=== PATIENT | female | born 1930 | race Caucasian/White ===

== ENCOUNTER 2016-05-31 12:32 | Inpatient (IN) | payer OTHER, BC ==
[~2016-05-31] VITALS: Ht 157.5 cm; Wt 55.0 kg
[~2016-05-31 12:32] MED LIST: ASPI81TA28 PO; CALC667C4 PO; GENT0.1C2 TOP; METO25TA3 PO; PRAV40TA2 PO
--- NOTE | 2016-05-31 13:12 | EMERGENCY ROOM VISIT NOTE ---
History Report prepared by [place]ley: Jayme Kirkpatrick Under the Supervision of: Dr. Rigoberto Mathews M.D. First contact with patient: 13:02 Chief Complaint: RESPIRATORY PROBLEMS Stated Complaint: DIFFICULTY BREATHING, WHEEZING Nursing Triage Summary: Triage NOte: pt reports shortness of breath x several days. pt reports moist cough "nothing will come up." pt reports she was seen at [facility] and started on amoxicillan. History of Present Illness The patient is a 86 year old female who presents to the Emergency Room with complaints of shortness of breath that began several days ago. The patient was prescribed Amoxicillin for her illness two days ago. She has taken 5 pills since then. She feels that she is not improving at all. The patient is experiencing a cough with no production. She also reports she had a mild fever this morning. She also states that the antibiotics have given her diarrhea. She denies any chills. 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 She also has a port for dialysis in her right lower abdomen. The patient has had pneumonia before. She reports that it was ten years ago. She is not on any blood thinners. Source of History: patient Onset: several days ago Position: other (lungs) Symptom Intensity: moderate Quality: other (shortness of breath) Timing: other (persistent) Associated Symptoms: + cough, + diarrhea, + fevers, No chills Review of Systems All systems have been listed, reviewed, and are negative other than those previously mentioned. Please see Additional Medical History Sheet. Past Medical & Surgical Medical Problems: (1) CKD (chronic kidney disease) stage 3, GFR 30-59 ml/min (2) ESRD (end stage renal disease) on dialysis (3) Gout (4) Hepatitis, chronic (5) Hypertension (6) Pancreatic lesion (7) Paroxysmal atrial fibrillation (8) Valvular heart disease Surgical Problems: (1) Status post cardiac pacemaker procedure (2) Status post cataract extraction (3) Status post cholecystectomy (4) Status post mitral valve repair (5) Status post tonsillectomy (6) Status post tricuspid valve repair Family History FH: heart disease Social History Smoking Status: Never Smoker Smokeless Tobacco Use: No Marital Status: single Housing Status: lives with family 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 Current/Historical Medications Scheduled Amoxicillin (Amoxil), 250 MG PO BID Calcitriol (Rocaltrol Cap), 0.25 MCG PO DAILY Cinacalcet (Sensipar), 30 MG PO DAILY Metoprolol Tartrate (Lopressor), 12.5 MG PO DAILY Pravastatin Sodium (Pravastatin Sodium), 40 MG PO HS Sevelamer Carbonate (Renvela), 2 TAB PO TIDM Allergies Coded Allergies: Sulfamethoxazole w/Trimethoprim (Verified Allergy, Severe, RASH, n/v, swelling of LE, 03/19/14) Physical Exam Vital Signs Date Time Temp Pulse Resp B/P Pulse Ox O2 Delivery O2 Flow Rate FiO2 05/31/16 19:31 100 28 96/40 94 05/31/16 17:32 105 05/31/16 17:08 93 36 94/37 98 Nebulizer 7.0 05/31/16 16:23 89 30 91/43 96 Nasal Cannula 2.0 05/31/16 14:36 83 32 93/38 94 Nasal Cannula 2.0 05/31/16 13:29 87 05/31/16 13:23 88 36 101/51 97 Nasal Cannula 2.0 05/31/16 13:17 97 Nasal Cannula 2.0 05/31/16 13:17 97 Nasal Cannula 2.0 05/31/16 12:35 36.5 93 20 98/52 91 Room Air Physical Exam GENERAL: Patient awake, alert, oriented x 3. Patient follows commands. Patient does not appear toxic. Patient is adequately hydrated and well- nourished. Mild to moderate distress. SKIN: No erythema, pallor, cyanosis or rash HEENT: Normal head, pupils equal, reactive to light and accommodation. Ptosis on her right eye. Healing incision on right cheek in front of right ear. Ears normal. Oral cavity and posterior pharynx appear normal. Neck: Without adenopathy. LUNGS: Wheezes and rhonchi in all laird. HEART: No gallops. 2/6 systolic murmur and a faint rub. ABDOMEN: No masses, no rebound, no hepatomegaly or splenomegaly. Peritoneal dialysis port located in right lower quadrant. EXTREMITIES: No signs of trauma. No pedal or pretibial edema. No calf or thigh tenderness. Stasis changes to both lower extremities. NEUROLOGIC: Cranial nerves II-XII within normal limits. No gross motor sensory function deficits. Medical Decision & Procedures ER Provider Diagnostic Interpretation: X ray results are stated below per my interpretation and the radiologist's interpretation. CHEST 2 VIEWS ROUTINE HISTORY: Cough. suspect pneumonia COMPARISON: Chest 03/14/2014. FINDINGS: The heart remains moderately enlarged. There are postoperative changes, left-sided pacemaker, and cardiac valve prostheses. No evidence for pulmonary edema. No pleural effusions. No pneumothorax. Linear density within the right medial lung base favor subsegmental atelectasis or scarring. Otherwise, no additional focal lung consolidations to suggest pneumonia. IMPRESSION: Stable cardiomegaly. Linear density within right medial lung base favors scarring or subsegmental atelectasis. Electronically signed by: Austin Garcia M.D. 05/31/2016 2:36 PM Dictated Date/Time: 05/31/2016 2:34 PM Laboratory Results 05/31/16 13:14 Red Blood Count 3.05, Mean Corpuscular Volume 98.4, Mean Corpuscular Hemoglobin 33.4, Mean Corpuscular Hemoglobin Concent 34.0, Mean Platelet Volume 8.9, Neutrophils (%) (Auto) 81.8, Lymphocytes (%) (Auto) 10.6, Monocytes (%) (Auto) 6.9, Eosinophils (%) (Auto) 0.2, Basophils (%) (Auto) 0.2, Neutrophils # (Auto) 5.00, Lymphocytes # (Auto) 0.65, Monocytes # (Auto) 0.42, Eosinophils # (Auto) 0.01, Basophils # (Auto) 0.01 05/31/16 13:14 Test 05/31/16 13:14 05/31/16 13:41 05/31/16 19:37 White Blood Count 6.11 K/uL (4.8-10.8) Red Blood Count 3.05 M/uL (4.2-5.4) Hemoglobin 10.2 g/dL (12.0-16.0) Hematocrit 30.0 % (37-47) Mean Corpuscular Volume 98.4 fL (80-100) Mean Corpuscular Hemoglobin 33.4 pg (25-34) Mean Corpuscular Hemoglobin Concent 34.0 g/dl (32-36) Platelet Count 164 K/uL (130-400) Mean Platelet Volume 8.9 fL (7.4-10.4) Neutrophils (%) (Auto) 81.8 % Lymphocytes (%) (Auto) 10.6 % Monocytes (%) (Auto) 6.9 % Eosinophils (%) (Auto) 0.2 % Basophils (%) (Auto) 0.2 % Neutrophils # (Auto) 5.00 K/uL (1.4-6.5) Lymphocytes # (Auto) 0.65 K/uL (1.2-3.4) Monocytes # (Auto) 0.42 K/uL (0.11-0.59) Eosinophils # (Auto) 0.01 K/uL (0-0.5) Basophils # (Auto) 0.01 K/uL (0-0.2) RDW Standard Deviation 50.8 fL (36.4-46.3) RDW Coefficient of Variation 14.2 % (11.5-14.5) Immature Granulocyte % (Auto) 0.3 % Immature Granulocyte # (Auto) 0.02 K/uL (0.00-0.02) Anion Gap 14.0 mmol/L (3-11) Est Creatinine Clear Calc Drug Dose 4.7 ml/min Estimated GFR () 5.8 Estimated GFR (Non- 5.0 BUN/Creatinine Ratio 5.1 (10-20) Calcium Level 9.3 mg/dl (8.5-10.1) Total Bilirubin 0.5 mg/dl (0.2-1) Aspartate Amino Transf (AST/SGOT) 23 U/L (15-37) Alanine Aminotransferase (ALT/SGPT) 20 U/L (12-78) Alkaline Phosphatase 92 U/L (45-117) Total Protein 8.1 gm/dl (6.4-8.2) Albumin 3.0 gm/dl (3.4-5.0) Globulin 5.1 gm/dl (2.5-4.0) Albumin/Globulin Ratio 0.6 (0.9-2) Lactic Acid Level 1.4 mmol/L (0.4-2.0) Laboratory results as stated above per my review. Medications Administered Medications (Trade) Dose Ordered Sig/Seth Route Start Time Stop Time Status Last Admin Dose Admin Sodium Chloride (Nss 250ml) 250 ml @ 999 mls/hr Q16M STAT IV 05/31/16 15:05 05/31/16 15:20 DC 05/31/16 15:10 999 MLS/HR Albuterol/ Ipratropium (Duoneb) 3 ml NOW STAT INH 05/31/16 16:27 05/31/16 16:28 DC 05/31/16 17:08 3 ML Methylprednisolone Sodium Succinate 80 mg 80 mg NOW STAT IV 05/31/16 17:15 05/31/16 17:16 DC 05/31/16 17:25 80 MG Ceftriaxone Sodium/Dextrose (Rocephin Inj/ Dextrose Add-[place] 50ML) 50 ml @ 100 mls/hr DAILY@1900 IV 05/31/16 19:00 06/07/16 18:59 05/31/16 19:00 100 MLS/HR ECG Indication: SOB/dyspnea Rate (beats per minute): 88 Rhythm: atrial fibrillation Findings: RBBB, ST depression (2, 3 aVF, V3-6), other (occasional pacer spikes , non-capture of pacemaker) Comparison ECG Date: 16 August 2015 Change: ST depressions are old, the rate has decreased. ED Course 1302: Past medical records reviewed. The patient was evaluated in room B6. A complete history and physical examination was performed. 1505: Sodium Chloride 1000 ml @ 1000 mls/hr IV 1615: I reassessed the patient at this time. She is still having respiratory distress. I will order a breathing treatment. 1627: Duoneb 3 ml INH 1715: Solu-Medrol IV 80 mg IV 1716: The patient is still having labored breathing. She is getting a breathing treatment now. I gave her steroids. I will be calling [facility] for further management. 1720: Upon reevaluation, the patient is resting. I discussed today's findings with her. She verbalized agreement of the treatment plan. I spoke with Dr. Longo of the [facility] Hospitalist Service to evaluate the patient for further management. Medical Decision Nurses notes reviewed. Medical history sheet reviewed. Differential diagnosis includes but is not limited to: Pneumonia, bronchitis, sepsis, metabolic disorder, and dehydration. The patient is here with labored breathing. She's been on an antibiotic without benefit. Examination reveals significant wheezes and some rhonchi. Chest x-ray does not reveal clear infiltrate. Patient was given a breathing treatment. I discussed care with the patient, family members and with the hospitalist. The patient will require further evaluation and treatment in the hospital. The patient has a coma over problems complicating her respiratory issue. The patient also has an unusual EKG with questionable pacemaker malfunction. The patient will require cardiology follow-up. Consults Time Called: 1715 Consulting Physician: Dr. Donta Espino Hospitalist Returned Call: 1720 She will be evaluating the patient for further management. Impression Primary Impression: Hypoxia Additional Impressions: Acute bronchitis Renal failure Hypotension Scribe Attestation The scribe's documentation has been prepared under my direction and personally reviewed by me in its entirety. I confirm that the note above accurately reflects all work, treatment, procedures, and medical decision making performed by me. Departure Information Dispostion Being Evaluated By Hospitalist Referrals OncHalle garcia DO (PCP) Patient Instructions My [facility] Problem Qualifiers
[2016-05-31 13:59] LABS: BASO % 0.2 %; BASO ABS # 0.01 K/uL (0-0.2); COMPLETE YES; EOS % 0.2 %; IG% 0.3 %; LYMPH % 10.6 %; LYMPH ABS # 0.65 K/uL (1.2-3.4); MEAN CELL VOLUME 98.4 fL (80-100); MEAN CORPUSCULAR HEMOGLOBIN 33.4 pg (25-34); MEAN PLATELET VOLUME 8.9 fL (7.4-10.4); MONO % 6.9 %; NEUT % 81.8 %; PLATELET COUNT 164 K/uL (130-400); RED BLOOD COUNT 3.05 M/uL (4.2-5.4); WHITE BLOOD COUNT 6.11 K/uL (4.8-10.8)
[2016-05-31] MEDS ORDERED: SEVE800T7 PO (14:07)
[2016-05-31] MEDS ORDERED: AMOX250C3 PO (14:07)
[2016-05-31] MEDS ORDERED: CALC0.2510 PO (14:07)
[2016-05-31] MEDS ORDERED: CINA0.42 PO (14:07)
[2016-05-31 14:34] LABS: ALB/GLOB RATIO 0.6 (0.9-2); BUN/CREATININE RATIO 5.1 (10-20); CALCIUM 9.3 mg/dl (8.5-10.1); CREATININE 6.9 mg/dl (0.60-1.20); POTASSIUM 4.3 mmol/L (3.5-5.1)
--- NOTE | 2016-05-31 14:38 | DIAGNOSTIC IMAGING REPORT ---
CHEST 2 VIEWS ROUTINE HISTORY: Cough. suspect pneumonia COMPARISON: Chest 03/14/2014. FINDINGS: The heart remains moderately enlarged. There are postoperative changes, left-sided pacemaker, and cardiac valve prostheses. No evidence for pulmonary edema. No pleural effusions. No pneumothorax. Linear density within the right medial lung base favor subsegmental atelectasis or scarring. Otherwise, no additional focal lung consolidations to suggest pneumonia. IMPRESSION: Stable cardiomegaly. Linear density within right medial lung base favors scarring or subsegmental atelectasis. Electronically signed by: Austin Garcia M.D. 05/31/2016 2:36 PM Dictated Date/Time: 05/31/2016 2:34 PM
[2016-05-31] MEDS ORDERED: SODIUM CHLORIDE 0.9% 250ML 250 ML IV STA ×2 (15:05→20:03)
[2016-05-31] MEDS ORDERED: ALBUT/IPRATROP 3MG/0.5MG NEB 3 ML VIAL INH STA (16:27)
[2016-05-31] MEDS ORDERED: METHYLPREDNISOLONE 125 MG VIAL IV STA (17:15)
[2016-05-31] MEDS ORDERED: ONDANSETRON INJ 2 MG/ML 2 ML VIAL IV PRN (18:15)
[2016-05-31] MEDS ORDERED: ACETAMINOPHEN 325 MG TAB PO PRN (18:15)
[2016-05-31] MEDS ORDERED: NITROGLYCERIN 0.4 MG SL PER TAB CHARGE SL PRN (18:15)
[2016-05-31] MEDS ORDERED: AZITHROMYCIN 250 MG TAB PO STA (18:17)
[2016-05-31] MEDS ORDERED: LEVALBUTEROL/IPRATROPIUM NEB INH PRN ×2 (18:30→18:45)
[2016-05-31] MEDS ORDERED: LPR25 PO (18:47)
[2016-05-31] MEDS: CEFTRIAXONE SOD INJ 1 GM in DEXTROSE 5% ADD-VANTAGE 50ML 50 ML IV SCH (19:00)
[2016-05-31] MEDS ORDERED: LEVALBUTEROL/IPRATROPIUM NEB INH SCH (19:00)
--- NOTE | 2016-05-31 19:07 | History and Physical ---
History & Physical Date & Time of Service: May 31, 2016 at 18:49 Chief Complaint: Difficulty Breathing, Wheezing Primary Care Physician: Arline Arroyo M.D. History of Present Illness Source: patient, family, clinic records, hospital records Patient seen and examined. 86 year old female with PMHx of ESRD on peritoneal dialysis, HLD, Afib, and h/o pacemaker presents to the ED complaining of SOB and wheezing x 1 day. Patient reports that she has had URI symptoms for about a week and was started on Amoxil by her PCP. In the last day or so the patient reports that she has been wheezing and somewhat SOB so she came to the ED today. She reports associated nasal congestion and cough. She states her cough is becoming more productive but she still hasn't coughed anything up. She denies fevers, chills, chest pain, palpitations, nausea, vomiting, calf pain and edema. She does not urinate. She states she has been having 3-4 episodes of diarrhea a day since starting the Amoxil. She reports family members have had URIs recently. She does not wear oxygen at home and denies history of COPD, Asthma or tobacco abuse. In the ED BP is soft, she is afebrile, she is 91% on RA. Oxygen was applied to patient and she is saturating well. CXR does not show any consolidation. EKG shows a paced rhythm but ED physician is concerned that it is not pacing ever beat. She received IV steroids, and nebs. She is feeling a little better. She will be admitted for further workup and treatment. 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." Status: Chronic (7) Paroxysmal atrial fibrillation Status: Chronic (8) Valvular heart disease Status: Chronic Surgical Problems: (1) Status post cardiac pacemaker procedure Status: Chronic (2) Status post cataract extraction Status: Chronic (3) Status post cholecystectomy Status: Chronic (4) Status post mitral valve repair Status: Chronic (5) Status post tonsillectomy Status: Chronic (6) Status post tricuspid valve repair Status: Chronic Family History FH: heart disease Stroke Social History Smoking Status: Never Smoker Smokeless Tobacco Use: No Alcohol Use: occasionally Marital Status: single Housing status: lives with family Occupational Status: retired Immunizations History of Influenza Vaccine: Unknown History of Tetanus Vaccine?: Unknown History of Pneumococcal: Unknown History of Hepatitis B Vaccine: Unknown Multi-Drug Resistant Organisms History of MDRO: No Allergies Coded Allergies: Sulfamethoxazole w/Trimethoprim (Verified Allergy, Severe, RASH, n/v, swelling of LE, 03/19/14) Home Medications Scheduled Amoxicillin (Amoxil), 250 MG PO BID Calcitriol (Rocaltrol Cap), 0.25 MCG PO DAILY Cinacalcet (Sensipar), 30 MG PO DAILY Metoprolol Tartrate (Lopressor), 12.5 MG PO DAILY Pravastatin Sodium (Pravastatin Sodium), 40 MG PO HS Sevelamer Carbonate (Renvela), 2 TAB PO TIDM Review of Systems Constitutional: No chills, No fever Eyes: No worsening of vision ENT: + nasal symptoms Respiratory: + cough, + shortness of breath, + sputum, + wheezing Cardiovascular: No chest pain, No edema, No palpitations Abdomen: + diarrhea, No constipation, No nausea, No pain, No vomiting Musculoskeletal: No calf pain, No swelling Genitourinary - Female: + problem reported (does not urinate ) Neurologic: No numbness/tingling, No vertigo Psychiatric: No anxiety Endocrine: No fatigue Hematologic / Lymphatic: No abnormal bleeding/bruising, No clotting problems Integumentary: No itch, No rash Allergic / Immunologic: No environmental allergies Physical Exam Vital Signs Date Time Temp Pulse Resp B/P Pulse Ox O2 Delivery O2 Flow Rate FiO2 05/31/16 17:32 105 05/31/16 17:08 93 36 94/37 98 Nebulizer 7.0 05/31/16 16:23 89 30 91/43 96 Nasal Cannula 2.0 05/31/16 14:36 83 32 93/38 94 Nasal Cannula 2.0 05/31/16 13:29 87 05/31/16 13:23 88 36 101/51 97 Nasal Cannula 2.0 05/31/16 13:17 97 Nasal Cannula 2.0 05/31/16 13:17 97 Nasal Cannula 2.0 05/31/16 12:35 36.5 93 20 98/52 91 Room Air General Appearance: + pertinent finding (Pleasant WD/WN 86 year old female lying in bed in NAD with family at bedside ) Head: normocephalic, atraumatic Eyes: PERRL, EOMI, sclerae normal ENT: hearing grossly normal, pharynx normal Neck: supple, no JVD, trachea midline Respiratory/Chest: chest non-tender, no respiratory distress, no accessory muscle use, + pertinent finding (poor air entry, diffuse wheezes noted throughout all lung laird, no crackles noted ) Cardiovascular: regular rate, rhythm, no gallop, no JVD, no murmur, normal peripheral pulses Abdomen/GI: normal bowel sounds, non tender, soft Back: normal inspection, no muscle spasm Extremities/Musculoskelatal: no calf tenderness, normal capillary refill, + pedal edema (trace) Neurologic/Psych: alert, oriented x 3, + pertinent finding (no motor or sensory deficits noted on gross exam ) Skin: normal color, warm/dry, no rash, + pertinent finding (right side of face s/p skin lesion removal ) Lymphatic: no adenopathy Diagnostics Laboratory Results Results Past 24 Hours Test 05/31/16 13:14 05/31/16 13:41 Range/Units White Blood Count 6.11 4.8-10.8 K/uL Red Blood Count 3.05 4.2-5.4 M/uL Hemoglobin 10.2 12.0-16.0 g/dL Hematocrit 30.0 37-47 % Mean Corpuscular Volume 98.4 80-100 fL Mean Corpuscular Hemoglobin 33.4 25-34 pg Mean Corpuscular Hemoglobin Concent 34.0 32-36 g/dl Platelet Count 164 130-400 K/uL Mean Platelet Volume 8.9 7.4-10.4 fL Neutrophils (%) (Auto) 81.8 % Lymphocytes (%) (Auto) 10.6 % Monocytes (%) (Auto) 6.9 % Eosinophils (%) (Auto) 0.2 % Basophils (%) (Auto) 0.2 % Neutrophils # (Auto) 5.00 1.4-6.5 K/uL Lymphocytes # (Auto) 0.65 1.2-3.4 K/uL Monocytes # (Auto) 0.42 0.11-0.59 K/uL Eosinophils # (Auto) 0.01 0-0.5 K/uL Basophils # (Auto) 0.01 0-0.2 K/uL RDW Standard Deviation 50.8 36.4-46.3 fL RDW Coefficient of Variation 14.2 11.5-14.5 % Immature Granulocyte % (Auto) 0.3 % Immature Granulocyte # (Auto) 0.02 0.00-0.02 K/uL Sodium Level 136 136-145 mmol/L Potassium Level 4.3 3.5-5.1 mmol/L Chloride Level 94 98-107 mmol/L Carbon Dioxide Level 28 21-32 mmol/L Anion Gap 14.0 3-11 mmol/L Blood Urea Nitrogen 36 7-18 mg/dl Creatinine 6.90 0.60-1.20 mg/dl Est Creatinine Clear Calc Drug Dose 4.7 ml/min Estimated GFR () 5.8 Estimated GFR (Non- 5.0 BUN/Creatinine Ratio 5.1 10-20 Random Glucose 105 70-99 mg/dl Calcium Level 9.3 8.5-10.1 mg/dl Total Bilirubin 0.5 0.2-1 mg/dl Aspartate Amino Transf (AST/SGOT) 23 15-37 U/L Alanine Aminotransferase (ALT/SGPT) 20 12-78 U/L Alkaline Phosphatase 92 45-117 U/L Total Protein 8.1 6.4-8.2 gm/dl Albumin 3.0 3.4-5.0 gm/dl Globulin 5.1 2.5-4.0 gm/dl Albumin/Globulin Ratio 0.6 0.9-2 Lactic Acid Level 1.4 0.4-2.0 mmol/L Microbiology Results 05/31/16 Blood Culture, Received Pending 05/31/16 Blood Culture, Received Pending Diagnostic Radiology CXR Per radiologist read: IMPRESSION: Stable cardiomegaly. Linear density within right medial lung base favors scarring or subsegmental atelectasis. EKG Afib with RBBB, 90 BPM, some pacemaker spikes, QTc 521 Impression Assessment and Plan 86 year old female presents to ED complaining of cough, SOB, wheezing. Likely acute bronchitis. Denies history of Asthma/COPD. She is a nonsmoker ACUTE BRONCHITIS -Admit to tele -CXR without consolidation, no leukocytosis, lactate <2, afebrile -Check for Flu - PCR flu pending -Empirically treat with Rocephin and Doxycycline -blood cultures, sputum cultures pending -Xopenex nebs scheduled and prn SOB/Wheeze -IV Solu-Medrol 60mg Q8h -Oxygen prn -CBC, PRP, Mg daily DIARRHEA -check c.diff ESRD -On Peritoneal dialysis -follows with [facility] -nephrology consult placed -lytes stable H/O PACEMAKER - per patient last pacemaker check several weeks ago and normal -only occasional pacemaker spikes on EKG -interrogate pacemaker -monitor in tele AFIB -continue BB with hold parameters - BP in the 90s-100s systolically currently -monitor in tele HLD -continue Statin DVT PROPHYLAXIS: Sq heparin CODE STATUS: FULL CODE per my discussion with the patient DISPO:In my clinical judgment this beneficiary meets acute admission criteria, established by [facility], that includes being hospitalized through two midnights. Discharge planning eval, PT/OT Patient seen in collaboration with Dr. Longo ATTENDING NOTE : pt seen and examined , in agreement with above H&P by Sandra Leger PA-C 86 yo F with multiple co morbbidities -including -ESRD on dialysis , Afib s/p MAZE procedure , Pacemaker placement has been having cough, yellow sputum , sinus pressure , post nasal drip for past 3-4 days no fever seen at PCP office on 05/29/15 -started on Amoxicillin -no improvement of symptom presents to ED with diffuse wheeze , hypoxia Cxray -no obvious infiltrate normal white count P/E: gen : chronically ill appearing female , in respiratory distress HEENT; sclera non icteric Lungs: diffuse wheeze on all lung laird , + rhonchi HT: regular , tachycardic , no JVD, no lower ext edema Abdomen: soft ,non tender -peritoneal dialysis access present Ext ; no rash or deformity A/P : SOB /HYPOXIA /ACUTE BRONCHITIS : possible secondary to viral bronchitis no infiltrate noted in Cxray repeat Xray ordered in AM empiric Abx with IV Rocephin /Doxycycline ( qtc prolonged > 500 ) . 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 Y/N: Yes Risk Level: Moderate Given or contraindicated: Unfractionated heparin SQ
[2016-05-31] MEDS ORDERED: LEValbuterol HFA 15GM INHALER INH PRN (19:30)
[2016-05-31] MEDS ORDERED: SODIUM CHLORIDE 0.9% 250ML 250 ML IV SCH (19:30)
[2016-05-31] MEDS ORDERED: SODIUM CHLORIDE 0.9% 1000ML 1,000 ML IV SCH (19:30)
[2016-05-31 20:07] VITALS: BP 109/25; PULSE 101; TEMP 37.3; O2SAT 94; Ht 157.5 cm; Wt 55.0 kg
[2016-05-31] MEDS: IPRATROPIUM BROMIDE NEB SOLN 0.02% 2.5 ML VIAL INH SCH (20:14)
[2016-05-31] MEDS: LEVALBUTEROL 1.25MG/0.5ML NEB INH SCH (20:14)
[2016-05-31 20:15] VITALS: PULSE 96; O2SAT 96
[2016-05-31] MEDS ORDERED: IPRATROPIUM BROMIDE NEB SOLN 0.02% 2.5 ML VIAL INH PRN (20:15)
[2016-05-31] MEDS ORDERED: LEVALBUTEROL 1.25MG/0.5ML NEB INH PRN (20:15)
[2016-05-31 20:50] VITALS: BP 101/41; PULSE 98; TEMP 36.8
[2016-05-31] MEDS ORDERED: PRAVASTATIN SOD 40 MG TAB PO SCH (21:00)
[2016-05-31] MEDS ORDERED: METOPROLOL TARTRATE 25 MG TAB PO SCH (21:00)
[2016-05-31] MEDS: DOXYCYCLINE HYCLATE 100 MG CAP PO SCH (21:21)
[2016-05-31 21:52] LABS: INR 1.2 (0.9-1.1); PROTHROMBIN TIME (PATIENT) 12.4 SECONDS (9.0-12.0)
[2016-05-31 22:10] VITALS: PULSE 96; TEMP 36.8
[2016-05-31 22:56] VITALS: BP 101/41; PULSE 98; TEMP 36.8
[2016-05-31 23:16] VITALS: BP 93/41; PULSE 77; TEMP 37.2; O2SAT 96
[2016-05-31 23:27] LABS: PERITONEAL FLUID RBC < 3000 /uL
[2016-05-31 23:48] LABS: INFLUENZA A PCR Neg for Influ A (NEG); INFLUENZA B PCR Neg for Influ B (NEG)
[2016-06-01] VITALS (10 sets, daily range): BP systolic 86–114; BP diastolic 34–65; PULSE 70–102; TEMP 36.6–37.1; O2SAT 92–97
[2016-06-01 01:28] LABS: PERIT FL WBC < 10 /uL (0-300)
[2016-06-01] MEDS: METHYLPREDNISOLONE IV 60 MG in SYRINGE 0 ML IV SCH ×3 (02:07→18:00)
[2016-06-01] MEDS: IPRATROPIUM BROMIDE NEB SOLN 0.02% 2.5 ML VIAL INH SCH ×3 (02:13→14:24)
[2016-06-01] MEDS: LEVALBUTEROL 1.25MG/0.5ML NEB INH SCH ×3 (02:14→14:24)
[2016-06-01] MEDS: HEPARIN SOD 5000 UNIT/0.5 ML CARP SQ SCH ×2 (05:51→14:44)
[2016-06-01 06:04] LABS: HEMATOCRIT 26.5 % (37-47); MEAN CELL VOLUME 100.4 fL (80-100); MEAN CORPUSCULAR HEMOGLOBIN 33.3 pg (25-34); MEAN CORPUSCULAR HGB CONC 33.2 g/dl (32-36); MEAN PLATELET VOLUME 9.3 fL (7.4-10.4); PLATELET COUNT 140 K/uL (130-400); RED BLOOD COUNT 2.64 M/uL (4.2-5.4); WHITE BLOOD COUNT 4.26 K/uL (4.8-10.8)
[2016-06-01 06:46] LABS: BUN/CREATININE RATIO 6.1 (10-20); CALCIUM 8.3 mg/dl (8.5-10.1); CREATININE 6.9 mg/dl (0.60-1.20); MAGNESIUM 1.7 mg/dl (1.8-2.4); POTASSIUM 4.1 mmol/L (3.5-5.1)
[2016-06-01] MEDS: DOXYCYCLINE HYCLATE 100 MG CAP PO SCH (07:59)
[2016-06-01] MEDS: SEVELAMER HYDROCH 800 MG TAB PO SCH ×3 (07:59→16:50)
[2016-06-01] MEDS: LACTOBACILLUS ACIDOPHILUS (FLORANEX) TAB PO SCH ×3 (08:01→16:50)
--- NOTE | 2016-06-01 08:09 | Nephrology Consultation ---
Nephrology Consultation Date of Consultation: Jun 01, 2016. Attending Physician: Dr Pimentel Requesting Physician: Dr Longo Reason for Consultation: ESRD on PD History of Present Illness 86 year old female w/ ESRD on PD admitted for mgt of acute bronchitis last evening. Other PMH includes A fib, HL, hepatitis, HTN, gout, s/p tricuspid and mitral valve repairs. Has been on PD for a few years under the care of Dr. Almazan at [facility]; one peritonitis episode abotu 6 mos back otherwise pd going well. She lives w/ her daughter and family and has + sick contacts. The pt developed respiratory sx last week (productive cough, rhinorrhea/ sinus pressure) and was started on amoxil on 05/29 by her PCP; within a day she developed diarrhea on this abtc. Over the 48 hrs prior to admission, her wheezing and dyspnea worsened; had also been eating/drinking poorly. Found to be hypoxic on presentation. CXR w/o evidence of PNA or volume overload. Denies issues w/ PD such as trouble doing exchanges or catheter or exit site concerns; no n/v/abd pain or prior to abtx diarrhea. She is anuric. Her prescription is 4 exchanges MN-8 am x 2200 mL then 2L LBF which she drains at noon; then at 2100 she puts in 1.5L. States she feels much improved this am, though still notes her breathing is short at times. I reviewed her care yesterday, ordered PD fluid studies (d/t gi sx solely) which are not concerning for peritonitis; then also ordered PD overnight w/ goal of minimal UF. Her sbp normally per pt is in 100s; she was running 80-90s on admission and after d/w Dr. Longo, a 250 ML NS bolus was ordered followed by 50 mL hourly NS. 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 Allergies Coded Allergies: Sulfamethoxazole w/Trimethoprim (Verified Allergy, Severe, RASH, n/v, swelling of LE, 03/19/14) Medications Current Inpatient Medications Medications (Trade) Dose Ordered Sig/Seth Route Start Time Stop Time Status Last Admin Dose Admin Heparin Sodium (Porcine) (Heparin Sq 5000 Unit/0.5ml) 5,000 unit Q8 SQ 06/01/16 06:00 07/01/16 05:59 06/01/16 05:51 5,000 UNIT Acetaminophen (Tylenol Tab) 650 mg Q4H PRN PO 05/31/16 18:15 06/30/16 18:14 Nitroglycerin (Nitrostat Tab) 0.4 mg UD PRN SL 05/31/16 18:15 06/30/16 18:14 Calcitriol (Rocaltrol Cap) 0.25 mcg DAILY PO 06/01/16 09:00 07/01/16 08:59 Pravastatin Sodium (Pravachol Tab) 40 mg HS PO 05/31/16 21:00 06/30/16 20:59 05/31/16 21:21 40 MG Cinacalcet (Sensipar) 30 mg DAILY PO 06/01/16 09:00 07/01/16 08:59 Sevelamer HCl 1600 mg 1,600 mg TIDM PO 06/01/16 07:30 07/01/16 07:59 Ceftriaxone Sodium/Dextrose (Rocephin Inj/ Dextrose Add-[place] 50ML) 50 ml @ 100 mls/hr DAILY@1900 IV 05/31/16 19:00 06/07/16 18:59 05/31/16 19:00 100 MLS/HR Doxycycline Hyclate 100 mg 100 mg BID PO 05/31/16 21:00 06/07/16 20:59 05/31/16 21:21 100 MG Methylprednisolone Sodium Succinate/ Syringe (Solu-Medrol IV/ Syringe) 0.96 ml @ 1.5 mls/min Q8@0200,1000,1800 IV 06/01/16 02:00 06/30/16 18:44 06/01/16 02:07 1.5 MLS/MIN Metoprolol Tartrate (Lopressor Tab) 12.5 mg HS PO 05/31/16 21:00 06/30/16 20:59 05/31/16 21:21 12.5 MG Levalbuterol 2 puffs 2 puffs QID PRN INH 05/31/16 19:30 06/30/16 19:29 Sodium Chloride (Nss 1000ml) 1,000 ml @ 50 mls/hr Q20H IV 05/31/16 19:30 06/30/16 19:29 05/31/16 21:20 50 MLS/HR Ipratropium [place] (Atrovent 0.02% 0.5MG/2.5ML Neb) 0.5 mg Q6R INH 05/31/16 21:00 06/30/16 20:59 06/01/16 07:09 0.5 MG Levalbuterol (Xopenex 1.25MG/ 0.5ML Neb) 1.25 mg Q6R INH 05/31/16 21:00 06/30/16 20:59 06/01/16 07:09 1.25 MG Ipratropium [place] (Atrovent 0.02% 0.5MG/2.5ML Neb) 0.5 mg Q2H PRN INH 05/31/16 20:15 06/30/16 20:14 Levalbuterol (Xopenex 1.25MG/ 0.5ML Neb) 1.25 mg Q2H PRN INH 05/31/16 20:15 06/30/16 20:14 Lactobacillus Acidophilus (Floranex Tab) 4 tab TIDM PO 06/01/16 07:30 07/01/16 07:29 Home Meds and Scripts Medications Dose Route/Sig Max Daily Dose Days Date Category Dose Instructions Lopressor (Metoprolol Tartrate) 25 Mg Tab 12.5 Mg PO DAILY 05/31/16 Reported Renvela (Sevelamer Carbonate) 800 Mg Tab 2 Tab PO TIDM 90 05/31/16 Reported Amoxil (Amoxicillin) 250 Mg Cap 250 Mg PO BID 05/31/16 Reported X10 DAYS..STARTED 05/29/16 Rocaltrol Cap (Calcitriol) 0.25 Mcg Cap 0.25 Mcg PO DAILY 05/31/16 Reported Sensipar (Cinacalcet) 30 Mg Tab 30 Mg PO DAILY 05/31/16 Reported Pravastatin Sodium 40 Mg Tab 40 Mg PO HS 11/17/13 Reported Review of Systems Constitutional: + fatigue, + weakness, No fever Eyes: No worsening of vision ENT: No hearing loss Respiratory: + cough, + dyspnea at rest, + see HPI, + shortness of breath ( breathing improved today and does not feel dyspneic), + wheezing Cardiac: No chest pain, No edema, No palpitations Abdomen: + diarrhea, No nausea, No pain, No vomiting Musculoskeletal: No joint pain, No muscle pain Female : + problem reported (anuric) Neuro: + weakness, No memory loss Psych: No anxiety, No depression symptoms Heme: No abnormal bleeding/bruising Endo: + fatigue Skin: No itch, No rash Physical Exam Date Time Temp Pulse Resp B/P Pulse Ox O2 Delivery O2 Flow Rate FiO2 06/01/16 04:15 Nasal Cannula 2.0 06/01/16 04:08 36.7 83 18 86/34 94 Nasal Cannula 2.0 06/01/16 02:14 92 20 96 Nasal Cannula 2.0 06/01/16 00:02 Nasal Cannula 2.0 05/31/16 23:16 37.2 77 19 93/41 96 Nasal Cannula 2.0 05/31/16 22:56 36.8 98 101/41 05/31/16 22:10 36.8 96 16 05/31/16 20:50 36.8 98 101/41 05/31/16 20:15 96 20 96 Nasal Cannula 2.0 05/31/16 20:07 37.3 101 20 109/25 94 Nasal Cannula 2.0 05/31/16 19:31 100 28 96/40 94 05/31/16 17:32 105 05/31/16 17:08 93 36 94/37 98 Nebulizer 7.0 05/31/16 16:23 89 30 91/43 96 Nasal Cannula 2.0 05/31/16 14:36 83 32 93/38 94 Nasal Cannula 2.0 05/31/16 13:29 87 05/31/16 13:23 88 36 101/51 97 Nasal Cannula 2.0 05/31/16 13:17 97 Nasal Cannula 2.0 05/31/16 13:17 97 Nasal Cannula 2.0 05/31/16 12:35 36.5 93 20 98/52 91 Room Air 24-Hour Column 06/01/16 08:00 Intake Total 1990 ml Output Total 1000 ml Balance 990 ml General Appearance: WD/WN, no apparent distress, + thin, + pertinent finding ( lying flat on 2LNC) Eyes: EOMI ENT: hearing grossly normal Neck: supple Respiratory/Chest: no respiratory distress, no accessory muscle use, + decreased breath sounds, + rhonchi, + wheezing, + pertinent finding (prolonged expiratory phase) Cardiovascular: no edema, + irregularly irregular Abdomen: normal bowel sounds, non tender, + pertinent finding (PD cath present ; fluid dwelling) Extremities: normal inspection, no pedal edema Neurologic/Psych: alert, normal mood/affect, oriented x 3 Skin: no jaundice, warm/dry, no rash Diagnostics Last 24 Hours Test 05/31/16 13:14 05/31/16 13:41 05/31/16 20:30 05/31/16 21:32 White Blood Count 6.11 K/uL Red Blood Count 3.05 M/uL Hemoglobin 10.2 g/dL Hematocrit 30.0 % Mean Corpuscular Volume 98.4 fL Mean Corpuscular Hemoglobin 33.4 pg Mean Corpuscular Hemoglobin Concent 34.0 g/dl Platelet Count 164 K/uL Mean Platelet Volume 8.9 fL Neutrophils (%) (Auto) 81.8 % Lymphocytes (%) (Auto) 10.6 % Monocytes (%) (Auto) 6.9 % Eosinophils (%) (Auto) 0.2 % Basophils (%) (Auto) 0.2 % Neutrophils # (Auto) 5.00 K/uL Lymphocytes # (Auto) 0.65 K/uL Monocytes # (Auto) 0.42 K/uL Eosinophils # (Auto) 0.01 K/uL Basophils # (Auto) 0.01 K/uL RDW Standard Deviation 50.8 fL RDW Coefficient of Variation 14.2 % Immature Granulocyte % (Auto) 0.3 % Immature Granulocyte # (Auto) 0.02 K/uL Sodium Level 136 mmol/L Potassium Level 4.3 mmol/L Chloride Level 94 mmol/L Carbon Dioxide Level 28 mmol/L Anion Gap 14.0 mmol/L Blood Urea Nitrogen 36 mg/dl Creatinine 6.90 mg/dl Est Creatinine Clear Calc Drug Dose 4.7 ml/min Estimated GFR () 5.8 Estimated GFR (Non- 5.0 BUN/Creatinine Ratio 5.1 Random Glucose 105 mg/dl Calcium Level 9.3 mg/dl Total Bilirubin 0.5 mg/dl Aspartate Amino Transf (AST/SGOT) 23 U/L Alanine Aminotransferase (ALT/SGPT) 20 U/L Alkaline Phosphatase 92 U/L Total Protein 8.1 gm/dl Albumin 3.0 gm/dl Globulin 5.1 gm/dl Albumin/Globulin Ratio 0.6 Lactic Acid Level 1.4 mmol/L Peritoneal Fluid Color COLORLESS Peritoneal Fluid Appearance HAZY Peritoneal Fluid WBC < 10 /uL Peritoneal Fluid RBC < 3000 /uL Peritoneal Fld Mononuclear WBCs (%) % Peritoneal Fld Polynuclear WBCs (%) % Prothrombin Time 12.4 SECONDS Prothromb Time International Ratio 1.2 Test 05/31/16 22:17 06/01/16 05:25 Influenza Type A (RT-PCR) Neg for Influ A Influenza Type B (RT-PCR) Neg for Influ B White Blood Count 4.26 K/uL Red Blood Count 2.64 M/uL Hemoglobin 8.8 g/dL Hematocrit 26.5 % Mean Corpuscular Volume 100.4 fL Mean Corpuscular Hemoglobin 33.3 pg Mean Corpuscular Hemoglobin Concent 33.2 g/dl RDW Standard Deviation 51.6 fL RDW Coefficient of Variation 14.3 % Platelet Count 140 K/uL Mean Platelet Volume 9.3 fL Sodium Level 135 mmol/L Potassium Level 4.1 mmol/L Chloride Level 96 mmol/L Carbon Dioxide Level 25 mmol/L Anion Gap 14.0 mmol/L Blood Urea Nitrogen 42 mg/dl Creatinine 6.90 mg/dl Est Creatinine Clear Calc Drug Dose 4.7 ml/min Estimated GFR () 5.8 Estimated GFR (Non- 5.0 BUN/Creatinine Ratio 6.1 Random Glucose 171 mg/dl Calcium Level 8.3 mg/dl Magnesium Level 1.7 mg/dl Diagnostic Radiology: cxr > no effusions, consolidation, or plm edema EKG: A fib, vent rate 90 PD fluid studies w/ many RBC; <10 WBC; clear fluid; GS negative PD fluid and blood cxs pending Assessment & Plan 86 y/o F a/w acute bronchitis after failing outpt therapy has ESRD on PD and needs continuation of her dialysis; also w/ relative hypotension and abtc associated diarrhea on presentation. ESRD on PD -no peritonitis -did PD overnight w/ gentle UF >> will see how she does through the day to decide if we need to change this or not HEBERT -continue sensipar, rocaltrol, renagel Hypotension w/ A fib w/ HR 90s - on low dose b lyn -cont low dose NS for now but look to stop as soon as clinically feasible in this anuric pt Bronchitis -on steroids, nebs, and abtx (ceftriaxone, doxy) Appreciate consult; will follow with you. Care coordinated last evening w/ Dr. Longo.
[2016-06-01] MEDS ORDERED: METOPROLOL TARTRATE 25 MG TAB PO SCH (09:00)
[2016-06-01] MEDS ORDERED: CALCITRIOL 0.25 MCG CAP PO SCH (09:00)
[2016-06-01] MEDS ORDERED: CINACALCET 30 MG TAB PO SCH (09:00)
--- NOTE | 2016-06-01 09:11 | DIAGNOSTIC IMAGING REPORT ---
CHEST 2 VIEWS ROUTINE CLINICAL HISTORY: f/u bronchitis dyspnea COMPARISON STUDY: 05/31/2016 FINDINGS: Moderate stable cardiomegaly. Mild prominence pulmonary vasculature. No focal infiltrate. IMPRESSION: Moderate stable cardiomegaly. atelectasis left base. Mild prominence pulmonary vasculature. Electronically signed by: Daniel Wang M.D. 06/01/2016 9:09 AM Dictated Date/Time: 06/01/2016 9:08 AM
[2016-06-01 09:42] LABS: HEPATITIS B AB NEG
--- NOTE | 2016-06-01 14:57 | Progress Note ---
Internal Med Progress Note Date of Service: Jun 01, 2016. Provider Documentation: SUBJECTIVE: says sob and cough getting better eating better afebrile no chest pain want to go home OBJECTIVE: Vital Signs-as noted below Exam: General-alert and oriented ENT-normal hearing Neck-no neck masses Lungs-cta b/l no wheezing or crackles Heart-s1 and s2 heard regular rate and rhythm no murmurs Abdomen-soft bowel sounds present non tender no distension Extremities-no erythema no edema Neuro-alert and awake moves extremities Lab data as noted below. ASSESSMENT & PLAN: 86 year old female presents to ED complaining of cough, SOB, wheezing. Likely acute bronchitis. Denies history of Asthma/COPD. She is a nonsmoker ACUTE BRONCHITIS negative for flu on Rocephin and doxycycline much improved and wants to go home pt/ot DIARRHEA check c.diff no complaints today ESRD On Peritoneal dialysis follows with Dr. 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 AFIB To continue BB with hold parameters - BP in the 90s-100s systolically currently Will monitor in tele HLD On Statin DVT PROPHYLAXIS: Sq heparin CODE STATUS: FULL CODE per h and p DISPOSITION possible d/c today or in am Vital Signs: Date Time Temp Pulse Resp B/P Pulse Ox O2 Delivery O2 Flow Rate FiO2 06/01/16 14:24 100 20 94 Room Air 06/01/16 12:00 92 Room Air 06/01/16 12:00 36.7 102 18 104/55 92 Nasal Cannula 06/01/16 08:45 36.6 102 18 95/59 06/01/16 08:00 96 Room Air 06/01/16 07:56 36.6 102 18 95/59 97 Nasal Cannula 06/01/16 07:09 70 20 97 Nasal Cannula 2.0 06/01/16 04:15 Nasal Cannula 2.0 06/01/16 04:08 36.7 83 18 86/34 94 Nasal Cannula 2.0 06/01/16 02:14 92 20 96 Nasal Cannula 2.0 06/01/16 00:02 Nasal Cannula 2.0 05/31/16 23:16 37.2 77 19 93/41 96 Nasal Cannula 2.0 05/31/16 22:56 36.8 98 101/41 05/31/16 22:10 36.8 96 16 05/31/16 20:50 36.8 98 101/41 05/31/16 20:15 96 20 96 Nasal Cannula 2.0 05/31/16 20:07 37.3 101 20 109/25 94 Nasal Cannula 2.0 05/31/16 19:31 100 28 96/40 94 05/31/16 17:32 105 05/31/16 17:08 93 36 94/37 98 Nebulizer 7.0 05/31/16 16:23 89 30 91/43 96 Nasal Cannula 2.0 Lab Results: Results Past 24 Hours Test 05/31/16 20:30 05/31/16 21:32 05/31/16 22:17 06/01/16 05:25 Range/Units Peritoneal Fluid Color COLORLESS Peritoneal Fluid Appearance HAZY Peritoneal Fluid WBC < 10 0-300 /uL Peritoneal Fluid RBC < 3000 /uL Peritoneal Fld Mononuclear WBCs (%) % Peritoneal Fld Polynuclear WBCs (%) % Prothrombin Time 12.4 9.0-12.0 SECONDS Prothromb Time International Ratio 1.2 0.9-1.1 Influenza Type A (RT-PCR) Neg for Influ A NEG Influenza Type B (RT-PCR) Neg for Influ B NEG White Blood Count 4.26 4.8-10.8 K/uL Red Blood Count 2.64 4.2-5.4 M/uL Hemoglobin 8.8 12.0-16.0 g/dL Hematocrit 26.5 37-47 % Mean Corpuscular Volume 100.4 80-100 fL Mean Corpuscular Hemoglobin 33.3 25-34 pg Mean Corpuscular Hemoglobin Concent 33.2 32-36 g/dl RDW Standard Deviation 51.6 36.4-46.3 fL RDW Coefficient of Variation 14.3 11.5-14.5 % Platelet Count 140 130-400 K/uL Mean Platelet Volume 9.3 7.4-10.4 fL Sodium Level 135 136-145 mmol/L Potassium Level 4.1 3.5-5.1 mmol/L Chloride Level 96 98-107 mmol/L Carbon Dioxide Level 25 21-32 mmol/L Anion Gap 14.0 3-11 mmol/L Blood Urea Nitrogen 42 7-18 mg/dl Creatinine 6.90 0.60-1.20 mg/dl Est Creatinine Clear Calc Drug Dose 4.7 ml/min Estimated GFR () 5.8 Estimated GFR (Non- 5.0 BUN/Creatinine Ratio 6.1 10-20 Random Glucose 171 70-99 mg/dl Calcium Level 8.3 8.5-10.1 mg/dl Magnesium Level 1.7 1.8-2.4 mg/dl Hepatitis B Surface Antigen NEG NEG Hepatitis B Surface Antibody NEG Microbiology Results 06/01/16 Gram Stain, Jay Jay Batch Pending 06/01/16 Sputum Culture, Jay Jay Batch Pending 05/31/16 Gram Stain - Final, Resulted 05/31/16 Bacterial Culture - Preliminary, Resulted NO GROWTH TO DATE.
[2016-06-01] MEDS ORDERED: NURSING VERBAL MED ORDER ONE (15:45)
[2016-06-01] MEDS: CEFTRIAXONE SOD INJ 1 GM in DEXTROSE 5% ADD-VANTAGE 50ML 50 ML IV SCH (18:11)
[2016-06-01] MEDS ORDERED: LCTX PO (18:26)
[2016-06-01] MEDS ORDERED: IPRA1AER2 INH (18:26)
[2016-06-01] MEDS ORDERED: PRED10TA PO (18:26)
[2016-06-01] MEDS ORDERED: DXY100 PO (18:26)
[2016-06-01] MEDS ORDERED: CEFU1TAB36 PO (18:26)
--- NOTE | 2016-06-01 18:29 | Discharge Instructions ---
Discharge Instructions Admission Reason for Admission: Acute Bronchitis,Hypoxia Discharge Discharge Diagnosis / Problem: ACUTE BRONCHITIS Discharge Goals Goal(s): Decrease discomfort, Improve function Activity Recommendations Activity Limitations: resume your previous activity . Instructions / Follow-Up Instructions / Follow-Up FOLLOWUP WITH FAMILY DOCTOR ON Jun AT 9:10AM. FOLLOWUP WITH CARDIOLOGY SOON POSSIBLE FOR PACE MAKER ISSUES. Current Hospital Diet Patient's current hospital diet: Renal Diet Discharge Diet Recommended Diet: AHA Diet (Heart Healthy), Renal Diet Pending Studies Studies pending at discharge: no Medical Emergencies . Who to Call and When: Medical Emergencies: If at any time you feel your situation is an emergency, please call 911 immediately. . Non-Emergent Contact Non-Emergency issues call your: Primary Care Provider . . "Provider Documentation" section prepared by Axel Pimentel. VTE Core Measure Inpt VTE Proph given/why not?: Unfractionated heparin SQ
--- NOTE | 2016-06-01 19:00 | Discharge Summary ---
Discharge Summary Admission Date: May 31, 2016 at 18:16 Discharge Date: Jun 01, 2016 Discharge Disposition: Home Principal Diagnosis: ACUTE BRONCHITIS PACE MAKER MALFUNCTION? 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 Linear density within right medial lung base favors scarring or subsegmental atelectasis. Medication Reconciliation New Medications: Cefuroxime Axetil (Cefuroxime Axetil) 500 Mg Tab 1 TAB PO DAILY for 7 Days, #7 TAB Ipratropium-Albuterol (Combivent Respimat) 1 Aer Aer 1 PUFFS INH QID PRN for SOB/Wheezing, #1 INH 2 Refills Prednisone (Prednisone) 10 Mg Tab 40 MG PO UD, #20 TAB PREDNISONE 40MG PO DAILY X 2 DAYS THEN PREDNISONE 30MG PO DAILY X 2 DAYS THEN PREDNISONE 20MG PO DAILY X 2 DAYS THEN PREDNISONE 10MG PO DAILY X 2 DAYS THEN STOP. Doxycycline Hyclate (Doxycycline Hyclate) 100 Mg Cap 100 MG PO BID for 7 Days, #14 CAP Lactobacillus Acidophilus (Floranex) 1 Tab Tab 2 TAB PO BID for 10 Days, #40 TAB Continued Medications: Calcitriol (Rocaltrol Cap) 0.25 Mcg Cap 0.25 MCG PO DAILY, CAP Cinacalcet (Sensipar) 30 Mg Tab 30 MG PO DAILY, TAB Metoprolol Tartrate (Lopressor) 25 Mg Tab 12.5 MG PO DAILY, TAB Pravastatin Sodium (Pravastatin Sodium) 40 Mg Tab 40 MG PO HS Sevelamer Carbonate (Renvela) 800 Mg Tab 2 TAB PO TIDM for 90 Days, TAB 3 Refills Discontinued Medications: Amoxicillin (Amoxil) 250 Mg Cap 250 MG PO BID, #30 CAP X10 DAYS..STARTED 05/29/16 Admission Information HPI (per Admitting provider): Patient seen and examined. 86 year old female with PMHx of ESRD on peritoneal dialysis, HLD, Afib, and h/o pacemaker presents to the ED complaining of SOB and wheezing x 1 day. Patient reports that she has had URI symptoms for about a week and was started on Amoxil by her PCP. In the last day or so the patient reports that she has been wheezing and somewhat SOB so she came to the ED today. She reports associated nasal congestion and cough. She states her cough is becoming more productive but she still hasn't coughed anything up. She denies fevers, chills, chest pain, palpitations, nausea, vomiting, calf pain and edema. She does not urinate. She states she has been having 3-4 episodes of diarrhea a day since starting the Amoxil. She reports family members have had URIs recently. She does not wear oxygen at home and denies history of COPD, Asthma or tobacco abuse. In the ED BP is soft, she is afebrile, she is 91% on RA. Oxygen was applied to patient and she is saturating well. CXR does not show any consolidation. EKG shows a paced rhythm but ED physician is concerned that it is not pacing ever beat. She received IV steroids, and nebs. She is feeling a little better. She will be admitted for further workup and treatment. Physical Exam (per Admitting): General Appearance: + pertinent finding (Pleasant WD/WN 86 year old female lying in bed in NAD with family at bedside ) Head: normocephalic, atraumatic Eyes: PERRL, EOMI, sclerae normal ENT: hearing grossly normal, pharynx normal Neck: supple, no JVD, trachea midline Respiratory/Chest: chest non-tender, no respiratory distress, no accessory muscle use, + pertinent finding (poor air entry, diffuse wheezes noted throughout all lung laird, no crackles noted ) Cardiovascular: regular rate, rhythm, no gallop, no JVD, no murmur, normal peripheral pulses Abdomen/GI: normal bowel sounds, non tender, soft Back: normal inspection, no muscle spasm Extremities/Musculoskelatal: no calf tenderness, normal capillary refill, + pedal edema (trace) Neurologic/Psych: alert, oriented x 3, + pertinent finding (no motor or sensory deficits noted on gross exam ) Skin: normal color, warm/dry, no rash, + pertinent finding (right side of face s/p skin lesion removal ) Lymphatic: no adenopathy Physical Exam (per Admitting): General Appearance: + pertinent finding (Pleasant WD/WN 86 year old female lying in bed in NAD with family at bedside ) Head: normocephalic, atraumatic Eyes: PERRL, EOMI, sclerae normal ENT: hearing grossly normal, pharynx normal Neck: supple, no JVD, trachea midline Respiratory/Chest: chest non-tender, no respiratory distress, no accessory muscle use, + pertinent finding (poor air entry, diffuse wheezes noted throughout all lung laird, no crackles noted ) Cardiovascular: regular rate, rhythm, no gallop, no JVD, no murmur, normal peripheral pulses Abdomen/GI: normal bowel sounds, non tender, soft Back: normal inspection, no muscle spasm Extremities/Musculoskelatal: no calf tenderness, normal capillary refill, + pedal edema (trace) Neurologic/Psych: alert, oriented x 3, + pertinent finding (no motor or sensory deficits noted on gross exam ) Skin: normal color, warm/dry, no rash, + pertinent finding (right side of face s/p skin lesion removal ) Lymphatic: no adenopathy Hospital Course 86 year old female presents to ED complaining of cough, SOB, wheezing. Likely acute bronchitis. Denies history of Asthma/COPD. She is a nonsmoker ACUTE BRONCHITIS negative for flu on Rocephin and doxycycline much improved and wants to go home pt/ot DIARRHEA check c.diff no complaints today ESRD On Peritoneal dialysis follows with Dr. 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 Discharge Instructions Please take this sheet to every appointment for the next month Discharge Instructions Admission Reason for Admission: Acute Bronchitis,Hypoxia Discharge Discharge Diagnosis / Problem: ACUTE BRONCHITIS Discharge Goals Goal(s): Decrease discomfort, Improve function Activity Recommendations Activity Limitations: resume your previous activity . Instructions / Follow-Up Instructions / Follow-Up FOLLOWUP WITH FAMILY DOCTOR ON Jun AT 9:10AM. FOLLOWUP WITH CARDIOLOGY SOON POSSIBLE FOR PACE MAKER ISSUES. Current Hospital Diet Patient's current hospital diet: Renal Diet Discharge Diet Recommended Diet: AHA Diet (Heart Healthy), Renal Diet Pending Studies Studies pending at discharge: no Medical Emergencies . Who to Call and When: Medical Emergencies: If at any time you feel your situation is an emergency, please call 911 immediately. . Non-Emergent Contact Non-Emergency issues call your: Primary Care Provider . . "Provider Documentation" section prepared by Axel Pimentel. VTE Core Measure Inpt VTE Proph given/why not?: Unfractionated heparin SQ
[2016-06-21] MEDS ORDERED: NYSS5 PO (14:10)
[2016-06-21] MEDS ORDERED: PRT40 PO (14:10)
[2016-06-21] MEDS ORDERED: LPR25 PO (14:10)
== END 2016-06-01 19:03 | disposition home or self-care (01) | DRG 202 ==
LOC: ENRESERVTM → ENRESERVDT → C.EDB 12:33 → C.2E 18:16
PROVIDERS: ADMIT Hospitalist; ATTEND Internal Medicine
DX: J20.9 Acute bronchitis, unspecified (principal); N18.6 End stage renal disease; T82.190A Other mechanical complication of cardiac electrode, initial encounter; I12.0 Hypertensive chronic kidney disease with stage 5 chronic kidney disease or end stage renal disease; R19.7 Diarrhea, unspecified; E86.0 Dehydration; I95.89 Other hypotension; I48.0 Paroxysmal atrial fibrillation; Z99.2 Dependence on renal dialysis; Z51.81 Encounter for therapeutic drug level monitoring; Z79.899 Other long term (current) drug therapy; Z95.0 Presence of cardiac pacemaker; Z82.49 Family history of ischemic heart disease and other diseases of the circulatory system; Z82.3 Family history of stroke; Y83.1 Surgical operation with implant of artificial internal device as the cause of abnormal reaction of the patient, or of later complication, without mention of misadventure at the time of the procedure

== ENCOUNTER 2016-06-06 15:09 | Inpatient (IN) | payer OTHER, BC ==
[~2016-06-06] VITALS: Ht 157.5 cm; Wt 57.0 kg
[~2016-06-06 15:09] MED LIST changes: -ASPI81TA28 PO; +CALC0.2510 PO; -CALC667C4 PO; +CEFU1TAB36 PO; +CINA0.42 PO; +DXY100 PO; -GENT0.1C2 TOP; +IPRA1AER2 INH; +LCTX PO; +LPR25 PO; -METO25TA3 PO; +PRED10TA PO; +SEVE800T7 PO
[2016-06-06] MEDS ORDERED: ALBUT/IPRATROP 3MG/0.5MG NEB 3 ML VIAL INH STA (15:29)
--- NOTE | 2016-06-06 15:39 | EMERGENCY ROOM VISIT NOTE ---
History Report prepared by Holley: Isak Wilburn Under the Supervision of: Dr. Vasile Flynn D.O. First contact with patient: 15:22 Chief Complaint: COUGH Stated Complaint: CAN'T STOP SNEEZING, COUGHING Nursing Triage Summary: patient states she was admitted last wednesday for bronchitis. has had continued cough since. feeling weak History of Present Illness The patient is an 86 year old female who presents to the Emergency Room with complaints of a persistent dry cough for the past six days. The patient also complains of nausea & vomiting since this morning. The patient's cough is dry and does not contain blood. She denies any fevers. The patient was in the ED this week for the cough, diagnosed with bronchitis. The patient was started on steroids at that time. She was unable to keep her medications down today secondary to vomiting. The patient has a history of atrial fibrillation. She has a pacemaker placed. The patient is not on any blood thinners. The patient receives dialysis every night. Her dialysis fluid has been clear. She denies any history of COPD, asthma, or blood clots. Source of History: patient Onset: six days Position: other (respiratory) Quality: other (dry cough) Timing: other (persistent) Associated Symptoms: + nausea, + vomiting, No fevers Review of Systems See HPI for pertinent positives & negatives. A total of 10 systems reviewed and were otherwise negative. Past Medical & Surgical Medical Problems: (1) CKD (chronic kidney disease) stage 3, GFR 30-59 ml/min (2) ESRD (end stage renal disease) on dialysis (3) Gout (4) Hepatitis, chronic (5) Hypertension (6) Pancreatic lesion (7) Paroxysmal atrial fibrillation (8) Valvular heart disease Surgical Problems: (1) Status post cardiac pacemaker procedure (2) Status post cataract extraction (3) Status post cholecystectomy (4) Status post mitral valve repair (5) Status post tonsillectomy (6) Status post tricuspid valve repair Family History FH: heart disease Stroke Social History Smoking Status: Never Smoker Alcohol Use: none Drug Use: none Marital Status: single Housing Status: lives with family 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, [employer]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 Current/Historical Medications Scheduled Calcitriol (Rocaltrol Cap), 0.25 MCG PO DAILY Cefuroxime Axetil (Cefuroxime Axetil), 1 TAB PO DAILY Cinacalcet (Sensipar), 30 MG PO DAILY Doxycycline Hyclate (Doxycycline Hyclate), 100 MG PO BID Lactobacillus Acidophilus (Floranex), 2 TAB PO BID Metoprolol Tartrate (Lopressor), 12.5 MG PO DAILY Pravastatin Sodium (Pravastatin Sodium), 40 MG PO HS Prednisone (Prednisone), 40 MG PO UD Sevelamer Carbonate (Renvela), 2 TAB PO TIDM Scheduled PRN Benzonatate (Tessalon Perles), 1 CAP PO TID PRN for Cough Ipratropium-Albuterol (Combivent Respimat), 1 PUFFS INH QID PRN for SOB/Wheezing Allergies Coded Allergies: Sulfamethoxazole w/Trimethoprim (Verified Allergy, Severe, RASH, n/v, swelling of LE, 06/06/16) Physical Exam Vital Signs Date Time Temp Pulse Resp B/P Pulse Ox O2 Delivery O2 Flow Rate FiO2 06/06/16 17:43 97 20 108/78 99 Nasal Cannula 2.0 06/06/16 16:28 128 20 104/61 100 Room Air 2.0 06/06/16 15:40 201 06/06/16 15:36 94 Nasal Cannula 2.0 06/06/16 15:14 36.9 120 26 103/51 89 Room Air Physical Exam GENERAL: Patient is awake, alert, mildly anxious appearing. EYES: The conjunctivae are clear. The pupils are round and reactive. EARS, NOSE, MOUTH AND THROAT: The nose is without any evidence of any deformity. Mucous membranes are moist tongue is midline NECK: The neck is nontender and supple. RESPIRATORY: Lung sounds are diminished throughout. Dyspnea and tachypnea noted. CARDIOVASCULAR: Heart sounds are irregular and tachycardic, no definite murmur appreciated. GASTROINTESTINAL: The abdomen is soft. Bowel sounds are present in all quadrants. Abdomen is nontender MUSCULOSKELETAL/EXTREMITIES: There is no evidence of gross deformity full range of motion is noted in the hips and shoulders. Diffuse muscle rigidity noted in both lower extremities. SKIN: There is no obvious evidence of any rash. There are no petechiae, pallor or cyanosis noted. Pedal edema noted bilaterally, chronic venous stasis changes noted diffusely. NEUROLOGIC: Patient is awake alert and oriented x3. Medical Decision & Procedures ER Provider Diagnostic Interpretation: X-ray results as stated below per interpretation by me and the radiologist. CHEST ONE VIEW PORTABLE CLINICAL HISTORY: Sepsis dyspnea COMPARISON STUDY: 06/01/2016 FINDINGS: Moderate stable cardiomegaly. Prior median sternotomy. Lungs are considered clear. Diaphragms smooth. Clavicle minimal infiltrate left base IMPRESSION: Moderate stable cardiomegaly. Possible minimal infiltrate left base Electronically signed by: Daniel Wang M.D. 06/06/2016 4:05 PM Dictated Date/Time: 06/06/2016 4:05 PM Laboratory Results 06/06/16 16:01 Red Blood Count 3.30, Mean Corpuscular Volume 98.5, Mean Corpuscular Hemoglobin 33.9, Mean Corpuscular Hemoglobin Concent 34.5, Mean Platelet Volume 9.1, Neutrophils (%) (Auto) 83.7, Lymphocytes (%) (Auto) 7.2, Monocytes (%) (Auto) 8.3, Eosinophils (%) (Auto) 0.1, Basophils (%) (Auto) 0.0, Neutrophils # (Auto) 5.96, Lymphocytes # (Auto) 0.51, Monocytes # (Auto) 0.59, Eosinophils # (Auto) 0.01, Basophils # (Auto) 0.00 06/06/16 16:01 Test 06/06/16 16:01 06/06/16 16:10 06/06/16 16:17 06/06/16 18:23 White Blood Count 7.12 K/uL (4.8-10.8) Red Blood Count 3.30 M/uL (4.2-5.4) Hemoglobin 11.2 g/dL (12.0-16.0) Hematocrit 32.5 % (37-47) Mean Corpuscular Volume 98.5 fL (80-100) Mean Corpuscular Hemoglobin 33.9 pg (25-34) Mean Corpuscular Hemoglobin Concent 34.5 g/dl (32-36) Platelet Count 205 K/uL (130-400) Mean Platelet Volume 9.1 fL (7.4-10.4) Neutrophils (%) (Auto) 83.7 % Lymphocytes (%) (Auto) 7.2 % Monocytes (%) (Auto) 8.3 % Eosinophils (%) (Auto) 0.1 % Basophils (%) (Auto) 0.0 % Neutrophils # (Auto) 5.96 K/uL (1.4-6.5) Lymphocytes # (Auto) 0.51 K/uL (1.2-3.4) Monocytes # (Auto) 0.59 K/uL (0.11-0.59) Eosinophils # (Auto) 0.01 K/uL (0-0.5) Basophils # (Auto) 0.00 K/uL (0-0.2) RDW Standard Deviation 51.9 fL (36.4-46.3) RDW Coefficient of Variation 14.8 % (11.5-14.5) Immature Granulocyte % (Auto) 0.7 % Immature Granulocyte # (Auto) 0.05 K/uL (0.00-0.02) Erythrocyte Sedimentation Rate 81 mm/hr (0-21) Prothrombin Time 12.1 SECONDS (9.0-12.0) Prothromb Time International Ratio 1.1 (0.9-1.1) Activated Partial Thromboplast Time 28.2 SECONDS (21.0-31.0) Partial Thromboplastin Ratio 1.1 Anion Gap 12.0 mmol/L (3-11) Est Creatinine Clear Calc Drug Dose 5.0 ml/min Estimated GFR () 6.2 Estimated GFR (Non- 5.3 BUN/Creatinine Ratio 10.4 (10-20) Calcium Level 8.8 mg/dl (8.5-10.1) Phosphorus Level 3.7 mg/dl (2.5-4.9) Magnesium Level 1.5 mg/dl (1.8-2.4) Total Bilirubin 0.6 mg/dl (0.2-1) Aspartate Amino Transf (AST/SGOT) 39 U/L (15-37) Alanine Aminotransferase (ALT/SGPT) 52 U/L (12-78) Alkaline Phosphatase 89 U/L (45-117) Total Creatine Kinase 45 U/L (26-192) Creatine Kinase MB 2.3 ng/ml (0.5-3.6) Creatine Kinase MB Ratio 5.1 (0-3.0) Troponin I 0.087 ng/ml (0-0.045) C-Reactive Protein 4.40 mg/dl (0-0.29) Pro-B-Type Natriuretic Peptide > 92861 pg/ml (0-1800) Total Protein 7.5 gm/dl (6.4-8.2) Albumin 2.7 gm/dl (3.4-5.0) Globulin 4.8 gm/dl (2.5-4.0) Albumin/Globulin Ratio 0.6 (0.9-2) Lipase 273 U/L (73-393) Venous Blood pH 7.43 (7.36-7.41) Venous Blood Partial Pressure CO2 47 mmHg (38.0-50.0) Venous Blood Partial Pressure O2 22 mmHg Venous Blood HCO3 30 meq/L Venous Blood Oxygen Saturation < 60.0 % Venous Blood Base Excess 5.0 mmol/L Bedside Lactic Acid Venous 1.78 mmol/L (0.90-1.70) Laboratory results per my review. Medications Administered Medications (Trade) Dose Ordered Sig/Seth Route Start Time Stop Time Status Last Admin Dose Admin Albuterol/ Ipratropium (Duoneb) 3 ml NOW STAT INH 06/06/16 15:29 06/06/16 15:30 DC 06/06/16 15:35 3 ML Metoprolol Tartrate (Lopressor Tab) 12.5 mg ONE STAT PO 06/06/16 16:02 06/06/16 16:03 DC 06/06/16 16:27 12.5 MG Magnesium Sulfate (Magnesium Sulfate) 1 gm NOW STAT IV 06/06/16 17:33 06/06/16 17:34 DC 06/06/16 17:42 1 GM Levofloxacin (Levaquin / D5W) 750 mg NOW STAT IV 06/06/16 17:33 06/06/16 17:34 DC 06/06/16 17:43 750 MG ECG Indication: SOB/dyspnea Rate (beats per minute): 114 Rhythm: atrial fibrillation Findings: RBBB, other (no PVC) Change: no significant change Change: No significant change compared to EKG dated 01 June 2016. ED Course 1524: The patient was evaluated in room A11a. A complete history and physical examination were performed. 1529: DuoNeb 3 ml INH. 1602: Lopressor 12.5 mg PO. 1733: Levofloxacin 750 mg IV, magnesium sulfate 1 gm IV. 1745: Spoke with Aurora Zhao PA-C, [facility] Hospitalist. The patient will be evaluated. Medical Decision Etiologies such as infections, reactive airway disease, pneumonia, pneumothorax , COPD, CHF, cardiac ischemia, pulmonary embolism, musculoskeletal, gastrointestinal, as well as others were entertained. Nursing notes reviewed. Additional history is obtained from the patient's family member. The patient is an 86-year-old female who is a history of end-stage kidney disease. She presented to the emergency department for an evaluation of shortness of breath and cough. The patient appears to have an exam as well as a workup which could be consistent with pulmonary edema as well as pneumonia. The patient was started on IV antibiotics in the department. She was also given a DuoNeb treatment placed on supplemental oxygen and her magnesium was replaced as well. On subsequent reevaluation she was feeling much better. I discussed the patient's laboratory and radiographic studies with her. I also [facility] They've agreed to evaluate the patient in the emergency department for further management and disposition. Consults Time Called: 1739 Consulting Physician: Aurora Zhao PA-C, [facility] Hospitalist Returned Call: [phone]: Spoke with Aurora Zhao PA-C, [facility] Hospitalist. The patient will be evaluated. Impression Primary Impression: PNA (pneumonia) Additional Impressions: Hypoxia Pulmonary edema Hypomagnesemia Scribe Attestation The scribe's documentation has been prepared under my direction and personally reviewed by me in its entirety. I confirm that the note above accurately reflects all work, treatment, procedures, and medical decision making performed by me. Departure Information Dispostion Being Evaluated By Hospitalist Referrals Arline Arroyo M.D. (PCP) Patient Instructions My [facility] Problem Qualifiers
[2016-06-06] MEDS ORDERED: BENZ100C84 PO (15:43)
[2016-06-06] MEDS ORDERED: METOPROLOL TARTRATE 25 MG TAB PO STA (16:02)
--- NOTE | 2016-06-06 16:07 | DIAGNOSTIC IMAGING REPORT ---
CHEST ONE VIEW PORTABLE CLINICAL HISTORY: Sepsis dyspnea COMPARISON STUDY: 06/01/2016 FINDINGS: Moderate stable cardiomegaly. Prior median sternotomy. Lungs are considered clear. Diaphragms smooth. Clavicle minimal infiltrate left base IMPRESSION: Moderate stable cardiomegaly. Possible minimal infiltrate left base Electronically signed by: Daniel Wang M.D. 06/06/2016 4:05 PM Dictated Date/Time: 06/06/2016 4:05 PM
[2016-06-06 16:32] LABS: VEN BLD GAS O2 SATURATION < 60.0 %; VENOUS BLOOD GAS PCO2 47 mmHg (38.0-50.0); VENOUS BLOOD GAS PO2 22 mmHg
[2016-06-06 16:46] LABS: COMPLETE YES; EOS % 0.1 %; HEMATOCRIT 32.5 % (37-47); IG% 0.7 %; LYMPH % 7.2 %; LYMPH ABS # 0.51 K/uL (1.2-3.4); MEAN CELL VOLUME 98.5 fL (80-100); MEAN CORPUSCULAR HEMOGLOBIN 33.9 pg (25-34); MEAN CORPUSCULAR HGB CONC 34.5 g/dl (32-36); MEAN PLATELET VOLUME 9.1 fL (7.4-10.4); MONO % 8.3 %; NEUT % 83.7 %; PLATELET COUNT 205 K/uL (130-400); WHITE BLOOD COUNT 7.12 K/uL (4.8-10.8)
[2016-06-06 16:47] LABS: INR 1.1 (0.9-1.1); PARTIAL THROMBOPLASTIN RATIO 1.1; PROTHROMBIN TIME (PATIENT) 12.1 SECONDS (9.0-12.0)
[2016-06-06 17:19] LABS: ALB/GLOB RATIO 0.6 (0.9-2); ALKALINE PHOSPHATASE 89 U/L (45-117); ALT/SGPT 52 U/L (12-78); AST/SGOT 39 U/L (15-37); BLOOD UREA NITROGEN 68 mg/dl (7-18); BUN/CREATININE RATIO 10.4 (10-20); CALCIUM 8.8 mg/dl (8.5-10.1); CARBON DIOXIDE 29 mmol/L (21-32); CHLORIDE 92 mmol/L (98-107); CKMB/CK RATIO 5.1 (0-3.0); GLUCOSE 97 mg/dl (70-99); MAGNESIUM 1.5 mg/dl (1.8-2.4); PHOSPHORUS 3.7 mg/dl (2.5-4.9); POTASSIUM 4.3 mmol/L (3.5-5.1); SODIUM 133 mmol/L (136-145)
[2016-06-06] MEDS ORDERED: MAGNESIUM SULFATE 1GM / D5W 1 GM BAG IV STA (17:33)
[2016-06-06] MEDS ORDERED: LEVAQUIN 750MG / 150ML D5W IV STA (17:33)
[2016-06-06] MEDS ORDERED: ACETAMINOPHEN 325 MG TAB PO PRN (18:30)
[2016-06-06] MEDS ORDERED: BENZONATATE 100MG CAP PO PRN (18:45)
--- NOTE | 2016-06-06 19:37 | History and Physical ---
History & Physical Date & Time of Service: Jun 06, 2016 at 18:43 Chief Complaint: Can't Stop Sneezing, Coughing Primary Care Physician: Arline Arroyo M.D. History of Present Illness Source: patient This is an 86 y/o female with PMHx of ESRD on peritoneal dialysis, PAF s/p MAZE procedure, h/o pacemaker and other problems as outlined below who presents to the ED c/o cough x 10 days. Pt was recently admitted to [facility] from 05/31-06/01 with bronchitis. She was discharged with ceftin, doxy, prednisone taper and Combivent inhaler. Pt reports that she was feeling well upon discharge however her sxs worsened again. She states she has a persistent dry cough that is worse with laying flat and exertion. Sxs are assoc with exertional SOB, mild wheezing , worsening LE edema and lightheadedness. She has been taking her medications as prescribed with no relief. This morning patient was unable to take her medications due to some nausea which has since resolved. Pt has had many sick family members with similar sxs over the past few weeks. Pt has a history of ESRD on peritoneal dialysis. She follows with Dr. Norah high. Pt denies fever/ chills, diaphoresis, chest pain, palpitations, abd pain, bowel or bladder issues , calf pain. In the ED, pt is tachy, hypotensive and hypoxic on room air. Pt is afebrile with no leukocytosis. Na+ 133. creat 6.5. lactic acid 1.78. mag 1.5. crp 4.4. BNP> 35k. CXR no consolidation. EKG Afib with RVR. Pt will be admitted for further evaluation and treatment. 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." Status: Chronic (7) Paroxysmal atrial fibrillation Status: Chronic (8) Valvular heart disease Status: Chronic Surgical Problems: (1) Status post cardiac pacemaker procedure Status: Chronic (2) Status post cataract extraction Status: Chronic (3) Status post cholecystectomy Status: Chronic (4) Status post mitral valve repair Status: Chronic (5) Status post tonsillectomy Status: Chronic (6) Status post tricuspid valve repair Status: Chronic Family History FH: heart disease Stroke Social History Smoking Status: Never Smoker Alcohol Use: none Drug Use: none Marital Status: single Housing status: lives with family Occupational Status: retired Immunizations History of Influenza Vaccine: Unknown History of Tetanus Vaccine?: Unknown History of Pneumococcal: Unknown History of Hepatitis B Vaccine: Unknown Multi-Drug Resistant Organisms History of MDRO: No Allergies Coded Allergies: Sulfamethoxazole w/Trimethoprim (Verified Allergy, Severe, RASH, n/v, swelling of LE, 06/06/16) Home Medications Scheduled Calcitriol (Rocaltrol Cap), 0.25 MCG PO DAILY Cefuroxime Axetil (Cefuroxime Axetil), 1 TAB PO DAILY Cinacalcet (Sensipar), 30 MG PO DAILY Doxycycline Hyclate (Doxycycline Hyclate), 100 MG PO BID Lactobacillus Acidophilus (Floranex), 2 TAB PO BID Metoprolol Tartrate (Lopressor), 12.5 MG PO DAILY Pravastatin Sodium (Pravastatin Sodium), 40 MG PO HS Prednisone (Prednisone), 40 MG PO UD Sevelamer Carbonate (Renvela), 2 TAB PO TIDM Scheduled PRN Benzonatate (Tessalon Perles), 1 CAP PO TID PRN for Cough Ipratropium-Albuterol (Combivent Respimat), 1 PUFFS INH QID PRN for SOB/Wheezing Review of Systems Constitutional: + fatigue, No chills, No fever, No sweats, No weakness Eyes: No worsening of vision ENT: No hearing loss Respiratory: + cough, + dyspnea on exertion, + wheezing, No shortness of breath , No sputum Cardiovascular: No chest pain, No claudication, No edema Abdomen: + nausea, + vomiting, No GI bleeding, No constipation, No diarrhea, No pain Musculoskeletal: No calf pain Genitourinary - Female: No dysuria Neurologic: No weakness Psychiatric: No depression symptoms Endocrine: + fatigue Hematologic / Lymphatic: No abnormal bleeding/bruising Integumentary: No new/changing skin lesions Physical Exam Vital Signs Date Time Temp Pulse Resp B/P Pulse Ox O2 Delivery O2 Flow Rate FiO2 06/06/16 17:43 97 20 108/78 99 Nasal Cannula 2.0 06/06/16 16:28 128 20 104/61 100 Room Air 2.0 06/06/16 15:40 201 06/06/16 15:36 94 Nasal Cannula 2.0 06/06/16 15:14 36.9 120 26 103/51 89 Room Air General Appearance: WD/WN, no apparent distress, + pertinent finding (Pt is laying in bed with son at bedside ) Head: normocephalic, atraumatic Eyes: normal inspection ENT: hearing grossly normal Neck: supple Respiratory/Chest: chest non-tender, no respiratory distress, no accessory muscle use, + rhonchi, + wheezing (mild end expiratory wheeze) Cardiovascular: + irregularly irregular Abdomen/GI: normal bowel sounds, non tender, soft Back: normal inspection Extremities/Musculoskelatal: normal inspection, no calf tenderness, + swelling (3+ pitting edema bilat R>L) Neurologic/Psych: alert, normal mood/affect, oriented x 3 Skin: normal color, warm/dry Diagnostics Laboratory Results Results Past 24 Hours Test 06/06/16 16:01 06/06/16 16:10 06/06/16 16:17 06/06/16 18:23 Range/Units White Blood Count 7.12 4.8-10.8 K/uL Red Blood Count 3.30 4.2-5.4 M/uL Hemoglobin 11.2 12.0-16.0 g/dL Hematocrit 32.5 37-47 % Mean Corpuscular Volume 98.5 80-100 fL Mean Corpuscular Hemoglobin 33.9 25-34 pg Mean Corpuscular Hemoglobin Concent 34.5 32-36 g/dl Platelet Count 205 130-400 K/uL Mean Platelet Volume 9.1 7.4-10.4 fL Neutrophils (%) (Auto) 83.7 % Lymphocytes (%) (Auto) 7.2 % Monocytes (%) (Auto) 8.3 % Eosinophils (%) (Auto) 0.1 % Basophils (%) (Auto) 0.0 % Neutrophils # (Auto) 5.96 1.4-6.5 K/uL Lymphocytes # (Auto) 0.51 1.2-3.4 K/uL Monocytes # (Auto) 0.59 0.11-0.59 K/uL Eosinophils # (Auto) 0.01 0-0.5 K/uL Basophils # (Auto) 0.00 0-0.2 K/uL RDW Standard Deviation 51.9 36.4-46.3 fL RDW Coefficient of Variation 14.8 11.5-14.5 % Immature Granulocyte % (Auto) 0.7 % Immature Granulocyte # (Auto) 0.05 0.00-0.02 K/uL Erythrocyte Sedimentation Rate 81 0-21 mm/hr Prothrombin Time 12.1 9.0-12.0 SECONDS Prothromb Time International Ratio 1.1 0.9-1.1 Activated Partial Thromboplast Time 28.2 21.0-31.0 SECONDS Partial Thromboplastin Ratio 1.1 Sodium Level 133 136-145 mmol/L Potassium Level 4.3 3.5-5.1 mmol/L Chloride Level 92 98-107 mmol/L Carbon Dioxide Level 29 21-32 mmol/L Anion Gap 12.0 3-11 mmol/L Blood Urea Nitrogen 68 7-18 mg/dl Creatinine 6.50 0.60-1.20 mg/dl Est Creatinine Clear Calc Drug Dose 5.0 ml/min Estimated GFR () 6.2 Estimated GFR (Non- 5.3 BUN/Creatinine Ratio 10.4 10-20 Random Glucose 97 70-99 mg/dl Calcium Level 8.8 8.5-10.1 mg/dl Phosphorus Level 3.7 2.5-4.9 mg/dl Magnesium Level 1.5 1.8-2.4 mg/dl Total Bilirubin 0.6 0.2-1 mg/dl Aspartate Amino Transf (AST/SGOT) 39 15-37 U/L Alanine Aminotransferase (ALT/SGPT) 52 12-78 U/L Alkaline Phosphatase 89 45-117 U/L Total Creatine Kinase 45 26-192 U/L Creatine Kinase MB 2.3 0.5-3.6 ng/ml Creatine Kinase MB Ratio 5.1 0-3.0 Troponin I 0.087 0-0.045 ng/ml C-Reactive Protein 4.40 0-0.29 mg/dl Pro-B-Type Natriuretic Peptide > 49466 0-1800 pg/ml Total Protein 7.5 6.4-8.2 gm/dl Albumin 2.7 3.4-5.0 gm/dl Globulin 4.8 2.5-4.0 gm/dl Albumin/Globulin Ratio 0.6 0.9-2 Lipase 273 73-393 U/L Venous Blood pH 7.43 7.36-7.41 Venous Blood Partial Pressure CO2 47 38.0-50.0 mmHg Venous Blood Partial Pressure O2 22 mmHg Venous Blood HCO3 30 meq/L Venous Blood Oxygen Saturation < 60.0 % Venous Blood Base Excess 5.0 mmol/L Bedside Lactic Acid Venous 1.78 0.90-1.70 mmol/L Microbiology Results 06/06/16 Blood Culture, Received Pending 06/06/16 Blood Culture, Received Pending Diagnostic Radiology CXR IMPRESSION: Moderate stable cardiomegaly. Possible minimal infiltrate left base EKG EKG: Afib with RVR at 114 bpm with RBBB; no change when compared to EKG from Impression Assessment and Plan COUGH/HYPOXIA; ACUTE BRONCHITIS pt presented with dry cough assoc with exertional SOB and mild wheezing; recent admission for same complaint d/c on Ceftin, doxy and prednisone taper -admit to med/surg -pt is afebrile with no leukocytosis; O2 89% on room air--> now saturating well on 2L O2 -CXR clear; no consolidation -start duonebs and complete course of PO abx (Ceftin and Doxy) -cont supplemental O2 -monitor AFIB WITH RVR: NOW RATE CONTROLLED -pt has h/o PAF on metoprolol. She missed metoprolol dose today -EKG: Afib with RVR on arrival -given metoprolol in ED; rate now in 80s -continue BB -pt is not on anticoagulation -follows with cardiology, Dr. Curry WORSENING LE SWELLING -BNP> 35k ; CXR no effusions -cannot access previous echo -fluid mgmt with dialysis ESRD ON PERITONEAL DIALYSIS -K+ WNL -continue to monitor and avoid nephrotoxic agents when able -consult nephro, Dr. Almazan for dialysis tonight H/O PACEMAKER -pacemaker interrogation last week revealed possible issue with atrial lead -cardio apt scheduled for 06/11 DYSLIPIDEMIA -cont statin DVT PROPHYLAXIS -subq heparin CODE STATUS -FULL CODE status per discussion with patient upon admission DISPO -Pt seen in collaboration with Dr. Young. Please see his addendum for further details. Thanks! Attending Addendum Pt was seen and examined. Agree with Aurora's PA exam, assessment and plan. Pt said that she was feeling well upon discharge, but she said that she has beed having a persistent dry cough that is worse with laying flat that causes her to have SOB. denies any chest pain, palpitation, dizziness and fever. General- adult Head- atraumatic Eyes- PERRL, EOMI ENT- oropharynx clear Neck- supple, no JVD Lungs- Coarse BS Heart- irregular rhythm Abdomen- normal bowel sounds, soft Extremities- no calf tenderness, +edema A/p Cough associated with SOB -Cough worst when laying down -CXR showed Possible minimal infiltrate left base - Pt is afebrile, no elevated WBC -complete course of PO abx (Ceftin and Doxy) - Respiratory treatment with duoneb -cont supplemental O2 AFIB with RVR: -EKG: Afib with RVR on arrival -received metoprolol in ED -continue BB -follows with cardiology, Dr. Curry ELEVATED TROPONIN Mostly related to ESRD Denies any chest pain EKG showed no significant changes when compare to previous one will repeat EKG in am will follow troponin Continue statin, metoprolol I reviewed EKG, lab and imaging Please refer to Aurora's PA documentation for other problems Alec Young MD VTE Prophylaxis VTE Risk Assessment Done? Y/N: Yes Risk Level: Moderate
[2016-06-06] MEDS ORDERED: ALBUT/IPRATROP 3MG/0.5MG NEB 3 ML VIAL INH SCH (20:00)
[2016-06-06] MEDS ORDERED: GUAIFENESIN 200 MG TAB PO PRN (20:45)
[2016-06-06 20:52] VITALS: PULSE 80; O2SAT 95
[2016-06-06] MEDS: PRAVASTATIN SOD 40 MG TAB PO SCH (21:04)
[2016-06-06] MEDS: LACTOBACILLUS ACIDOPHILUS (FLORANEX) TAB PO SCH (21:04)
[2016-06-06] MEDS: DOXYCYCLINE HYCLATE 100 MG CAP PO SCH (21:05)
[2016-06-06] MEDS: HEPARIN SOD 5000 UNIT/0.5 ML CARP SQ SCH (22:13)
[2016-06-06 22:52] VITALS: BP 92/56; PULSE 64; TEMP 36.8; O2SAT 97; Ht 157.5 cm; Wt 57.0 kg
[2016-06-06] MEDS ORDERED: LEVALBUTEROL 1.25MG/0.5ML NEB INH PRN (23:45)
[2016-06-06] MEDS ORDERED: IPRATROPIUM BROMIDE NEB SOLN 0.02% 2.5 ML VIAL INH PRN (23:45)
[2016-06-06] MEDS ORDERED: MAGNESIUM SULFATE 1GM / D5W 1 GM in PREMIXED IN D5W 100 ML IV ONE (23:45)
[2016-06-06] MEDS ORDERED: LEVALBUTEROL/IPRATROPIUM NEB INH PRN (23:45)
[2016-06-07] VITALS (10 sets, daily range): BP systolic 87–117; BP diastolic 46–62; PULSE 63–101; TEMP 36.4–36.8; O2SAT 92–99
[2016-06-07] MEDS: IPRATROPIUM BROMIDE NEB SOLN 0.02% 2.5 ML VIAL INH SCH ×4 (01:42→18:40)
[2016-06-07] MEDS: LEVALBUTEROL 1.25MG/0.5ML NEB INH SCH ×4 (01:42→18:40)
[2016-06-07] MEDS ORDERED: LEVALBUTEROL/IPRATROPIUM NEB INH SCH (03:00)
[2016-06-07 03:15] LABS: COMPLETE YES; HEMATOCRIT 28.1 % (37-47); IG% 0.9 %; LYMPH % 4.9 %; LYMPH ABS # 0.22 K/uL (1.2-3.4); MEAN CELL VOLUME 98.9 fL (80-100); MEAN CORPUSCULAR HEMOGLOBIN 33.5 pg (25-34); MEAN CORPUSCULAR HGB CONC 33.8 g/dl (32-36); MEAN PLATELET VOLUME 8.9 fL (7.4-10.4); MONO % 3.8 %; NEUT % 90.4 %; PLATELET COUNT 148 K/uL (130-400); RED BLOOD COUNT 2.84 M/uL (4.2-5.4); WHITE BLOOD COUNT 4.48 K/uL (4.8-10.8)
[2016-06-07 03:31] LABS: PARTIAL THROMBOPLASTIN RATIO 1.5
[2016-06-07 04:00] LABS: BUN/CREATININE RATIO 11.1 (10-20); CALCIUM 8.3 mg/dl (8.5-10.1); CREATININE 6.8 mg/dl (0.60-1.20); MAGNESIUM 2.5 mg/dl (1.8-2.4); POTASSIUM 4.6 mmol/L (3.5-5.1)
[2016-06-07] MEDS ORDERED: SODIUM CHLORIDE 0.9% 250ML 250 ML IV ONE ×2 (04:15)
[2016-06-07] MEDS: HEPARIN SOD 5000 UNIT/0.5 ML CARP SQ SCH ×3 (06:11→21:06)
[2016-06-07] MEDS ORDERED: CEFUROXIME AXETIL 500 MG TAB PO SCH (08:00)
[2016-06-07] MEDS: LACTOBACILLUS ACIDOPHILUS (FLORANEX) TAB PO SCH ×2 (09:18→21:01)
[2016-06-07] MEDS: CALCITRIOL 0.25 MCG CAP PO SCH (09:19)
[2016-06-07] MEDS: CINACALCET 30 MG TAB PO SCH (09:20)
[2016-06-07] MEDS: DOXYCYCLINE HYCLATE 100 MG CAP PO SCH ×2 (09:20→21:01)
[2016-06-07] MEDS: METOPROLOL TARTRATE 25 MG TAB PO SCH (09:40)
[2016-06-07] MEDS: SEVELAMER HYDROCH 800 MG TAB PO SCH ×3 (09:43→16:33)
[2016-06-07] MEDS ORDERED: EPOETIN ALFA 10,000 UNITS/ML VIAL SQ SCH (11:00)
--- NOTE | 2016-06-07 13:06 | NEPHROLOGY CONSULTATION ---
DATE OF CONSULTATION: 06/07/2016 ATTENDING OF RECORDS: Dr. Young. REASON FOR CONSULTATION: End-stage renal disease. HISTORY OF PRESENT ILLNESS: This is an 86-year-old female who does peritoneal dialysis at the [facility] and dialyzes every night with 4 exchanges at night with 1 manual exchange about 3 hours before being put on the machine and then has a last fill of 1500, which she leaves in for a couple hours in the morning. The patient is a fast transporter and retains fluid rather quickly during long dwells. The patient also has a history of paroxysmal aFib status post a maze procedure with a history of a pacemaker followed by Dr. Curry who has had a significant cough/bronchitis/upper respiratory tract infection since the previous , so for about a week and a half. The patient was admitted from May 31 to June 01 with underlying bronchitis and was discharged on antibiotics and steroids; however, continued to have worsening cough, decreased appetite, worsening shortness of breath and came back in. In the Emergency Room, the patient's heart rate was fast and blood pressure was low. The patient was requiring oxygen. EKG revealed aFib with RVR. Chest x-ray done showed moderate stable cardiomegaly with possible minimal infiltrate of the left base. The patient has been weak and tired, decreased appetite, productive cough. PAST MEDICAL HISTORY: End-stage renal disease on peritoneal dialysis, gout, hypertension, paroxysmal aFib followed by Dr. Curry, recent skin cancer with a procedure to remove a significant lesion from her face. PAST SURGICAL HISTORY: Pacemaker, cataract surgery, cholecystectomy, mitral valve repair and tonsillectomy. FAMILY HISTORY: Significant for heart disease. SOCIAL HISTORY: No smoking, no alcohol, no drugs. Lives with family. CURRENT MEDICATIONS: Calcitriol 0.25 mcg daily, Ceftin 500 mg p.o. daily, Lopressor 12.5 mg p.o. daily, Sensipar 30 mg daily, Renvela 1600 mg p.o. t.i.d. with meals, inhalers, heparin 5000 units subQ q. 8, Pravachol 40 mg at night, Floranex 2 tabs p.o. b.i.d., Tessalon Perles as needed. REVIEW OF SYSTEMS: Denies any fevers or chills. Positive productive cough. Positive shortness of breath. Positive fatigue. Positive decreased appetite. No chest pain, no nausea or vomiting, no diarrhea or constipation. No blurry vision. No rash or itching. No dysphagia. Positive headaches from sinus congestion. All other review of systems otherwise negative. PHYSICAL EXAMINATION: VITAL SIGNS: Temperature 36.4, pulse 96, respiratory rate is 20, blood pressure is 117/57, satting 93% on 2 liters; on admission, pulse was in the 120s and blood pressure was in the 90s. GENERAL: Awake, alert, oriented x3. EYES: No scleral icterus. ENT: Moist mucous membranes. NECK: Supple. PULMONARY: Basilar rales with end-expiratory wheeze. CARDIAC: Irregularly irregular. ABDOMEN: Bowel sounds positive, soft, nontender, positive PD catheter. EXTREMITIES: Mild edema. NEUROLOGICALLY: Nonfocal. DERM: No rash or ulcers noted. LABORATORIES: White count is 4, H\T\H 9.5 and 28.1, platelet count is 148. Sodium level is 131, potassium is 4.6, chloride is 93, bicarbonate is 26, BUN 75, creatinine 6.8, and glucose is 120. Calcium is 8.3, mag is 2.5. Troponin peaked at 0.125. VBG on admission showed a pH 7.43, pCO2 of 47, pO2 of 22 and a bicarbonate of 30. INR is 1.1. IMPRESSION: 1. End-stage renal disease. The patient on peritoneal dialysis secondary to the low blood pressures. We will just do all yellows tonight with a cycler. The BNP is elevated and there are some basilar rales; however, chest x-ray does not show findings of fluid and the patient has had a poor appetite with lower blood pressures. For now, would like to do yellows and as the patient starts to feel better will advance to half yellow, half green and then eventually all greens once she is feeling better. For now, we will be conservative with just doing all yellows. 2. Anemia of renal failure. The patient did have a recent skin cancer with removal of significant lesions. Will continue the Procrit to try to keep the hemoglobin levels up, aware of the recent skin cancer. 3. Renal osteodystrophy. The patient is on Sensipar and calcitriol, calcium levels are stable at 8.3, if the calcium levels continue to drop, may need to hold the Sensipar. For now, we will continue the Renvela and the Sensipar. Appreciate consultation. ALAINA
--- NOTE | 2016-06-07 15:03 | Progress Note ---
Medicine Progress Note Date & Time of Visit: Jun 07, 2016 at 14:42. Subjective Pt was seen and examined Sitting in chair with no acute distress Pt said that the cough improved a little bit Pt said that she is having a lot of post nasal drainage to her throat she denies any chest pain, palpitation, fever and dizziness Objective Last 8 Hrs Date Time Temp Pulse Resp B/P Pulse Ox O2 Delivery O2 Flow Rate FiO2 06/07/16 14:14 77 22 92 Nasal Cannula 2.0 06/07/16 09:52 93 Nasal Cannula 2.0 06/07/16 09:44 96 117/57 93 Nasal Cannula 2.0 06/07/16 07:15 36.4 94 20 99/62 92 Nasal Cannula 2.0 06/07/16 07:04 63 22 93 Nasal Cannula 2.0 Physical Exam: General- no acute distress Head- atraumatic Eyes- PERRL, EOMI ENT- oropharynx clear Neck- supple, no JVD Lungs- Coarse BS Heart- irregular rhythm Abdomen- normal bowel sounds, soft Extremities- +edema, no calf tenderness Neuro- alert, oriented x 3; PERRL, EOMI Skin- warm & dry Laboratory Results: Last 24 Hours Test 06/06/16 16:01 06/06/16 16:10 06/06/16 16:17 06/06/16 18:23 White Blood Count 7.12 K/uL Red Blood Count 3.30 M/uL Hemoglobin 11.2 g/dL Hematocrit 32.5 % Mean Corpuscular Volume 98.5 fL Mean Corpuscular Hemoglobin 33.9 pg Mean Corpuscular Hemoglobin Concent 34.5 g/dl Platelet Count 205 K/uL Mean Platelet Volume 9.1 fL Neutrophils (%) (Auto) 83.7 % Lymphocytes (%) (Auto) 7.2 % Monocytes (%) (Auto) 8.3 % Eosinophils (%) (Auto) 0.1 % Basophils (%) (Auto) 0.0 % Neutrophils # (Auto) 5.96 K/uL Lymphocytes # (Auto) 0.51 K/uL Monocytes # (Auto) 0.59 K/uL Eosinophils # (Auto) 0.01 K/uL Basophils # (Auto) 0.00 K/uL RDW Standard Deviation 51.9 fL RDW Coefficient of Variation 14.8 % Immature Granulocyte % (Auto) 0.7 % Immature Granulocyte # (Auto) 0.05 K/uL Erythrocyte Sedimentation Rate 81 mm/hr Prothrombin Time 12.1 SECONDS Prothromb Time International Ratio 1.1 Activated Partial Thromboplast Time 28.2 SECONDS Partial Thromboplastin Ratio 1.1 Sodium Level 133 mmol/L Potassium Level 4.3 mmol/L Chloride Level 92 mmol/L Carbon Dioxide Level 29 mmol/L Anion Gap 12.0 mmol/L Blood Urea Nitrogen 68 mg/dl Creatinine 6.50 mg/dl Est Creatinine Clear Calc Drug Dose 5.0 ml/min Estimated GFR () 6.2 Estimated GFR (Non- 5.3 BUN/Creatinine Ratio 10.4 Random Glucose 97 mg/dl Calcium Level 8.8 mg/dl Phosphorus Level 3.7 mg/dl Magnesium Level 1.5 mg/dl Total Bilirubin 0.6 mg/dl Aspartate Amino Transf (AST/SGOT) 39 U/L Alanine Aminotransferase (ALT/SGPT) 52 U/L Alkaline Phosphatase 89 U/L Total Creatine Kinase 45 U/L Creatine Kinase MB 2.3 ng/ml Creatine Kinase MB Ratio 5.1 Troponin I 0.087 ng/ml C-Reactive Protein 4.40 mg/dl Pro-B-Type Natriuretic Peptide > 67038 pg/ml Total Protein 7.5 gm/dl Albumin 2.7 gm/dl Globulin 4.8 gm/dl Albumin/Globulin Ratio 0.6 Lipase 273 U/L Venous Blood pH 7.43 Venous Blood Partial Pressure CO2 47 mmHg Venous Blood Partial Pressure O2 22 mmHg Venous Blood HCO3 30 meq/L Venous Blood Oxygen Saturation < 60.0 % Venous Blood Base Excess 5.0 mmol/L Bedside Lactic Acid Venous 1.78 mmol/L Lactic Acid Level 1.4 mmol/L Test 06/06/16 22:00 06/06/16 22:29 06/07/16 03:07 06/07/16 08:04 Creatine Kinase MB Ratio Creatine Kinase MB 2.6 ng/ml Troponin I 0.122 ng/ml 0.125 ng/ml 0.107 ng/ml White Blood Count 4.48 K/uL Red Blood Count 2.84 M/uL Hemoglobin 9.5 g/dL Hematocrit 28.1 % Mean Corpuscular Volume 98.9 fL Mean Corpuscular Hemoglobin 33.5 pg Mean Corpuscular Hemoglobin Concent 33.8 g/dl Platelet Count 148 K/uL Mean Platelet Volume 8.9 fL Neutrophils (%) (Auto) 90.4 % Lymphocytes (%) (Auto) 4.9 % Monocytes (%) (Auto) 3.8 % Eosinophils (%) (Auto) 0.0 % Basophils (%) (Auto) 0.0 % Neutrophils # (Auto) 4.05 K/uL Lymphocytes # (Auto) 0.22 K/uL Monocytes # (Auto) 0.17 K/uL Eosinophils # (Auto) 0.00 K/uL Basophils # (Auto) 0.00 K/uL RDW Standard Deviation 52.1 fL RDW Coefficient of Variation 14.6 % Immature Granulocyte % (Auto) 0.9 % Immature Granulocyte # (Auto) 0.04 K/uL Activated Partial Thromboplast Time 39.7 SECONDS Partial Thromboplastin Ratio 1.5 Sodium Level 131 mmol/L Potassium Level 4.6 mmol/L Chloride Level 93 mmol/L Carbon Dioxide Level 26 mmol/L Anion Gap 12.0 mmol/L Blood Urea Nitrogen 75 mg/dl Creatinine 6.80 mg/dl Est Creatinine Clear Calc Drug Dose 4.8 ml/min Estimated GFR () 5.9 Estimated GFR (Non- 5.1 BUN/Creatinine Ratio 11.1 Random Glucose 120 mg/dl Calcium Level 8.3 mg/dl Magnesium Level 2.5 mg/dl Date/Time Source Procedure Growth Status 06/06/16 16:10 Blood Blood Culture Pending Received 06/06/16 16:01 Blood Blood Culture Pending Received Assessment & Plan Cough associated with SOB -Cough worst when laying down -Possible related to post nasal drainage -CXR showed Possible minimal infiltrate left base - Pt is afebrile, no elevated WBC -will complete course of PO abx (Ceftin and Doxy) - Respiratory treatment with duoneb -cont supplemental O2 -Will try flonase AFIB with RVR: -EKG: Afib with RVR on arrival - Rate is controlled -continue BB -follows with cardiology, Dr. Curry -continue monitor ELEVATED TROPONIN Mostly related to ESRD Denies any chest pain EKG showed no significant changes when compare to previous one Continue statin, metoprolol Will get a resting echo WORSENING LE SWELLING -BNP> 35k ; CXR no effusions -fluid mgmt with dialysis -she will get PD tonight ESRD ON PERITONEAL DIALYSIS -K+ WNL -Nephrology on board Peritoneal dialysis tonight ANEMIA Mostly related to renal failure Hgb 9.5, continue monitor cbc continue Procrit H/O PACEMAKER -pacemaker interrogation last week revealed possible issue with atrial lead -cardio apt scheduled for 06/11 DYSLIPIDEMIA -cont statin DVT PROPHYLAXIS -subq heparin Consultants: Nephrology Current Inpatient Medications: Current Inpatient Medications Medications (Trade) Dose Ordered Sig/Seth Route Start Time Stop Time Status Last Admin Dose Admin Heparin Sodium (Porcine) (Heparin Sq 5000 Unit/0.5ml) 5,000 unit Q8 SQ 06/06/16 22:00 07/06/16 21:59 06/07/16 13:35 5,000 UNIT Acetaminophen (Tylenol Tab) 650 mg Q4H PRN PO 06/06/16 18:30 07/06/16 18:29 Ondansetron HCl (Zofran Inj) 4 mg Q6H PRN IV 06/06/16 18:30 07/06/16 18:29 Benzonatate (Tessalon Perles Cap) 100 mg TID PRN PO 06/06/16 18:45 07/06/16 18:44 Calcitriol (Rocaltrol Cap) 0.25 mcg DAILY PO 06/07/16 08:00 07/07/16 08:59 06/07/16 09:19 0.25 MCG Cefuroxime Axetil (Ceftin Tab) 500 mg DAILY PO 06/07/16 08:00 06/07/16 23:59 06/07/16 09:17 500 MG Doxycycline Hyclate (Vibramycin Cap) 100 mg BID PO 06/06/16 20:00 06/07/16 21:00 06/07/16 09:20 100 MG Lactobacillus Acidophilus (Floranex Tab) 2 tab BID PO 06/06/16 20:00 07/06/16 20:59 06/07/16 09:18 2 TAB Metoprolol Tartrate (Lopressor Tab) 12.5 mg DAILY PO 06/07/16 08:00 07/07/16 08:59 06/07/16 09:40 12.5 MG Pravastatin Sodium (Pravachol Tab) 40 mg HS PO 06/06/16 21:00 07/06/16 20:59 06/06/16 21:04 40 MG Cinacalcet (Sensipar) 30 mg DAILY PO 06/07/16 08:00 07/07/16 08:59 06/07/16 09:20 30 MG Sevelamer HCl (Renagel Tab) 1,600 mg TIDM PO 06/07/16 08:00 07/07/16 07:59 06/07/16 12:20 1,600 MG Guaifenesin (Organidin Nr Tab) 200 mg Q8 PRN PO 06/06/16 20:45 07/06/16 20:44 06/07/16 02:09 200 MG Ipratropium [place] (Atrovent 0.02% 0.5MG/2.5ML Neb) 0.5 mg Q6R INH 06/07/16 03:00 07/07/16 02:59 06/07/16 14:14 0.5 MG Levalbuterol (Xopenex 1.25MG/ 0.5ML Neb) 1.25 mg Q6R INH 06/07/16 03:00 07/07/16 02:59 06/07/16 14:14 1.25 MG Ipratropium [place] (Atrovent 0.02% 0.5MG/2.5ML Neb) 0.5 mg Q4H PRN INH 06/06/16 23:45 07/06/16 23:44 Levalbuterol (Xopenex 1.25MG/ 0.5ML Neb) 1.25 mg Q4H PRN INH 06/06/16 23:45 07/06/16 23:44
[2016-06-07] MEDS ORDERED: FLUTICASONE PROPIONATE NA SPR 16 GM BTL ONE (15:04)
[2016-06-07] MEDS: PRAVASTATIN SOD 40 MG TAB PO SCH (21:00)
[2016-06-08] VITALS (10 sets, daily range): BP systolic 93–104; BP diastolic 46–68; PULSE 79–95; TEMP 36.6–37; O2SAT 93–98
[2016-06-08] MEDS: LEVALBUTEROL 1.25MG/0.5ML NEB INH SCH ×4 (02:15→19:10)
[2016-06-08] MEDS: IPRATROPIUM BROMIDE NEB SOLN 0.02% 2.5 ML VIAL INH SCH ×4 (02:15→19:10)
[2016-06-08] MEDS: HEPARIN SOD 5000 UNIT/0.5 ML CARP SQ SCH ×3 (06:21→21:22)
--- NOTE | 2016-06-08 06:32 | Nephrology Progress Note ---
Nephrology Progress Note Date of Service: Jun 08, 2016. Subjective 86 yo female admitted for continued bronchitis with significant post nasal drip and nasal congestion with poor appetite. tolerated pd well last night. having difficulty sleeping since unable to lay flat-when she does she starts to cough. slept upright last night. Objective Date Time Temp Pulse Resp B/P Pulse Ox O2 Delivery O2 Flow Rate FiO2 06/08/16 02:15 80 22 93 Nasal Cannula 2.0 06/08/16 00:29 Nasal Cannula 2.0 06/08/16 00:00 36.9 82 20 95/57 95 Room Air 06/07/16 18:40 82 22 94 Nasal Cannula 2.0 06/07/16 17:00 36.4 94 99/62 06/07/16 16:21 36.7 78 24 96/58 99 Nasal Cannula 2.0 06/07/16 16:00 Nasal Cannula 2.0 06/07/16 14:14 77 22 92 Nasal Cannula 2.0 06/07/16 09:52 93 Nasal Cannula 2.0 06/07/16 09:44 96 117/57 93 Nasal Cannula 2.0 06/07/16 07:15 36.4 94 20 99/62 92 Nasal Cannula 2.0 06/07/16 07:04 63 22 93 Nasal Cannula 2.0 Physical Exam: General-aaox3 Eyes-no scleral icterus ENT-+resolving lesion with skin cancer removed from face Neck-supple Lungs-+wheeze Heart-irregularly irregular Abdomen-+pd catheter Extremities-+2 edema Neuro-nonfocal Current Inpatient Medications Medications (Trade) Dose Ordered Sig/Seth Route Start Time Stop Time Status Last Admin Dose Admin Heparin Sodium (Porcine) (Heparin Sq 5000 Unit/0.5ml) 5,000 unit Q8 SQ 06/06/16 22:00 07/06/16 21:59 06/08/16 06:21 5,000 UNIT Acetaminophen (Tylenol Tab) 650 mg Q4H PRN PO 06/06/16 18:30 07/06/16 18:29 Ondansetron HCl (Zofran Inj) 4 mg Q6H PRN IV 06/06/16 18:30 07/06/16 18:29 Benzonatate (Tessalon Perles Cap) 100 mg TID PRN PO 06/06/16 18:45 07/06/16 18:44 06/07/16 21:06 100 MG Calcitriol (Rocaltrol Cap) 0.25 mcg DAILY PO 06/07/16 08:00 07/07/16 08:59 06/07/16 09:19 0.25 MCG Lactobacillus Acidophilus (Floranex Tab) 2 tab BID PO 06/06/16 20:00 07/06/16 20:59 06/07/16 21:01 2 TAB Metoprolol Tartrate (Lopressor Tab) 12.5 mg DAILY PO 06/07/16 08:00 07/07/16 08:59 06/07/16 09:40 12.5 MG Pravastatin Sodium (Pravachol Tab) 40 mg HS PO 06/06/16 21:00 07/06/16 20:59 06/07/16 21:00 40 MG Cinacalcet (Sensipar) 30 mg DAILY PO 06/07/16 08:00 07/07/16 08:59 06/07/16 09:20 30 MG Sevelamer HCl (Renagel Tab) 1,600 mg TIDM PO 06/07/16 08:00 07/07/16 07:59 06/07/16 16:33 1,600 MG Guaifenesin (Organidin Nr Tab) 200 mg Q8 PRN PO 06/06/16 20:45 07/06/16 20:44 06/07/16 02:09 200 MG Ipratropium [place] (Atrovent 0.02% 0.5MG/2.5ML Neb) 0.5 mg Q6R INH 06/07/16 03:00 07/07/16 02:59 06/08/16 02:15 0.5 MG Levalbuterol (Xopenex 1.25MG/ 0.5ML Neb) 1.25 mg Q6R INH 06/07/16 03:00 07/07/16 02:59 06/08/16 02:15 1.25 MG Ipratropium [place] (Atrovent 0.02% 0.5MG/2.5ML Neb) 0.5 mg Q4H PRN INH 06/06/16 23:45 07/06/16 23:44 Levalbuterol (Xopenex 1.25MG/ 0.5ML Neb) 1.25 mg Q4H PRN INH 06/06/16 23:45 07/06/16 23:44 Fluticasone Propionate (Flonase Nasal [place]) 2 sprays DAILY NA 06/08/16 08:00 07/08/16 07:59 Last 24 Hours Test 06/07/16 08:04 06/08/16 04:44 Troponin I 0.107 ng/ml Assessment & Plan ESRD-on pd-did all yellows last night since pt with poor appetite but appears edema is worsening in her legs despite decreased appetite. will switch her to all greens tonight to try to remove more fluid to help with swelling in legs and wheezing in lungs. however bp is still low but not lightheaded. Anemia of renal failure-gave her a dose of sq procrit yesterday despite recent skin cancer of her face. trying to keep hg between 10 and 11.
[2016-06-08 07:16] LABS: HEMATOCRIT 29.3 % (37-47); MEAN CORPUSCULAR HEMOGLOBIN 32.8 pg (25-34); MEAN CORPUSCULAR HGB CONC 33.8 g/dl (32-36); MEAN PLATELET VOLUME 8.9 fL (7.4-10.4); PLATELET COUNT 153 K/uL (130-400); RED BLOOD COUNT 3.02 M/uL (4.2-5.4); WHITE BLOOD COUNT 4.85 K/uL (4.8-10.8)
[2016-06-08 08:15] LABS: BUN/CREATININE RATIO 11.4 (10-20); CALCIUM 7.8 mg/dl (8.5-10.1); CREATININE 6.9 mg/dl (0.60-1.20); PHOSPHORUS 5.5 mg/dl (2.5-4.9); POTASSIUM 4.5 mmol/L (3.5-5.1)
--- NOTE | 2016-06-08 08:29 | Clinical Documentation Query ---
CLINICAL DOCUMENTATION QUERY Dr. CRUZ, In your clinical opinion is this patient being managed for: ( ) Acute Bronchitis ( ) Other explanation of clinical findings (Please Explain) ( ) Unable to determine (Please Define) ( ) Need to Discuss ( ) Not Agree The medical record reflects the following clinical findings, treatment, and risk factors. Clinical Indicators: 86 yo female presenting with a dry persistent cough. H/P indicates pt with cough/hypoxia: acute bronchitis however subsequent progress notes no longer include the diagnosis of acute bronchitis. Treatment: O2 support, po ceftin and doxycycline, atrovent and xopenex nebs, guaifenesin, tessalon perles Risk Factors: ESRD, recent hospitalization for treatment of bronchitis Please clarify and document your clinical opinion in the progress notes and discharge summary. Terms such as "probable", "suspected", "likely", "questionable", "possible", or "still to be ruled out" are acceptable. IF IN AGREEMENT, YOU MUST DOCUMENT ABOVE DIAGNOSTIC STATEMENT IN DAILY PROGRESS NOTES AND DISCHARGE SUMMARY. This document is not part of the patient's record. Thank You, Maddison Garcia RN [phone]
[2016-06-08] MEDS: LACTOBACILLUS ACIDOPHILUS (FLORANEX) TAB PO SCH ×2 (08:31→21:21)
[2016-06-08] MEDS: FLUTICASONE PROPIONATE NA SPR 16 GM BTL SCH (08:31)
[2016-06-08] MEDS: CINACALCET 30 MG TAB PO SCH (08:32)
[2016-06-08] MEDS: METOPROLOL TARTRATE 25 MG TAB PO SCH (08:32)
[2016-06-08] MEDS: CALCITRIOL 0.25 MCG CAP PO SCH (08:32)
[2016-06-08] MEDS: SEVELAMER HYDROCH 800 MG TAB PO SCH ×4 (08:34→17:46)
--- NOTE | 2016-06-08 11:05 | ECHOCARDIOGRAM REPORT ---
*NOTICE TO RECEIVING [employer]PUBL[employer]Y This information is strictly Confidential and protected under [place] law. [place] law prohibits you from making any further disclosure of this information unless further disclosure is expressly permitted by the written consent of the person to whom it pertains or is authorized by law. A general authorization for the release of medical or other information is not sufficient for this purpose. Hospital accepts no responsibility if the information is made available to any other person, INCLUDING THE PATIENT. Interpretation Summary * Name: MARIMAR OMALLEY Study Date: 06/07/2016 10:12 AM BP: 99/62 mmHg * Patient Location: [id number] HR: 103 * : 1930 (M/d/yyyy) Gender: Female Height: 62 in * Age: 86 yrs Ethnicity: [place] Weight: 125 lb * Ordering Physician: Alec Young * Referring Physician: Self, Referred * Performed By: Patti Thompson RCS * * Reason For Study: ELEVATED TROPONIN * BSA: 1.6 m2 * Normal left ventricular systolic function and wall motion. * Moderate -severe right ventricular dilatation and systolic dysfunction. * Moderate biatrial dilatation. * Moderate - severe calcific aortic stenosis. * Trace pulmonic reguirgitation. * Moderate tricuspid regurgitation. * Severe pulmonary hypertension. * Elevated central venous pressure. * Right ventricular pressure/volume overload. Procedure Details * A complete two-dimensional transthoracic echocardiogram was performed (2D, M-mode, Doppler and color flow Doppler). Left Ventricle * The left ventricle is normal in size. * There is moderate concentric left ventricular hypertrophy. * Left ventricular systolic function is normal. * Ejection Fraction = 60-65%. * Flattened septum is consistent with RV pressure/volume overload. * No regional wall motion abnormalities noted. Right Ventricle * The right ventricle is moderate to severely dilated. * There is a pacemaker lead in the right ventricle. * The right ventricular systolic function is moderate to severely reduced. Atria * The left atrium is moderately dilated. * The right atrium is moderately dilated. Mitral Valve * There is no mitral regurgitation noted. * An annuloplasty ring is noted in the mitral position. Tricuspid Valve * Right ventricular systolic pressure is elevated at >60mmHg. * There is moderate tricuspid regurgitation. * An annuloplasty ring is noted in the tricuspid position. Aortic Valve * The aortic valve is trileaflet. * Moderate to severe valvular aortic stenosis. * Aortic valve area was calculated at 0.91 cm\S\2 using the continuity equation. * No aortic regurgitation is present. Pulmonic Valve * The pulmonic valve is not well visualized. * Trace pulmonic valvular regurgitation. Great Vessels * The aortic root is normal size. Pericardium/Pleural * Small pericardial effusion. * There are no echocardiographic indications of cardiac tamponade. Great Vessels * The inferior vena cava is mildly dilated. MMode 2D Measurements and Calculations IVSd 1.7 cm IVSs 2.0 cm LVIDd 4.1 cm LVIDs 2.7 cm LVPWd 1.5 cm LVPWs 1.7 cm IVS/LVPW 1.1 FS 33.5 % EDV(Teich) 75.3 ml ESV(Teich) 28.1 ml EF(Teich) 62.7 % EDV(cubed) 70.1 ml ESV(cubed) 20.6 ml EF(cubed) 70.6 % % IVS thick 18.3 % % LVPW thick 14.8 % LV mass(C)d 256.6 grams LV mass(C)dI 163.9 grams/m\S\2 LV mass(C)s 198.0 grams LV mass(C)sI 126.5 grams/m\S\2 SV(Teich) 47.2 ml SI(Teich) 30.1 ml/m\S\2 SV(cubed) 49.5 ml SI(cubed) 31.6 ml/m\S\2 Ao root diam 3.2 cm Ao root area 8.3 cm\S\2 ACS 1.1 cm LA dimension 4.5 cm LA/Ao 1.4 LVOT diam 1.9 cm LVOT area 2.8 cm\S\2 Doppler Measurements and Calculations MV E max jarocho 184.6 cm/sec MV P1/2t max jarocho 199.2 cm/sec MV P1/2t 74.9 msec MVA(P1/2t) 2.9 cm\S\2 MV dec slope 779.0 cm/sec\S\2 MV dec time 0.22 sec Ao V2 max 275.6 cm/sec Ao max PG 30.4 mmHg Ao max PG (full) 27.2 mmHg Ao V2 mean 202.7 cm/sec Ao mean PG 17.8 mmHg Ao mean PG (full) 16.2 mmHg Ao V2 VTI 57.2 cm HARSHA(I,A) 0.91 cm\S\2 HARSHA(I,D) 0.91 cm\S\2 HARSHA(V,A) 0.91 cm\S\2 HARSHA(V,D) 0.91 cm\S\2 LV V1 max PG 3.2 mmHg LV V1 mean PG 1.7 mmHg LV V1 max 89.0 cm/sec LV V1 mean 61.0 cm/sec LV V1 VTI 18.4 cm SV(Ao) 472.9 ml SI(Ao) 302.1 ml/m\S\2 SV(LVOT) 51.9 ml SI(LVOT) 33.2 ml/m\S\2 PA V2 max 86.9 cm/sec PA max PG 3.0 mmHg PI max jarocho 134.8 cm/sec PI max PG 7.3 mmHg PI dec slope 214.1 cm/sec\S\2 PI P1/2t 184.5 msec TR max jarocho 396.3 cm/sec
[2016-06-08] MEDS: ONDANSETRON INJ 2 MG/ML 2 ML VIAL IV PRN (19:47)
[2016-06-08] MEDS: PRAVASTATIN SOD 40 MG TAB PO SCH (21:21)
--- NOTE | 2016-06-08 21:25 | Progress Note ---
Medicine Progress Note Date & Time of Visit: Jun 08, 2016 at 21:14. Subjective Pt was seen and examined Sitting in chair comfortable with no distress Pt said that her breathing feels much better She denies any chest pain, palpitation, dizziness and sob Objective Last 8 Hrs Date Time Temp Pulse Resp B/P Pulse Ox O2 Delivery O2 Flow Rate FiO2 06/08/16 20:00 Nasal Cannula 2.0 06/08/16 19:10 79 18 98 Nasal Cannula 2.0 06/08/16 15:28 36.8 95 20 104/68 96 Nasal Cannula 2.0 06/08/16 15:15 Room Air 06/08/16 14:05 80 20 98 Nasal Cannula 2.0 Physical Exam: General- no acute distress, very pleasant Head- atraumatic Eyes- PERRL, EOMI ENT- oropharynx clear Neck- supple, no JVD Lungs- Coarse BS Heart- irregular rhythm Abdomen- normal bowel sounds, soft Extremities- +edema, no calf tenderness Neuro- alert, oriented x 3; PERRL, EOMI Skin- warm & dry Laboratory Results: Last 24 Hours Test 06/08/16 06:54 White Blood Count 4.85 K/uL Red Blood Count 3.02 M/uL Hemoglobin 9.9 g/dL Hematocrit 29.3 % Mean Corpuscular Volume 97.0 fL Mean Corpuscular Hemoglobin 32.8 pg Mean Corpuscular Hemoglobin Concent 33.8 g/dl RDW Standard Deviation 50.8 fL RDW Coefficient of Variation 14.5 % Platelet Count 153 K/uL Mean Platelet Volume 8.9 fL Sodium Level 131 mmol/L Potassium Level 4.5 mmol/L Chloride Level 92 mmol/L Carbon Dioxide Level 24 mmol/L Anion Gap 15.0 mmol/L Blood Urea Nitrogen 79 mg/dl Creatinine 6.90 mg/dl Est Creatinine Clear Calc Drug Dose 4.7 ml/min Estimated GFR () 5.8 Estimated GFR (Non- 5.0 BUN/Creatinine Ratio 11.4 Random Glucose 93 mg/dl Calcium Level 7.8 mg/dl Phosphorus Level 5.5 mg/dl Assessment & Plan Cough associated with SOB -Cough worst when laying down -Possible related to post nasal drainage -CXR showed Possible minimal infiltrate left base - Pt is afebrile, no elevated WBC -will complete course of PO abx (Ceftin and Doxy) - Respiratory treatment with duoneb -cont supplemental O2 -Continue flonase - Improved AFIB with RVR: -EKG: Afib with RVR on arrival - Rate is controlled -continue BB -follows with cardiology, Dr. Curry -continue monitor ELEVATED TROPONIN Mostly related to ESRD Denies any chest pain EKG showed no significant changes when compare to previous one Continue statin, metoprolol Echo done show no wall abnormality Echo summary * Normal left ventricular systolic function and wall motion. * Moderate -severe right ventricular dilatation and systolic dysfunction. * Moderate biatrial dilatation. * Moderate - severe calcific aortic stenosis. * Trace pulmonic reguirgitation. * Moderate tricuspid regurgitation. * Severe pulmonary hypertension. * Elevated central venous pressure. * Right ventricular pressure/volume overload. WORSENING LE SWELLING -BNP> 35k ; CXR no effusions -fluid mgmt with dialysis -Nephro plan to remove more fluid tonight during peritoneal dialysis ESRD ON PERITONEAL DIALYSIS -K+ WNL -Nephrology on board Peritoneal dialysis tonight ANEMIA Mostly related to renal failure Hgb 9.9, continue monitor cbc continue Procrit H/O PACEMAKER -pacemaker interrogation last week revealed possible issue with atrial lead -cardio apt scheduled for 06/11 DYSLIPIDEMIA -cont statin DVT PROPHYLAXIS -subq heparin Disposition Possible discharge tomorrow if medically stable Consultants: Nephrology Current Inpatient Medications: Current Inpatient Medications Medications (Trade) Dose Ordered Sig/Seth Route Start Time Stop Time Status Last Admin Dose Admin Heparin Sodium (Porcine) (Heparin Sq 5000 Unit/0.5ml) 5,000 unit Q8 SQ 06/06/16 22:00 07/06/16 21:59 06/08/16 14:17 5,000 UNIT Acetaminophen (Tylenol Tab) 650 mg Q4H PRN PO 06/06/16 18:30 07/06/16 18:29 Ondansetron HCl (Zofran Inj) 4 mg Q6H PRN IV 06/06/16 18:30 07/06/16 18:29 06/08/16 19:47 4 MG Benzonatate (Tessalon Perles Cap) 100 mg TID PRN PO 06/06/16 18:45 07/06/16 18:44 06/07/16 21:06 100 MG Calcitriol (Rocaltrol Cap) 0.25 mcg DAILY PO 06/07/16 08:00 07/07/16 08:59 06/08/16 08:32 0.25 MCG Lactobacillus Acidophilus (Floranex Tab) 2 tab BID PO 06/06/16 20:00 07/06/16 20:59 06/08/16 08:31 2 TAB Metoprolol Tartrate (Lopressor Tab) 12.5 mg DAILY PO 06/07/16 08:00 07/07/16 08:59 06/07/16 09:40 12.5 MG Pravastatin Sodium (Pravachol Tab) 40 mg HS PO 06/06/16 21:00 07/06/16 20:59 06/07/16 21:00 40 MG Cinacalcet (Sensipar) 30 mg DAILY PO 06/07/16 08:00 07/07/16 08:59 06/08/16 08:32 30 MG Sevelamer HCl (Renagel Tab) 1,600 mg TIDM PO 06/07/16 08:00 07/07/16 07:59 06/08/16 12:24 1,600 MG Guaifenesin (Organidin Nr Tab) 200 mg Q8 PRN PO 06/06/16 20:45 07/06/16 20:44 06/07/16 02:09 200 MG Ipratropium [place] (Atrovent 0.02% 0.5MG/2.5ML Neb) 0.5 mg Q6R INH 06/07/16 03:00 07/07/16 02:59 06/08/16 19:10 0.5 MG Levalbuterol (Xopenex 1.25MG/ 0.5ML Neb) 1.25 mg Q6R INH 06/07/16 03:00 07/07/16 02:59 06/08/16 19:10 1.25 MG Ipratropium [place] (Atrovent 0.02% 0.5MG/2.5ML Neb) 0.5 mg Q4H PRN INH 06/06/16 23:45 07/06/16 23:44 Levalbuterol (Xopenex 1.25MG/ 0.5ML Neb) 1.25 mg Q4H PRN INH 06/06/16 23:45 07/06/16 23:44 Fluticasone Propionate (Flonase Nasal [place]) 2 sprays DAILY NA 06/08/16 08:00 07/08/16 07:59 06/08/16 08:31 2 SPRAYS
[2016-06-09] MEDS: IPRATROPIUM BROMIDE NEB SOLN 0.02% 2.5 ML VIAL INH SCH ×3 (02:54→14:20)
[2016-06-09] MEDS: LEVALBUTEROL 1.25MG/0.5ML NEB INH SCH ×3 (02:54→14:20)
[2016-06-09] MEDS: HEPARIN SOD 5000 UNIT/0.5 ML CARP SQ SCH (06:00)
[2016-06-09] MEDS: ONDANSETRON INJ 2 MG/ML 2 ML VIAL IV PRN (07:20)
[2016-06-09 07:23] LABS: MEAN CELL VOLUME 98.3 fL (80-100); MEAN CORPUSCULAR HEMOGLOBIN 33.6 pg (25-34); MEAN CORPUSCULAR HGB CONC 34.1 g/dl (32-36); MEAN PLATELET VOLUME 9.7 fL (7.4-10.4); PLATELET COUNT 147 K/uL (130-400); RED BLOOD COUNT 2.95 M/uL (4.2-5.4)
[2016-06-09 07:24] VITALS: BP 95/61; PULSE 100; TEMP 36.5; O2SAT 88
--- NOTE | 2016-06-09 07:48 | Clinical Documentation Query ---
CLINICAL DOCUMENTATION QUERY Dr. LINDSEY, In your clinical opinion is this patient being managed for: ( + ) Acute Bronchitis ( ) Other explanation of clinical findings (Please Explain) ( ) Unable to determine (Please Define) ( ) Need to Discuss ( ) Not Agree The medical record reflects the following clinical findings, treatment, and risk factors. Clinical Indicators: 86 yo female presenting with a dry persistent cough. H/P indicates pt with cough/hypoxia: acute bronchitis however subsequent progress notes no longer include the diagnosis of acute bronchitis. Treatment: O2 support, po ceftin and doxycycline, atrovent and xopenex nebs, guaifenesin, tessalon perles Risk Factors: ESRD, recent hospitalization for treatment of bronchitis Please clarify and document your clinical opinion in the progress notes and discharge summary. Terms such as "probable", "suspected", "likely", "questionable", "possible", or "still to be ruled out" are acceptable. IF IN AGREEMENT, YOU MUST DOCUMENT ABOVE DIAGNOSTIC STATEMENT IN DAILY PROGRESS NOTES AND DISCHARGE SUMMARY. This document is not part of the patient's record. 2/ Pt transferred to new provider, query discussed with new provider Thank You, Maddison Garcia, RN [phone]
[2016-06-09 07:51] VITALS: PULSE 82; O2SAT 94
[2016-06-09] MEDS: SEVELAMER HYDROCH 800 MG TAB PO SCH ×2 (08:00→12:30)
[2016-06-09] MEDS: METOPROLOL TARTRATE 25 MG TAB PO SCH (08:00)
[2016-06-09 08:02] LABS: BUN/CREATININE RATIO 10.5 (10-20); CALCIUM 7.9 mg/dl (8.5-10.1); CREATININE 7.3 mg/dl (0.60-1.20); POTASSIUM 4.4 mmol/L (3.5-5.1)
[2016-06-09] MEDS: FLUTICASONE PROPIONATE NA SPR 16 GM BTL SCH (08:16)
[2016-06-09] MEDS: LACTOBACILLUS ACIDOPHILUS (FLORANEX) TAB PO SCH (08:16)
[2016-06-09] MEDS: CALCITRIOL 0.25 MCG CAP PO SCH (08:17)
[2016-06-09] MEDS: CINACALCET 30 MG TAB PO SCH (08:17)
[2016-06-09 12:37] VITALS: BP 95/61; PULSE 100; TEMP 36.5
--- NOTE | 2016-06-09 12:59 | Nephrology Progress Note ---
Nephrology Progress Note Date of Service: Jun 09, 2016. Subjective 86 yo female admitted for continued bronchitis with significant post nasal drip and nasal congestion with poor appetite. pt still with poor appetite. had all greens last night and edema is improving. pt would like to continue all greens. pt inquiring about going home today. starting to feel better but still with decreased appetite. Objective Date Time Temp Pulse Resp B/P Pulse Ox O2 Delivery O2 Flow Rate FiO2 06/09/16 12:37 36.5 100 18 95/61 06/09/16 09:53 Nasal Cannula 2.0 06/09/16 08:00 Nasal Cannula 2.0 06/09/16 07:51 82 18 94 Nasal Cannula 2.0 06/09/16 07:24 36.5 100 18 95/61 88 Nasal Cannula 2.0 06/09/16 00:00 Nasal Cannula 2.0 06/08/16 23:35 36.6 82 18 96/57 94 2.0 06/08/16 20:00 Nasal Cannula 2.0 06/08/16 19:10 79 18 98 Nasal Cannula 2.0 06/08/16 18:30 36.8 95 104/68 06/08/16 15:28 36.8 95 20 104/68 96 Nasal Cannula 2.0 06/08/16 15:15 Room Air 06/08/16 14:05 80 20 98 Nasal Cannula 2.0 Physical Exam: General-aaox3 Eyes-no scleral icterus ENT-+resolving lesion with skin cancer removed from face Neck-supple Lungs-+rales Heart-irregularly irregular Abdomen-+pd catheter Extremities-+1 to 2 edema Neuro-nonfocal Current Inpatient Medications Medications (Trade) Dose Ordered Sig/Seth Route Start Time Stop Time Status Last Admin Dose Admin Heparin Sodium (Porcine) (Heparin Sq 5000 Unit/0.5ml) 5,000 unit Q8 SQ 06/06/16 22:00 07/06/16 21:59 06/08/16 21:22 5,000 UNIT Acetaminophen (Tylenol Tab) 650 mg Q4H PRN PO 06/06/16 18:30 07/06/16 18:29 Ondansetron HCl (Zofran Inj) 4 mg Q6H PRN IV 06/06/16 18:30 07/06/16 18:29 06/09/16 07:20 4 MG Benzonatate (Tessalon Perles Cap) 100 mg TID PRN PO 06/06/16 18:45 07/06/16 18:44 06/07/16 21:06 100 MG Calcitriol (Rocaltrol Cap) 0.25 mcg DAILY PO 06/07/16 08:00 07/07/16 08:59 06/09/16 08:17 0.25 MCG Lactobacillus Acidophilus (Floranex Tab) 2 tab BID PO 06/06/16 20:00 07/06/16 20:59 06/09/16 08:16 2 TAB Metoprolol Tartrate (Lopressor Tab) 12.5 mg DAILY PO 06/07/16 08:00 07/07/16 08:59 06/07/16 09:40 12.5 MG Pravastatin Sodium (Pravachol Tab) 40 mg HS PO 06/06/16 21:00 07/06/16 20:59 06/08/16 21:21 40 MG Cinacalcet (Sensipar) 30 mg DAILY PO 06/07/16 08:00 07/07/16 08:59 06/09/16 08:17 30 MG Sevelamer HCl (Renagel Tab) 1,600 mg TIDM PO 06/07/16 08:00 07/07/16 07:59 06/09/16 12:30 1,600 MG Guaifenesin (Organidin Nr Tab) 200 mg Q8 PRN PO 06/06/16 20:45 07/06/16 20:44 06/07/16 02:09 200 MG Ipratropium [place] (Atrovent 0.02% 0.5MG/2.5ML Neb) 0.5 mg Q6R INH 06/07/16 03:00 07/07/16 02:59 06/09/16 07:33 0.5 MG Levalbuterol (Xopenex 1.25MG/ 0.5ML Neb) 1.25 mg Q6R INH 06/07/16 03:00 07/07/16 02:59 06/09/16 07:33 1.25 MG Ipratropium [place] (Atrovent 0.02% 0.5MG/2.5ML Neb) 0.5 mg Q4H PRN INH 06/06/16 23:45 07/06/16 23:44 Levalbuterol (Xopenex 1.25MG/ 0.5ML Neb) 1.25 mg Q4H PRN INH 06/06/16 23:45 07/06/16 23:44 Fluticasone Propionate (Flonase Nasal [place]) 2 sprays DAILY NA 06/08/16 08:00 07/08/16 07:59 06/09/16 08:16 2 SPRAYS Last 24 Hours Test 06/09/16 06:24 06/09/16 06:25 White Blood Count 3.70 K/uL Red Blood Count 2.95 M/uL Hemoglobin 9.9 g/dL Hematocrit 29.0 % Mean Corpuscular Volume 98.3 fL Mean Corpuscular Hemoglobin 33.6 pg Mean Corpuscular Hemoglobin Concent 34.1 g/dl RDW Standard Deviation 52.4 fL RDW Coefficient of Variation 14.7 % Platelet Count 147 K/uL Mean Platelet Volume 9.7 fL Sodium Level 132 mmol/L Potassium Level 4.4 mmol/L Chloride Level 94 mmol/L Carbon Dioxide Level 25 mmol/L Anion Gap 13.0 mmol/L Blood Urea Nitrogen 78 mg/dl Creatinine 7.30 mg/dl Est Creatinine Clear Calc Drug Dose 4.5 ml/min Estimated GFR () 5.4 Estimated GFR (Non- 4.6 BUN/Creatinine Ratio 10.5 Random Glucose 104 mg/dl Calcium Level 7.9 mg/dl Assessment & Plan ESRD-on pd-will continue all greens while she is here in the hospital to help remove fluid from legs and help with her breathing. Anemia of renal failure-gave her a dose of sq procrit over the weekend. will follow hg levels. had surgery to remove skin cancer which was quite large and extensive. HEBERT: on calcitriol, sensipar and renvela and will continue current medications. phos was elevated at 5.5.
[2016-06-09 14:20] VITALS: PULSE 94; O2SAT 90
--- NOTE | 2016-06-09 15:23 | Progress Note ---
Internal Med Progress Note Date of Service: Jun 09, 2016. Provider Documentation: SUBJECTIVE: Patient is feeling much better and eager to be discharged. Patient does have cough but significant improvement No Chest pain, SOB, fever, chills. Off oxygen OBJECTIVE: Vital Signs-as noted below Exam: General- no acute distress, very pleasant Neck- supple, no JVD Lungs- Coarse BS; no rhonchi Heart- irregular rhythm Extremities- +edema, no calf tenderness Neuro- alert, oriented x 3 Lab data as noted below. ASSESSMENT & PLAN: BRONCHITIS, ACUTE: Was discharged on 06/06/16 on Ceftin/Doxycycline/prednisone taper, came back with worsening symptoms -Off oxygen -CXR showed Possible minimal infiltrate left base -Afebrile, WBC normal -Duonebs -Continue flonase AFIB with RVR : -EKG: A fib with RVR on arrival; rate controlled -Continue BB -Follows with cardiology, Dr. Curry -Monitor ELEVATED TROPONIN Mostly related to ESRD Denies any chest pain EKG showed no significant changes when compare to previous one Continue statin, metoprolol Echo done show no wall abnormality Echo summary * Normal left ventricular systolic function and wall motion. * Moderate -severe right ventricular dilatation and systolic dysfunction. * Moderate biatrial dilatation. * Moderate - severe calcific aortic stenosis. * Trace pulmonic reguirgitation. * Moderate tricuspid regurgitation. * Severe pulmonary hypertension. * Elevated central venous pressure. * Right ventricular pressure/volume overload. WORSENING LE SWELLING -BNP> 35k ; CXR no effusions -fluid mgmt with dialysis ESRD ON PERITONEAL DIALYSIS -K+ WNL -Nephrology on board -Peritoneal dialysis tonight at home post discharge ANEMIA -Mostly related to renal failure -Hgb 9.9 -continue Procrit H/O PACEMAKER -pacemaker interrogation last week revealed possible issue with atrial lead -cardio apt scheduled for 06/11 DYSLIPIDEMIA -cont statin DVT PROPHYLAXIS -subq heparin Disposition Eager to be discharged Okay to discharge home today Vital Signs: Date Time Temp Pulse Resp B/P Pulse Ox O2 Delivery O2 Flow Rate FiO2 06/09/16 14:20 94 18 90 Room Air 06/09/16 12:37 36.5 100 18 95/61 06/09/16 09:53 Nasal Cannula 2.0 06/09/16 08:00 Nasal Cannula 2.0 06/09/16 07:51 82 18 94 Nasal Cannula 2.0 06/09/16 07:24 36.5 100 18 95/61 88 Nasal Cannula 2.0 06/09/16 00:00 Nasal Cannula 2.0 06/08/16 23:35 36.6 82 18 96/57 94 2.0 06/08/16 20:00 Nasal Cannula 2.0 06/08/16 19:10 79 18 98 Nasal Cannula 2.0 06/08/16 18:30 36.8 95 104/68 06/08/16 15:28 36.8 95 20 104/68 96 Nasal Cannula 2.0 Lab Results: Results Past 24 Hours Test 06/09/16 06:24 06/09/16 06:25 Range/Units White Blood Count 3.70 4.8-10.8 K/uL Red Blood Count 2.95 4.2-5.4 M/uL Hemoglobin 9.9 12.0-16.0 g/dL Hematocrit 29.0 37-47 % Mean Corpuscular Volume 98.3 80-100 fL Mean Corpuscular Hemoglobin 33.6 25-34 pg Mean Corpuscular Hemoglobin Concent 34.1 32-36 g/dl RDW Standard Deviation 52.4 36.4-46.3 fL RDW Coefficient of Variation 14.7 11.5-14.5 % Platelet Count 147 130-400 K/uL Mean Platelet Volume 9.7 7.4-10.4 fL Sodium Level 132 136-145 mmol/L Potassium Level 4.4 3.5-5.1 mmol/L Chloride Level 94 98-107 mmol/L Carbon Dioxide Level 25 21-32 mmol/L Anion Gap 13.0 3-11 mmol/L Blood Urea Nitrogen 78 7-18 mg/dl Creatinine 7.30 0.60-1.20 mg/dl Est Creatinine Clear Calc Drug Dose 4.5 ml/min Estimated GFR () 5.4 Estimated GFR (Non- 4.6 BUN/Creatinine Ratio 10.5 10-20 Random Glucose 104 70-99 mg/dl Calcium Level 7.9 8.5-10.1 mg/dl
--- NOTE | 2016-06-09 15:28 | Discharge Instructions ---
Discharge Instructions Admission Reason for Admission: Atrial Fibrillation W/ Rvr, Bronchitis Discharge Discharge Diagnosis / Problem: 1. Acute bronchitis Discharge Goals Goal(s): Diagnostic testing, Therapeutic intervention Activity Recommendations Activity Limitations: resume your previous activity . Instructions / Follow-Up Instructions / Follow-Up NEW MEDICATIONS; None FOLLOW UP: Dr Childs 06/12/16 at 9:10 AM Current Hospital Diet Patient's current hospital diet: Regular Diet Discharge Diet Recommended Diet: AHA Diet (Heart Healthy), Low Sodium Diet (2gm Na) Pending Studies Studies pending at discharge: no Medical Emergencies . Who to Call and When: Medical Emergencies: If at any time you feel your situation is an emergency, please call 911 immediately. . Non-Emergent Contact Non-Emergency issues call your: Primary Care Provider . . "Provider Documentation" section prepared by Jennifer Mack. VTE Core Measure Inpt VTE Proph given/why not?: Unfractionated heparin SQ
[2016-06-09 15:31] VITALS: BP 93/55; PULSE 95; TEMP 36.5; O2SAT 92
--- NOTE | 2016-06-09 15:32 | Discharge Summary ---
Discharge Summary Admission Date: Jun 06, 2016 at 18:33 Discharge Date: Jun 09, 2016 Discharge Disposition: Home Principal Diagnosis: 1. Acute bronchitis 2. Atrial fibrillation with RVR Secondary Diagnoses/Problems: 1. ESRD on Peritoneal dialysis 2. Anemia due to ESRD 3. Dyslipidemia 4. Pacemaker in situ Procedures: -Antibiotics -Duonebs -CXR -Oxygen Consultations: Nephrology Pending Studies/Follow-Up: Instructions / Follow-Up NEW MEDICATIONS; No changes in medications FOLLOW UP: Dr Childs 06/12/16 at 9:10 AM Medication Reconciliation Continued Medications: Benzonatate (Tessalon Perles) 100 Mg Cap 1 CAP PO TID PRN for Cough for 10 Days, #30 CAP Calcitriol (Rocaltrol Cap) 0.25 Mcg Cap 0.25 MCG PO DAILY, CAP Cinacalcet (Sensipar) 30 Mg Tab 30 MG PO DAILY, TAB Ipratropium-Albuterol (Combivent Respimat) 1 Aer Aer 1 PUFFS INH QID PRN for SOB/Wheezing, #1 INH 2 Refills Lactobacillus Acidophilus (Floranex) 1 Tab Tab 2 TAB PO BID for 10 Days, #40 TAB Metoprolol Tartrate (Lopressor) 25 Mg Tab 12.5 MG PO DAILY, TAB Pravastatin Sodium (Pravastatin Sodium) 40 Mg Tab 40 MG PO HS Sevelamer Carbonate (Renvela) 800 Mg Tab 2 TAB PO TIDM for 90 Days, TAB 3 Refills Discontinued Medications: Doxycycline Hyclate (Doxycycline Hyclate) 100 Mg Cap 100 MG PO BID for 7 Days, #14 CAP Prednisone (Prednisone) 10 Mg Tab 40 MG PO UD, #20 TAB PREDNISONE 40MG PO DAILY X 2 DAYS THEN PREDNISONE 30MG PO DAILY X 2 DAYS THEN PREDNISONE 20MG PO DAILY X 2 DAYS THEN PREDNISONE 10MG PO DAILY X 2 DAYS THEN STOP. Admission Information HPI (per Admitting provider): This is an 86 y/o female with PMHx of ESRD on peritoneal dialysis, PAF s/p MAZE procedure, h/o pacemaker and other problems as outlined below who presents to the ED c/o cough x 10 days. Pt was recently admitted to [facility] from 05/31-06/01 with bronchitis. She was discharged with ceftin, doxy, prednisone taper and Combivent inhaler. Pt reports that she was feeling well upon discharge however her sxs worsened again. She states she has a persistent dry cough that is worse with laying flat and exertion. Sxs are assoc with exertional SOB, mild wheezing , worsening LE edema and lightheadedness. She has been taking her medications as prescribed with no relief. This morning patient was unable to take her medications due to some nausea which has since resolved. Pt has had many sick family members with similar sxs over the past few weeks. Pt has a history of ESRD on peritoneal dialysis. She follows with nephro, Dr. Almazan. Pt denies fever/ chills, diaphoresis, chest pain, palpitations, abd pain, bowel or bladder issues , calf pain. In the ED, pt is tachy, hypotensive and hypoxic on room air. Pt is afebrile with no leukocytosis. Na+ 133. creat 6.5. lactic acid 1.78. mag 1.5. crp 4.4. BNP> 35k. CXR no consolidation. EKG Afib with RVR. Pt will be admitted for further evaluation and treatment. Physical Exam (per Admitting): General Appearance: WD/WN, no apparent distress, + pertinent finding (Pt is laying in bed with son at bedside ) Head: normocephalic, atraumatic Eyes: normal inspection ENT: hearing grossly normal Neck: supple Respiratory/Chest: chest non-tender, no respiratory distress, no accessory muscle use, + rhonchi, + wheezing (mild end expiratory wheeze) Cardiovascular: + irregularly irregular Abdomen/GI: normal bowel sounds, non tender, soft Back: normal inspection Extremities/Musculoskelatal: normal inspection, no calf tenderness, + swelling (3+ pitting edema bilat R>L) Neurologic/Psych: alert, normal mood/affect, oriented x 3 Skin: normal color, warm/dry Hospital Course BRONCHITIS, ACUTE: Was discharged on 06/06/16 on Ceftin/Doxycycline/prednisone taper, came back with worsening symptoms -Off oxygen -CXR showed Possible minimal infiltrate left base but afebrile, no leucocytosis -Duonebs; Completed course of Ceftin/Doxycycline. -Continue flonase AFIB with RVR : -EKG: A fib with RVR on arrival; rate controlled -Continue BB -Follows with cardiology, Dr. Curry ELEVATED TROPONIN Mostly related to ESRD Denies any chest pain EKG showed no significant changes when compare to previous one Continue statin, metoprolol Echo done show no wall abnormality Echo summary * Normal left ventricular systolic function and wall motion. * Moderate -severe right ventricular dilatation and systolic dysfunction. * Moderate biatrial dilatation. * Moderate - severe calcific aortic stenosis. * Trace pulmonic reguirgitation. * Moderate tricuspid regurgitation. * Severe pulmonary hypertension. * Elevated central venous pressure. * Right ventricular pressure/volume overload. WORSENING LE SWELLING -BNP> 35k ; CXR no effusions -fluid mgmt with dialysis ESRD ON PERITONEAL DIALYSIS -K+ WNL -Nephrology on board -Peritoneal dialysis tonight at home post discharge ANEMIA -Mostly related to renal failure -Hgb 9.9 -continue Procrit H/O PACEMAKER -pacemaker interrogation last week revealed possible issue with atrial lead -cardio apt scheduled for 06/11 DYSLIPIDEMIA -cont statin DVT PROPHYLAXIS -subq heparin Disposition Eager to be discharged Okay to discharge home today Total time spent on discharge = 32 minutes This includes examination of the patient, discharge planning, medication reconciliation, and communication with other providers. Discharge Instructions Activity Recommendations Activity Limitations: resume your previous activity . Instructions / Follow-Up Instructions / Follow-Up NEW MEDICATIONS; None FOLLOW UP: Dr Childs 06/12/16 at 9:10 AM Current Hospital Diet Patient's current hospital diet: Regular Diet Discharge Diet Recommended Diet: AHA Diet (Heart Healthy), Low Sodium Diet (2gm Na) Pending Studies Studies pending at discharge: no Medical Emergencies . Who to Call and When: Medical Emergencies: If at any time you feel your situation is an emergency, please call 911 immediately. . Non-Emergent Contact Non-Emergency issues call your: Primary Care Provider . . "Provider Documentation" section prepared by Jennifer Mack. VTE Core Measure Inpt VTE Proph given/why not?: Unfractionated heparin SQ
[2016-06-09 15:40] VITALS: BP 93/55; PULSE 95; TEMP 36.5; O2SAT 92
== END 2016-06-09 16:00 | disposition home or self-care (01) | DRG 202 ==
LOC: ENRESERVTM → ENRESERVDT → C.EDB 15:11 → C.MS4W 18:33
PROVIDERS: ADMIT Internal Medicine; ATTEND Internal Medicine
PROC: 3E1M39Z Irrigation of Peritoneal Cavity using Dialysate, Percutaneous Approach (ICD-10-PCS; principal; 2016-06-07)
DX: J20.9 Acute bronchitis, unspecified (principal); N18.6 End stage renal disease; I12.0 Hypertensive chronic kidney disease with stage 5 chronic kidney disease or end stage renal disease; R09.02 Hypoxemia; E83.42 Hypomagnesemia; R79.89 Other specified abnormal findings of blood chemistry; R60.0 Localized edema; I48.0 Paroxysmal atrial fibrillation; N25.0 Renal osteodystrophy; D63.1 Anemia in chronic kidney disease; E78.5 Hyperlipidemia, unspecified; Z95.0 Presence of cardiac pacemaker; Z99.2 Dependence on renal dialysis; Z79.52 Long term (current) use of systemic steroids; Z79.899 Other long term (current) drug therapy

== ENCOUNTER 2016-06-17 13:51 | Inpatient (IN) | payer OTHER, BC ==
[~2016-06-17] VITALS: Ht 157.5 cm; Wt 53.9 kg
[~2016-06-17 13:51] MED LIST changes: +BENZ100C84 PO; -CEFU1TAB36 PO; -DXY100 PO; -PRED10TA PO
[2016-06-17] MEDS ORDERED: SODIUM CHLORIDE 0.9% 250ML 250 ML IV SCH ×2 (14:30→21:30)
--- NOTE | 2016-06-17 14:47 | EMERGENCY ROOM VISIT NOTE ---
History First contact with patient: 14:38 Chief Complaint: NECK PAIN Stated Complaint: UNABLE TO EAT, SEVERE NECK PAIN History of Present Illness The patient is a 86 year old female ESRD on peritoneal dialysis, Paroxysmal atrial fibrillation s/p MAZE procedure, history of pacemaker (with recent interrogation due to potential atrial lead disruption) who presents with a 3 weeks history of being unable to eat. She reports she cannot swallow solid food , and was previously able to tolerate liquids but is currently unable to. She reports she feels incredibly weak due to this and that is making her feel unwell , which is why she came in today. She has a history of a mass on the right muslim which was recently removed. She also recently had bronchitis and was admitted to the hospital and discharged on 06/09/16. Her daughter reports that with her recent bronchitis she had been coughing so much there was concern she would have moved a lead on her atria and its not working anymore. The pt has an appt with her Restaurant Kitchen Manager Dr Bahena but it is next week. Review of Systems See HPI for pertinent positives & negatives. A total of 10 systems reviewed and were otherwise negative. Past Medical/Surgical History Medical Problems: (1) Aortic stenosis (2) Atrial fibrillation with RVR (3) Bronchitis (4) Dysphagia (5) ESRD (end stage renal disease) on dialysis (6) Gout (7) Hepatitis, chronic (8) Hypertension (9) Hypotension (10) Pancreatic lesion (11) Paroxysmal atrial fibrillation (12) Pulmonary hypertension (13) Right ventricular systolic dysfunction (14) Valvular heart disease Surgical Problems: (1) Status post cardiac pacemaker procedure (2) Status post cataract extraction (3) Status post cholecystectomy (4) Status post mitral valve repair (5) Status post tonsillectomy (6) Status post tricuspid valve repair Family History FH: heart disease Stroke Social History Smoking Status: Never Smoker Alcohol Use: none Drug Use: none Marital Status: single Housing Status: lives with family 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 Current/Historical Medications Scheduled Calcitriol (Rocaltrol Cap), 0.25 MCG PO DAILY Cinacalcet (Sensipar), 30 MG PO DAILY Metoprolol Tartrate (Lopressor), 12.5 MG PO HS Pravastatin Sodium (Pravastatin Sodium), 40 MG PO HS Sevelamer Carbonate (Renvela), 2 TAB PO TIDM Scheduled PRN Ipratropium-Albuterol (Combivent Respimat), 1 PUFFS INH QID PRN for SOB/Wheezing Allergies Coded Allergies: Sulfamethoxazole w/Trimethoprim (Verified Allergy, Severe, RASH, n/v, swelling of LE, 06/17/16) Physical Exam Vital Signs Date Time Temp Pulse Resp B/P Pulse Ox O2 Delivery O2 Flow Rate FiO2 06/17/16 18:01 87 22 103/50 06/17/16 16:33 86/52 06/17/16 16:31 90 20 06/17/16 16:26 85 34 06/17/16 16:21 85 33 06/17/16 16:16 86 13 06/17/16 16:11 90 27 06/17/16 16:06 91 32 06/17/16 16:01 85 23 06/17/16 15:56 90 31 06/17/16 15:51 92 25 06/17/16 15:46 85 27 06/17/16 15:41 93 22 06/17/16 15:36 84 26 06/17/16 15:31 90 21 06/17/16 15:26 93 16 06/17/16 15:21 93 17 06/17/16 15:16 83 24 06/17/16 15:11 87 26 06/17/16 15:06 90 30 06/17/16 15:01 77 31 06/17/16 14:56 79 20 06/17/16 14:51 90 26 06/17/16 14:46 80 28 06/17/16 14:41 82 29 06/17/16 14:36 92 21 06/17/16 14:31 87 25 06/17/16 14:26 87 50 06/17/16 14:21 87 25 06/17/16 14:20 92 92/67 06/17/16 14:18 92/67 06/17/16 14:16 88 26 06/17/16 14:11 79 29 06/17/16 14:08 85 06/17/16 14:07 91/52 06/17/16 13:54 36.5 95 18 79/47 92 Room Air Physical Exam GENERAL: Awake, alert, well-appearing, in no acute distress. Cachetic. HENT: Normocephalic, atraumatic. Oropharynx unremarkable. Healing surgical scar on Right muslim and neck. Mucous membranes dry. EYES: Normal conjunctiva. Sclera non-icteric. NECK: Supple. No nuchal rigidity. FROM. No JVD. RESPIRATORY: Hoarse inspiratory sounds. CARDIAC: Regular rate, normal rhythm. Extremities warm and well perfused. Pulses equal. ABDOMEN: Soft, non-distended. No tenderness to palpation. No rebound or guarding. No masses. RECTAL: Deferred. MUSCULOSKELETAL: Chest examination reveals no tenderness. The back is symmetrical on inspection without obvious abnormality. There is no CVA tenderness to palpation. No joint edema. LOWER EXTREMITIES: Calves are equal size bilaterally and non-tender. No edema. No discoloration. NEURO: Normal sensorium. No sensory or motor deficits noted. SKIN: Diffuse ecchymosis to arms. Medical Decision & Procedures ER Provider Diagnostic Interpretation: CHEST ONE VIEW PORTABLE CLINICAL HISTORY: Rhonchi. COMPARISON STUDY: Chest radiograph June 06, 2016. FINDINGS: Cardiomegaly, left sided pacemaker and prosthetic cardiac valves are noted. There is no evidence of pulmonary edema. No consolidation is present. The appearance of the chest is unchanged. IMPRESSION: No acute findings. Stable cardiomegaly. HEAD CT NONCONTRAST CT DOSE: 537.48 mGy.cm HISTORY: Pain r/o intracranial abnormality TECHNIQUE: Multiaxial CT images of the head were performed without the use of intravenous contrast. Comparison: None. Findings: Moderate mucosal thickening left maxillary sinus. Age-related atrophy and chronic small vessel change. No acute intracranial hemorrhage. No midline shift. Impression: Age-related change. No acute intracranial abnormality.] Thickening right maxillary sinus. Laboratory Results Test 06/17/16 14:10 Immature Granulocyte % (Auto) 0.3 % White Blood Count 6.84 K/uL (4.8-10.8) Red Blood Count 3.58 M/uL (4.2-5.4) Hemoglobin 12.0 g/dL (12.0-16.0) Hematocrit 35.7 % (37-47) Mean Corpuscular Volume 99.7 fL (80-100) Mean Corpuscular Hemoglobin 33.5 pg (25-34) Mean Corpuscular Hemoglobin Concent 33.6 g/dl (32-36) Platelet Count 206 K/uL (130-400) Mean Platelet Volume 10.1 fL (7.4-10.4) Neutrophils (%) (Auto) 73.4 % Lymphocytes (%) (Auto) 15.4 % Monocytes (%) (Auto) 9.1 % Eosinophils (%) (Auto) 1.5 % Basophils (%) (Auto) 0.3 % Neutrophils # (Auto) 5.03 K/uL (1.4-6.5) Lymphocytes # (Auto) 1.05 K/uL (1.2-3.4) Monocytes # (Auto) 0.62 K/uL (0.11-0.59) Eosinophils # (Auto) 0.10 K/uL (0-0.5) Basophils # (Auto) 0.02 K/uL (0-0.2) Immature Granulocyte # (Auto) 0.02 K/uL (0.00-0.02) Total Bilirubin 0.5 mg/dl (0.2-1) Aspartate Amino Transf (AST/SGOT) 25 U/L (15-37) Alanine Aminotransferase (ALT/SGPT) 35 U/L (12-78) Alkaline Phosphatase 103 U/L (45-117) Total Protein 7.7 gm/dl (6.4-8.2) Albumin 2.8 gm/dl (3.4-5.0) Globulin 4.9 gm/dl (2.5-4.0) Albumin/Globulin Ratio 0.6 (0.9-2) Hepatitis C Antibody Screen NEG (NEG) Medications Administered Medications (Trade) Dose Ordered Sig/Seth Route Start Time Stop Time Status Last Admin Dose Admin Sodium Chloride (Nss 250ml) 250 ml @ 0 mls/hr Q0M IV 06/17/16 14:30 06/18/16 01:39 DC 06/17/16 17:34 999 MLS/HR ECG Indication: SOB/dyspnea Rhythm: atrial fibrillation Findings: T-wave inversion (Lateral) ED Course 2:30: I evaluated the patient in room C2A. 2:40: I discussed the case with Dr. Alberts. We ordered a CBC, CMP, POC Troponin, CXR and 250mL NSS fluid bolus. I obtained a CT scan of the head. 4:00: I evaluated the patient again. She was given a further fluid bolus of 250mL IV. 5:21: I discussed the case with the [facility] Hospitalist - they will admit the patient. Medical Decision 86 yo F with dysphagia over last few weeks. Differential includes esophageal malignancy, stricture, Schatzki's ring, reflux, or bowel obstruction. She also has chronic kidney disease on peritoneal dialysis, which fits with her creatinine of 6. With her overall decline over the last few weeks, she does not seem safe to be sent home. She likely needs an EGD to evaluate causes. She also recently had a fib with RVR and is still in atrial fibrillation. She follows with Dr Almazan and Dr Childs as outpatients. During her time in the ED, she was hypotensive and was given 2x 250mL fluid bolus of normal saline. She was admitted for evaluation by the [facility] and accepted by Candace Winn. Impression Primary Impression: Dysphagia Departure Information Referrals No Doctor, Assigned (PCP) Patient Instructions My [facility] Resident Tracking Resident Involvement: Resident Care Provided Care Provided: Adult ED
--- NOTE | 2016-06-17 14:56 | DIAGNOSTIC IMAGING REPORT ---
CHEST ONE VIEW PORTABLE CLINICAL HISTORY: Rhonchi. COMPARISON STUDY: Chest radiograph June 06, 2016. FINDINGS: Cardiomegaly, left sided pacemaker and prosthetic cardiac valves are noted. There is no evidence of pulmonary edema. No consolidation is present. The appearance of the chest is unchanged. IMPRESSION: No acute findings. Stable cardiomegaly. Electronically signed by: Arnel Ponce M.D. 06/17/2016 2:54 PM Dictated Date/Time: 06/17/2016 2:54 PM
[2016-06-17 15:20] LABS: BASO % 0.3 %; BASO ABS # 0.02 K/uL (0-0.2); COMPLETE YES; EOS % 1.5 %; HEMATOCRIT 35.7 % (37-47); IG% 0.3 %; LYMPH % 15.4 %; LYMPH ABS # 1.05 K/uL (1.2-3.4); MEAN CELL VOLUME 99.7 fL (80-100); MEAN CORPUSCULAR HEMOGLOBIN 33.5 pg (25-34); MEAN CORPUSCULAR HGB CONC 33.6 g/dl (32-36); MEAN PLATELET VOLUME 10.1 fL (7.4-10.4); MONO % 9.1 %; NEUT % 73.4 %; PLATELET COUNT 206 K/uL (130-400); RED BLOOD COUNT 3.58 M/uL (4.2-5.4); WHITE BLOOD COUNT 6.84 K/uL (4.8-10.8)
[2016-06-17 15:47] LABS: ALB/GLOB RATIO 0.6 (0.9-2); ALKALINE PHOSPHATASE 103 U/L (45-117); ALT/SGPT 35 U/L (12-78); AST/SGOT 25 U/L (15-37); BLOOD UREA NITROGEN 38 mg/dl (7-18); BUN/CREATININE RATIO 6.2 (10-20); CALCIUM 8.5 mg/dl (8.5-10.1); CARBON DIOXIDE 29 mmol/L (21-32); CHLORIDE 93 mmol/L (98-107); GLUCOSE 88 mg/dl (70-99); POTASSIUM 5.1 mmol/L (3.5-5.1); SODIUM 134 mmol/L (136-145)
[2016-06-17] MEDS ORDERED: ACETAMINOPHEN 325 MG TAB PO PRN (18:15)
[2016-06-17] MEDS ORDERED: ONDANSETRON INJ 2 MG/ML 2 ML VIAL IV PRN (18:15)
[2016-06-17] MEDS ORDERED: IPRA1AER2 INH (18:54)
[2016-06-17] MEDS ORDERED: IPRATROPIUM BROMIDE/ALBUTEROL respimat INH INH PRN (19:00)
--- NOTE | 2016-06-17 19:14 | History and Physical ---
History & Physical Date & Time of Service: Jun 17, 2016 at 18:24 Chief Complaint: Dysphagia Primary Care Physician: No Doctor, Assigned History of Present Illness Source: patient, clinic records, hospital records This is an 86 year old female with PMH of ESRD on peritoneal dialysis, paroxysmal AF, s/p pacemaker, and other problems listed below who presents to the ED with dysphagia. Patient was recently hospitalized from 05/31-06/01 for acute bronchitis and possible pacemaker dysfunction and 06/06-06/09 for acute bronchitis and AF with RVR. She has not followed up with Dr. Curry yet due to her recurrent hospitalization but has appointment next Wednesday.She states she was not eating during last hospitalization which she attributed to her bronchitis. She still has mild cough which has improved. Then over past 2 weeks she has progressive dysphagia to solid foods. She states solids get "blocked" while going down. She is able to swallow liquids and medications. She reports nausea after eating, generalized weakness, fatigue, and weight loss of 5 lb in 2 weeks. She notes having a mass removed from her right baptism 3 weeks ago and states she has right sided facial weakness/ numbness and speech abnormality since that time. Patient states BP has been running low. It appears to have run in 90s systolic on recent hospitalization. She last took Lopressor 12.5 mg yesterday evening. No new meds have been added since last hospitalization. She is anuric. LE edema during prior admission is resolved. She denies dizziness, fever, chills, URI symptoms, chest pain, SOB, odynophagia, reflux, abdominal pain, vomiting, diarrhea, hematochezia, melena, numbness or weakness of the extremities. She reports history of bleeding ulcer 3 years ago at [facility]. Her last endoscopy was at that time. Patient is on nightly PD with last tx yesterday evening. She f/w Dr. Almazan for nephrology. 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." Status: Chronic (7) Paroxysmal atrial fibrillation Status: Chronic (8) Pulmonary hypertension Status: Chronic (9) Right ventricular systolic dysfunction Status: Chronic (10) Valvular heart disease Status: Chronic Surgical Problems: (1) Status post cardiac pacemaker procedure Status: Chronic (2) Status post cataract extraction Status: Chronic (3) Status post cholecystectomy Status: Chronic (4) Status post mitral valve repair Status: Chronic (5) Status post tonsillectomy Status: Chronic (6) Status post tricuspid valve repair Status: Chronic Family History FH: heart disease Stroke Social History Smoking Status: Never Smoker Alcohol Use: occasionally Drug Use: none Marital Status: single Housing status: lives with family (with daughter and son-in-law) Occupational Status: retired Immunizations History of Influenza Vaccine: Unknown History of Tetanus Vaccine?: Unknown History of Pneumococcal: Unknown History of Hepatitis B Vaccine: Unknown Multi-Drug Resistant Organisms History of MDRO: No Allergies Coded Allergies: Sulfamethoxazole w/Trimethoprim (Verified Allergy, Severe, RASH, n/v, swelling of LE, 06/17/16) Home Medications Scheduled Calcitriol (Rocaltrol Cap), 0.25 MCG PO DAILY Cinacalcet (Sensipar), 30 MG PO DAILY Metoprolol Tartrate (Lopressor), 12.5 MG PO HS Pravastatin Sodium (Pravastatin Sodium), 40 MG PO HS Sevelamer Carbonate (Renvela), 2 TAB PO TIDM Scheduled PRN Ipratropium-Albuterol (Combivent Respimat), 1 PUFFS INH QID PRN for SOB/Wheezing Review of Systems Constitutional: + fatigue, + weakness (genearlized), + weight loss, No chills, No fever Eyes: + problem reported (occasional flashing light. no diplopia or blurred vision. ) ENT: + trouble swallowing, No nasal symptoms, No problem reported (no odynophagia), No sore throat Respiratory: + cough, No shortness of breath, No wheezing Cardiovascular: No chest pain, No edema (r) Abdomen: + nausea, No GI bleeding, No diarrhea, No pain, No vomiting Genitourinary - Female: + problem reported (anuric at baseline) Neurologic: + numbness/tingling (right facial), + weakness (right facial) Hematologic / Lymphatic: + abnormal bleeding/bruising (bruises easily) Integumentary: + problem reported (wound right baptism- no drainage) Physical Exam Vital Signs Date Time Temp Pulse Resp B/P Pulse Ox O2 Delivery O2 Flow Rate FiO2 06/17/16 18:01 87 22 103/50 06/17/16 16:33 86/52 06/17/16 16:31 90 20 06/17/16 16:26 85 34 06/17/16 16:21 85 33 06/17/16 16:16 86 13 06/17/16 16:11 90 27 06/17/16 16:06 91 32 06/17/16 16:01 85 23 06/17/16 15:56 90 31 06/17/16 15:51 92 25 06/17/16 15:46 85 27 06/17/16 15:41 93 22 06/17/16 15:36 84 26 06/17/16 15:31 90 21 06/17/16 15:26 93 16 06/17/16 15:21 93 17 06/17/16 15:16 83 24 06/17/16 15:11 87 26 06/17/16 15:06 90 30 06/17/16 15:01 77 31 06/17/16 14:56 79 20 06/17/16 14:51 90 26 06/17/16 14:46 80 28 06/17/16 14:41 82 29 06/17/16 14:36 92 21 06/17/16 14:31 87 25 06/17/16 14:26 87 50 06/17/16 14:21 87 25 06/17/16 14:20 92 92/67 06/17/16 14:18 92/67 06/17/16 14:16 88 26 06/17/16 14:11 79 29 06/17/16 14:08 85 06/17/16 14:07 91/52 06/17/16 13:54 36.5 95 18 79/47 92 Room Air General Appearance: no apparent distress, + thin, + pertinent finding ( pleasant alert elderly female) Head: normocephalic, atraumatic Eyes: normal inspection, PERRL, EOMI, sclerae normal ENT: hearing grossly normal, pharynx normal Neck: supple, trachea midline Respiratory/Chest: no respiratory distress, no accessory muscle use, + pertinent finding (coarse breath sounds, coughs during exam) Cardiovascular: no murmur, + irregularly irregular Abdomen/GI: normal bowel sounds, non tender, soft, + pertinent finding (PD catheter present) Extremities/Musculoskelatal: no calf tenderness, no pedal edema Neurologic/Psych: alert, normal mood/affect, oriented x 3, + pertinent finding (cranial nerves 2-12 normal except + right forehead weakness, +mild R eyelid droop, + numbness right lower face. ) Skin: normal color, warm/dry, + pertinent finding (wound on right baptism with eschar. no significant erythema. no drainage. scattered ecchymosis on extremities. ) Diagnostics Laboratory Results Results Past 24 Hours Test 06/17/16 14:10 Range/Units White Blood Count 6.84 4.8-10.8 K/uL Red Blood Count 3.58 4.2-5.4 M/uL Hemoglobin 12.0 12.0-16.0 g/dL Hematocrit 35.7 37-47 % Mean Corpuscular Volume 99.7 80-100 fL Mean Corpuscular Hemoglobin 33.5 25-34 pg Mean Corpuscular Hemoglobin Concent 33.6 32-36 g/dl Platelet Count 206 130-400 K/uL Mean Platelet Volume 10.1 7.4-10.4 fL Neutrophils (%) (Auto) 73.4 % Lymphocytes (%) (Auto) 15.4 % Monocytes (%) (Auto) 9.1 % Eosinophils (%) (Auto) 1.5 % Basophils (%) (Auto) 0.3 % Neutrophils # (Auto) 5.03 1.4-6.5 K/uL Lymphocytes # (Auto) 1.05 1.2-3.4 K/uL Monocytes # (Auto) 0.62 0.11-0.59 K/uL Eosinophils # (Auto) 0.10 0-0.5 K/uL Basophils # (Auto) 0.02 0-0.2 K/uL RDW Standard Deviation 51.9 36.4-46.3 fL RDW Coefficient of Variation 14.2 11.5-14.5 % Immature Granulocyte % (Auto) 0.3 % Immature Granulocyte # (Auto) 0.02 0.00-0.02 K/uL Sodium Level 134 136-145 mmol/L Potassium Level 5.1 3.5-5.1 mmol/L Chloride Level 93 98-107 mmol/L Carbon Dioxide Level 29 21-32 mmol/L Anion Gap 12.0 3-11 mmol/L Blood Urea Nitrogen 38 7-18 mg/dl Creatinine 6.10 0.60-1.20 mg/dl Estimated GFR () 6.7 Estimated GFR (Non- 5.8 BUN/Creatinine Ratio 6.2 10-20 Random Glucose 88 70-99 mg/dl Calcium Level 8.5 8.5-10.1 mg/dl Total Bilirubin 0.5 0.2-1 mg/dl Aspartate Amino Transf (AST/SGOT) 25 15-37 U/L Alanine Aminotransferase (ALT/SGPT) 35 12-78 U/L Alkaline Phosphatase 103 45-117 U/L Total Protein 7.7 6.4-8.2 gm/dl Albumin 2.8 3.4-5.0 gm/dl Globulin 4.9 2.5-4.0 gm/dl Albumin/Globulin Ratio 0.6 0.9-2 Diagnostic Radiology CHEST ONE VIEW PORTABLE CLINICAL HISTORY: Rhonchi. COMPARISON STUDY: Chest radiograph June 06, 2016. FINDINGS: Cardiomegaly, left sided pacemaker and prosthetic cardiac valves are noted. There is no evidence of pulmonary edema. No consolidation is present. The appearance of the chest is unchanged. IMPRESSION: No acute findings. Stable cardiomegaly. EKG atrial fibrillation, RBBB, marked T wave abnormality, consider inferolateral ischemia, no significant change from prior EKG Impression Assessment and Plan PROGRESSIVE DYSPHAGIA History of bleeding ulcer in 2013 at [facility] as per patient; last endoscopy was at that time Check CT head Consult GI and speech therapy Full liquid diet for now HYPOTENSION- resolved Was hypotensive to 79/47 on arrival; received total of 500 mL IVF's in ER with improvement to 103/50 BP has run in 90s systolic on prior admission No evidence for infection No med changes since last hospitalization May have been hypovolemic from decreased PO intake Continue Lopressor with parameters Monitor in telemetry HISTORY OF PACEMAKER Possible issue with atrial lead when interrogated during May 2016 admission Interrogate pacemaker Follows with Dr. Curry as outpatient Consult cardiology- [facility] as case was d/w Dr. Muñoz on May admission RV SYSTOLIC DYSFUNCTION/ PULMONARY HYPERTENSION Currently euvolemic Recent echo 06/08/16 Normal left ventricular systolic function and wall motion. Moderate -severe right ventricular dilatation and systolic dysfunction. Moderate biatrial dilatation. Moderate - severe calcific aortic stenosis. Trace pulmonic regurgitation. Moderate tricuspid regurgitation. Severe pulmonary hypertension. Elevated central venous pressure. Right ventricular pressure/volume overload. AORTIC STENOSIS Moderate to severe per echo 06/08/16 ATRIAL FIBRILLATION Rate is controlled Continue Lopressor with parameters ESRD ON PERITONEAL DIALYSIS Potassium is WNL; appears euvolemic Consult nephrology for dialysis management- Dr. Jose Angel Jefferson aware DYSLIPIDEMIA Continue statin S/P REMOVAL OF RIGHT FACIAL MASS Done approx [address] Maharaj; has R facial weakness/ numbness from that time Wound does not appear infected DVT PROPHYLAXIS Heparin SQ CODE STATUS Full code per preference on recent admission DISPOSITION Admit to telemetry Lives at home with daughter Follows with Dr. Arroyo for primary care, Dr. Almazan for nephrology, and Dr. Curry for cardiology. Patient seen in collaboration with Dr. Pimentel. Please see his addendum. Agree with above H and P.86F who was admitted twice in recent past with bronchitis comes back with dysphagia to solids and poor oral intake.Still has cough but is better. It was also noted that her atrial lead was not sensing during previous admission and pace maker settings were adjusted by prosthetics lab technician and was supposed to follow with her cardiology and missed the appointment secondary to re admission and next appointment is next week. Requesting to be evaluated by cardiology in the hospital. denies chest pain. Afebrile. p/e Ge not in distress Cvs s1 and s2 heard no murmurs Rs cta b/l no wheezing Abd soft bs present non tender n o distension Chalk Machine Operator non focal Ext no erythema Dysphagia to solids able to take liquids will consult GI and Speech Hypotension resolved with fluid bolus mostly from poor oral intake will monitor ESRD on dialysis nephrology consult Pacemaker dysfunction atrial lead was not sensing and settings were adjusted in May admission. will re interrogate pace maker missed out patient cardiology appointment cardiology consult as per patient/family request VTE Prophylaxis VTE Risk Assessment Done? Y/N: Yes Risk Level: Moderate
--- NOTE | 2016-06-17 19:42 | EMERGENCY ROOM VISIT NOTE ---
History Report prepared by Holley: Sotero Sarmiento Under the Supervision of: Dr. Feliciano Alberts M.D. First contact with patient: 14:27 Chief Complaint: NECK PAIN Stated Complaint: UNABLE TO EAT, SEVERE NECK PAIN History of Present Illness The patient is a 86 year old female who presents to the Emergency Room with complaints of persistent difficulty swallowing that started three weeks ago. The patient states that when she tries to eat something solid, or swallow liquids, her throat "rejects it." She adds that it feels as though the food and drink get stuck and must slowly "work its way down." She came in today because this has been ongoing and she is now experiencing weakness as a result of decreased nutrition. The patient denies difficulty breathing, chest pain, fevers , abdominal pain, or any additional associated symptoms. The patient has not yet had a scope performed. She adds that she experiences chronic neck pain secondary to arthritis. The patient was recently diagnosed with bronchitis. Source of History: patient, friend Onset: 3 weeks ago Position: throat Timing: other (persistent ) Modifying Factors (Relieving): other (None) Associated Symptoms: + weakness, No abdominal pain, No chest pain, No fevers Review of Systems See HPI for pertinent positives & negatives. A total of 10 systems reviewed and were otherwise negative. Past Medical & Surgical Medical Problems: (1) Aortic stenosis (2) Atrial fibrillation with RVR (3) Bronchitis (4) Dysphagia (5) ESRD (end stage renal disease) on dialysis (6) Gout (7) Hepatitis, chronic (8) Hypertension (9) Hypotension (10) Pancreatic lesion (11) Paroxysmal atrial fibrillation (12) Pulmonary hypertension (13) Right ventricular systolic dysfunction (14) Valvular heart disease Surgical Problems: (1) Status post cardiac pacemaker procedure (2) Status post cataract extraction (3) Status post cholecystectomy (4) Status post mitral valve repair (5) Status post tonsillectomy (6) Status post tricuspid valve repair Family History FH: heart disease Stroke Social History Smoking Status: Never Smoker Alcohol Use: none Drug Use: none Marital Status: single Housing Status: lives with family 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 Current/Historical Medications Scheduled Calcitriol (Rocaltrol Cap), 0.25 MCG PO DAILY Cinacalcet (Sensipar), 30 MG PO DAILY Metoprolol Tartrate (Lopressor), 12.5 MG PO HS Pravastatin Sodium (Pravastatin Sodium), 40 MG PO HS Sevelamer Carbonate (Renvela), 2 TAB PO TIDM Scheduled PRN Ipratropium-Albuterol (Combivent Respimat), 1 PUFFS INH QID PRN for SOB/Wheezing Allergies Coded Allergies: Sulfamethoxazole w/Trimethoprim (Verified Allergy, Severe, RASH, n/v, swelling of LE, 06/17/16) Physical Exam Vital Signs Date Time Temp Pulse Resp B/P Pulse Ox O2 Delivery O2 Flow Rate FiO2 06/17/16 18:01 87 22 103/50 06/17/16 16:33 86/52 06/17/16 16:31 90 20 06/17/16 16:26 85 34 06/17/16 16:21 85 33 06/17/16 16:16 86 13 06/17/16 16:11 90 27 06/17/16 16:06 91 32 06/17/16 16:01 85 23 06/17/16 15:56 90 31 06/17/16 15:51 92 25 06/17/16 15:46 85 27 06/17/16 15:41 93 22 06/17/16 15:36 84 26 06/17/16 15:31 90 21 06/17/16 15:26 93 16 06/17/16 15:21 93 17 06/17/16 15:16 83 24 06/17/16 15:11 87 26 06/17/16 15:06 90 30 06/17/16 15:01 77 31 06/17/16 14:56 79 20 06/17/16 14:51 90 26 06/17/16 14:46 80 28 06/17/16 14:41 82 29 06/17/16 14:36 92 21 06/17/16 14:31 87 25 06/17/16 14:26 87 50 06/17/16 14:21 87 25 06/17/16 14:20 92 92/67 06/17/16 14:18 92/67 06/17/16 14:16 88 26 06/17/16 14:11 79 29 06/17/16 14:08 85 06/17/16 14:07 91/52 06/17/16 13:54 36.5 95 18 79/47 92 Room Air Physical Exam Constitutional: Vital signs reviewed. Eyes: Pupils are equal round reactive to light. Conjunctiva are noninjected. ENT: Pharynx is clear without erythema or exudate. Mucous membranes are dry. Neck supple without meningeal signs. Respiratory: Clear to auscultation bilaterally. Breath sounds are equal bilaterally. Cardiovascular: Regular rate and rhythm. No rubs or gallops. GI: Soft, nondistended and nontender. Bowel sounds are present. Musculoskeletal: No peripheral edema. No lower extremity tenderness. No CVA tenderness. Integumentary: Healing surgical scar to right face. No drainage, minimal erythema. No cyanosis. Neurological: The patient is awake and alert. No focal deficits. Psychiatric: Normal affect. Medical Decision & Procedures ER Provider Diagnostic Interpretation: X-ray results as stated below per interpretation by me and the radiologist: CHEST ONE VIEW PORTABLE CLINICAL HISTORY: Rhonchi. COMPARISON STUDY: Chest radiograph June 06, 2016. FINDINGS: Cardiomegaly, left sided pacemaker and prosthetic cardiac valves are noted. There is no evidence of pulmonary edema. No consolidation is present. The appearance of the chest is unchanged. IMPRESSION: No acute findings. Stable cardiomegaly. Electronically signed by: Arnel Ponce M.D. 06/17/2016 2:54 PM Dictated Date/Time: 06/17/2016 2:54 Laboratory Results 06/17/16 14:10 Red Blood Count 3.58, Mean Corpuscular Volume 99.7, Mean Corpuscular Hemoglobin 33.5, Mean Corpuscular Hemoglobin Concent 33.6, Mean Platelet Volume 10.1, Neutrophils (%) (Auto) 73.4, Lymphocytes (%) (Auto) 15.4, Monocytes (%) (Auto) 9.1, Eosinophils (%) (Auto) 1.5, Basophils (%) (Auto) 0.3, Neutrophils # (Auto) 5.03, Lymphocytes # (Auto) 1.05, Monocytes # (Auto) 0.62, Eosinophils # (Auto) 0.10, Basophils # (Auto) 0.02 06/17/16 14:10 Test 06/17/16 14:10 White Blood Count 6.84 K/uL (4.8-10.8) Red Blood Count 3.58 M/uL (4.2-5.4) Hemoglobin 12.0 g/dL (12.0-16.0) Hematocrit 35.7 % (37-47) Mean Corpuscular Volume 99.7 fL (80-100) Mean Corpuscular Hemoglobin 33.5 pg (25-34) Mean Corpuscular Hemoglobin Concent 33.6 g/dl (32-36) Platelet Count 206 K/uL (130-400) Mean Platelet Volume 10.1 fL (7.4-10.4) Neutrophils (%) (Auto) 73.4 % Lymphocytes (%) (Auto) 15.4 % Monocytes (%) (Auto) 9.1 % Eosinophils (%) (Auto) 1.5 % Basophils (%) (Auto) 0.3 % Neutrophils # (Auto) 5.03 K/uL (1.4-6.5) Lymphocytes # (Auto) 1.05 K/uL (1.2-3.4) Monocytes # (Auto) 0.62 K/uL (0.11-0.59) Eosinophils # (Auto) 0.10 K/uL (0-0.5) Basophils # (Auto) 0.02 K/uL (0-0.2) RDW Standard Deviation 51.9 fL (36.4-46.3) RDW Coefficient of Variation 14.2 % (11.5-14.5) Immature Granulocyte % (Auto) 0.3 % Immature Granulocyte # (Auto) 0.02 K/uL (0.00-0.02) Anion Gap 12.0 mmol/L (3-11) Estimated GFR () 6.7 Estimated GFR (Non- 5.8 BUN/Creatinine Ratio 6.2 (10-20) Calcium Level 8.5 mg/dl (8.5-10.1) Total Bilirubin 0.5 mg/dl (0.2-1) Aspartate Amino Transf (AST/SGOT) 25 U/L (15-37) Alanine Aminotransferase (ALT/SGPT) 35 U/L (12-78) Alkaline Phosphatase 103 U/L (45-117) Total Protein 7.7 gm/dl (6.4-8.2) Albumin 2.8 gm/dl (3.4-5.0) Globulin 4.9 gm/dl (2.5-4.0) Albumin/Globulin Ratio 0.6 (0.9-2) Laboratory results as reviewed by me. Medications Administered Medications (Trade) Dose Ordered Sig/Seth Route Start Time Stop Time Status Last Admin Dose Admin Sodium Chloride (Nss 250ml) 250 ml @ 0 mls/hr Q0M IV 06/17/16 14:30 07/17/16 14:29 06/17/16 17:34 999 MLS/HR ECG Rate (beats per minute): 81 Rhythm: atrial fibrillation Findings: RBBB, T-wave inversion (Diffusely) Comparison ECG Date: June 07, 2016 Change: no significant change ED Course 1436: The patient was evaluated in room C2. A complete history and physical exam was performed. 1721: Dr. Domínguez (Resident) discussed the patient's case with Aurora Weaver ([facility]), who will evaluate the patient for further management and care. Medical Decision This is an 86-year-old female who presents with difficulty swallowing and hypotension. Differential diagnosis includes esophageal stricture, mass, Schatzki's ring, dehydration, metabolic derangement. I did perform a limited focused review of portions of the patient's old chart on the electronic medical record. The patient was diagnosed with acute bronchitis and a-fib with RVR on June 06. History of anemia and end stage renal disease. I did evaluate the patient as noted above. The patient has had difficulty swallowing for the past 2-3 weeks. She has not been evaluated by GI. IV access was established. The patient was placed on a continuous cardiac rehabilitation program director. She is hypotensive likely from dehydration. She was given normal saline IV. I did order and personally review the patient's 12-lead EKG and chest x-ray as described above. I did order and review the patient's blood work as noted in the electronic medical record. Her creatinine is elevated. The case was discussed with the hospitalist for IV fluids, further evaluation in the hospital and likely EGD. Resident Physician Supervision Note: I did evaluate and examine this patient myself. I did guide management for the patient. I agree with the resident's ( ) assessment as discussed. Please see the resident's dictation for further details. Impression Primary Impression: Hypotension Additional Impressions: Dysphagia ESRD (end stage renal disease) on dialysis Scribe Attestation The scribe's documentation has been prepared under my direct and personally reviewed by me in its entirety. I confirm that the note above accurately reflects all work, treatment, procedures, and medical decision making performed by me. Departure Information Dispostion Being Evaluated By Hospitalist Referrals No Doctor, Assigned (PCP) Patient Instructions My [facility] Problem Qualifiers
--- NOTE | 2016-06-17 21:05 | DIAGNOSTIC IMAGING REPORT ---
HEAD CT NONCONTRAST CT DOSE: 537.48 mGy.cm HISTORY: Pain r/o intracranial abnormality TECHNIQUE: Multiaxial CT images of the head were performed without the use of intravenous contrast. Comparison: None. Findings: Moderate mucosal thickening left maxillary sinus. Age-related atrophy and chronic small vessel change. No acute intracranial hemorrhage. No midline shift. Impression: Age-related change. No acute intracranial abnormality.] Thickening right maxillary sinus. Electronically signed by: Daniel Wang M.D. 06/17/2016 9:04 PM Dictated Date/Time: 06/17/2016 9:03 PM
[2016-06-17 21:21] VITALS: BP 95/54; PULSE 99; TEMP 36.4; Ht 157.5 cm; Wt 53.9 kg
[2016-06-17] MEDS: PRAVASTATIN SOD 40 MG TAB PO SCH (23:47)
[2016-06-17] MEDS: METOPROLOL TARTRATE 25 MG TAB PO SCH (23:47)
[2016-06-17] MEDS: SEVELAMER HYDROCH 800 MG TAB PO SCH (23:48)
[2016-06-17] MEDS: HEPARIN SOD 5000 UNIT/0.5 ML CARP SQ SCH (23:49)
[2016-06-18] VITALS (9 sets, daily range): BP systolic 72–95; BP diastolic 38–61; PULSE 70–103; TEMP 36.3–36.8; O2SAT 90–95
--- NOTE | 2016-06-18 06:21 | Clinical Documentation Query ---
CLINICAL DOCUMENTATION QUERY 86 year old female presents with a 3 weeks history of being unable to eat. She is described as thin and cachetic. In your clinical opinion is this patient being managed for: ( ) Mild malnutrition ( ) Other explanation of clinical findings (Please Explain) ( ) Unable to determine (Please Define) ( ) Need to Discuss ( ) Not Agree The medical record reflects the following clinical findings, treatment, and risk factors. Clinical Indicators: As above. On 05/31/16 patient weight was 55 kg. On this admission 53.5. Labs demonstrate mild hypoalbuminemia 2.8. Treatment: Speech therapy consult, full liquid diet Risk Factors: Age, ESRD, cancer, Please clarify and document your clinical opinion in the progress notes and discharge summary. Terms such as "probable", "suspected", "likely", "questionable", "possible", or "still to be ruled out" are acceptable. IF IN AGREEMENT, YOU MUST DOCUMENT ABOVE DIAGNOSTIC STATEMENT IN DAILY PROGRESS NOTES AND DISCHARGE SUMMARY. This document is not part of the patient's record. Thank You, Simon Berrios, RN [phone]
[2016-06-18] MEDS: HEPARIN SOD 5000 UNIT/0.5 ML CARP SQ SCH ×3 (06:33→21:04)
[2016-06-18 06:51] LABS: HEMATOCRIT 31.5 % (37-47); MEAN CELL VOLUME 97.5 fL (80-100); MEAN CORPUSCULAR HEMOGLOBIN 32.8 pg (25-34); MEAN CORPUSCULAR HGB CONC 33.7 g/dl (32-36); MEAN PLATELET VOLUME 9.6 fL (7.4-10.4); PLATELET COUNT 167 K/uL (130-400); RED BLOOD COUNT 3.23 M/uL (4.2-5.4); WHITE BLOOD COUNT 4.82 K/uL (4.8-10.8)
[2016-06-18 07:23] LABS: BUN/CREATININE RATIO 6.6 (10-20); CALCIUM 8.1 mg/dl (8.5-10.1); CREATININE 7.2 mg/dl (0.60-1.20); MAGNESIUM 1.8 mg/dl (1.8-2.4); POTASSIUM 5.7 mmol/L (3.5-5.1)
[2016-06-18] MEDS: CINACALCET 30 MG TAB PO SCH (07:41)
[2016-06-18] MEDS: CALCITRIOL 0.25 MCG CAP PO SCH (07:41)
[2016-06-18] MEDS: SEVELAMER HYDROCH 800 MG TAB PO SCH ×3 (07:42→17:38)
--- NOTE | 2016-06-18 07:48 | NEPHROLOGY CONSULTATION ---
DATE OF CONSULTATION: 06/18/2016 ATTENDING OF RECORD: Dr. Young. HISTORY OF PRESENT ILLNESS: This is an 86-year-old female who dialyzes at the [facility] on peritoneal dialysis. The patient normally does one manual exchange between 9 and 11 at night and then does a cycler overnight and does a last fill for about 2-3 hours. 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 The patient has had a tumultuous hospital course over the past month. The patient was recently hospitalized from May 31 to June 01 for acute bronchitis and then presented again on June 06 to June 09 with continued acute bronchitis with AFib with RVR. The patient upon discharge was fluid overloaded and patient was using all greens, took about 3 days to get back down to her normal dry weight; however, patient's bronchitis is better; however, has had difficulty swallowing solids, feeling sensation of food getting stuck there, liquids appears to be fine, has been losing weight and tired and nauseous. 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 The patient has been using 1 green and 1 yellow. She did have endoscopy several years ago for bleeding ulcer but none recently and no history of previous sensation of food getting stuck in her throat. REVIEW OF SYSTEMS: CONSTITUTIONAL: No fevers or chills. Positive 5-pound weight loss. Positive fatigue. HEAD: No headaches. EYES: No scleral icterus. ENT: Positive dysphagia to solids. PULMONARY: Still has a mild cough, but overall breathing much better. CARDIAC: No chest pain. GASTROINTESTINAL: Positive for nausea and vomiting if patient forces food down. No diarrhea or constipation. SKIN: No rash or itching. All other review of systems otherwise negative. PAST MEDICAL HISTORY: End-stage renal disease on peritoneal dialysis, gout, hypertension, paroxysmal AFib followed by Dr. Curry, significant skin cancer removal from right voodoo. PAST SURGICAL HISTORY: Pacemaker, cataract surgery, cholecystectomy, PD catheter placement, mitral valve repair, tonsillectomy. FAMILY HISTORY: Significant for heart disease. SOCIAL HISTORY: No alcohol. No drugs. No smoking. Lives with family. CURRENT MEDICATIONS: Calcitriol 0.25 mcg daily, Sensipar 30 mg daily, heparin 5000 units subQ q. 8. The patient did receive a 500 mL fluid bolus, Lopressor 12.5 mg p.o. at night, Pravachol 40 mg at night, Renvela 1600 mg p.o. t.i.d. with meals. PHYSICAL EXAMINATION: VITAL SIGNS: Temperature 36.3, pulse 70, respiratory rate 18, blood pressure is 84/45. Satting 90% on room air. GENERAL: Awake, alert, oriented x3. EYES: No scleral icterus. ENT: Positive scar on the right voodoo from a recent skin cancer removal. NECK: Supple. PULMONARY: Slight end expiratory wheeze. CARDIAC: Regular rate and rhythm. ABDOMEN: Bowel sounds positive. Positive PD catheter, soft, nontender. EXTREMITIES: No significant clubbing, cyanosis or edema. NEUROLOGIC: Nonfocal. DERMATOLOGIC: Does have a resolving scar on the right voodoo. No rash noted. LABORATORY DATA: Pending for this morning, white count 6, H\T\H 12 and 35, platelet count is 206. Sodium was 134, potassium 5.1, chloride is 93, bicarbonate is 29, BUN is 38, creatinine 6.1, glucose 88, calcium is 8.5. T-bili 0.5, albumin is 2.8, hep C negative. IMAGING DATA: Head CT shows no acute intracranial abnormality, thickening maxillary sinus. Chest x-ray shows no acute findings. Stable cardiomegaly. IMPRESSION AND PLAN: 1. End-stage renal disease: The patient is on peritoneal dialysis. Blood pressures are low. We will restart peritoneal dialysis tonight. Peritoneal dialysis was held last night secondary to low blood pressures. 2. 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 3. Renal osteodystrophy. We will continue patient's Sensipar, Renvela and calcitriol and follow calcium and phosphorus levels intermittently. I appreciate consultation. ALAINA
[2016-06-18] MEDS ORDERED: PNEUMOCOCCAL POLYSACCHARIDES 25 MCG/0.5 ML VIAL/SYR IM. ONE (09:00)
[2016-06-18] MEDS ORDERED: PNEUMOCOCCAL ADMINISTRATION CHARGE ONE (09:00)
--- NOTE | 2016-06-18 09:04 | Gastrointestinal Consultation ---
Gastrointestinal Consultation Date of Consultation: Jun 18, 2016 History of Present Illness Patient is a 86 year old female with past medical history significant for ESRD on daily peritoneal dialysis, aortic stenosis, right ventricular systolic dysfunction, atrial fibrillation s/p MAZE procedure and pacemaker dysfunction who is being evaluated today for dysphagia. This dysphagia is new. She reports that about three weeks ago she was hospitalized for an acute bronchitis and was eating and drinking well. She was discharged and had a procedure to remove a cancerous skin lesion on the right advent. She reports up until this procedure was done, her swallowing was completely normal. Post procedure, she reports facial weakness, right eye-lid drooping and liquids dripping out of the right side of her mouth. She has not followed up with anyone for this. She is tolerating liquids and secretions well. She reports that she has difficulty completely swallowing solid foods - particularly meats. She gets a sensation of sticking just above the manubrium. There will eventually drop down after many attempts of swallowing - may last for a few minutes. She reports about a 5 lb unintentional weight loss, appetite unchanged. She is fearful that she is becoming weak because of her inability to consume solid foods. She was able to drink an ensure shake, coffee, orange juice and broth last night and this morning. She did not eat her oatmeal because she did not like the way it tasted - she was advised to request a different meal if she was hungry and tolerating it PO. She reports no lower GI symptoms - no nausea, vomiting, change in stools, black/ bloody stools CT head 06/17/16: Moderate mucosal thickening left maxillary sinus. Age-related atrophy and chronic small vessel change. No acute intracranial hemorrhage. No midline shift. EGD 2013: at outside location, reports no mention of any esophageal dysfunction , healing gastric ulcers Past Medical/Surgical History Medical Problems: (1) Acute bronchitis Status: Acute (2) ESRD (end stage renal disease) on dialysis Status: Chronic (3) Hypomagnesemia Status: Acute (4) Hypotension Status: Acute (5) Hypoxia Status: Acute (6) Hypoxia Status: Acute (7) Renal failure Status: Acute Family History FH: heart disease Stroke Social History Smoking Status: Never Smoker Alcohol Use: none Drug Use: none Marital Status: single Housing Status: lives with family 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 Allergies Coded Allergies: Sulfamethoxazole w/Trimethoprim (Verified Allergy, Severe, RASH, n/v, swelling of LE, 06/17/16) Current Medications Home Meds and Scripts Medications Dose Route/Sig Max Daily Dose Days Date Category Combivent Respimat (Ipratropium-Albuterol) 1 Aer Aer 1 Puffs INH QID PRN 06/17/16 Reported Lopressor (Metoprolol Tartrate) 25 Mg Tab 12.5 Mg PO HS 05/31/16 Reported Renvela (Sevelamer Carbonate) 800 Mg Tab 2 Tab PO TIDM 90 05/31/16 Reported Rocaltrol Cap (Calcitriol) 0.25 Mcg Cap 0.25 Mcg PO DAILY 05/31/16 Reported Sensipar (Cinacalcet) 30 Mg Tab 30 Mg PO DAILY 05/31/16 Reported Pravastatin Sodium 40 Mg Tab 40 Mg PO HS 11/17/13 Reported Review of Systems Constitutional: No chills, No fever Eyes: + problem reported (drooping right eye-lid) ENT: + problem reported (incomplete seal of lips during swallowing of liquids on right side), + trouble swallowing Respiratory: + cough, No shortness of breath Cardiac: No chest pain, No edema Abdomen: + dysphagia, No GI bleeding, No constipation, No diarrhea, No nausea, No pain, No vomiting Neuro: + numbness/tingling (right side face), + weakness (sensation of inability to close mouth well) Physical Exam Date Time Temp Pulse Resp B/P Pulse Ox O2 Delivery O2 Flow Rate FiO2 06/18/16 07:41 36.6 70 16 80/47 93 Room Air 06/18/16 04:37 36.3 70 18 84/45 90 Room Air 06/18/16 04:00 Room Air 06/18/16 00:16 36.5 103 20 91/53 94 Room Air 06/18/16 00:00 Room Air 06/17/16 21:21 36.4 99 22 95/54 Room Air 06/17/16 20:15 98 20 82/56 97 06/17/16 18:01 87 22 103/50 06/17/16 16:33 86/52 06/17/16 16:31 90 20 06/17/16 16:26 85 34 06/17/16 16:21 85 33 06/17/16 16:16 86 13 06/17/16 16:11 90 27 06/17/16 16:06 91 32 06/17/16 16:01 85 23 06/17/16 15:56 90 31 06/17/16 15:51 92 25 06/17/16 15:46 85 27 06/17/16 15:41 93 22 06/17/16 15:36 84 26 06/17/16 15:31 90 21 06/17/16 15:26 93 16 06/17/16 15:21 93 17 06/17/16 15:16 83 24 06/17/16 15:11 87 26 06/17/16 15:06 90 30 06/17/16 15:01 77 31 06/17/16 14:56 79 20 06/17/16 14:51 90 26 06/17/16 14:46 80 28 06/17/16 14:41 82 29 06/17/16 14:36 92 21 06/17/16 14:31 87 25 06/17/16 14:26 87 50 06/17/16 14:21 87 25 06/17/16 14:20 92 92/67 06/17/16 14:18 92/67 06/17/16 14:16 88 26 06/17/16 14:11 79 29 06/17/16 14:08 85 06/17/16 14:07 91/52 06/17/16 13:54 36.5 95 18 79/47 92 Room Air General Appearance: no apparent distress (she was resting comfortable in her chair) Eyes: PERRL, EOMI ENT: normal ENT inspection, hearing grossly normal, pharynx normal Neck: supple, no adenopathy, no JVD Respiratory/Chest: chest non-tender, no respiratory distress, no accessory muscle use, + decreased breath sounds, + wheezing (expiratory wheezes, R>L) Cardiovascular: regular rate, rhythm, no edema, no gallop, no JVD, no murmur Abdomen: normal bowel sounds, non tender, soft, no organomegaly, + pertinent finding 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, alert, normal mood/affect, oriented x 3, + pertinent finding (visualized drooping of right eye lid) Skin: normal color, no jaundice, warm/dry Laboratory Results Last 24 Hours Test 06/17/16 14:10 06/18/16 06:29 White Blood Count 6.84 K/uL 4.82 K/uL Red Blood Count 3.58 M/uL 3.23 M/uL Hemoglobin 12.0 g/dL 10.6 g/dL Hematocrit 35.7 % 31.5 % Mean Corpuscular Volume 99.7 fL 97.5 fL Mean Corpuscular Hemoglobin 33.5 pg 32.8 pg Mean Corpuscular Hemoglobin Concent 33.6 g/dl 33.7 g/dl Platelet Count 206 K/uL 167 K/uL Mean Platelet Volume 10.1 fL 9.6 fL Neutrophils (%) (Auto) 73.4 % Lymphocytes (%) (Auto) 15.4 % Monocytes (%) (Auto) 9.1 % Eosinophils (%) (Auto) 1.5 % Basophils (%) (Auto) 0.3 % Neutrophils # (Auto) 5.03 K/uL Lymphocytes # (Auto) 1.05 K/uL Monocytes # (Auto) 0.62 K/uL Eosinophils # (Auto) 0.10 K/uL Basophils # (Auto) 0.02 K/uL RDW Standard Deviation 51.9 fL 51.3 fL RDW Coefficient of Variation 14.2 % 14.3 % Immature Granulocyte % (Auto) 0.3 % Immature Granulocyte # (Auto) 0.02 K/uL Sodium Level 134 mmol/L 133 mmol/L Potassium Level 5.1 mmol/L 5.7 mmol/L Chloride Level 93 mmol/L 96 mmol/L Carbon Dioxide Level 29 mmol/L 25 mmol/L Anion Gap 12.0 mmol/L 12.0 mmol/L Blood Urea Nitrogen 38 mg/dl 47 mg/dl Creatinine 6.10 mg/dl 7.20 mg/dl Estimated GFR () 6.7 5.5 Estimated GFR (Non- 5.8 4.7 BUN/Creatinine Ratio 6.2 6.6 Random Glucose 88 mg/dl 90 mg/dl Calcium Level 8.5 mg/dl 8.1 mg/dl Total Bilirubin 0.5 mg/dl Aspartate Amino Transf (AST/SGOT) 25 U/L Alanine Aminotransferase (ALT/SGPT) 35 U/L Alkaline Phosphatase 103 U/L Total Protein 7.7 gm/dl Albumin 2.8 gm/dl Globulin 4.9 gm/dl Albumin/Globulin Ratio 0.6 Hepatitis C Antibody Screen NEG Est Creatinine Clear Calc Drug Dose 4.5 ml/min Magnesium Level 1.8 mg/dl Impression Patient is a 86 year old female who is being evaluated for new solids dysphagia. Differentials include esophagitis, space occupying lesion, dysmotility, esophageal ring, hiatal hernia, esophageal stricture, neuromuscular abnormality. I would like to consult neurology given persisting issues with facial eyelid droop, sensation of incomplete closure of mouth with escaping liquids and new onset dysphagia following recent facial lesion excision. Plan NPO after midnight EGD tomorrow if all clear - history of steroid use with recent hospitalization ? yeast Liquids/full liquids as tolerated w/ aspiration precautions Boost/ensure shakes to increase caloric intake Speech study evaluation Neurology evaluation - facial numbness, eye droop since surgery ATTESTATION: I have performed a history and physical examination of this patient and reviewed the electronic record. Specifically, on physical examination . I have discussed the case with JESSEE Aburto. The above note reflects my findings, conclusions, and recommendations. Vasile Cotton MD
--- NOTE | 2016-06-18 14:24 | Progress Note ---
Medicine Progress Note Date & Time of Visit: Jun 18, 2016 at 14:00. Subjective Pt was seen and examined Sitting in chair with no distress Pt said that she cannot swallow any solid food she also said that she does have any appetite she denies any chest pain, palpitation, dizziness Objective Last 8 Hrs Date Time Temp Pulse Resp B/P Pulse Ox O2 Delivery O2 Flow Rate FiO2 06/18/16 12:20 36.8 70 16 88/54 95 Room Air 06/18/16 12:00 Room Air 06/18/16 08:00 Room Air 06/18/16 07:41 36.6 70 16 80/47 93 Room Air Physical Exam: General- No distress Head- atraumatic Eyes- PERRL, EOMI ENT- oropharynx clear Neck- supple, no JVD Lungs- clear to auscultation and percussion Heart- no murmur Abdomen- normal bowel sounds, soft Extremities- no calf tenderness Neuro- alert, oriented, PERRL, +numbness in Right facial area, unable to puff the cheek, no motor deficit Skin- warm & dry Laboratory Results: Last 24 Hours Test 06/17/16 14:10 06/18/16 06:29 White Blood Count 6.84 K/uL 4.82 K/uL Red Blood Count 3.58 M/uL 3.23 M/uL Hemoglobin 12.0 g/dL 10.6 g/dL Hematocrit 35.7 % 31.5 % Mean Corpuscular Volume 99.7 fL 97.5 fL Mean Corpuscular Hemoglobin 33.5 pg 32.8 pg Mean Corpuscular Hemoglobin Concent 33.6 g/dl 33.7 g/dl Platelet Count 206 K/uL 167 K/uL Mean Platelet Volume 10.1 fL 9.6 fL Neutrophils (%) (Auto) 73.4 % Lymphocytes (%) (Auto) 15.4 % Monocytes (%) (Auto) 9.1 % Eosinophils (%) (Auto) 1.5 % Basophils (%) (Auto) 0.3 % Neutrophils # (Auto) 5.03 K/uL Lymphocytes # (Auto) 1.05 K/uL Monocytes # (Auto) 0.62 K/uL Eosinophils # (Auto) 0.10 K/uL Basophils # (Auto) 0.02 K/uL RDW Standard Deviation 51.9 fL 51.3 fL RDW Coefficient of Variation 14.2 % 14.3 % Immature Granulocyte % (Auto) 0.3 % Immature Granulocyte # (Auto) 0.02 K/uL Sodium Level 134 mmol/L 133 mmol/L Potassium Level 5.1 mmol/L 5.7 mmol/L Chloride Level 93 mmol/L 96 mmol/L Carbon Dioxide Level 29 mmol/L 25 mmol/L Anion Gap 12.0 mmol/L 12.0 mmol/L Blood Urea Nitrogen 38 mg/dl 47 mg/dl Creatinine 6.10 mg/dl 7.20 mg/dl Estimated GFR () 6.7 5.5 Estimated GFR (Non- 5.8 4.7 BUN/Creatinine Ratio 6.2 6.6 Random Glucose 88 mg/dl 90 mg/dl Calcium Level 8.5 mg/dl 8.1 mg/dl Total Bilirubin 0.5 mg/dl Aspartate Amino Transf (AST/SGOT) 25 U/L Alanine Aminotransferase (ALT/SGPT) 35 U/L Alkaline Phosphatase 103 U/L Total Protein 7.7 gm/dl Albumin 2.8 gm/dl Globulin 4.9 gm/dl Albumin/Globulin Ratio 0.6 Hepatitis C Antibody Screen NEG Est Creatinine Clear Calc Drug Dose 4.5 ml/min Magnesium Level 1.8 mg/dl Assessment & Plan PROGRESSIVE DYSPHAGIA schedule for EGD in am with GI Video Swallow tomorrow GI and speech therapy and speech onboard Neuro was consulted to r/o any neurology etiology Continue full liquid diet HYPOTENSION- on arrival BP was 79/47, received total of 500 mL IVF's in ER with improvement to 103/50 Possible related to poor oral intake Continue monitor in telemetry HISTORY OF PACEMAKER Possible issue with atrial lead when interrogated during May 2016 admission Interrogate pacemaker Follows with Dr. Curry as outpatient cardiology consulted, waiting for input RV SYSTOLIC DYSFUNCTION/ PULMONARY HYPERTENSION Stable AORTIC STENOSIS Moderate to severe per echo 06/08/16 ATRIAL FIBRILLATION Rate is controlled Continue Lopressor with parameters ESRD ON PERITONEAL DIALYSIS K elevated Will get PD tonight DYSLIPIDEMIA Continue statin RIGHT FACIAL NUMBNESS s/p removal of right facial mass by Dr. Maharaj 3 weeks ago Might be due to nerve damage CT head shown no intracranial abnormality Neurology consult DVT PROPHYLAXIS Heparin SQ CODE STATUS FULL CODE Current Inpatient Medications: Current Inpatient Medications Medications (Trade) Dose Ordered Sig/Seth Route Start Time Stop Time Status Last Admin Dose Admin Heparin Sodium (Porcine) (Heparin Sq 5000 Unit/0.5ml) 5,000 unit Q8 SQ 06/17/16 22:00 07/17/16 21:59 06/18/16 06:33 5,000 UNIT Acetaminophen (Tylenol Tab) 650 mg Q4H PRN PO 06/17/16 18:15 07/17/16 18:14 Ondansetron HCl (Zofran Inj) 4 mg Q6H PRN IV 06/17/16 18:15 07/17/16 18:14 Calcitriol (Rocaltrol Cap) 0.25 mcg DAILY PO 06/18/16 09:00 07/18/16 08:59 06/18/16 07:41 0.25 MCG Albuterol/ Ipratropium (Combivent Respimat Inh) 1 puffs QID PRN INH 06/17/16 19:00 07/17/16 18:59 Metoprolol Tartrate (Lopressor Tab) 12.5 mg HS PO 06/17/16 21:00 07/17/16 20:59 06/17/16 23:47 12.5 MG Pravastatin Sodium (Pravachol Tab) 40 mg HS PO 06/17/16 21:00 07/17/16 20:59 06/17/16 23:47 40 MG Cinacalcet (Sensipar) 30 mg DAILY PO 06/18/16 09:00 07/18/16 08:59 06/18/16 07:41 30 MG Sevelamer HCl (Renagel Tab) 1,600 mg TIDM PO 06/17/16 19:00 07/17/16 18:59 06/17/16 23:48 1,600 MG
--- NOTE | 2016-06-18 14:42 | Neurology Consultation ---
Neurology Consultation Date of Consultation: Jun 18, 2016. Attending Physician: Alec Young M.D. Primary Care Physician: No Doctor, Assigned Reason for Consultation: right sided facial weakness eye lid droop dysphasia History of Present Illness Source: patient, family Ariela is a 86 year old female with PMH of ESRD on peritoneal dialysis, paroxysmal AF, s/p pacemaker presents with dysphagia. She had a recent hospitalized from 05/31-06/01 for acute bronchitis and possible pacemaker dysfunction and 06/06-06/09 for acute bronchitis and AF with RVR. Then over past 2 weeks she has progressive dysphagia to solid foods. She states solids get "blocked" while going down. She is able to swallow liquids and medications. She reports nausea after eating, generalized weakness, fatigue, and weight loss of 5 lb in 2 weeks. She notes having a mass removed from her right jain 3 weeks ago and states she has right sided facial weakness/ numbness and speech abnormality since that time. . No new meds have been added since last hospitalization. Her daughter is in the room and states she has been having right eye droop, facial asymmetry, and some dysphagia since the surgery. They took a large tumor off her face and pulled a flap of her skin up to cover the area where it was removed. denies CP, SOB, abdominal pain, one sided weakness, numbness tingling. she is on PD so she is anuria. denies falls Past Medical/Surgical History Medical Problems: (1) Acute bronchitis Status: Acute (2) ESRD (end stage renal disease) on dialysis Status: Chronic (3) Hypomagnesemia Status: Acute (4) Hypotension Status: Acute (5) Hypoxia Status: Acute (6) Hypoxia Status: Acute (7) Renal failure Status: Acute Social History Alcohol Use: occasionally Drug Use: none Marital Status: single Housing Status: lives with family 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 Allergies Coded Allergies: Sulfamethoxazole w/Trimethoprim (Verified Allergy, Severe, RASH, n/v, swelling of LE, 06/17/16) Current Inpatient Medications Current Inpatient Medications Medications (Trade) Dose Ordered Sig/Seth Route Start Time Stop Time Status Last Admin Dose Admin Heparin Sodium (Porcine) (Heparin Sq 5000 Unit/0.5ml) 5,000 unit Q8 SQ 06/17/16 22:00 07/17/16 21:59 06/18/16 06:33 5,000 UNIT Acetaminophen (Tylenol Tab) 650 mg Q4H PRN PO 06/17/16 18:15 07/17/16 18:14 Ondansetron HCl (Zofran Inj) 4 mg Q6H PRN IV 06/17/16 18:15 07/17/16 18:14 Calcitriol (Rocaltrol Cap) 0.25 mcg DAILY PO 06/18/16 09:00 07/18/16 08:59 06/18/16 07:41 0.25 MCG Albuterol/ Ipratropium (Combivent Respimat Inh) 1 puffs QID PRN INH 06/17/16 19:00 07/17/16 18:59 Metoprolol Tartrate (Lopressor Tab) 12.5 mg HS PO 06/17/16 21:00 07/17/16 20:59 06/17/16 23:47 12.5 MG Pravastatin Sodium (Pravachol Tab) 40 mg HS PO 06/17/16 21:00 07/17/16 20:59 06/17/16 23:47 40 MG Cinacalcet (Sensipar) 30 mg DAILY PO 06/18/16 09:00 07/18/16 08:59 06/18/16 07:41 30 MG Sevelamer HCl (Renagel Tab) 1,600 mg TIDM PO 06/17/16 19:00 07/17/16 18:59 06/17/16 23:48 1,600 MG Physical Exam Vital Signs (Past 24 Hrs): Date Time Temp Pulse Resp B/P Pulse Ox O2 Delivery O2 Flow Rate FiO2 06/18/16 12:20 36.8 70 16 88/54 95 Room Air 06/18/16 12:00 Room Air 06/18/16 08:00 Room Air 06/18/16 07:41 36.6 70 16 80/47 93 Room Air 06/18/16 04:37 36.3 70 18 84/45 90 Room Air 06/18/16 04:00 Room Air 06/18/16 00:16 36.5 103 20 91/53 94 Room Air 06/18/16 00:00 Room Air 06/17/16 21:21 36.4 99 22 95/54 Room Air 06/17/16 20:15 98 20 82/56 97 06/17/16 18:01 87 22 103/50 06/17/16 16:33 86/52 06/17/16 16:31 90 20 06/17/16 16:26 85 34 06/17/16 16:21 85 33 06/17/16 16:16 86 13 06/17/16 16:11 90 27 06/17/16 16:06 91 32 06/17/16 16:01 85 23 06/17/16 15:56 90 31 06/17/16 15:51 92 25 06/17/16 15:46 85 27 06/17/16 15:41 93 22 06/17/16 15:36 84 26 06/17/16 15:31 90 21 06/17/16 15:26 93 16 06/17/16 15:21 93 17 06/17/16 15:16 83 24 06/17/16 15:11 87 26 06/17/16 15:06 90 30 06/17/16 15:01 77 31 06/17/16 14:56 79 20 06/17/16 14:51 90 26 06/17/16 14:46 80 28 06/17/16 14:41 82 29 Physical Exam: Constitutional: appearance nourished, ill appearing Ears, Nose, Mouth and Throat: mucous membranes moist, no injection and skin normal, eyes normal Cardiovascular: normal S-1 and S-2 and regular rate and rhythm Respiratory: course breath sounds Musculoskeletal: distant pulses Skin: venous stasis LE from knees down Eyes: extraocular muscles intact (EOMI) and pupils equal, round and reactive to light (PERRL) NEUROLOGIC EXAMINATION: Mental status: Alert and interactive Oriented to full date and location Oriented to person Speech slight slurring of word due to lack of movement of right face Cranial Nerves no eye brow raise on right, a symmetric smile and at rest eye brow droop and check bone Reflexes: decrease reflexes bilaterally UE LE Sensory: decrease sensation to cool touch to knees, GT proprioception bilaterally intact Coordination: finger to nose without bi pass Gait/Stance: sitting in bed side chair Strength: generalized weakness biceps triceps hand social group worker intrinsics 4+/5, hip flex plantar flex ext 4+/5 bilaterally Laboratory Results Past 24 Hours: 06/18/16 06:29 06/18/16 06:29 Test 06/18/16 06:29 Red Blood Count 3.23 M/uL (4.2-5.4) Mean Corpuscular Volume 97.5 fL (80-100) Mean Corpuscular Hemoglobin 32.8 pg (25-34) Mean Corpuscular Hemoglobin Concent 33.7 g/dl (32-36) RDW Standard Deviation 51.3 fL (36.4-46.3) RDW Coefficient of Variation 14.3 % (11.5-14.5) Mean Platelet Volume 9.6 fL (7.4-10.4) Anion Gap 12.0 mmol/L (3-11) Est Creatinine Clear Calc Drug Dose 4.5 ml/min Estimated GFR () 5.5 Estimated GFR (Non- 4.7 BUN/Creatinine Ratio 6.6 (10-20) Calcium Level 8.1 mg/dl (8.5-10.1) Magnesium Level 1.8 mg/dl (1.8-2.4) Imaging CT head- Findings: Moderate mucosal thickening left maxillary sinus. Age- related atrophy and chronic small vessel change. No acute intracranial hemorrhage. No midline shift. Impression 86 year old female s/p tumor resection on right face Plan 1. Dr Maharaj to assess surgery site tomorrow 2. in light of the surgery there does not appear any other findings that would question if this is anything in addition to surgery 3. it can take months to years to have nerve damage resolve 4. no acute findings on CT head- pace maker 5. further recommendations to follow 6. medical management per primary team and nephrology I have seen and discussed above patient with Dr Meg Barnhart, neurology. Pt seen and examined. Pt admitted for dysphagia primarily for solids with the feeling of food getting stuck. The pt has R peripheral 7th nerve weakness, primarily affecting brow elevation and eye closure. Eye closure is certainly functional enought to not require tears, etc. There is decreased Lt in R V2,3. Tongue midline, uvula elevates symm and gag intact bl. Symmetric strength no dystaxia. Pt dysphagia worse for solids is likely non-neurologic. Agree with GI hall consider videoswallow with speech. Please recontact us if the aforementioned does not reveal an etiology for pt complaints. DEMETRIUS Barnhart MD
--- NOTE | 2016-06-18 15:41 | Cardiology Consultation ---
Cardiology Consultation Date of Consultation: Jun 18, 2016. Requesting Physician: Dr. 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 She had been on digoxin and sotalol for her paroxysmal atrial fibrillation but that was discontinued I believe around 2013 here, at that time she was not in atrial fibrillation. Atrial fibrillation was subsequently identified on her May admission, she may have had prior atrial fibrillation and she was relatively unaware of it. Due to anomalies with her atrial lead the device cannot sense atrial activity and therefore will not monitor for the presence of atrial fibrillation and we cannot determine the frequency or duration of her arrhythmia. This admission was prompted by difficulty eating and neck pain. An EGD is planned for tomorrow. She is not having any cardiovascular complaints, is not having chest discomfort, shortness of breath or difficulty with exertion. She has no sensation of her cardiac rhythm. Past Medical/Surgical History Medical Problems: (1) Acute bronchitis Status: Acute (2) ESRD (end stage renal disease) on dialysis Status: Chronic (3) Hypomagnesemia Status: Acute (4) Hypotension Status: Acute (5) Hypoxia Status: Acute (6) Hypoxia Status: Acute (7) Renal failure Status: Acute Family History FH: heart disease Stroke Social History Smoking Status: Never Smoker History of Alcohol Use: No Review of Systems Constitutional: No fever, No weakness, No weight loss Respiratory: + cough, No shortness of breath Cardiac: No chest pain, No edema, No palpitations Abdomen: + problem reported (difficulty swallowing), + see HPI, No GI bleeding , No diarrhea, No nausea, No pain, No vomiting Female : No problem reported Neurologic: No balance problems, No numbness/tingling, No paralysis, No weakness Heme: No abnormal bleeding/bruising, No clotting problems Endo: No fatigue Skin: No problem reported All Other Systems: Reviewed and Negative Allergies Coded Allergies: Sulfamethoxazole w/Trimethoprim (Verified Allergy, Severe, RASH, n/v, swelling of LE, 06/17/16) Medications Current Inpatient Medications Medications (Trade) Dose Ordered Sig/Seth Route Start Time Stop Time Status Last Admin Dose Admin Heparin Sodium (Porcine) (Heparin Sq 5000 Unit/0.5ml) 5,000 unit Q8 SQ 06/17/16 22:00 07/17/16 21:59 06/18/16 14:41 5,000 UNIT Acetaminophen (Tylenol Tab) 650 mg Q4H PRN PO 06/17/16 18:15 07/17/16 18:14 Ondansetron HCl (Zofran Inj) 4 mg Q6H PRN IV 06/17/16 18:15 07/17/16 18:14 06/18/16 14:45 4 MG Calcitriol (Rocaltrol Cap) 0.25 mcg DAILY PO 06/18/16 09:00 07/18/16 08:59 06/18/16 07:41 0.25 MCG Albuterol/ Ipratropium (Combivent Respimat Inh) 1 puffs QID PRN INH 06/17/16 19:00 07/17/16 18:59 Metoprolol Tartrate (Lopressor Tab) 12.5 mg HS PO 06/17/16 21:00 07/17/16 20:59 06/17/16 23:47 12.5 MG Pravastatin Sodium (Pravachol Tab) 40 mg HS PO 06/17/16 21:00 07/17/16 20:59 06/17/16 23:47 40 MG Cinacalcet (Sensipar) 30 mg DAILY PO 06/18/16 09:00 07/18/16 08:59 06/18/16 07:41 30 MG Sevelamer HCl (Renagel Tab) 1,600 mg TIDM PO 06/17/16 19:00 07/17/16 18:59 06/17/16 23:48 1,600 MG Physical Exam Vital Signs Past 12 Hours Date Time Temp Pulse Resp B/P Pulse Ox O2 Delivery O2 Flow Rate FiO2 06/18/16 12:20 36.8 70 16 88/54 95 Room Air 06/18/16 12:00 Room Air 06/18/16 08:00 Room Air 06/18/16 07:41 36.6 70 16 80/47 93 Room Air 06/18/16 04:37 36.3 70 18 84/45 90 Room Air 06/18/16 04:00 Room Air Constitutional: Level of Distress: NAD Psychiatric: Mental Status: active & alert Eyes: EOM: EOMI ENMT: normal ENT inspection, hearing grossly normal Neck: supple, no masses Lungs: Respiratory effort: no dyspnea, good air movement Auscultation: breath sounds normal, no wheezing Cardiovascular: Heart Auscultation: RRR, no rubs, no gallops, III/ TEODORO Peripheral Pulses: Bruits: none appreciated Abdomen: Bowel Sounds: normal Inspection & Palpation: soft, no tenderness, guarding & rebound, no masses Extremities: no edema Neurologic: Cranial Nerves: grossly intact Sensation: grossly intact Data Laboratory Results: Last 24 Hours Test 06/18/16 06:29 White Blood Count 4.82 K/uL Red Blood Count 3.23 M/uL Hemoglobin 10.6 g/dL Hematocrit 31.5 % Mean Corpuscular Volume 97.5 fL Mean Corpuscular Hemoglobin 32.8 pg Mean Corpuscular Hemoglobin Concent 33.7 g/dl RDW Standard Deviation 51.3 fL RDW Coefficient of Variation 14.3 % Platelet Count 167 K/uL Mean Platelet Volume 9.6 fL Sodium Level 133 mmol/L Potassium Level 5.7 mmol/L Chloride Level 96 mmol/L Carbon Dioxide Level 25 mmol/L Anion Gap 12.0 mmol/L Blood Urea Nitrogen 47 mg/dl Creatinine 7.20 mg/dl Est Creatinine Clear Calc Drug Dose 4.5 ml/min Estimated GFR () 5.5 Estimated GFR (Non- 4.7 BUN/Creatinine Ratio 6.6 Random Glucose 90 mg/dl Calcium Level 8.1 mg/dl Magnesium Level 1.8 mg/dl Imaging: Echocardiography shows severe aortic stenosis with the aortic valve area of 0.91 cm, normal LV systolic function. EKG: Yesterday atrial fibrillation with frequent AV conduction. Telemetry reviewed: Atrial fibrillation until this morning and then termination , it is difficult to tell exactly when due to the presence of ventricular pacing throughout. Pacemaker interrogation: Her atrial lead is not functioning for sensing, the reason for this is not clear. Now that she is out of atrial fibrillation atrial pacing can be assessed and she does have atrial capture, although interestingly P waves cannot be seen but she does have intact (although poor) A-V conduction confirming atrial capture. The device was reprogrammed to allow AV sequential pacing, without sensing it will not inhibit the presence of atrial fibrillation however this is probably preferable to have a ventricular based pacing only. Assessment & Plan #1. Atrial lead malfunction: Her atrial lead is able to pace the atrium (when she is not in atrial fibrillation which evidently is paroxysmal) however no sensing is evident on the atrial lead, either during atrial fibrillation or not. Review of prior electrocardiograms show a similar pacemaker problem with atrial lead that we are seeing today, in 2013 she is atrially pacing with no evidence of atrial activity but probably there is atrial capture but we can't see it. This is not a clinical problem as a ventricular lead is working well and the only problem with this is that she will atrially pace even if she does not need to, but that is unlikely to cause a problem although I'm not sure how useful it is in her case since we don't know the frequency of her atrial fibrillation. In any case have left her pacemaker dual-chamber, which will cause atrial spikes which may appear not to capture and will appear during atrial fibrillation as well if she has recurrence of that but this is not a problem. It should not interfere with her surgery. #2. Atrial fibrillation: She has a long history of paroxysmal atrial fibrillation I believe is not anticoagulated. Our electrocardiograms from 2016 through this admission although show atrial fibrillation, based on telemetry monitoring it appears that she converted out of atrial fibrillation sometime this morning. The pacemaker cannot detect her atrial electrogram therefore cannot be used to determine her arrhythmia. Her electrocardiogram on 08/16/2015 shows the first identification of atrial fibrillation here but there are no electrocardiograms between that and 03/14/2014. From the standpoint of her atrial fibrillation she should be anticoagulated, I will leave that up to primary service. #3. Valvular heart disease: On echocardiography 06/08/2016 she had moderate to severe valvular aortic stenosis with a valve area 0.91 cm, there is only moderate tricuspid regurgitation and no mitral regurgitation. Although her aortic stenosis is severe it should not interfere with her surgery however should be kept in mind. Thank you for allowing me to participate in her care.
[2016-06-18] MEDS ORDERED: TRAMADOL HCL 50 MG TAB PO PRN ×2 (20:45→21:00)
[2016-06-18] MEDS ORDERED: TRAMADOL HCL 50 MG TAB ONE (20:56)
[2016-06-18] MEDS: METOPROLOL TARTRATE 25 MG TAB PO SCH (21:00)
[2016-06-18] MEDS: PRAVASTATIN SOD 40 MG TAB PO SCH (21:01)
[2016-06-19] VITALS (8 sets, daily range): BP systolic 85–92; BP diastolic 39–51; PULSE 71–84; TEMP 35.8–36.6; O2SAT 91–94
[2016-06-19] MEDS: HEPARIN SOD 5000 UNIT/0.5 ML CARP SQ SCH ×3 (05:52→21:57)
[2016-06-19 07:10] LABS: HEMATOCRIT 29.7 % (37-47); MEAN CELL VOLUME 99.7 fL (80-100); MEAN CORPUSCULAR HEMOGLOBIN 32.9 pg (25-34); MEAN PLATELET VOLUME 9.6 fL (7.4-10.4); PLATELET COUNT 136 K/uL (130-400); RED BLOOD COUNT 2.98 M/uL (4.2-5.4); WHITE BLOOD COUNT 3.59 K/uL (4.8-10.8)
--- NOTE | 2016-06-19 07:30 | Nephrology Progress Note ---
Nephrology Progress Note Date of Service: Jun 19, 2016. Subjective 86 yo female on peritoneal dialysis and slept very well last night. energy levels are much improved. still with difficulty swallowing solids and currently npo for EGD. was evaluated by neurology for the numbness/facial droop since surgery to remove large skin cancer. pt did have diarrhea yesterday and moved bowels four times. Objective Date Time Temp Pulse Resp B/P Pulse Ox O2 Delivery O2 Flow Rate FiO2 06/19/16 04:55 36.6 78 18 86/39 91 Room Air 06/19/16 04:00 Room Air 06/19/16 00:00 Room Air 06/18/16 23:55 36.3 73 20 91/52 94 Room Air 06/18/16 22:06 36.5 70 72/38 06/18/16 21:15 70 72/39 06/18/16 20:00 Room Air 06/18/16 19:44 06/18/16 19:41 36.5 72 16 95/61 92 Room Air 06/18/16 16:00 Room Air 06/18/16 15:56 36.4 76 18 93/56 93 Room Air 06/18/16 12:20 36.8 70 16 88/54 95 Room Air 06/18/16 12:00 Room Air 06/18/16 08:00 Room Air 06/18/16 07:41 36.6 70 16 80/47 93 Room Air Physical Exam: General-[id number] Eyes-no scleral icterus ENT-+resolving scar on face from recent surgery Neck-supple Lungs-rhonchi at bases Heart-rrr Abdomen-bs+/+pd catheter Extremities-no c/c/e Neuro-skin changes around surgical site with some numbness on face Current Inpatient Medications Medications (Trade) Dose Ordered Sig/Seth Route Start Time Stop Time Status Last Admin Dose Admin Heparin Sodium (Porcine) (Heparin Sq 5000 Unit/0.5ml) 5,000 unit Q8 SQ 06/17/16 22:00 07/17/16 21:59 06/19/16 05:52 5,000 UNIT Acetaminophen (Tylenol Tab) 650 mg Q4H PRN PO 06/17/16 18:15 07/17/16 18:14 Ondansetron HCl (Zofran Inj) 4 mg Q6H PRN IV 06/17/16 18:15 07/17/16 18:14 06/18/16 14:45 4 MG Calcitriol (Rocaltrol Cap) 0.25 mcg DAILY PO 06/18/16 09:00 07/18/16 08:59 06/18/16 07:41 0.25 MCG Albuterol/ Ipratropium (Combivent Respimat Inh) 1 puffs QID PRN INH 06/17/16 19:00 07/17/16 18:59 Metoprolol Tartrate (Lopressor Tab) 12.5 mg HS PO 06/17/16 21:00 07/17/16 20:59 06/17/16 23:47 12.5 MG Pravastatin Sodium (Pravachol Tab) 40 mg HS PO 06/17/16 21:00 07/17/16 20:59 06/18/16 21:01 40 MG Cinacalcet (Sensipar) 30 mg DAILY PO 06/18/16 09:00 07/18/16 08:59 06/18/16 07:41 30 MG Sevelamer HCl (Renagel Tab) 1,600 mg TIDM PO 06/17/16 19:00 07/17/16 18:59 06/18/16 17:38 800 MG Tramadol HCl (Ultram Tab) 50 mg Q8 PRN PO 06/18/16 21:00 07/18/16 20:59 Last 24 Hours Test 06/19/16 06:54 White Blood Count 3.59 K/uL Red Blood Count 2.98 M/uL Hemoglobin 9.8 g/dL Hematocrit 29.7 % Mean Corpuscular Volume 99.7 fL Mean Corpuscular Hemoglobin 32.9 pg Mean Corpuscular Hemoglobin Concent 33.0 g/dl RDW Standard Deviation 50.5 fL RDW Coefficient of Variation 14.1 % Platelet Count 136 K/uL Mean Platelet Volume 9.6 fL Assessment & Plan ESRD-in my opinion, although drinking plenty of fluids. difficulty swallowing solids and losing weight. no edema in legs. bp remains low. will continue all yellows for now. 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 GI-difficulty swallowing solids, for EGD today.
[2016-06-19] MEDS: SEVELAMER HYDROCH 800 MG TAB PO SCH ×3 (07:32→16:45)
[2016-06-19] MEDS: CALCITRIOL 0.25 MCG CAP PO SCH (07:33)
[2016-06-19] MEDS: CINACALCET 30 MG TAB PO SCH (07:33)
[2016-06-19 07:59] LABS: BUN/CREATININE RATIO 6.2 (10-20); CREATININE 7.1 mg/dl (0.60-1.20); MAGNESIUM 1.7 mg/dl (1.8-2.4); PHOSPHORUS 4.6 mg/dl (2.5-4.9); POTASSIUM 4.9 mmol/L (3.5-5.1)
[2016-06-19] MEDS ORDERED: LIDOCAINE HCL 2% 2 ML VIAL (20MG/ML) ONE (09:19)
[2016-06-19] MEDS ORDERED: PROPOFOL IV EMULSION 10 MG/ML 20 ML VIAL IV ONE (09:19)
--- NOTE | 2016-06-19 10:06 | GI REPORT ---
Procedure Date: 06/19/2016 9:43 AM Procedure: Upper GI endoscopy Indications: Dysphagia Medicines: Monitored Anesthesia Care Complications: No immediate complications. Estimated blood loss: None. Estimated Blood Loss: Estimated blood loss: none. Procedure: Pre-Anesthesia Assessment: - Prior to the procedure, a History and Physical was performed, and patient medications, allergies and sensitivities were reviewed. The patient's tolerance of previous anesthesia was reviewed. - ASA Grade Assessment: IV - A patient with severe systemic disease that is a constant threat to life. After obtaining informed consent, the endoscope was passed under direct vision. Throughout the procedure, the patient's blood pressure, pulse, and oxygen saturations were monitored continuously. The scope was introduced through the mouth, and advanced to the third part of duodenum. The upper GI endoscopy was accomplished with ease. The patient tolerated the procedure well. Findings: No endoscopic abnormality was evident in the esophagus to explain the patient's complaint of dysphagia. It was decided, however, to proceed with dilation of the entire esophagus. A guidewire was placed and the scope was withdrawn. Dilation was performed with an [place] dilator with no resistance at 48 Fr, 51 Fr and 54 Fr. White punctate exudate was noted in the middle third of the esophagus and in the lower third of the esophagus. Biopsies were taken with a cold forceps for histology. The Z-line was regular and was found 38 cm from the incisors. Patchy mildly erythematous mucosa without bleeding was found in the gastric antrum. The examined duodenum was normal. Verification of patient identification for the specimen was done by the physician and nurse using the patient's name, date and medical record number. Impression: - No endoscopic esophageal abnormality to explain patient's dysphagia. Esophagus dilated. Dilated. - White exudate in esophageal mucosa. Biopsied. - Z-line regular, 38 cm from the incisors. - Erythematous mucosa in the antrum. - Normal examined duodenum. Recommendation: - Await pathology results. - Return patient to hospital [facility] for ongoing care. Vasile Cotton M.D. Vasile Cotton MD 06/19/2016 10:05:52 AM This report has been signed electronically. Note Initiated On: 06/19/2016 9:43 AM I attest to the content of the Intraoperative Record and orders documented therein, exceptions below
[2016-06-19] MEDS ORDERED: PHENYLEPHRINE HCL INJ 10 MG/ML VIAL ONE (10:12)
[2016-06-19] MEDS ORDERED: EpHEDrine SULFATE INJ 50 MG/ML AMP ONE (10:12)
--- NOTE | 2016-06-19 10:26 | Anesthesiology Progress Note ---
Anesthesia Post Op Note Date & Time Jun 19, 2016 at 10:27 Vital Signs Pain Intensity: 0.0 Vital Signs Past 12 Hours Date Time Temp Pulse Resp B/P Pulse Ox O2 Delivery O2 Flow Rate FiO2 06/19/16 10:20 74 20 107/50 98 Mask 5 06/19/16 10:05 36.4 64 20 91/42 99 Nasal Cannula 10 06/19/16 09:14 36.4 74 22 93/48 97 Room Air 06/19/16 08:00 Room Air 06/19/16 04:55 36.6 78 18 86/39 91 Room Air 06/19/16 04:00 Room Air 06/19/16 00:00 Room Air 06/18/16 23:55 36.3 73 20 91/52 94 Room Air Notes Mental Status: alert / awake / arousable, participated in evaluation Pt Amnestic to Procedure: Yes Nausea / Vomiting: adequately controlled Pain: adequately controlled Airway Patency, RR, SpO2: stable & adequate BP & HR: stable & adequate Hydration State: stable & adequate Anesthetic Complications: no major complications apparent
[2016-06-19] MEDS: NYSTATIN SUSP 500,000 U/5 ML UDC PO SCH ×3 (12:13→20:25)
--- NOTE | 2016-06-19 13:09 | DIAGNOSTIC IMAGING REPORT ---
VIDEO SWALLOW HISTORY: Dysphagia. assess for aspiration, please schedule at 1140 TECHNIQUE: Video fluoroscopic evaluation of swallowing was performed in the AP and lateral projections by the speech pathology staff. The patient is fed nectar-thick and thin liquid barium, a barium coated wafer, and barium pudding. FLUOROSCOPY TIME: 2.3 minutes. A cine loop submitted. COMPARISON STUDY: None. FINDINGS: There is normal hyoid excursion and epiglottic deflection. Multiple episodes of penetration without aspiration. Moderate esophageal dysmotility. There is smooth tapering/narrowing of the distal esophagus. IMPRESSION: 1. No aspiration identified. Moderate esophageal dysmotility with smooth tapering/narrowing of the distal esophagus. Recommend follow-up upper GI series or endoscopy for further evaluation. 2. Please see the speech pathologist report for detailed findings and recommendations. Electronically signed by: Austin Garcia M.D. 06/19/2016 1:07 PM Dictated Date/Time: 06/19/2016 12:53 PM
--- NOTE | 2016-06-19 17:26 | Progress Note ---
Medicine Progress Note Date & Time of Visit: Jun 19, 2016 at 17:06. Subjective Pt was seen and examined Sitting in chair comfortable with family member at beside Pt said that she slept very well last night denies any chest pain, palpitation, dizziness Objective Last 8 Hrs Date Time Temp Pulse Resp B/P Pulse Ox O2 Delivery O2 Flow Rate FiO2 06/19/16 16:13 36.3 84 22 91/45 93 Room Air 06/19/16 16:00 Room Air 06/19/16 12:00 Room Air 06/19/16 11:59 35.8 75 16 85/51 94 Room Air 06/19/16 10:35 85 20 101/50 96 Room Air 06/19/16 10:20 74 20 107/50 98 Mask 5 06/19/16 10:05 36.4 64 20 91/42 99 Nasal Cannula 10 06/19/16 09:14 36.4 74 22 93/48 97 Room Air Physical Exam: General- No distress Head- atraumatic Eyes- PERRL, EOMI ENT- oropharynx clear Neck- supple, no JVD Lungs- clear to auscultation and percussion Heart- irregular rhythm and rate Abdomen- normal bowel sounds, soft Extremities- no calf tenderness Neuro- alert, oriented, PERRL, +numbness in Right facial area, unable to puff the cheek, no motor deficit Skin- warm & dry Laboratory Results: Last 24 Hours Test 06/19/16 06:54 White Blood Count 3.59 K/uL Red Blood Count 2.98 M/uL Hemoglobin 9.8 g/dL Hematocrit 29.7 % Mean Corpuscular Volume 99.7 fL Mean Corpuscular Hemoglobin 32.9 pg Mean Corpuscular Hemoglobin Concent 33.0 g/dl RDW Standard Deviation 50.5 fL RDW Coefficient of Variation 14.1 % Platelet Count 136 K/uL Mean Platelet Volume 9.6 fL Sodium Level 135 mmol/L Potassium Level 4.9 mmol/L Chloride Level 96 mmol/L Carbon Dioxide Level 26 mmol/L Anion Gap 13.0 mmol/L Blood Urea Nitrogen 44 mg/dl Creatinine 7.10 mg/dl Est Creatinine Clear Calc Drug Dose 5.3 ml/min Estimated GFR () 5.6 Estimated GFR (Non- 4.8 BUN/Creatinine Ratio 6.2 Random Glucose 99 mg/dl Calcium Level 8.0 mg/dl Phosphorus Level 4.6 mg/dl Magnesium Level 1.7 mg/dl Assessment & Plan PROGRESSIVE DYSPHAGIA EGD showed no esophageal abnormality. white exudate in esophageal mucosa. the esophagus was dilated. Video Swallow showed showed Moderate esophageal dysmotility with smooth tapering/narrowing of the distal esophagus. Follow up diet recommendation by speech neuro on board and does not think the dysphagia is related to neurology etiology Monitor for aspiration precaution HYPOTENSION- on arrival BP was 79/47, received total of 500 mL IVF's in ER with improvement to 103/50 Possible related to poor oral intake BP in the low side Continue monitor in telemetry HISTORY OF PACEMAKER Possible issue with atrial lead when interrogated during May 2016 admission Pacemaker interrogation: Her atrial lead is not functioning for sensing, unknown reason. Follows with Dr. Curry as outpatient RV SYSTOLIC DYSFUNCTION/ PULMONARY HYPERTENSION Stable AORTIC STENOSIS Moderate to severe per echo 06/08/16 P. ATRIAL FIBRILLATION Rate is controlled family said that she was on anticoagulant in the past 7 yrs ago, that was discontinued unknown reason why the anticoagulant was d/julia. Discussed with family about anticoagulant, at this time son does not want her to start on anticoagulant advised patient and family to discuss anticoagulant with their PCP and cardiology Will defer that to her cardiology and PCP Continue Lopressor with parameters ESRD ON PERITONEAL DIALYSIS Continue PD nephrology on board DYSLIPIDEMIA Continue statin RIGHT FACIAL NUMBNESS s/p removal of right facial mass by Dr. Maharaj 3 weeks ago Might be due to nerve damage CT head shown no intracranial abnormality Stable Neuro on board DVT PROPHYLAXIS Heparin SQ CODE STATUS FULL CODE Current Inpatient Medications: Current Inpatient Medications Medications (Trade) Dose Ordered Sig/Seth Route Start Time Stop Time Status Last Admin Dose Admin Heparin Sodium (Porcine) (Heparin Sq 5000 Unit/0.5ml) 5,000 unit Q8 SQ 06/17/16 22:00 07/17/16 21:59 06/19/16 13:47 5,000 UNIT Acetaminophen (Tylenol Tab) 650 mg Q4H PRN PO 06/17/16 18:15 07/17/16 18:14 Ondansetron HCl (Zofran Inj) 4 mg Q6H PRN IV 06/17/16 18:15 07/17/16 18:14 06/18/16 14:45 4 MG Calcitriol (Rocaltrol Cap) 0.25 mcg DAILY PO 06/18/16 09:00 07/18/16 08:59 06/18/16 07:41 0.25 MCG Albuterol/ Ipratropium (Combivent Respimat Inh) 1 puffs QID PRN INH 06/17/16 19:00 07/17/16 18:59 Metoprolol Tartrate (Lopressor Tab) 12.5 mg HS PO 06/17/16 21:00 07/17/16 20:59 06/17/16 23:47 12.5 MG Pravastatin Sodium (Pravachol Tab) 40 mg HS PO 06/17/16 21:00 07/17/16 20:59 06/18/16 21:01 40 MG Cinacalcet (Sensipar) 30 mg DAILY PO 06/18/16 09:00 07/18/16 08:59 06/18/16 07:41 30 MG Sevelamer HCl (Renagel Tab) 1,600 mg TIDM PO 06/17/16 19:00 07/17/16 18:59 06/19/16 16:45 1,600 MG Tramadol HCl (Ultram Tab) 50 mg Q8 PRN PO 06/18/16 21:00 07/18/16 20:59 Nystatin (Mycostatin Susp) 5 ml QID PO 06/19/16 13:00 06/29/16 12:59 06/19/16 16:44 5 ML
[2016-06-19] MEDS: METOPROLOL TARTRATE 25 MG TAB PO SCH (20:24)
[2016-06-19] MEDS: PRAVASTATIN SOD 40 MG TAB PO SCH (20:25)
[2016-06-20] VITALS (11 sets, daily range): BP systolic 76–97; BP diastolic 33–59; PULSE 48–84; TEMP 36.3–36.6; O2SAT 91–96
[2016-06-20] MEDS: HEPARIN SOD 5000 UNIT/0.5 ML CARP SQ SCH ×3 (06:00→22:16)
[2016-06-20 06:41] LABS: HEMATOCRIT 26.2 % (37-47); MEAN CELL VOLUME 98.1 fL (80-100); MEAN CORPUSCULAR HGB CONC 33.6 g/dl (32-36); MEAN PLATELET VOLUME 9.7 fL (7.4-10.4); PLATELET COUNT 140 K/uL (130-400); RED BLOOD COUNT 2.67 M/uL (4.2-5.4); WHITE BLOOD COUNT 4.06 K/uL (4.8-10.8)
[2016-06-20 07:28] LABS: BUN/CREATININE RATIO 5.7 (10-20); CALCIUM 7.8 mg/dl (8.5-10.1); CREATININE 7.1 mg/dl (0.60-1.20); POTASSIUM 4.7 mmol/L (3.5-5.1)
[2016-06-20] MEDS: CALCITRIOL 0.25 MCG CAP PO SCH (07:39)
[2016-06-20] MEDS: SEVELAMER HYDROCH 800 MG TAB PO SCH ×3 (07:39→16:47)
[2016-06-20] MEDS: PANTOprazole SOD 40 MG TAB PO SCH (07:39)
[2016-06-20] MEDS: CINACALCET 30 MG TAB PO SCH (07:39)
[2016-06-20] MEDS: NYSTATIN SUSP 500,000 U/5 ML UDC PO SCH ×4 (07:40→20:43)
--- NOTE | 2016-06-20 12:38 | Nephrology Progress Note ---
Nephrology Progress Note Date of Service: Jun 20, 2016. Subjective no complaints. states she ambulates in room w/o difficulty; denies dyspnea; ongoing dysphagia > EGD/ swallow study recommends slippery foods; does have candidiasis; no abd pain or issues w/ pd; eager for d/c; not bothered by edema Objective Date Time Temp Pulse Resp B/P Pulse Ox O2 Delivery O2 Flow Rate FiO2 06/20/16 10:30 36.3 70 18 81/46 06/20/16 09:40 81/42 06/20/16 08:30 Room Air 06/20/16 07:16 36.3 71 18 76/33 95 Room Air 06/20/16 04:50 36.4 84 16 88/48 91 Room Air 06/20/16 04:00 Room Air 06/20/16 00:05 Room Air 06/19/16 23:37 36.3 74 20 90/51 92 Room Air 06/19/16 22:25 36.5 71 92/49 06/19/16 20:00 93 Room Air 06/19/16 19:53 36.6 71 16 92/49 93 Room Air 06/19/16 16:13 36.3 84 22 91/45 93 Room Air 06/19/16 16:00 Room Air Physical Exam: General-aaox3, sitting up in chair on RA Eyes-no scleral icterus ENT-+resolving scar on face from recent surgery Neck-supple Lungs-inspiratory crackles/ rhonchi/ popping Heart-rrr, SM Abdomen-bs+/+pd catheter; soft, NT Extremities-no c/c; 1+ BL ankle edema Neuro-leon, fluent speech, good insight Current Inpatient Medications Medications (Trade) Dose Ordered Sig/Seth Route Start Time Stop Time Status Last Admin Dose Admin Heparin Sodium (Porcine) (Heparin Sq 5000 Unit/0.5ml) 5,000 unit Q8 SQ 06/17/16 22:00 07/17/16 21:59 06/19/16 21:57 5,000 UNIT Acetaminophen (Tylenol Tab) 650 mg Q4H PRN PO 06/17/16 18:15 07/17/16 18:14 Ondansetron HCl (Zofran Inj) 4 mg Q6H PRN IV 06/17/16 18:15 07/17/16 18:14 06/18/16 14:45 4 MG Calcitriol (Rocaltrol Cap) 0.25 mcg DAILY PO 06/18/16 09:00 07/18/16 08:59 06/20/16 07:39 0.25 MCG Albuterol/ Ipratropium (Combivent Respimat Inh) 1 puffs QID PRN INH 06/17/16 19:00 07/17/16 18:59 Metoprolol Tartrate (Lopressor Tab) 12.5 mg HS PO 06/17/16 21:00 07/17/16 20:59 06/19/16 20:24 12.5 MG Pravastatin Sodium (Pravachol Tab) 40 mg HS PO 06/17/16 21:00 07/17/16 20:59 06/19/16 20:25 40 MG Cinacalcet (Sensipar) 30 mg DAILY PO 06/18/16 09:00 07/18/16 08:59 06/20/16 07:39 30 MG Sevelamer HCl (Renagel Tab) 1,600 mg TIDM PO 06/17/16 19:00 07/17/16 18:59 06/20/16 11:47 1,600 MG Tramadol HCl (Ultram Tab) 50 mg Q8 PRN PO 06/18/16 21:00 07/18/16 20:59 Nystatin (Mycostatin Susp) 5 ml QID PO 06/19/16 13:00 06/29/16 12:59 06/20/16 11:47 5 ML Pantoprazole Sodium (Protonix Tab) 40 mg QAM PO 06/20/16 09:00 07/20/16 08:59 06/20/16 07:39 40 MG Last 24 Hours Test 06/20/16 05:35 White Blood Count 4.06 K/uL Red Blood Count 2.67 M/uL Hemoglobin 8.8 g/dL Hematocrit 26.2 % Mean Corpuscular Volume 98.1 fL Mean Corpuscular Hemoglobin 33.0 pg Mean Corpuscular Hemoglobin Concent 33.6 g/dl RDW Standard Deviation 50.1 fL RDW Coefficient of Variation 14.0 % Platelet Count 140 K/uL Mean Platelet Volume 9.7 fL Sodium Level 135 mmol/L Potassium Level 4.7 mmol/L Chloride Level 97 mmol/L Carbon Dioxide Level 25 mmol/L Anion Gap 13.0 mmol/L Blood Urea Nitrogen 41 mg/dl Creatinine 7.10 mg/dl Est Creatinine Clear Calc Drug Dose 4.6 ml/min Estimated GFR () 5.6 Estimated GFR (Non- 4.8 BUN/Creatinine Ratio 5.7 Random Glucose 100 mg/dl Calcium Level 7.8 mg/dl Other Studies: TTE 06/08/16 moderate RV failure, severe aortic stenosis Assessment & Plan 86 yo female on peritoneal dialysis admitted with difficulty swallowing s/p work up; also w/ recent admission here for AF w/ RVR and bronchitis. energy levels are much improved. still with difficulty swallowing solids but has parameters for this. was evaluated by neurology for the numbness/facial droop since surgery to remove large skin cancer. ESRD-in my opinion, although drinking plenty of fluids. difficulty swallowing solids and losing weight. mild dependent edema. bp remains very low though from what I can tell asymptomatic. will continue all yellows for now with minimal UF -ensure no fluid limit on diet Profound hypotension note that at admission earlier this month her sbp were 110s on presentation and trended down to 90s by d/c; currently in 80s systolic w/o many sx -would not lower bb dose given recent AF w/ RVR admission > ? if low dose coreg might be better >ordered orthostatics and 2 view CXR to evaluate for ? new LV HF (though this seems unlikely) >consider discussing w/ cardiology > any chance her systolic function has worsened in past 10 days? no troponins or BNP this admission (not sure they're indicated) Anemia of renal failure-no procrit given recent significant skin cancer- transfusion dependent at this time. GI-difficulty swallowing solids> recommendations as above
--- NOTE | 2016-06-20 14:57 | DIAGNOSTIC IMAGING REPORT ---
CHEST 2 VIEWS ROUTINE CLINICAL HISTORY: Volume status. COMPARISON STUDY: Chest radiograph June 17, 2016. FINDINGS: A left sided pacer and median sternotomy wires are noted as well as prosthetic cardiac valves. Cardiomegaly is unchanged. There is no pneumothorax or pleural effusion. There is no consolidation to suggest pneumonia. There is no evidence of pulmonary edema. There is contrast within portions of the colon from modified barium swallow. Colonic diverticulosis is noted. There are cholecystectomy clips. IMPRESSION: No acute findings. No evidence of pulmonary edema. Electronically signed by: Arnel Ponce M.D. 06/20/2016 2:56 PM Dictated Date/Time: 06/20/2016 2:54 PM
[2016-06-20] MEDS: PRAVASTATIN SOD 40 MG TAB PO SCH (20:43)
[2016-06-20] MEDS: METOPROLOL TARTRATE 25 MG TAB PO SCH (20:43)
--- NOTE | 2016-06-20 21:12 | Progress Note ---
Medicine Progress Note Date & Time of Visit: Jun 20, 2016 at 21:07. Subjective Pt was seen and examined sitting comfortable with no distress She said that she feels good and she wants to go home denies any chest pain, palpitation, dizziness She said that he breathing is good Objective Last 8 Hrs Date Time Temp Pulse Resp B/P Pulse Ox O2 Delivery O2 Flow Rate FiO2 06/20/16 20:44 74 93/50 06/20/16 20:00 Room Air 06/20/16 19:45 36.3 80 20 97/59 96 Room Air 06/20/16 16:15 Room Air 06/20/16 15:32 36.6 48 18 79/39 95 Room Air 06/20/16 14:05 64 97/55 06/20/16 14:04 74 89/54 06/20/16 14:04 79 91/53 Physical Exam: General- No distress Head- atraumatic Eyes- PERRL, EOMI ENT- oropharynx clear Neck- supple, no JVD Lungs- coarse bs Heart- regular rhythm and rate Abdomen- normal bowel sounds, soft Extremities- no calf tenderness Neuro- alert, oriented, PERRL, +numbness in Right facial area, unable to puff the cheek, no motor deficit Skin- warm & dry Laboratory Results: Last 24 Hours Test 06/20/16 05:35 White Blood Count 4.06 K/uL Red Blood Count 2.67 M/uL Hemoglobin 8.8 g/dL Hematocrit 26.2 % Mean Corpuscular Volume 98.1 fL Mean Corpuscular Hemoglobin 33.0 pg Mean Corpuscular Hemoglobin Concent 33.6 g/dl RDW Standard Deviation 50.1 fL RDW Coefficient of Variation 14.0 % Platelet Count 140 K/uL Mean Platelet Volume 9.7 fL Sodium Level 135 mmol/L Potassium Level 4.7 mmol/L Chloride Level 97 mmol/L Carbon Dioxide Level 25 mmol/L Anion Gap 13.0 mmol/L Blood Urea Nitrogen 41 mg/dl Creatinine 7.10 mg/dl Est Creatinine Clear Calc Drug Dose 4.6 ml/min Estimated GFR () 5.6 Estimated GFR (Non- 4.8 BUN/Creatinine Ratio 5.7 Random Glucose 100 mg/dl Calcium Level 7.8 mg/dl Assessment & Plan PROGRESSIVE DYSPHAGIA EGD showed no esophageal abnormality. white exudate in esophageal mucosa. the esophagus was dilated. Video Swallow showed showed Moderate esophageal dysmotility with smooth tapering/narrowing of the distal esophagus. Follow up diet recommendation by speech neuro on board and does not think the dysphagia is related to neurology etiology Monitor for aspiration precaution Stable HYPOTENSION- on arrival BP was 79/47, received total of 500 mL IVF's in ER with improvement to 103/50 Possible related to poor oral intake BP in the low side Continue monitor in telemetry Asymptomatic might consider to decrease the lopressor will discussed with cardio HISTORY OF PACEMAKER Possible issue with atrial lead when interrogated during May 2016 admission Pacemaker interrogation: Her atrial lead is not functioning for sensing, unknown reason. Follows with Dr. Curry as outpatient RV SYSTOLIC DYSFUNCTION/ PULMONARY HYPERTENSION Stable AORTIC STENOSIS Moderate to severe per echo 06/08/16 P. ATRIAL FIBRILLATION Rate is controlled family said that she was on anticoagulant in the past 7 yrs ago, that was discontinued unknown reason why the anticoagulant was d/julia. Discussed with family about anticoagulant, at this time son does not want her to start on anticoagulant advised patient and family to discuss anticoagulant with their PCP and cardiology Will defer that to her cardiology and PCP will consider to decrease Lopressor ESRD ON PERITONEAL DIALYSIS Continue PD nephrology on board DYSLIPIDEMIA Continue statin RIGHT FACIAL NUMBNESS s/p removal of right facial mass by Dr. Maharaj 3 weeks ago Might be due to nerve damage CT head shown no intracranial abnormality Stable Neuro on board DVT PROPHYLAXIS Heparin SQ CODE STATUS FULL CODE DISPOSITION Follow up with your PCP Dr. Childs on Jun 29 at 9:10 am Current Inpatient Medications: Current Inpatient Medications Medications (Trade) Dose Ordered Sig/Seth Route Start Time Stop Time Status Last Admin Dose Admin Heparin Sodium (Porcine) (Heparin Sq 5000 Unit/0.5ml) 5,000 unit Q8 SQ 06/17/16 22:00 07/17/16 21:59 06/19/16 21:57 5,000 UNIT Acetaminophen (Tylenol Tab) 650 mg Q4H PRN PO 06/17/16 18:15 07/17/16 18:14 Ondansetron HCl (Zofran Inj) 4 mg Q6H PRN IV 06/17/16 18:15 07/17/16 18:14 06/18/16 14:45 4 MG Calcitriol (Rocaltrol Cap) 0.25 mcg DAILY PO 06/18/16 09:00 07/18/16 08:59 06/20/16 07:39 0.25 MCG Albuterol/ Ipratropium (Combivent Respimat Inh) 1 puffs QID PRN INH 06/17/16 19:00 07/17/16 18:59 Metoprolol Tartrate (Lopressor Tab) 12.5 mg HS PO 06/17/16 21:00 07/17/16 20:59 06/19/16 20:24 12.5 MG Pravastatin Sodium (Pravachol Tab) 40 mg HS PO 06/17/16 21:00 07/17/16 20:59 06/20/16 20:43 40 MG Cinacalcet (Sensipar) 30 mg DAILY PO 06/18/16 09:00 07/18/16 08:59 06/20/16 07:39 30 MG Sevelamer HCl (Renagel Tab) 1,600 mg TIDM PO 06/17/16 19:00 07/17/16 18:59 06/20/16 16:47 1,600 MG Tramadol HCl (Ultram Tab) 50 mg Q8 PRN PO 06/18/16 21:00 07/18/16 20:59 Nystatin (Mycostatin Susp) 5 ml QID PO 06/19/16 13:00 06/29/16 12:59 06/20/16 20:43 5 ML Pantoprazole Sodium (Protonix Tab) 40 mg QAM PO 06/20/16 09:00 07/20/16 08:59 06/20/16 07:39 40 MG
[2016-06-21 00:19] VITALS: BP 101/59; PULSE 81; TEMP 36.4; O2SAT 96
[2016-06-21 05:00] VITALS: BP 96/60; PULSE 87; TEMP 36.4; O2SAT 99
[2016-06-21 05:59] LABS: HEMATOCRIT 28.6 % (37-47); MEAN CORPUSCULAR HEMOGLOBIN 32.9 pg (25-34); MEAN CORPUSCULAR HGB CONC 32.9 g/dl (32-36); MEAN PLATELET VOLUME 9.6 fL (7.4-10.4); PLATELET COUNT 127 K/uL (130-400); RED BLOOD COUNT 2.86 M/uL (4.2-5.4); WHITE BLOOD COUNT 3.05 K/uL (4.8-10.8)
[2016-06-21] MEDS: HEPARIN SOD 5000 UNIT/0.5 ML CARP SQ SCH ×2 (06:00→14:00)
[2016-06-21 06:37] LABS: BUN/CREATININE RATIO 5.3 (10-20); CALCIUM 7.7 mg/dl (8.5-10.1); CREATININE 7.3 mg/dl (0.60-1.20); POTASSIUM 4.9 mmol/L (3.5-5.1)
[2016-06-21 07:52] VITALS: BP 87/38; PULSE 82; TEMP 36.3; O2SAT 92
[2016-06-21] MEDS: SEVELAMER HYDROCH 800 MG TAB PO SCH ×2 (08:00→11:43)
[2016-06-21] MEDS: PANTOprazole SOD 40 MG TAB PO SCH (08:26)
[2016-06-21] MEDS: CALCITRIOL 0.25 MCG CAP PO SCH (08:26)
[2016-06-21] MEDS: NYSTATIN SUSP 500,000 U/5 ML UDC PO SCH ×2 (08:26→11:43)
[2016-06-21] MEDS: CINACALCET 30 MG TAB PO SCH (08:26)
[2016-06-21 11:30] VITALS: BP 87/38; PULSE 82; TEMP 36.3
[2016-06-21 12:12] VITALS: BP 84/53; PULSE 78; TEMP 36.5; O2SAT 97
--- NOTE | 2016-06-21 14:03 | Progress Note ---
Medicine Progress Note Date & Time of Visit: Jun 21, 2016 at 13:42. Subjective Pt was seen and examined Sitting in bed comfortable with no distress Pt said that she thought that she was going to be discharged yesterday she said that she has been feeling good She said that she walked well with PT today and to the bathroom with no discomfort she said that her breathing is good she denies any chest pain, palpitation, dizziness She said that she wants to go home that she can cook her own meals Objective Last 8 Hrs Date Time Temp Pulse Resp B/P Pulse Ox O2 Delivery O2 Flow Rate FiO2 06/21/16 12:12 36.5 78 18 84/53 97 Room Air 06/21/16 12:10 Room Air 06/21/16 11:30 36.3 82 18 87/38 06/21/16 08:30 Room Air 06/21/16 07:52 36.3 82 18 87/38 92 Room Air Physical Exam: General- No distress Head- atraumatic Eyes- PERRL, EOMI ENT- oropharynx clear Neck- supple, no JVD Lungs- Poor air entry Heart- regular rhythm and rate Abdomen- normal bowel sounds, soft Extremities- no calf tenderness Neuro- alert, oriented, PERRL, +numbness in Right facial area, unable to puff the cheek, no motor deficit Skin- warm & dry Laboratory Results: Last 24 Hours Test 06/21/16 05:42 White Blood Count 3.05 K/uL Red Blood Count 2.86 M/uL Hemoglobin 9.4 g/dL Hematocrit 28.6 % Mean Corpuscular Volume 100.0 fL Mean Corpuscular Hemoglobin 32.9 pg Mean Corpuscular Hemoglobin Concent 32.9 g/dl RDW Standard Deviation 50.2 fL RDW Coefficient of Variation 13.9 % Platelet Count 127 K/uL Mean Platelet Volume 9.6 fL Sodium Level 137 mmol/L Potassium Level 4.9 mmol/L Chloride Level 99 mmol/L Carbon Dioxide Level 27 mmol/L Anion Gap 11.0 mmol/L Blood Urea Nitrogen 39 mg/dl Creatinine 7.30 mg/dl Est Creatinine Clear Calc Drug Dose 4.5 ml/min Estimated GFR () 5.4 Estimated GFR (Non- 4.6 BUN/Creatinine Ratio 5.3 Random Glucose 83 mg/dl Calcium Level 7.7 mg/dl Diagnostic Imaging: HEAD CT NONCONTRAST CT DOSE: 537.48 mGy.cm HISTORY: Pain r/o intracranial abnormality TECHNIQUE: Multiaxial CT images of the head were performed without the use of intravenous contrast. Comparison: None. Findings: Moderate mucosal thickening left maxillary sinus. Age-related atrophy and chronic small vessel change. No acute intracranial hemorrhage. No midline shift. Impression: Age-related change. No acute intracranial abnormality.] Thickening right maxillary sinus. CHEST 2 VIEWS ROUTINE CLINICAL HISTORY: Volume status. COMPARISON STUDY: Chest radiograph June 17, 2016. FINDINGS: A left sided pacer and median sternotomy wires are noted as well as prosthetic cardiac valves. Cardiomegaly is unchanged. There is no pneumothorax or pleural effusion. There is no consolidation to suggest pneumonia. There is no evidence of pulmonary edema. There is contrast within portions of the colon from modified barium swallow. Colonic diverticulosis is noted. There are cholecystectomy clips. IMPRESSION: No acute findings. No evidence of pulmonary edema. Electronically signed by: Arnel Ponce M.D. 06/20/2016 2:56 PM Dictated Date/Time: 06/20/2016 2:54 PM Assessment & Plan PROGRESSIVE DYSPHAGIA EGD showed no esophageal abnormality. white exudate in esophageal mucosa. the esophagus was dilated. Video Swallow showed showed Moderate esophageal dysmotility with smooth tapering/narrowing of the distal esophagus. Follow up diet recommendation by speech Continue dental soft and slippery diet neuro on board and does not think the dysphagia is related to neurology etiology Monitor for aspiration precaution Continue pantoprazole daily Continue Nystatin susp Stable HYPOTENSION on arrival BP was 79/47, received total of 500 mL IVF's in ER with improvement to 103/50 Possible related to poor oral intake BP has been running in the low side Pt is asymptomatic Maybe that is her new BP baseline will decrease the lopressor to 6.25 ( Pt said that she has being doing that because her cardiology instructed her to do so) Pt has a BP cuff and she said that she checks her BP daily Follow up with your PCP and Cardiology She has an appointment with Dr. Almazan nephrology this Wednesday HISTORY OF PACEMAKER Possible issue with atrial lead when interrogated during May 2016 admission Pacemaker interrogation: Her atrial lead is not functioning for sensing, unknown reason. Follows with Dr. Curry as outpatient RV SYSTOLIC DYSFUNCTION/ PULMONARY HYPERTENSION Stable AORTIC STENOSIS Moderate to severe per echo 06/08/16 Follow up with Cardiology P. ATRIAL FIBRILLATION Rate is controlled family said that she was on anticoagulant in the past 7 yrs ago, that was discontinued unknown reason why the anticoagulant was d/julia. Discussed with family about anticoagulant, at this time son does not want her to start on anticoagulant advised patient and family to discuss anticoagulant with their PCP and cardiology Will defer that to her cardiology and PCP Monitor HR since Lopressor will be decreased to 6.25mg (Her Cardiology already instructed her to do it) ESRD ON PERITONEAL DIALYSIS Continue PD nephrology on board She has an appointment with Dr. Almazan this Wednesday DYSLIPIDEMIA Continue statin RIGHT FACIAL NUMBNESS s/p removal of right facial mass by Dr. Maharaj 3 weeks ago Might be due to nerve damage CT head shown no intracranial abnormality Neuro on board stable DVT PROPHYLAXIS Heparin SQ CODE STATUS FULL CODE DISPOSITION Follow up appointment with your primary care provider Dr. Childs on Jun 29 at 9: 10 am Follow with Nephrology Dr. Almazan on WednesdayJun 23 (previously schedule as per patient) Call to make a follow up appointment with your cardiology Dr. Curry Continue your Peritoneal dialysis Continue monitor your blood pressure Follow up with the skin doctor for your right side facial wound Consultants: Cardiology Nephrology PT/OT Current Inpatient Medications: Current Inpatient Medications Medications (Trade) Dose Ordered Sig/Seth Route Start Time Stop Time Status Last Admin Dose Admin Heparin Sodium (Porcine) (Heparin Sq 5000 Unit/0.5ml) 5,000 unit Q8 SQ 06/17/16 22:00 07/17/16 21:59 06/20/16 22:16 5,000 UNIT Acetaminophen (Tylenol Tab) 650 mg Q4H PRN PO 06/17/16 18:15 07/17/16 18:14 Ondansetron HCl (Zofran Inj) 4 mg Q6H PRN IV 06/17/16 18:15 07/17/16 18:14 06/18/16 14:45 4 MG Calcitriol (Rocaltrol Cap) 0.25 mcg DAILY PO 06/18/16 09:00 07/18/16 08:59 06/21/16 08:26 0.25 MCG Albuterol/ Ipratropium (Combivent Respimat Inh) 1 puffs QID PRN INH 06/17/16 19:00 07/17/16 18:59 Metoprolol Tartrate (Lopressor Tab) 12.5 mg HS PO 06/17/16 21:00 07/17/16 20:59 06/19/16 20:24 12.5 MG Pravastatin Sodium (Pravachol Tab) 40 mg HS PO 06/17/16 21:00 07/17/16 20:59 06/20/16 20:43 40 MG Cinacalcet (Sensipar) 30 mg DAILY PO 06/18/16 09:00 07/18/16 08:59 06/21/16 08:26 30 MG Sevelamer HCl (Renagel Tab) 1,600 mg TIDM PO 06/17/16 19:00 07/17/16 18:59 06/21/16 11:43 1,600 MG Tramadol HCl (Ultram Tab) 50 mg Q8 PRN PO 06/18/16 21:00 07/18/16 20:59 Nystatin (Mycostatin Susp) 5 ml QID PO 06/19/16 13:00 06/29/16 12:59 06/21/16 11:43 5 ML Pantoprazole Sodium (Protonix Tab) 40 mg QAM PO 06/20/16 09:00 07/20/16 08:59 06/21/16 08:26 40 MG
[2016-06-21] MEDS ORDERED: NYSS5 PO (14:10)
[2016-06-21] MEDS ORDERED: LPR25 PO (14:10)
[2016-06-21] MEDS ORDERED: PRT40 PO (14:10)
--- NOTE | 2016-06-21 14:19 | Discharge Instructions ---
Discharge Instructions Admission Reason for Admission: Dysphagia, Hypotension Discharge Discharge Diagnosis / Problem: Hypotension, P. Afib, ESRD on PD, Right facial numbness, hx Pacemaker Discharge Goals Goal(s): Decrease discomfort, Improve function, Improve disease control Activity Recommendations Activity Limitations: resume your previous activity (as tolerated) . Instructions / Follow-Up Instructions / Follow-Up Follow up appointment with your primary care provider Dr. Childs on Jun 29 at 9: 10 am Follow with Nephrology Dr. Almazan on WednesdayJun 23 (previously schedule as per patient) Call to make a follow up appointment with your cardiology Dr. Curry Follow up with the skin doctor for your right side facial wound Follow up in 6 to 8 weeks with Gastro if dysphagia does not resolve or persists Continue your Peritoneal dialysis Continue monitor your blood pressure Current Hospital Diet Patient's current hospital diet: Renal Diet Discharge Diet Recommended Diet: Renal Diet Procedures Procedures Performed: EGD with dilatation and biopsy Pending Studies Studies pending at discharge: no Medical Emergencies . Who to Call and When: Medical Emergencies: If at any time you feel your situation is an emergency, please call 911 immediately. . Non-Emergent Contact Non-Emergency issues call your: Primary Care Provider Call Non-Emergent contact if: you have any medication questions . . "Provider Documentation" section prepared by Alec Young. VTE Core Measure Inpt VTE Proph given/why not?: Unfractionated heparin SQ
[2016-06-21 14:28] VITALS: BP 84/53; PULSE 78; TEMP 36.5; O2SAT 97
--- NOTE | 2016-06-22 00:56 | Discharge Summary ---
Discharge Summary Admission Date: Jun 17, 2016 at 18:09 Discharge Date: Jun 21, 2016 Discharge Disposition: Home Principal Diagnosis: Dysphagia/Right facial numbness Secondary Diagnoses/Problems: Hypotension P. Afib ESRD on PD Right facial numbness hx Pacemaker RV SYSTOLIC DYSFUNCTION/ PULMONARY HYPERTENSION AORTIC STENOSIS Procedures: Pacemaker Interrogate EGD Consultations: Cardiology Nephrology PT/OT Medication Reconciliation New Medications: Nystatin (Nystatin) 5 Ml Susp 5 ML PO QID for 7 Days Pantoprazole (Pantoprazole Sodium) 40 Mg Tab 40 MG PO QAM for 30 Days, #30 TAB Changed Medications: Metoprolol Tartrate (Lopressor) 25 Mg Tab 6.25 MG PO HS for 30 Days, TAB (Changed from: 12.5 MG) Continued Medications: Calcitriol (Rocaltrol Cap) 0.25 Mcg Cap 0.25 MCG PO DAILY, CAP Cinacalcet (Sensipar) 30 Mg Tab 30 MG PO DAILY, TAB Ipratropium-Albuterol (Combivent Respimat) 1 Aer Aer 1 PUFFS INH QID PRN for SOB/Wheezing, INH Pravastatin Sodium (Pravastatin Sodium) 40 Mg Tab 40 MG PO HS Sevelamer Carbonate (Renvela) 800 Mg Tab 2 TAB PO TIDM for 90 Days, TAB 3 Refills Admission Information HPI (per Admitting provider): This is an 86 year old female with PMH of ESRD on peritoneal dialysis, paroxysmal AF, s/p pacemaker, and other problems listed below who presents to the ED with dysphagia. Patient was recently hospitalized from 05/31-06/01 for acute bronchitis and possible pacemaker dysfunction and 06/06-06/09 for acute bronchitis and AF with RVR. She has not followed up with Dr. Curry yet due to her recurrent hospitalization but has appointment next Wednesday.She states she was not eating during last hospitalization which she attributed to her bronchitis. She still has mild cough which has improved. Then over past 2 weeks she has progressive dysphagia to solid foods. She states solids get "blocked" while going down. She is able to swallow liquids and medications. She reports nausea after eating, generalized weakness, fatigue, and weight loss of 5 lb in 2 weeks. She notes having a mass removed from her right worship 3 weeks ago and states she has right sided facial weakness/ numbness and speech abnormality since that time. Patient states BP has been running low. It appears to have run in 90s systolic on recent hospitalization. She last took Lopressor 12.5 mg yesterday evening. No new meds have been added since last hospitalization. She is anuric. LE edema during prior admission is resolved. She denies dizziness, fever, chills, URI symptoms, chest pain, SOB, odynophagia, reflux, abdominal pain, vomiting, diarrhea, hematochezia, melena, numbness or weakness of the extremities. She reports history of bleeding ulcer 3 years ago at [facility]. Her last endoscopy was at that time. Patient is on nightly PD with last tx yesterday evening. She f/w Dr. Almazan for nephrology. Physical Exam (per Admitting): General Appearance: no apparent distress, + thin, + pertinent finding ( pleasant alert elderly female) Head: normocephalic, atraumatic Eyes: normal inspection, PERRL, EOMI, sclerae normal ENT: hearing grossly normal, pharynx normal Neck: supple, trachea midline Respiratory/Chest: no respiratory distress, no accessory muscle use, + pertinent finding (coarse breath sounds, coughs during exam) Cardiovascular: no murmur, + irregularly irregular Abdomen/GI: normal bowel sounds, non tender, soft, + pertinent finding (PD catheter present) Extremities/Musculoskelatal: no calf tenderness, no pedal edema Neurologic/Psych: alert, normal mood/affect, oriented x 3, + pertinent finding (cranial nerves 2-12 normal except + right forehead weakness, +mild R eyelid droop, + numbness right lower face. ) Skin: normal color, warm/dry, + pertinent finding (wound on right worship with eschar. no significant erythema. no drainage. scattered ecchymosis on extremities. ) Hospital Course PROGRESSIVE DYSPHAGIA EGD showed no esophageal abnormality. white exudate in esophageal mucosa. the esophagus was dilated. Video Swallow showed showed Moderate esophageal dysmotility with smooth tapering/narrowing of the distal esophagus. Follow up diet recommendation by speech Continue dental soft and slippery diet neuro on board and does not think the dysphagia is related to neurology etiology Monitor for aspiration precaution Continue pantoprazole daily Continue Nystatin susp Stable HYPOTENSION on arrival BP was 79/47, received total of 500 mL IVF's in ER with improvement to 103/50 Possible related to poor oral intake BP has been running in the low side Pt is asymptomatic Maybe that is her new BP baseline will decrease the lopressor to 6.25 ( Pt said that she has being doing that because her cardiology instructed her to do so) Pt has a BP cuff and she said that she checks her BP daily Follow up with your PCP and Cardiology She has an appointment with Dr. Almazan nephrology this Wednesday HISTORY OF PACEMAKER Possible issue with atrial lead when interrogated during May 2016 admission Pacemaker interrogation: Her atrial lead is not functioning for sensing, unknown reason. Follows with Dr. Curry as outpatient RV SYSTOLIC DYSFUNCTION/ PULMONARY HYPERTENSION Stable AORTIC STENOSIS Moderate to severe per echo 06/08/16 Follow up with Cardiology P. ATRIAL FIBRILLATION Rate is controlled family said that she was on anticoagulant in the past 7 yrs ago, that was discontinued unknown reason why the anticoagulant was d/julia. Discussed with family about anticoagulant, at this time son does not want her to start on anticoagulant advised patient and family to discuss anticoagulant with their PCP and cardiology Will defer that to her cardiology and PCP Monitor HR since Lopressor will be decreased to 6.25mg (Her Cardiology already instructed her to do it) ESRD ON PERITONEAL DIALYSIS Continue PD nephrology on board She has an appointment with Dr. Almazan this Wednesday DYSLIPIDEMIA Continue statin RIGHT FACIAL NUMBNESS s/p removal of right facial mass by Dr. Maharaj 3 weeks ago Might be due to nerve damage CT head shown no intracranial abnormality Neuro on board stable DVT PROPHYLAXIS Heparin SQ CODE STATUS FULL CODE DISPOSITION Follow up appointment with your primary care provider Dr. Childs on Jun 29 at 9: 10 am Follow with Nephrology Dr. Almazan on WednesdayJun 23 (previously schedule as per patient) Call to make a follow up appointment with your cardiology Dr. Curry Continue your Peritoneal dialysis Continue monitor your blood pressure Follow up with the skin doctor for your right side facial wound Total time spent on discharge = 35 minutes This includes examination of the patient, discharge planning, medication reconciliation, and communication with other providers. Discharge Instructions Reason for Admission: Dysphagia, Hypotension Discharge Discharge Diagnosis / Problem: Hypotension, P. Afib, ESRD on PD, Right facial numbness, hx Pacemaker Discharge Goals Goal(s): Decrease discomfort, Improve function, Improve disease control Activity Recommendations Activity Limitations: resume your previous activity (as tolerated) . Instructions / Follow-Up Instructions / Follow-Up Follow up appointment with your primary care provider Dr. Childs on Jun 29 at 9: 10 am Follow with Nephrology Dr. Almazan on WednesdayJun 23 (previously schedule as per patient) Call to make a follow up appointment with your cardiology Dr. Crury Follow up with the skin doctor for your right side facial wound Follow up in 6 to 8 weeks with Gastro if dysphagia does not resolve or persists Continue your Peritoneal dialysis Continue monitor your blood pressure Current Hospital Diet Patient's current hospital diet: Renal Diet Discharge Diet Recommended Diet: Renal Diet Procedures Procedures Performed: EGD with dilatation and biopsy Pending Studies Studies pending at discharge: no Medical Emergencies . Who to Call and When: Medical Emergencies: If at any time you feel your situation is an emergency, please call 911 immediately. . Non-Emergent Contact Non-Emergency issues call your: Primary Care Provider Call Non-Emergent contact if: you have any medication questions . . "Provider Documentation" section prepared by Alec Young. VTE Core Measure Inpt VTE Proph given/why not?: Unfractionated heparin SQ Additional Copies To Elda Childs M.D. Cardamone, Ralph M.D.
== END 2016-06-21 15:10 | disposition home or self-care (01) | DRG 391 ==
LOC: ENRESERVDT → ENRESERVTM → C.EDB 13:53 → C.MED 18:09 → EDBEDREQ 18:30
PROVIDERS: ADMIT Internal Medicine; ATTEND Internal Medicine
PROC: 0DB28ZX Excision of Middle Esophagus, Via Natural or Artificial Opening Endoscopic, Diagnostic (ICD-10-PCS; 2016-06-19)
PROC: 0DB38ZX Excision of Lower Esophagus, Via Natural or Artificial Opening Endoscopic, Diagnostic (ICD-10-PCS; 2016-06-19)
PROC: 0DJ08ZZ Inspection of Upper Intestinal Tract, Via Natural or Artificial Opening Endoscopic (ICD-10-PCS; 2016-06-19)
PROC: 0D758DZ Dilation of Esophagus with Intraluminal Device, Via Natural or Artificial Opening Endoscopic (ICD-10-PCS; principal; 2016-06-19 09:10)
DX: R13.10 Dysphagia, unspecified (principal); N18.6 End stage renal disease; T82.110A Breakdown (mechanical) of cardiac electrode, initial encounter; I12.0 Hypertensive chronic kidney disease with stage 5 chronic kidney disease or end stage renal disease; R64 Cachexia; Y83.1 Surgical operation with implant of artificial internal device as the cause of abnormal reaction of the patient, or of later complication, without mention of misadventure at the time of the procedure; I95.89 Other hypotension; I48.0 Paroxysmal atrial fibrillation; I35.0 Nonrheumatic aortic (valve) stenosis; M10.9 Gout, unspecified; I27.2 Other secondary pulmonary hypertension; E78.5 Hyperlipidemia, unspecified; D63.1 Anemia in chronic kidney disease; C44.40 Unspecified malignant neoplasm of skin of scalp and neck; N25.0 Renal osteodystrophy; K22.2 Esophageal obstruction; R20.0 Anesthesia of skin; Z99.2 Dependence on renal dialysis; Z95.2 Presence of prosthetic heart valve; Z79.899 Other long term (current) drug therapy; Z95.0 Presence of cardiac pacemaker

== ENCOUNTER 2016-12-25 01:50 | Inpatient (IN) | payer OTHER, BC ==
[2016-12-25] VITALS (32 sets, daily range): BP systolic 67–124; BP diastolic 23–73; PULSE 71–121; TEMP 36.5–36.8; O2SAT 81–98; Ht 157.5 cm; Wt 63.0 kg
[~2016-12-25] VITALS: Ht 157.5 cm; Wt 63.0 kg
[~2016-12-25 01:50] MED LIST changes: -BENZ100C84 PO; -LCTX PO; +NYSS5 PO; +PRT40 PO
[2016-12-25] MEDS ORDERED: SODIUM CHLORIDE 0.9% 500ML 500 ML IV STA (02:15)
[2016-12-25] MEDS ORDERED: FENTANYL CITRATE INJ 50 MCG/1 ML 2 ML VIAL IV STA ×2 (02:15→04:10)
[2016-12-25 02:22] LABS: BASO % 0.1 %; BASO ABS # 0.01 K/uL (0-0.2); COMPLETE YES; EOS % 2.3 %; HEMATOCRIT 32.5 % (37-47); IG% 2.1 %; LYMPH % 17.4 %; LYMPH ABS # 1.27 K/uL (1.2-3.4); MEAN CORPUSCULAR HEMOGLOBIN 32.7 pg (25-34); MEAN CORPUSCULAR HGB CONC 34.5 g/dl (32-36); MONO % 8.2 %; NEUT % 69.9 %; PLATELET COUNT 246 K/uL (130-400); RED BLOOD COUNT 3.42 M/uL (4.2-5.4)
[2016-12-25 02:33] LABS: INR 1.5 (0.9-1.1); PARTIAL THROMBOPLASTIN RATIO 1.2
[2016-12-25] MEDS ORDERED: DEXTROSE 5% IV STA (02:57)
[2016-12-25] MEDS ORDERED: CEFOTAXIME SOD IV STA (02:57)
[2016-12-25 03:00] LABS: ALB/GLOB RATIO 0.5 (0.9-2); CALCIUM 8.5 mg/dl (8.5-10.1); MAGNESIUM 1.4 mg/dl (1.8-2.4)
[2016-12-25] MEDS ORDERED: PANT40TA PO (03:25)
[2016-12-25] MEDS ORDERED: WARF4TAB43 PO ×2 (03:27→03:29)
[2016-12-25] MEDS ORDERED: PRORENAL PO (03:31)
[2016-12-25] MEDS ORDERED: [UNRECOGNIZED DRUG - OTHER] PO (03:31)
[2016-12-25] MEDS ORDERED: TYLOTC500 PO (03:32)
[2016-12-25] MEDS ORDERED: CEFT1INJ INSTIL (03:35)
--- NOTE | 2016-12-25 03:46 | EMERGENCY ROOM VISIT NOTE ---
ED Visit Note First contact with patient: 02:02 I saw this patient in conjunction with Yamilet Adler PA-C. I agree with her decision making and treatment plan.
--- NOTE | 2016-12-25 04:37 | EMERGENCY ROOM VISIT NOTE ---
History First contact with patient: 02:02 Chief Complaint: FALL Stated Complaint: hip pain History of Present Illness The patient is a 86 year old female who presents to the Emergency Room with complaints of fall and right hip pain tonight. Patient states for the past week she's been sick with SBP and is currently on antibiotics by her die holder, Dr. Hooper. She takes this daily. Patient states last week she had fevers and severe abdominal pain and this is improving. She states that for the past few days she's been having increasing weakness and feeling very fatigued. Patient states this is why she she fell tonight. Patient does home dialysis. She does this daily. The patient denies chest pain, dyspnea, cough, congestion, headache injury, headache, neck pain, back pain. She describes pain as aching, ranging in severity 8 out of 10 worse with movement and better with rest. No prior fracture to this hip. Review of Systems See HPI for pertinent positives & negatives. A total of 10 systems reviewed and were otherwise negative. Past Medical/Surgical History Medical Problems: (1) Aortic stenosis (2) Atrial fibrillation with RVR (3) Bronchitis (4) Dysphagia (5) ESRD (end stage renal disease) on dialysis (6) Gout (7) Hepatitis, chronic (8) Hypertension (9) Hypotension (10) Pancreatic lesion (11) Paroxysmal atrial fibrillation (12) Pulmonary hypertension (13) Right ventricular systolic dysfunction (14) Valvular heart disease Surgical Problems: (1) Status post cardiac pacemaker procedure (2) Status post cataract extraction (3) Status post cholecystectomy (4) Status post mitral valve repair (5) Status post tonsillectomy (6) Status post tricuspid valve repair Family History FH: heart disease Stroke Social History Smoking Status: Never Smoker Alcohol Use: none Drug Use: none Marital Status: single Housing Status: lives with family 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 Current/Historical Medications Scheduled Ceftazidime (Ceftazidime), 1 DOSE INSTIL DAILY@1600 Cinacalcet (Sensipar), 30 MG PO DAILY Pantoprazole (Protonix), 40 MG PO DAILY Pravastatin Sodium (Pravastatin Sodium), 40 MG PO HS Warfarin Sodium (Warfarin Sodium), 4 MG PO 2XWK Warfarin Sodium (Warfarin Sodium), 2 MG PO 5XWK [Prorenal + D], 1 TAB PO DAILY Scheduled PRN Acetaminophen (Tylenol), 500 MG PO Q6H PRN for Pain Physical Exam Vital Signs Date Time Temp Pulse Resp B/P (MAP) Pulse Ox O2 Delivery O2 Flow Rate FiO2 12/25/16 02:20 119 12/25/16 02:16 91 Room Air 12/25/16 02:09 36.8 110 14 93/62 91 Room Air Physical Exam VITALS: Vitals are noted on the nurse's note and reviewed by myself. Vital signs mildly tachycardic GENERAL: Pleasant female, in no acute distress, nondiaphoretic, well-developed well-nourished. SKIN: The skin was without rashes, erythema, edema, or bruising. There is no tenting of the skin. Capillary reflex less than 2 seconds. HEAD: Normocephalic atraumatic. EARS: External auditory canals clear, tympanic membranes pearly reyes without erythema or effusion bilaterally. EYES: Pupils equal round and reactive to light and accommodation. Conjunctivae without injection, sclerae without icterus. Extraocular movements intact. NOSE: Patent, turbinates without inflammation or discharge. MOUTH: Mucous membranes dry. Pharynx without erythema or exudate. Uvula midline. Airway patent. Tongue does not deviate. NECK: Supple without nuchal rigidity. No lymphadenopathy. No thyromegaly. Cervical spine is nontender. No JVD. HEART: Irregularly irregular and tachycardic. LUNGS: Clear to auscultation bilaterally without wheezes, rales or rhonchi. No dullness to percussion. No retractions or accessory muscle use. ABDOMEN: Positive bowel sounds x 4. Normal tympanic percussion. Soft, nontender, without masses or organomegaly. Burgess sign negative. No guarding or rebound tenderness. MUSCULOSKELETAL: No muscle atrophy, erythema, or edema noted. Right hip shortened and externally rotated and tender to palpation concerning for fracture with proximal femur tender to palpation with no contusion or deformity noted. Right knee leal and foot nontender to palpation. Pedal pulses +2 equal present bilaterally. NEURO: Patient was alert and oriented to person place and time. Normal sensation to light and sharp touch. No focal neurological deficits. Medical Decision & Procedures Laboratory Results 12/25/16 01:22 Red Blood Count 3.42, Mean Corpuscular Volume 95.0, Mean Corpuscular Hemoglobin 32.7, Mean Corpuscular Hemoglobin Concent 34.5, Mean Platelet Volume 9.0, Neutrophils (%) (Auto) 69.9, Lymphocytes (%) (Auto) 17.4, Monocytes (%) (Auto) 8.2, Eosinophils (%) (Auto) 2.3, Basophils (%) (Auto) 0.1, Neutrophils # (Auto) 5.10, Lymphocytes # (Auto) 1.27, Monocytes # (Auto) 0.60, Eosinophils # (Auto) 0.17, Basophils # (Auto) 0.01 12/25/16 01:22 Test 12/25/16 01:22 12/25/16 02:39 White Blood Count 7.30 K/uL (4.8-10.8) Red Blood Count 3.42 M/uL (4.2-5.4) Hemoglobin 11.2 g/dL (12.0-16.0) Hematocrit 32.5 % (37-47) Mean Corpuscular Volume 95.0 fL (80-100) Mean Corpuscular Hemoglobin 32.7 pg (25-34) Mean Corpuscular Hemoglobin Concent 34.5 g/dl (32-36) Platelet Count 246 K/uL (130-400) Mean Platelet Volume 9.0 fL (7.4-10.4) Neutrophils (%) (Auto) 69.9 % Lymphocytes (%) (Auto) 17.4 % Monocytes (%) (Auto) 8.2 % Eosinophils (%) (Auto) 2.3 % Basophils (%) (Auto) 0.1 % Neutrophils # (Auto) 5.10 K/uL (1.4-6.5) Lymphocytes # (Auto) 1.27 K/uL (1.2-3.4) Monocytes # (Auto) 0.60 K/uL (0.11-0.59) Eosinophils # (Auto) 0.17 K/uL (0-0.5) Basophils # (Auto) 0.01 K/uL (0-0.2) RDW Standard Deviation 48.3 fL (36.4-46.3) RDW Coefficient of Variation 13.9 % (11.5-14.5) Immature Granulocyte % (Auto) 2.1 % Immature Granulocyte # (Auto) 0.15 K/uL (0.00-0.02) Prothrombin Time 16.0 SECONDS (9.0-12.0) Prothromb Time International Ratio 1.5 (0.9-1.1) Activated Partial Thromboplast Time 31.4 SECONDS (21.0-31.0) Partial Thromboplastin Ratio 1.2 Anion Gap 13.0 mmol/L (3-11) Est Creatinine Clear Calc Drug Dose 6.0 ml/min Estimated GFR () 6.8 Estimated GFR (Non- 5.9 BUN/Creatinine Ratio 7.0 (10-20) Calcium Level 8.5 mg/dl (8.5-10.1) Magnesium Level 1.4 mg/dl (1.8-2.4) Total Bilirubin 0.5 mg/dl (0.2-1) Aspartate Amino Transf (AST/SGOT) 28 U/L (15-37) Alanine Aminotransferase (ALT/SGPT) 26 U/L (12-78) Alkaline Phosphatase 139 U/L (45-117) Troponin I 0.067 ng/ml (0-0.045) Total Protein 7.5 gm/dl (6.4-8.2) Albumin 2.6 gm/dl (3.4-5.0) Globulin 4.9 gm/dl (2.5-4.0) Albumin/Globulin Ratio 0.5 (0.9-2) Bedside Lactic Acid Venous 3.80 mmol/L (0.90-1.70) Medications Administered Medications (Trade) Dose Ordered Sig/Seth Route Start Time Stop Time Status Last Admin Dose Admin Fentanyl Citrate (Fentanyl Inj) 50 mcg NOW STAT IV 12/25/16 02:15 12/25/16 02:16 DC 12/25/16 02:23 50 MCG Sodium Chloride 500 ml @ 999 mls/hr Q31M STAT IV 12/25/16 02:15 12/25/16 02:45 DC 12/25/16 02:15 999 MLS/HR Cefotaxime Sodium 2000 mg/Dextrose 60 ml @ 120 mls/hr NOW STAT IV 12/25/16 02:57 12/25/16 03:26 DC 12/25/16 03:40 120 MLS/HR Fentanyl Citrate (Fentanyl Inj) 50 mcg NOW STAT IV 12/25/16 04:10 12/25/16 04:11 DC 12/25/16 04:22 50 MCG ED Course Prior records/ancillary studies reviewed and summarized above. Nursing notes reviewed. Additional history obtained from family The patient's history was concerning for fall who has been feeling very weak currently on antibiotics for SBP Differential diagnosis: Etiologies such as fracture, metabolic, infection, hypo/hyperglycemia, electrolyte abnormalities, cardiac sources, intracerebral event, toxicologic, neurologic, as well as others were entertained. Physical examination: As above. ER treatment provided: IV Lock IV fluids, fentanyl, cefotaxime On reassessment the patient felt better. Diagnostics interpretation by me: ECG: Irregular irregular with no acute ST-T wave changes, rate of 122. Impression A. fib with RVR interpreted by myself The labs revealed improving anemia. Elevated troponin. Creatinine of 6 stable per chart review Imaging studies: Chest active no acute consolidation, pneumothorax or free air per my interpretation. Femur and hip and pelvis x-ray concerning for right intrahepatic hip fracture and possible pubic rami fracture per my interpretation Consultation: A consultation was placed with the hospitalist, Dr Longo. The case was discussed and diagnostics were reviewed. The patient was evaluated in the ER for further treatment. Exam and history seem consistent with current treatment for SBP he was very weak and fell due to this resulting in a right hip fracture. Patient was started on antibiotics and IV fluids. Her pain was managed. She will be evaluated by medicine. She had an elevated lactic acid. Her troponin was trending down. No acute findings on EKG. By the evaluation outlined above emergent etiologies such as electrolyte abnormalities, cardiac sources, intracerebral event, toxologic, neurologic, abnormalities blood glucose, metabolic, as well as others were deemed relatively unlikely. The pt informed about the findings as listed above. All questions were answered and pleased with the treatment. case reviewed with my Attending Medical Decision As above Medication Reconcilliation Current Medication List: was personally reviewed by me Blood Pressure Screening Patient's blood pressure: Low blood pressure Impression Primary Impression: Closed right hip fracture Additional Impressions: Spontaneous bacterial peritonitis Elevated troponin Departure Information Dispostion Being Evaluated By Hospitalist Condition FAIR Referrals No Doctor, Assigned (PCP) Patient Instructions My [facility] Problem Qualifiers
--- NOTE | 2016-12-25 05:35 | History and Physical ---
History & Physical Date & Time of Service: Dec 25, 2016 at 05:35 Chief Complaint: hip pain Primary Care Physician: No Doctor, Assigned History of Present Illness Source: patient This is a 86 yo F with complex past medical hx of ESRD on Peritoneal dialysis , valvular heart disease ( s/p Mitral and tricuspid valve repair , moderate to severe aortic stenosis ) , hx of paroxysmal Afib s/p pacemaker placement , presented to ED after sustaining a fall earlier today . 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 pt recently diagnosed with Peritonitis -peritoneal fluid culture on 12/07/16 as out patient was Klebsiella oxytoca has been getting Ceftazidime 750mg daily instillation with PD ( last date of treatment 01/07/17) pt mentions of feeling dizzy and lightheaded , lost her balance fell on her back , had severe pain on her right hip area did not hit her head or lost balance pt denies of chest heaviness , palpitation , SOB prior to fall has not been feeling well for past few days , had weakness and fatigue and intermittent dizzy spell , lightheaded , specially when standing up Xray of pelvis showed displaced fracture of rt femur during my interview , pt was awake and alert , denies of any other discomfort other than constant pain on rt hip and leg fractured area Past Medical/Surgical History Medical Problems: (1) Aortic stenosis Permanent Comment: moderate to severe per echo May 2016 Status: Chronic (2) ESRD (end stage renal disease) on dialysis Status: Chronic (3) Gout Status: Chronic (4) Hepatitis, chronic Permanent Comment: liver Bx 2009 --> mild chronic hepatitis without cirrhosis Status: Chronic (5) Hypertension Status: Chronic (6) Pancreatic lesion Permanent Comment: CT 11/17/13 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." Status: Chronic (7) Paroxysmal atrial fibrillation Status: Chronic (8) Pulmonary hypertension Status: Chronic (9) Right ventricular systolic dysfunction Status: Chronic (10) Valvular heart disease Status: Chronic Surgical Problems: (1) Status post cardiac pacemaker procedure Status: Chronic (2) Status post cataract extraction Status: Chronic (3) Status post cholecystectomy Status: Chronic (4) Status post mitral valve repair Status: Chronic (5) Status post tonsillectomy Status: Chronic (6) Status post tricuspid valve repair Status: Chronic Family History FH: heart disease Stroke Social History Smoking Status: Never Smoker Drug Use: none Marital Status: single Housing status: lives with family Occupational Status: retired Immunizations History of Influenza Vaccine: Unknown History of Tetanus Vaccine?: Unknown History of Pneumococcal: Unknown History of Hepatitis B Vaccine: Unknown Multi-Drug Resistant Organisms History of MDRO: No Allergies Coded Allergies: Sulfamethoxazole w/Trimethoprim (Verified Allergy, Severe, RASH, n/v, swelling of LE, 06/19/16) Home Medications Scheduled Ceftazidime (Ceftazidime), 1 DOSE INSTIL DAILY@1600 Cinacalcet (Sensipar), 30 MG PO DAILY Pantoprazole (Protonix), 40 MG PO DAILY Pravastatin Sodium (Pravastatin Sodium), 40 MG PO HS Warfarin Sodium (Warfarin Sodium), 4 MG PO 2XWK Warfarin Sodium (Warfarin Sodium), 2 MG PO 5XWK [Prorenal + D], 1 TAB PO DAILY Scheduled PRN Acetaminophen (Tylenol), 500 MG PO Q6H PRN for Pain Review of Systems Constitutional: + chills, + weakness, + fatigue Cardiovascular: + palpitations, + problem reported (DIZZY SPELL ) Musculoskeletal: + problem reported (right hip pain after fall ) Neurologic: + weakness, + numbness/tingling, + vertigo, + balance problems Psychiatric: + anxiety Physical Exam Vital Signs Date Time Temp Pulse Resp B/P (MAP) Pulse Ox O2 Delivery O2 Flow Rate FiO2 12/25/16 04:10 98 16 101/49 98 Nasal Cannula 2.0 12/25/16 02:20 119 12/25/16 02:16 91 Room Air 12/25/16 02:09 36.8 110 14 93/62 91 Room Air General Appearance: + moderate distress (due to rt hip pain ), + pertinent finding (chronically ill appearing ) Eyes: sclerae normal Neck: no JVD Respiratory/Chest: lungs clear, normal breath sounds, no respiratory distress Abdomen/GI: non tender, soft, + pertinent finding (peritoneal dialysis catheter present ) Extremities/Musculoskelatal: normal capillary refill, no pedal edema, + pertinent finding (pain and tenderness on rt hip , right leg abdaucted and externally rotated ) Neurologic/Psych: no motor/sensory deficits, alert, oriented x 3 Skin: + pertinent finding (multiple bruise noted , skin tear on rt knee due to fall , bandage present ) Diagnostics Laboratory Results Results Past 24 Hours Test 12/25/16 01:22 12/25/16 02:39 Range/Units White Blood Count 7.30 4.8-10.8 K/uL Red Blood Count 3.42 4.2-5.4 M/uL Hemoglobin 11.2 12.0-16.0 g/dL Hematocrit 32.5 37-47 % Mean Corpuscular Volume 95.0 80-100 fL Mean Corpuscular Hemoglobin 32.7 25-34 pg Mean Corpuscular Hemoglobin Concent 34.5 32-36 g/dl Platelet Count 246 130-400 K/uL Mean Platelet Volume 9.0 7.4-10.4 fL Neutrophils (%) (Auto) 69.9 % Lymphocytes (%) (Auto) 17.4 % Monocytes (%) (Auto) 8.2 % Eosinophils (%) (Auto) 2.3 % Basophils (%) (Auto) 0.1 % Neutrophils # (Auto) 5.10 1.4-6.5 K/uL Lymphocytes # (Auto) 1.27 1.2-3.4 K/uL Monocytes # (Auto) 0.60 0.11-0.59 K/uL Eosinophils # (Auto) 0.17 0-0.5 K/uL Basophils # (Auto) 0.01 0-0.2 K/uL RDW Standard Deviation 48.3 36.4-46.3 fL RDW Coefficient of Variation 13.9 11.5-14.5 % Immature Granulocyte % (Auto) 2.1 % Immature Granulocyte # (Auto) 0.15 0.00-0.02 K/uL Prothrombin Time 16.0 9.0-12.0 SECONDS Prothromb Time International Ratio 1.5 0.9-1.1 Activated Partial Thromboplast Time 31.4 21.0-31.0 SECONDS Partial Thromboplastin Ratio 1.2 Sodium Level 132 136-145 mmol/L Potassium Level 3.0 3.5-5.1 mmol/L Chloride Level 93 98-107 mmol/L Carbon Dioxide Level 26 21-32 mmol/L Anion Gap 13.0 3-11 mmol/L Blood Urea Nitrogen 42 7-18 mg/dl Creatinine 6.00 0.60-1.20 mg/dl Est Creatinine Clear Calc Drug Dose 6.0 ml/min Estimated GFR () 6.8 Estimated GFR (Non- 5.9 BUN/Creatinine Ratio 7.0 10-20 Random Glucose 115 70-99 mg/dl Calcium Level 8.5 8.5-10.1 mg/dl Magnesium Level 1.4 1.8-2.4 mg/dl Total Bilirubin 0.5 0.2-1 mg/dl Aspartate Amino Transf (AST/SGOT) 28 15-37 U/L Alanine Aminotransferase (ALT/SGPT) 26 12-78 U/L Alkaline Phosphatase 139 45-117 U/L Troponin I 0.067 0-0.045 ng/ml Total Protein 7.5 6.4-8.2 gm/dl Albumin 2.6 3.4-5.0 gm/dl Globulin 4.9 2.5-4.0 gm/dl Albumin/Globulin Ratio 0.5 0.9-2 Bedside Lactic Acid Venous 3.80 0.90-1.70 mmol/L Microbiology Results 12/25/16 Blood Culture, Received Pending 12/25/16 Blood Culture, Received Pending Diagnostic Radiology XRAY OF PELVIS IMPRESSION: 1. Acute moderately displaced intertrochanteric fracture of the right femur. 2. Acute right ischiopubic ring fractures. Suprapubic ramus fracture may extend into the acetabulum. CHEST XRAY : IMPRESSION: No acute cardiopulmonary findings. Marked cardiomegaly without evidence of pulmonary. EKG Atrial fibrillation with rapid ventricular response Right bundle branch block T wave abnormality, consider inferolateral ischemia Abnormal ECG When compared with ECG of 17-JUN-2016 17:23, T wave inversion less evident in Inferior leads T wave inversion less evident in Lateral leads Impression Assessment and Plan RIGHT HIP FRACTURE : s/p fall -leading to acute moderately displaced intertrochanteric fracture of the right femur/acute right ischiopubic ring fractures. mentions of feeling dizzy and lightheaded lead to lost balance and fall pain control immobilize rt lower ext Orthopedics consulted , will need ORIF pt is moderate to high risk for the procedure -given complex cardiac hx /mixed valvular disease /Afib RVR /ESRD on dialysis with ongoing tx for peritonitis pt will be admitted to tele Cardiology eval requested for pre op cardiac risk eval will hold Coumadin Lopressor ordered for rate control mild elevation of troponin -possible due ESRD /also had recent fall -trauma / hip Fx no complain fo chest pain /SOB /angina ECHO ordered to assess wall motion abnormality ESRD ON PERITONEAL DIALYSIS/RECENT HX OF PERITONITIS : nephrology consulted for ongoing PD pt does not appear to be vol overload ( missed PD yesterday due to fall //ER admission ) cont Ceftazidime with PD blood cultures ordered HX OF VALVULAR HEART DISEASE S/P Mitral and tricuspid valve repair follows with Cardiology Dr Song in [place] recent ECHO moderate to severe need caution for vol resuscitation /IVF post op to prevent flash pulmonary edema Cardiology consulted -pt was evaluated by [facility] Cardiology in last admission AFIB RVR : possible rapid afib lead to lightheadedness /fall ? added Beta lyn ordered for pace maker interrogation Coumadin on hold for Orthopedic procedure pt remains high risk for stroke /DVT post hip surgery pharmacological anticoagulation should be resumed as soon safe from bleeding risk -post op DYSPHAGIA : Last VFF on 06/19 showed moderate to sever esophageal dysmotility with tapering /narrowing of lower GE junction underwent EGD and dilatation Speech was consulted -Diet recommendation -dental soft /slippery diet with aspiration precaution Diet resumed as above speech eval requested FULL CODE -D/w pt DVT PROPHYLAXIS : hold Coumadin ordered for Sib q heparin high risk for DVT full anticoagulation with Coumadin should be resume when acceptable bleeding risk post ORIF DISPOSITION : will need rehab post hip surgery PT/OT eval will be ordered when medically appropriate Social service consulted for discharge planning Level of Care Telemetry Resuscitation Status FULL RESUSCITATION VTE Prophylaxis VTE Risk Assessment Done? Y/N: Yes Risk Level: High Given or contraindicated: Unfractionated heparin SQ Additional Copies To Deepthi Childs D.O. Oncu, Kerim I., DO
[2016-12-25] MEDS ORDERED: POTASSIUM CHLORIDE 10 MEQ TABCR PO STA (05:42)
[2016-12-25] MEDS ORDERED: ACETAMINOPHEN 325 MG TAB PO PRN ×2 (05:45→17:45)
[2016-12-25] MEDS ORDERED: ONDANSETRON INJ 2 MG/ML 2 ML VIAL IV PRN ×2 (05:45→15:30)
[2016-12-25] MEDS ORDERED: CEFTRIAXONE SOD INJ 1 GM in DEXTROSE 5% ADD-VANTAGE 50ML 50 ML IV SCH (05:45)
[2016-12-25] MEDS ORDERED: POLYETHYLENE (MIRALAX) 17 GM PACK PO PRN (05:45)
[2016-12-25] MEDS ORDERED: MoRPHine SULFATE 2 MG/ML CARP IV PRN (05:45)
[2016-12-25] MEDS ORDERED: METOPROLOL TARTRATE 1 MG/ML VIAL IV PRN (06:00)
--- NOTE | 2016-12-25 07:09 | DIAGNOSTIC IMAGING REPORT ---
RIGHT FEMUR 2 VIEWS ROUTINE CLINICAL HISTORY: Fall. Deformity. COMPARISON: CT of the abdomen and pelvis November 17, 2013. FINDINGS: Note is made of an acute moderately displaced intertrochanteric fracture of the right femur. Lesser trochanter is significantly displaced. There is associated angulation at the level of the fracture. No additional fractures of the right femur identified. There is extensive vascular calcification. There are suspected acute right ischiopubic ring fractures. Superior pubic ramus fracture may extend into the acetabulum. IMPRESSION: 1. Acute mildly displaced intertrochanteric fracture of the right femur. 2. Acute right ischiopubic ring fractures. Superior pubic ramus fracture may extend to the acetabulum. Electronically signed by: Arnel Ponce M.D. 12/25/2016 7:08 AM Dictated Date/Time: 12/25/2016 7:05 AM
--- NOTE | 2016-12-25 07:12 | DIAGNOSTIC IMAGING REPORT ---
PELVIS 1 OR 2 VIEW ROUTINE CLINICAL HISTORY: Right hip pain following fall. COMPARISON STUDY: CT of the abdomen and pelvis November 17, 2013. FINDINGS: There are acute right ischiopubic ring fractures. Superior pubic ramus fracture may extend into the acetabulum. Fracture may also extend to the medial right pubic bone. There is an acute moderately displaced intertrochanteric fracture of the right femur. IMPRESSION: 1. Acute moderately displaced intertrochanteric fracture of the right femur. 2. Acute right ischiopubic ring fractures. Suprapubic ramus fracture may extend into the acetabulum. Electronically signed by: Arnel Ponce M.D. 12/25/2016 7:11 AM Dictated Date/Time: 12/25/2016 7:09 AM
--- NOTE | 2016-12-25 07:13 | DIAGNOSTIC IMAGING REPORT ---
CHEST ONE VIEW PORTABLE CLINICAL HISTORY: Fall. Weakness. COMPARISON STUDY: Chest radiograph June 20, 2016. FINDINGS: A left-sided pacemaker, median sternotomy wires and prosthetic cardiac valves are noted. Marked cardiomegaly is unchanged. There is no radiographic evidence of pulmonary edema. No pneumothorax or pleural effusion is present. There is no consolidation. IMPRESSION: No acute cardiopulmonary findings. Marked cardiomegaly without evidence of pulmonary. Electronically signed by: Arnel Ponce M.D. 12/25/2016 7:12 AM Dictated Date/Time: 12/25/2016 7:11 AM
[2016-12-25] MEDS ORDERED: HEPARIN SOD 5000 UNIT/0.5 ML CARP SQ SCH (07:30)
[2016-12-25] MEDS: SENSIPAR~ORDER AWAITING ACTION SCH ×3 (08:00→23:07)
[2016-12-25] MEDS: NEPHROCAPS PO SCH (08:06)
[2016-12-25] MEDS: PANTOprazole SOD 40 MG TAB PO SCH (08:07)
[2016-12-25] MEDS: BOOST VANILLA PO SCH ×6 (08:16→17:07)
[2016-12-25] MEDS: MoRPHine SULFATE 2 MG/ML CARP IV PRN (08:16)
[2016-12-25] MEDS ORDERED: METOPROLOL TARTRATE 25 MG TAB PO SCH (09:00)
--- NOTE | 2016-12-25 09:50 | Cardiology Consultation ---
Cardiology Consultation Date of Consultation: Dec 25, 2016. Reason for Consultation: The reason for consultation is due to Elevated troponin and pre-operative clearance. Pt evaluation today including: conversation w/ patient, physical exam, chart review, lab review, review of studies, review of inpatient medication list History of Present Illness This note is by PGY1 Logistics Management Specialist. For official recommendations please see Dr. Schmidt's note Ms. Gastelum is a pleasant 86 year old female admitted for falling while at home after feeling lightheaded. Reason for consultation is due to elevated troponin and for pre operative clearance for her consequent hip fracture. Pt states that she fell because she felt dizzy while walking back to her bedroom from the kitchen around midnight. As she went to turn off the light, she felt dizzy all of a sudden, fell to the side and tried to catch herself on the door frame and was unable to do so and landed on the floor. Pt denies loss of consciousness. Pt's family is currently out of town and she is alone in the home, so she says she called her son on her cellphone immediately who then helped bring the ambulance inside. She states that she has been feeling lightheaded for 3 days now, and could not identify any triggers. She states she is able to do moderate activity in her house like cooking and preparing food, and watering her plants. She says she is too weak in her legs to climb stairs. She says the dizzy spells would come on without warning, and denies any accompanying shortness of breath or chest pain. Pt denies any palpitations, tingling, orthopnea nor claudication. She also complains of numbness in her feet for 1 month, for which she has been seen by a fresh food manager who is unsure of what is causing it. She is seen by a nurse in the home periodically who helps with her home peritoneal dialysis and checks her blood pressures, which lately have been running 108-115/58-62, per patient. Past Medical/Surgical History (1) Status post mitral valve repair (2) Status post tricuspid valve repair (3) Status post cardiac pacemaker procedure (4) Spontaneous bacterial peritonitis (5) Elevated troponin (6) Closed right hip fracture (7) Hepatitis, chronic (8) Valvular heart disease (9) Paroxysmal atrial fibrillation (10) Hypertension (11) ESRD (end stage renal disease) on dialysis (12) Aortic stenosis (13) Right ventricular systolic dysfunction (14) Pulmonary hypertension (15) Atrial fibrillation with RVR Family History FH: heart disease Stroke Social History Smoking Status: Never Smoker History of Alcohol Use: Yes (1 or 2 glasses of wine per day) Review of Systems Constitutional: + see HPI Respiratory: + cough (chronic dry cough) Cardiac: No chest pain, No orthopnea Abdomen: No pain, No nausea Neurologic: + weakness (pt states her legs are too weak to climb stairs), + numbness/tingling (pt c/o numbness in her feet for 1 month), + vertigo Allergies Coded Allergies: Sulfamethoxazole w/Trimethoprim (Verified Allergy, Severe, RASH, n/v, swelling of LE, 06/19/16) Medications Current Inpatient Medications Medications (Trade) Dose Ordered Sig/Seth Route Start Time Stop Time Status Last Admin Dose Admin Heparin Sodium (Porcine) (Heparin Sq 5000 Unit/0.5ml) 5,000 unit Q8 SQ 12/25/16 07:30 01/24/17 07:29 12/25/16 08:14 5,000 UNIT Acetaminophen (Tylenol Tab) 650 mg Q4H PRN PO 12/25/16 05:45 01/24/17 05:44 Ondansetron HCl (Zofran Inj) 4 mg Q6H PRN IV 12/25/16 05:45 01/24/17 05:44 12/25/16 08:18 4 MG Polyethylene (Miralax Powder Packet) 17 gm DAILY PRN PO 12/25/16 05:45 01/24/17 05:44 Morphine Sulfate (MoRPHine SULFATE INJ) 1 mg Q4 PRN IV 12/25/16 05:45 01/08/17 05:44 12/25/16 08:16 1 MG Morphine Sulfate (MoRPHine SULFATE INJ) 2 mg Q4 PRN IV 12/25/16 05:45 01/08/17 05:44 Pantoprazole Sodium (Protonix Tab) 40 mg DAILY PO 12/25/16 09:00 01/24/17 08:59 12/25/16 08:07 40 MG Pravastatin Sodium (Pravachol Tab) 40 mg HS PO 12/25/16 21:00 01/24/17 20:59 Non-Formulary Medication (Ceftazidime ) 1 dose DAILY@1600 INSTIL 12/25/16 16:00 01/24/17 15:59 UNV Miscellaneous Information (Order Awaiting Action) 1 ea QS N/A 12/25/16 08:00 01/24/17 07:59 Vitamin B Complex/ Vit C/Folic Acid (Nephrocaps) 1 cap DAILY PO 12/25/16 09:00 01/24/17 08:59 12/25/16 08:06 1 CAP Metoprolol Tartrate (Lopressor Tab) 12.5 mg BID PO 12/25/16 09:00 01/24/17 08:59 12/25/16 08:06 12.5 MG Metoprolol Tartrate (Lopressor Iv) 5 mg Q6 PRN IV 12/25/16 06:00 01/24/17 05:59 Enteral Nutritional Formula (Boost) 1 can 3XDQ4 PO 12/25/16 08:00 01/24/17 07:59 12/25/16 08:16 1 CAN Physical Exam Vital Signs Past 12 Hours Date Time Temp Pulse Resp B/P (MAP) Pulse Ox O2 Delivery O2 Flow Rate FiO2 12/25/16 08:00 96 Nasal Cannula 12/25/16 07:52 36.6 106 20 101/67 (78) 96 Nasal Cannula 3.0 12/25/16 06:50 36.5 121 22 114/71 95 Nasal Cannula 3.0 12/25/16 05:35 110 16 116/64 97 Nasal Cannula 2.0 12/25/16 04:10 98 16 101/49 98 Nasal Cannula 2.0 12/25/16 02:20 119 12/25/16 02:16 91 Room Air 12/25/16 02:09 36.8 110 14 93/62 91 Room Air Lungs: Respiratory effort: no dyspnea, good air movement Auscultation: breath sounds normal, pertinent finding (limited exam due to pt unable to sit up) Cardiovascular: Heart Auscultation: no rubs, no gallops, murmur (holosystolic murmur heard prominently over pulmonic and tricuspid area), irregular rate rhythm Peripheral Pulses: Bruits: none appreciated Carotid Pulse: normal on the left, normal on the right, pertinent finding ( prolonged carotid upstroke b/l) Radial Pulse: normal on the left, normal on the right Dorsalis Pedis Pulse: normal on the right, decreased on the left Abdomen: Bowel Sounds: normal Inspection & Palpation: soft, non-distended, no tenderness, guarding & rebound Extremities: no edema, varicosities Data Laboratory Results: Last 24 Hours Test 12/25/16 01:22 12/25/16 02:39 White Blood Count 7.30 K/uL Red Blood Count 3.42 M/uL Hemoglobin 11.2 g/dL Hematocrit 32.5 % Mean Corpuscular Volume 95.0 fL Mean Corpuscular Hemoglobin 32.7 pg Mean Corpuscular Hemoglobin Concent 34.5 g/dl Platelet Count 246 K/uL Mean Platelet Volume 9.0 fL Neutrophils (%) (Auto) 69.9 % Lymphocytes (%) (Auto) 17.4 % Monocytes (%) (Auto) 8.2 % Eosinophils (%) (Auto) 2.3 % Basophils (%) (Auto) 0.1 % Neutrophils # (Auto) 5.10 K/uL Lymphocytes # (Auto) 1.27 K/uL Monocytes # (Auto) 0.60 K/uL Eosinophils # (Auto) 0.17 K/uL Basophils # (Auto) 0.01 K/uL RDW Standard Deviation 48.3 fL RDW Coefficient of Variation 13.9 % Immature Granulocyte % (Auto) 2.1 % Immature Granulocyte # (Auto) 0.15 K/uL Prothrombin Time 16.0 SECONDS Prothromb Time International Ratio 1.5 Activated Partial Thromboplast Time 31.4 SECONDS Partial Thromboplastin Ratio 1.2 Sodium Level 132 mmol/L Potassium Level 3.0 mmol/L Chloride Level 93 mmol/L Carbon Dioxide Level 26 mmol/L Anion Gap 13.0 mmol/L Blood Urea Nitrogen 42 mg/dl Creatinine 6.00 mg/dl Est Creatinine Clear Calc Drug Dose 6.0 ml/min Estimated GFR () 6.8 Estimated GFR (Non- 5.9 BUN/Creatinine Ratio 7.0 Random Glucose 115 mg/dl Calcium Level 8.5 mg/dl Magnesium Level 1.4 mg/dl Total Bilirubin 0.5 mg/dl Aspartate Amino Transf (AST/SGOT) 28 U/L Alanine Aminotransferase (ALT/SGPT) 26 U/L Alkaline Phosphatase 139 U/L Troponin I 0.067 ng/ml Total Protein 7.5 gm/dl Albumin 2.6 gm/dl Globulin 4.9 gm/dl Albumin/Globulin Ratio 0.5 Bedside Lactic Acid Venous 3.80 mmol/L Imaging: EKG: Telemetry reviewed: Assessment & Plan This note is by PGY1 Logistics Management Specialist. For official recommendations please see Dr. Schmidt's note Ms. Gastelum is a pleasant 86 year old female admitted for falling while at home after feeling lightheaded. Reason for consultation is due to elevated troponin and for pre operative clearance for her consequent hip fracture. Pt states that she fell because she felt dizzy while walking back to her bedroom from the kitchen around midnight. Pt denies loss of consciousness. She states that she has been feeling lightheaded for 3 days now, and could not identify any triggers. She states she is able to do moderate activity in her house like cooking and preparing food, and watering her plants. She says she is too weak in her legs to climb stairs. She says the dizzy spells would come on without warning, and denies any accompanying shortness of breath or chest pain. Pt denies any palpitations, tingling, orthopnea nor claudication. Chest XR: reveals no acute cardiopulmonary findings. EKG: reveals T wave inversions in leads V1-V6, wide QRS in V4. Echo: 1. Elevated troponin - appear to be chronically elevated, pt's baseline per records is normally higher than now. 2. Cor Pulmonale - RT heart systolic disfunction due to longstanding pulmonary hypertension. 2. AFIB with RVR - appears to be improving, continue Metoprolol PRN 3. Clearance for orthopedic operation of RT hip fracture - pt is medically stable for surgery from cardiovascular standpoint. Resident Tracking Resident Involvement: Resident Care Provided Care Provided: Adult Hospital Medicine
[2016-12-25 12:32] LABS: BUN/CREATININE RATIO 7.2 (10-20); CALCIUM 7.8 mg/dl (8.5-10.1); CREATININE 6.5 mg/dl (0.60-1.20)
[2016-12-25] MEDS ORDERED: CEFAZOLIN SOD 1000MG/55 ML D5W IV ONE (13:52)
[2016-12-25] MEDS ORDERED: CEFAZOLIN SOD 1000MG/55 ML D5W IV SCH (14:00)
[2016-12-25] MEDS ORDERED: MIDAZOLAM HCL 1 MG/ML 2ML VIAL ONE (14:23)
[2016-12-25] MEDS ORDERED: FENTANYL CITRATE INJ 50 MCG/1 ML 2 ML VIAL ONE (14:23)
--- NOTE | 2016-12-25 14:29 | CARDIOLOGY CONSULTATION ---
DATE OF CONSULTATION: 12/25/2016 DATE OF CONSULTATION: 12/25/2016 PERTINENT HISTORY: Mrs. Baker is an 86-year-old white female admitted earlier today after a fall which resulted in an intertrochanteric fracture of the right femur and right pubic ring. This consultation was ordered to assist in her cardiac management, evaluate her elevated troponin, and assess her preoperative risk. The patient was in her usual state of health until last evening. She was walking from the bathroom to her bed to start her peritoneal dialysis. The patient claims that she was "dizzy" and fell to the floor. There was no loss of consciousness. The patient had no concurrent chest discomfort. She had immediate pain in her right leg and hip. She was brought to the Emergency Room by ambulance and found to have fractures as described above. The patient follows with Dr. Curry in the [place] area. She underwent a mitral and tricuspid valve repair using annuloplasty rings back in 2008. She also carries a history of cor pulmonale with severe pulmonary hypertension. She was diagnosed with paroxysmal atrial fibrillation back in 2006. She eventually had placement of a DDD pacemaker in 2008, which was revised in October 2012. She was seen in consultation by Dr. Muñoz back in June and found to have an atrial lead malfunction in that it could not sense during sinus rhythm. The patient also carries a history of moderate to severe aortic stenosis by an echocardiogram performed back in June of this year. The patient has a chronically elevated troponin I level, likely secondary to her renal failure and diastolic dysfunction. The patient has not experienced any exertional angina pectoris or limiting dyspnea. She further denies syncope, presyncope, PND, orthopnea, palpitations, lower extremity edema, and claudication. Prior to her fall, the patient has been ambulatory around her home and garden. She is able to climb 1 flight of stairs and is limited by leg fatigue. Currently, the patient is resting comfortably and without complaints. PAST MEDICAL HISTORY: 1. Mitral valve repair/annuloplasty ring -- 2008. 2. Tricuspid valve repair/annuloplasty ring -- 2008. 3. Moderate to severe aortic stenosis -- June 2016. 4. Paroxysmal atrial fibrillation. 5. DDD pacemaker. 6. Atrial lead malfunction -- June 2016. 7. Severe pulmonary hypertension. 8. Cor pulmonale. 9. History of diastolic congestive heart failure. 10. Hypertension. 11. Moderate left ventricular hypertrophy. 12. Diastolic dysfunction. 13. Hypercholesterolemia. 14. Chronic elevated troponin I level. 15. Renal artery stenosis -- status post stenting. 16. Chronic renal failure -- peritoneal dialysis. 17. Cirrhosis. 18. Cholecystectomy. 19. Gout. 20. Cataract extraction surgery. MEDICATIONS: 1. Metoprolol tartrate 12.5 mg b.i.d. 2. Pravachol 40 mg at bedtime. 3. Heparin 5000 units subQ q. 8 hours. 4. Pravachol 40 mg at bedtime. 5. Ceftazidime 1 dose daily. 6. Nephrocaps 1 tablet daily. ALLERGIES: TRIMETHOPRIM SULFAMETHOXAZOLE. SOCIAL HISTORY: The patient is a and lives alone. Does not use tobacco. Has 1 alcoholic drink per day. FAMILY HISTORY: Noncontributory realizing her advanced age. REVIEW OF SYSTEMS: A 10-point review of systems was negative except for that described above. PHYSICAL EXAMINATION: GENERAL: This is a well-developed, well-nourished elderly white female lying supine in bed without complaints. VITAL SIGNS: Blood pressure is 100/60 with a irregular pulse of 80. Respiratory rate is 18. The patient is afebrile at 36.8 degrees Celsius. Saturation is 97% on 2.5 liters nasal cannula. HEAD, EYES, EARS, NOSE, AND THROAT: Negative. NECK: Supple with delayed and prolonged carotid upstrokes. No obvious bruits or transmitted murmur. CARDIOVASCULAR EXAMINATION: Reveals a regular rhythm with distant heart sounds. A 2/6 crescendo-decrescendo systolic murmur is heard loudest at the base. S2 is not audible at the apex. No diastolic murmur. LUNGS: Clear without rales, rhonchi, or wheezes. ABDOMEN: Soft and nontender without bruits. EXTREMITIES: Reveal intact radial artery pulses bilaterally. There is trace pretibial edema. Right lower extremity is externally rotated. LABORATORY DATA: CBC notes hemoglobin 11.2, hematocrit 32.5, white count 7.3, platelet count 246,000. Electrolytes note a sodium of 133, potassium 4.0, chloride 96, bicarb 25, BUN 47, creatinine 6.5, glucose 135. Initial troponin was 0.067 with a follow-up value of 1.22. CK is 152. MB fraction is 7.6. EKG notes atrial fibrillation with a rapid ventricular response. There is right bundle branch block with repolarization abnormalities. 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 IMPRESSION: Mrs. Gastelum was admitted after a fall which resulted in a fracture of her right femur and pelvis. She is scheduled to undergo an ORIF later today. She is felt to be a acceptable cardiac risk for this urgent surgery. She demonstrated excellent functional status prior to her fracture and did not experience limiting cardiopulmonary symptoms. Her functional status was good. On review of her medical record, every troponin I level drawn in the last year has been elevated in the range identified today. No need for concern. PLAN: 1. Agree with use of low dose beta blockade for atrial fibrillation. 2. Continue all other medications as you are. 3. Acceptable cardiac risk for urgent surgery. 4. Further recommendations depending on her clinical course.
[2016-12-25] MEDS ORDERED: BUPIVACAINE/EPINEPHRINE 0.5% MPF 1:200,000 10 ML VIAL ONE (14:39)
--- NOTE | 2016-12-25 14:43 | Orthopedic Consultation ---
Orthopedic Consultation Date of Consultation: Dec 25, 2016. Attending Physician: Gunner Pritchett MD Reason for Consultation: Right hip pain History of Present Illness Patient became dizzy and fell onto right hip. She was unable to get back up. Complaining of right hip pain, no numbness or tingling Past Medical/Surgical History Medical Problems: (1) Acute bronchitis Status: Acute (2) Closed right hip fracture Status: Acute (3) Elevated troponin Status: Chronic (4) Hypomagnesemia Status: Acute (5) Hypotension Status: Acute (6) Hypoxia Status: Acute (7) Hypoxia Status: Acute (8) Renal failure Status: Acute (9) Spontaneous bacterial peritonitis Status: Acute Family History FH: heart disease Stroke Social History Smoking Status: Never Smoker Drug Use: none Marital Status: single Housing Status: lives with family 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 Allergies Coded Allergies: Sulfamethoxazole w/Trimethoprim (Verified Allergy, Severe, RASH, n/v, swelling of LE, 06/19/16) Home Medications Scheduled Ceftazidime (Ceftazidime), 1 DOSE INSTIL DAILY@1600 Cinacalcet (Sensipar), 30 MG PO DAILY Pantoprazole (Protonix), 40 MG PO DAILY Pravastatin Sodium (Pravastatin Sodium), 40 MG PO HS Warfarin Sodium (Warfarin Sodium), 4 MG PO 2XWK Warfarin Sodium (Warfarin Sodium), 2 MG PO 5XWK [Prorenal + D], 1 TAB PO DAILY Scheduled PRN Acetaminophen (Tylenol), 500 MG PO Q6H PRN for Pain Current Inpatient Medications Current Inpatient Medications Medications (Trade) Dose Ordered Sig/Seth Route Start Time Stop Time Status Last Admin Dose Admin Heparin Sodium (Porcine) (Heparin Sq 5000 Unit/0.5ml) 5,000 unit Q8 SQ 12/25/16 07:30 01/24/17 07:29 12/25/16 08:14 5,000 UNIT Acetaminophen (Tylenol Tab) 650 mg Q4H PRN PO 12/25/16 05:45 01/24/17 05:44 Ondansetron HCl (Zofran Inj) 4 mg Q6H PRN IV 12/25/16 05:45 01/24/17 05:44 12/25/16 08:18 4 MG Polyethylene (Miralax Powder Packet) 17 gm DAILY PRN PO 12/25/16 05:45 01/24/17 05:44 Morphine Sulfate (MoRPHine SULFATE INJ) 1 mg Q4 PRN IV 12/25/16 05:45 01/08/17 05:44 12/25/16 08:16 1 MG Morphine Sulfate (MoRPHine SULFATE INJ) 2 mg Q4 PRN IV 12/25/16 05:45 01/08/17 05:44 12/25/16 11:45 2 MG Pantoprazole Sodium (Protonix Tab) 40 mg DAILY PO 12/25/16 09:00 01/24/17 08:59 12/25/16 08:07 40 MG Pravastatin Sodium (Pravachol Tab) 40 mg HS PO 12/25/16 21:00 01/24/17 20:59 Non-Formulary Medication (Ceftazidime ) 1 dose DAILY@1600 INSTIL 12/25/16 16:00 01/24/17 15:59 UNV Miscellaneous Information (Order Awaiting Action) 1 ea QS N/A 12/25/16 08:00 01/24/17 07:59 Vitamin B Complex/ Vit C/Folic Acid (Nephrocaps) 1 cap DAILY PO 12/25/16 09:00 01/24/17 08:59 12/25/16 08:06 1 CAP Metoprolol Tartrate (Lopressor Tab) 12.5 mg BID PO 12/25/16 09:00 01/24/17 08:59 12/25/16 08:06 12.5 MG Metoprolol Tartrate (Lopressor Iv) 5 mg Q6 PRN IV 12/25/16 06:00 01/24/17 05:59 Enteral Nutritional Formula (Boost) 1 can 3XDQ4 PO 12/25/16 08:00 01/24/17 07:59 12/25/16 08:16 1 CAN Cefazolin Sodium (Ancef 1000mg/55 ml D5W) 1,000 mg PREOP@1400 IV 12/25/16 14:00 12/25/16 18:00 Physical Exam Date Time Temp Pulse Resp B/P (MAP) Pulse Ox O2 Delivery O2 Flow Rate FiO2 12/25/16 14:15 85 18 85/55 (65) 98 Room Air 3 12/25/16 12:00 96 Nasal Cannula 12/25/16 11:49 36.8 84 17 91/60 (70) 97 Nasal Cannula 2.5 12/25/16 08:00 96 Nasal Cannula 12/25/16 07:52 36.6 106 20 101/67 (78) 96 Nasal Cannula 3.0 12/25/16 06:50 36.5 121 22 114/71 95 Nasal Cannula 3.0 12/25/16 05:35 110 16 116/64 97 Nasal Cannula 2.0 12/25/16 04:10 98 16 101/49 98 Nasal Cannula 2.0 12/25/16 02:20 119 12/25/16 02:16 91 Room Air 12/25/16 02:09 36.8 110 14 93/62 91 Room Air General Appearance: no apparent distress Head: normocephalic Eyes: normal inspection Neck: supple Respiratory/Chest: lungs clear Abdomen/GI: soft Extremities/Musculoskelatal: + pertinent finding (right leg is shortened and internally rotated, pain with motion, abrasion over patella, no tenderness over bone of patella) Laboratory Results Last 24 Hours Test 12/25/16 01:22 12/25/16 02:39 12/25/16 11:53 White Blood Count 7.30 K/uL Red Blood Count 3.42 M/uL Hemoglobin 11.2 g/dL Hematocrit 32.5 % Mean Corpuscular Volume 95.0 fL Mean Corpuscular Hemoglobin 32.7 pg Mean Corpuscular Hemoglobin Concent 34.5 g/dl Platelet Count 246 K/uL Mean Platelet Volume 9.0 fL Neutrophils (%) (Auto) 69.9 % Lymphocytes (%) (Auto) 17.4 % Monocytes (%) (Auto) 8.2 % Eosinophils (%) (Auto) 2.3 % Basophils (%) (Auto) 0.1 % Neutrophils # (Auto) 5.10 K/uL Lymphocytes # (Auto) 1.27 K/uL Monocytes # (Auto) 0.60 K/uL Eosinophils # (Auto) 0.17 K/uL Basophils # (Auto) 0.01 K/uL RDW Standard Deviation 48.3 fL RDW Coefficient of Variation 13.9 % Immature Granulocyte % (Auto) 2.1 % Immature Granulocyte # (Auto) 0.15 K/uL Prothrombin Time 16.0 SECONDS Prothromb Time International Ratio 1.5 Activated Partial Thromboplast Time 31.4 SECONDS Partial Thromboplastin Ratio 1.2 Sodium Level 132 mmol/L 133 mmol/L Potassium Level 3.0 mmol/L 4.0 mmol/L Chloride Level 93 mmol/L 96 mmol/L Carbon Dioxide Level 26 mmol/L 25 mmol/L Anion Gap 13.0 mmol/L 12.0 mmol/L Blood Urea Nitrogen 42 mg/dl 47 mg/dl Creatinine 6.00 mg/dl 6.50 mg/dl Est Creatinine Clear Calc Drug Dose 6.0 ml/min 5.0 ml/min Estimated GFR () 6.8 6.2 Estimated GFR (Non- 5.9 5.3 BUN/Creatinine Ratio 7.0 7.2 Random Glucose 115 mg/dl 134 mg/dl Calcium Level 8.5 mg/dl 7.8 mg/dl Magnesium Level 1.4 mg/dl Total Bilirubin 0.5 mg/dl Aspartate Amino Transf (AST/SGOT) 28 U/L Alanine Aminotransferase (ALT/SGPT) 26 U/L Alkaline Phosphatase 139 U/L Troponin I 0.067 ng/ml 1.220 ng/ml Total Protein 7.5 gm/dl Albumin 2.6 gm/dl Globulin 4.9 gm/dl Albumin/Globulin Ratio 0.5 Bedside Lactic Acid Venous 3.80 mmol/L Lactic Acid Level 2.9 mmol/L Total Creatine Kinase 152 U/L Creatine Kinase MB 7.6 ng/ml Creatine Kinase MB Ratio 5.0 Assessment & Plan Right intertroch fx She has been cleared by cardio INR is elevated but acceptable Will plan ORIF R intertroch with troch nail. R/B/A discussed and patient wishes to proceed.
[2016-12-25] MEDS ORDERED: ATROPINE SULFATE 0.1 MG/ML 5ML SYR IV PRN (15:30)
[2016-12-25] MEDS ORDERED: ACETAMINOPHEN 1000 MG/100 ML IV IV ONE (15:30)
[2016-12-25] MEDS ORDERED: FENTANYL CITRATE INJ 50 MCG/1 ML 2 ML VIAL IV PRN (15:30)
[2016-12-25] MEDS ORDERED: EpHEDrine SULFATE INJ 50 MG/ML AMP IV PRN (15:30)
[2016-12-25] MEDS ORDERED: CEFTAZIDIME INSTIL SCH (16:00)
--- NOTE | 2016-12-25 16:05 | ECHOCARDIOGRAM REPORT ---
*NOTICE TO RECEIVING DEMOCRAT AGENCY This information is strictly Confidential and protected under [place] law. [place] law prohibits you from making any further disclosure of this information unless further disclosure is expressly permitted by the written consent of the person to whom it pertains or is authorized by law. A general authorization for the release of medical or other information is not sufficient for this purpose. Hospital accepts no responsibility if the information is made available to any other person, INCLUDING THE PATIENT. Interpretation Summary * Conclusions -- * Left ventricular systolic function is normal. * No regional wall motion abnormalities noted. * Ejection Fraction = 65-70%. * There is mild concentric left ventricular hypertrophy. * Dilated right ventricle with reduced systolic function. * Pressure and volume overload of the right ventricle. * Severe valvular aortic stenosis. * There is moderate tricuspid regurgitation. Procedure Details * A complete two-dimensional transthoracic echocardiogram was performed (2D, M-mode, Doppler and color flow Doppler). Left Ventricle * The left ventricle is normal in size. * There is mild concentric left ventricular hypertrophy. * Ejection Fraction = 65-70%. * Left ventricular systolic function is normal. * No regional wall motion abnormalities noted. Right Ventricle * The right ventricle is severely dilated. * The right ventricular systolic function is reduced as assessed by tricuspid annular plane systolic excursion (TAPSE) (TAPSE <1.6 cm). Atria * The left atrium is mildly dilated. * The right atrium is moderately dilated. * There is no evidence of atrial septal defect, but resolution does not allow assessment for a patent foramen ovale. Mitral Valve * The mitral valve is not well visualized. * An annuloplasty ring is noted in the mitral position. Tricuspid Valve * The tricuspid valve is not well visualized. * There is moderate tricuspid regurgitation. * An annuloplasty ring is noted in the tricuspid position. Aortic Valve * Severe valvular aortic stenosis. * There is no significant aortic regurgitation. Pulmonic Valve * The pulmonary valve is not well seen, but the Doppler examination is normal without significant regurgitation or stenosis. Great Vessels * The aortic root is normal size. * The pulmonary is not well visualized. Pericardium/Pleural * There is no pericardial effusion. Great Vessels * The IVC is not well-visualized. MMode 2D Measurements and Calculations IVSd 0.98 cm LVIDd 3.0 cm LVIDs 1.9 cm LVPWd 1.0 cm IVS/LVPW 0.95 FS 36.0 % EDV(Teich) 35.7 ml ESV(Teich) 11.7 ml EF(Teich) 67.2 % EDV(cubed) 27.7 ml ESV(cubed) 7.2 ml EF(cubed) 73.8 % LV mass(C)d 84.1 grams LV mass(C)dI 51.1 grams/m\S\2 SV(Teich) 24.0 ml SI(Teich) 14.6 ml/m\S\2 SV(cubed) 20.4 ml SI(cubed) 12.4 ml/m\S\2 Ao root diam 2.7 cm Ao root area 5.7 cm\S\2 ACS 0.70 cm LA dimension 3.1 cm asc Aorta Diam 2.9 cm LA/Ao 1.2 LVAd ap4 6.8 cm\S\2 LVLd ap4 4.1 cm EDV(MOD-sp4) 9.5 ml EDV(sp4-el) 9.5 ml LVAs ap4 3.6 cm\S\2 LVLs ap4 3.2 cm ESV(MOD-sp4) 3.4 ml ESV(sp4-el) 3.5 ml EF(MOD-sp4) 64.1 % EF(sp4-el) 63.7 % LVAd ap2 10.2 cm\S\2 LVLd ap2 4.9 cm EDV(MOD-sp2) 17.6 ml EDV(sp2-el) 18.0 ml LVAs ap2 5.2 cm\S\2 LVLs ap2 3.8 cm ESV(MOD-sp2) 6.0 ml ESV(sp2-el) 6.0 ml EF(MOD-sp2) 65.7 % EF(sp2-el) 66.6 % LVLd %diff 16.6 % EDV(MOD-bp) 14.1 ml LVLs %diff 15.7 % ESV(MOD-bp) 4.9 ml EF(MOD-bp) 65.1 % SV(MOD-sp4) 6.1 ml SI(MOD-sp4) 3.7 ml/m\S\2 SV(MOD-sp2) 11.6 ml SI(MOD-sp2) 7.0 ml/m\S\2 SV(MOD-bp) 9.2 ml SI(MOD-bp) 5.6 ml/m\S\2 SV(sp4-el) 6.1 ml SI(sp4-el) 3.7 ml/m\S\2 SV(sp2-el) 12.0 ml SI(sp2-el) 7.3 ml/m\S\2 Doppler Measurements and Calculations MV E max jarocho 121.2 cm/sec MV dec time 0.19 sec Ao V2 max 222.3 cm/sec Ao max PG 19.8 mmHg Ao max PG (full) 18.3 mmHg Ao V2 mean 169.7 cm/sec Ao mean PG 12.8 mmHg Ao V2 VTI 40.8 cm LV V1 max PG 1.5 mmHg LV V1 max 60.4 cm/sec SV(Ao) 232.9 ml SI(Ao) 141.3 ml/m\S\2 PA V2 max 67.1 cm/sec PA max PG 1.8 mmHg PA acc slope 515.8 cm/sec\S\2 PA acc time 0.10 sec TR max jarocho 308.5 cm/sec PA pr(Accel) 35.3 mmHg
[2016-12-25] MEDS ORDERED: LIDOCAINE HCL 2% 2 ML VIAL (20MG/ML) ONE (16:41)
[2016-12-25] MEDS ORDERED: PROPOFOL IV EMULSION 10 MG/ML 20 ML VIAL IV ONE (16:41)
[2016-12-25] MEDS ORDERED: NEOSTIGMINE METHYLSULFATE 5 MG/5 ML SYR ONE (16:41)
[2016-12-25] MEDS ORDERED: DEXAMETHASONE SOD INJ 4 MG/ML VIAL ONE (16:41)
[2016-12-25] MEDS ORDERED: ETOMIDATE 2 MG/ML 20 ML VIAL IV ONE (16:41)
[2016-12-25] MEDS ORDERED: ONDANSETRON INJ 2 MG/ML 2 ML VIAL ONE (16:41)
[2016-12-25] MEDS ORDERED: PHENYLEPHRINE HCL INJ 10 MG/ML VIAL ONE (16:41)
[2016-12-25] MEDS ORDERED: VASOPRESSIN 20 UNIT/ML VIAL ONE (16:41)
--- NOTE | 2016-12-25 17:11 | Nephrology Consultation ---
Nephrology Consultation Date of Consultation: Dec 25, 2016. Attending Physician: Dr Pritchett Requesting Physician: Dr Longo Reason for Consultation: ESRD on PD History of Present Illness 86 year old female w/ ESRD on PD admitted this am w/ R femoral and ischiopubic ring fractures. Other PMH includes a fib, aortic stenosis, hx of repair of both mitral and tricuspid valves. She is also currently getting therapy since for PD peritonitis with daily instillation of ceftazidime 750 mg through 01/07 planned. At f/u outpatient PD nurse evaluation on 12/24, she looked well and impression clinically was that she was responding to therapy. Unfortunately she fell last evening at home. She has hx of HTN but is not currently on bp meds, including no rate control meds. Her PD rx as outpatient is 5 x 2L exchanges with LBF 1.5L, drained usually midday then MDE w/ 8hr dwell w/ abtc above. She did have a significant skin cancer earlier this year; after initial eval, erythropoeitin stim agents were resumed/continued. Cardiology has evaluated the pt and she is for surgical repair of fracture later today. States her pain is controlled; denies sob, n/v. Past Medical/Surgical History Medical Problems: (1) Acute bronchitis Status: Acute (2) Closed right hip fracture Status: Acute (3) Elevated troponin Status: Acute (4) Hypomagnesemia Status: Acute (5) Hypotension Status: Acute (6) Hypoxia Status: Acute (7) Hypoxia Status: Acute (8) Renal failure Status: Acute (9) Spontaneous bacterial peritonitis Status: Acute -ESRD on PD; follows w/ Dr. 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 -chronic hepatitis s/p 2009 liver bx -s/p mitral valve repair, s/p tricuspid repair -s/p cholecystectomy, tonsillectomy, PD catheter placement Family History FH: heart disease Stroke Social History Smoking Status: Never Smoker Alcohol Use: none Drug Use: none Marital Status: single Housing Status: lives with family 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 Allergies Coded Allergies: Sulfamethoxazole w/Trimethoprim (Verified Allergy, Severe, RASH, n/v, swelling of LE, 06/19/16) Medications Current Inpatient Medications Medications (Trade) Dose Ordered Sig/Seth Route Start Time Stop Time Status Last Admin Dose Admin Heparin Sodium (Porcine) (Heparin Sq 5000 Unit/0.5ml) 5,000 unit Q8 SQ 12/25/16 07:30 01/24/17 07:29 12/25/16 08:14 5,000 UNIT Acetaminophen (Tylenol Tab) 650 mg Q4H PRN PO 12/25/16 05:45 01/24/17 05:44 Ondansetron HCl (Zofran Inj) 4 mg Q6H PRN IV 12/25/16 05:45 01/24/17 05:44 12/25/16 08:18 4 MG Polyethylene (Miralax Powder Packet) 17 gm DAILY PRN PO 12/25/16 05:45 01/24/17 05:44 Morphine Sulfate (MoRPHine SULFATE INJ) 1 mg Q4 PRN IV 12/25/16 05:45 01/08/17 05:44 12/25/16 08:16 1 MG Morphine Sulfate (MoRPHine SULFATE INJ) 2 mg Q4 PRN IV 12/25/16 05:45 01/08/17 05:44 Pantoprazole Sodium (Protonix Tab) 40 mg DAILY PO 12/25/16 09:00 01/24/17 08:59 12/25/16 08:07 40 MG Pravastatin Sodium (Pravachol Tab) 40 mg HS PO 12/25/16 21:00 01/24/17 20:59 Non-Formulary Medication (Ceftazidime ) 1 dose DAILY@1600 INSTIL 12/25/16 16:00 01/24/17 15:59 UNV Miscellaneous Information (Order Awaiting Action) 1 ea QS N/A 12/25/16 08:00 01/24/17 07:59 Vitamin B Complex/ Vit C/Folic Acid (Nephrocaps) 1 cap DAILY PO 12/25/16 09:00 01/24/17 08:59 12/25/16 08:06 1 CAP Metoprolol Tartrate (Lopressor Tab) 12.5 mg BID PO 12/25/16 09:00 01/24/17 08:59 12/25/16 08:06 12.5 MG Metoprolol Tartrate (Lopressor Iv) 5 mg Q6 PRN IV 12/25/16 06:00 01/24/17 05:59 Enteral Nutritional Formula (Boost) 1 can 3XDQ4 PO 12/25/16 08:00 01/24/17 07:59 12/25/16 08:16 1 CAN Home Meds and Scripts Medications Dose Route/Sig Max Daily Dose Days Date Category Dose Instructions Ceftazidime 1 Gm Inj 1 Dose INSTIL DAILY@1600 12/25/16 Reported MIX CEFTAZIDIME POWDER (1GM VIAL) WITH 10ML STERILE WATER AND INSTILL INTO PERITONEAL DIALYSIS CATHETER DAILY @ 4PM. Tylenol (Acetaminophen) 500 Mg Tab 500 Mg PO Q6H PRN 12/25/16 Reported [Prorenal + D] 1 Tab PO DAILY 12/25/16 Reported Warfarin Sodium 2 Mg Tab 2 Mg PO 5XWK 12/25/16 Reported 1 TABLET EVERY WEDNESDAY/WEDNESDAY/WEDNESDAY/WEDNESDAY/WEDNESDAY. Warfarin Sodium 2 Mg Tab 4 Mg PO 2XWK 12/25/16 Reported 2 TABLETS EVERY WEDNESDAY AND WEDNESDAY. Protonix (Pantoprazole Sodium) 40 Mg Tab 40 Mg PO DAILY 12/25/16 Reported Sensipar (Cinacalcet) 30 Mg Tab 30 Mg PO DAILY 05/31/16 Reported Pravastatin Sodium 40 Mg Tab 40 Mg PO HS 11/17/13 Reported Review of Systems Constitutional: + weakness, No fever, No fatigue Eyes: No worsening of vision ENT: No hearing loss Respiratory: No shortness of breath Cardiac: No chest pain, No edema, No palpitations Abdomen: No pain, No nausea, No vomiting, No diarrhea Musculoskeletal: + joint pain, + muscle pain Female : + problem reported (anuric) Neuro: + balance problems, No memory loss, No weakness Psych: No depression symptoms, No anxiety Heme: No abnormal bleeding/bruising Endo: + fatigue Skin: No rash, No itch, No new/changing skin lesions Physical Exam Date Time Temp Pulse Resp B/P (MAP) Pulse Ox O2 Delivery O2 Flow Rate FiO2 12/25/16 07:52 36.6 106 20 101/67 (78) 96 Nasal Cannula 3.0 12/25/16 06:50 36.5 121 22 114/71 95 Nasal Cannula 3.0 12/25/16 05:35 110 16 116/64 97 Nasal Cannula 2.0 12/25/16 04:10 98 16 101/49 98 Nasal Cannula 2.0 12/25/16 02:20 119 12/25/16 02:16 91 Room Air 12/25/16 02:09 36.8 110 14 93/62 91 Room Air General Appearance: WD/WN, no apparent distress (on 02NC, good historian, oriented x 3 nad) Eyes: EOMI ENT: normal ENT inspection Neck: supple Respiratory/Chest: + decreased breath sounds (but clear) Cardiovascular: + tachycardia, + systolic murmur, + irregularly irregular Abdomen: normal bowel sounds, non tender, soft, + pertinent finding Extremities: no pedal edema, + pertinent finding Neurologic/Psych: alert, normal mood/affect, oriented x 3 Skin: no jaundice, warm/dry, no rash Diagnostics Last 24 Hours Test 12/25/16 01:22 12/25/16 02:39 White Blood Count 7.30 K/uL Red Blood Count 3.42 M/uL Hemoglobin 11.2 g/dL Hematocrit 32.5 % Mean Corpuscular Volume 95.0 fL Mean Corpuscular Hemoglobin 32.7 pg Mean Corpuscular Hemoglobin Concent 34.5 g/dl Platelet Count 246 K/uL Mean Platelet Volume 9.0 fL Neutrophils (%) (Auto) 69.9 % Lymphocytes (%) (Auto) 17.4 % Monocytes (%) (Auto) 8.2 % Eosinophils (%) (Auto) 2.3 % Basophils (%) (Auto) 0.1 % Neutrophils # (Auto) 5.10 K/uL Lymphocytes # (Auto) 1.27 K/uL Monocytes # (Auto) 0.60 K/uL Eosinophils # (Auto) 0.17 K/uL Basophils # (Auto) 0.01 K/uL RDW Standard Deviation 48.3 fL RDW Coefficient of Variation 13.9 % Immature Granulocyte % (Auto) 2.1 % Immature Granulocyte # (Auto) 0.15 K/uL Prothrombin Time 16.0 SECONDS Prothromb Time International Ratio 1.5 Activated Partial Thromboplast Time 31.4 SECONDS Partial Thromboplastin Ratio 1.2 Sodium Level 132 mmol/L Potassium Level 3.0 mmol/L Chloride Level 93 mmol/L Carbon Dioxide Level 26 mmol/L Anion Gap 13.0 mmol/L Blood Urea Nitrogen 42 mg/dl Creatinine 6.00 mg/dl Est Creatinine Clear Calc Drug Dose 6.0 ml/min Estimated GFR () 6.8 Estimated GFR (Non- 5.9 BUN/Creatinine Ratio 7.0 Random Glucose 115 mg/dl Calcium Level 8.5 mg/dl Magnesium Level 1.4 mg/dl Total Bilirubin 0.5 mg/dl Aspartate Amino Transf (AST/SGOT) 28 U/L Alanine Aminotransferase (ALT/SGPT) 26 U/L Alkaline Phosphatase 139 U/L Troponin I 0.067 ng/ml Total Protein 7.5 gm/dl Albumin 2.6 gm/dl Globulin 4.9 gm/dl Albumin/Globulin Ratio 0.5 Bedside Lactic Acid Venous 3.80 mmol/L Diagnostic Radiology: Hip and pelvis XR > see HPI CXR > cardiomegaly w/o pulm edema or acute cardiopulm findings Assessment & Plan 86 y/o F w/ ESRD on PD and currently undergoing outpt therapy for PD peritonitis admitted 12/25 w/ R hip and R pelvic fracture after a fall at home. ESRD on PD -blood pressure and volume status currently acceptable though note SBP is on lower side and that she has had issues w/ AF w/ RVR in past 6-7 mos. per PD nursing staff who know her well, sbp tends to run in 90s-low 100s -hypokalemia noted, has been gently repleted -continue home pd regimen and work around OR schedule if she is a surgical candidate >> plan 6 x 2L exchs all 1.5% over 12 hrs; then no LBF and in am do manual exchange 1.5L of 1.5% w/ 750 mg ceftazidime to dwell at least 6 hrs PD peritonitis -continue ceftazidime through 01/07; note she had a gram of cefotaxime already on presentation today IV so no further abtx needed for peritonitis until tomorrow am -no abd pain or gi complaints; exit site seen yesterday in clinic as reported to me by PD nurse and no exudate or redness (pt getting TTE at time of my exam; do not wish to expose exit site) Anemia of esrd -on mircera as outpt; use epo stim agent as indicated this admission; no current need HEBERT -note sensipar on hold for now; monitor HEBERT and cont to hold sensipar Hip and pelvis fractures -f/u ortho recs Appreciate consult; will follow with you.
--- NOTE | 2016-12-25 17:23 | DIAGNOSTIC IMAGING REPORT ---
Radiology RIGHT HIP OR FILMS CLINICAL HISTORY: 86 years-old Female presenting with RT TROCH NAIL Right. TECHNIQUE: 5 fluoroscopic spot image(s) obtained as part of an intraoperative procedure. COMPARISON: 12/25/2016 at 3:38 AM. FINDINGS/IMPRESSION: There has been interval dynamic screw and intramedullary nail fixation across the intertrochanteric right femoral fracture. An interlocking screw is also noted in the metaphysis. Grossly anatomic alignment. Please see surgical report for further details. Fluoroscopy dosage (mGy): Not available. Fluoroscopy time: 1 minute 40 seconds. Number of fluoroscopic spot images: 5. Electronically signed by: Hansel Britt M.D. 12/25/2016 5:22 PM Dictated Date/Time: 12/25/2016 5:21 PM
[2016-12-25] MEDS ORDERED: D5W AND NSS 1,000 ML IV SCH (17:35)
--- NOTE | 2016-12-25 17:35 | [facility] Operative Report ---
Operative Report Operative Date Dec 25, 2016. Pre-Operative Diagnosis Right Intertroch fracture Post-Operative Diagnosis same as pre-operative Procedure(s) Performed ORIF Right Hip intertroch fracture with Trochanteric Nail Surgeon Dr. Hansel Perea Senior Military Analyst Surgeon(s) 0 Estimated Blood Loss 50ml Findings above Specimens none per surgeon Drains 0 Anesthesia gen Complication(s) None Disposition Recovery Room / PACU Indications 86-year-old female who sustained a fall onto the right hip. She sustained a displaced right intertrochanteric fracture. Once she was medically cleared she presents for fracture fixation. Description of Procedure Risks benefits and alternatives of surgery including but not limited to infection, DVT, PE, pain, stiffness, need for surgery, damage to blood vessels, damage to nerves or risks of anesthesia, were discussed with the patient and her family and they wished to proceed. Patient was identified in the laterality was confirmed and marked. They received a preoperative antibiotic. The patient was transferred to the fracture table. The operative limb was placed in traction and the well leg was placed in a well leg webb that was well-padded. The arms were well-padded and placed out of the way of the surgical field. I confirmed reduction of the fracture with fluoroscopy with the patient's fracture table and made adjustments to fracture table alignment is necessary to reduce the fracture appropriately. The hip was then prepped and draped in the usual standard manner with ChloraPrep. I made a longitudinal incision proximal to the greater trochanter. I sharply incised through the skin and then used Bovie electrocautery to achieve hemostasis. I incised through the fascia and then bluntly dissected down to the tip of the greater trochanter. Under fluoroscopic guidance I placed a guide pin into the greater trochanter and ensured proper placement on both AP and lateral fluoroscopy views. Once I was satisfied with the position of the guide. I advanced this distally. I then overreamed with the 17 mm proximal reamer. I then placed a Synthes trochanteric fixation nail into position. The size of the nail was a short nail. Then I placed the guide arm onto the nail insertion device made a stab incision more distally and then placed the drill guide for the helical blade. I adjusted the position of the nail as necessary to ensure that the guidepin was center center in the femoral head. Once I was satisfied with the position of the pin advanced it to the appropriate position of the femoral head. I then measured and then reamed the lateral cortex and then reamed down into the femoral head. I then inserted a size [address] I then locked the set screw proximally and then compressed the fracture. Then through a stab incision I placed a interlocking screw through the drill guide. I confirmed hardware placement and maintenance of reduction on AP and lateral fluoroscopy views. Wounds were then thoroughly irrigated. The fascia was closed with interrupted #1 Vicryl suture. Subcutaneous tissues closed with interrupted 2-0 Vicryl suture and the skin with christina. Sterile dressings applied. All needle and sponge counts were correct at the end of the procedure the patient was transferred to the PACU in stable condition without apparent complication. I attest to the content of the Intraoperative Record and any orders documented therein. Any exceptions are noted below.
[2016-12-25] MEDS ORDERED: PHENYLEPHRINE 100MCG/ML 5ML SYR ONE (18:08)
[2016-12-25] MEDS ORDERED: PHENYLEPHRINE HCL INJ 20 MG in DEXTROSE 5% 500ML 500 ML IV PRN ×2 (18:17→18:30)
--- NOTE | 2016-12-25 18:53 | Anesthesiology Progress Note ---
Anesthesia Post Op Note Date & Time Dec 25, 2016 at 18:51 Vital Signs Pain Intensity: 0 Vital Signs Past 12 Hours Date Time Temp Pulse Resp B/P (MAP) Pulse Ox O2 Delivery O2 Flow Rate FiO2 12/25/16 18:40 71 20 87/42 93 Nasal Cannula 4 98/50 12/25/16 18:30 71 20 88/43 93 Nasal Cannula 4 90/56 12/25/16 18:20 73 16 88/37 92 Nasal Cannula 4 12/25/16 18:10 36.4 73 16 77/38 97 Nasal Cannula 4 12/25/16 18:00 36.4 72 16 65/35 90 Nasal Cannula 4 12/25/16 17:50 72 16 78/39 90 Nasal Cannula 4 12/25/16 17:40 74 16 85/44 90 Oxymask 10 12/25/16 17:32 36.8 74 16 105/53 95 Oxymask 10 NIBP 12/25/16 14:52 84 16 84/42 (56) 97 Nasal Cannula 3 12/25/16 14:38 84 16 78/50 (59) 97 Nasal Cannula 3 12/25/16 14:15 85 18 85/55 (65) 98 Room Air 3 12/25/16 12:00 96 Nasal Cannula 12/25/16 11:49 36.8 84 17 91/60 (70) 97 Nasal Cannula 2.5 12/25/16 08:00 96 Nasal Cannula 12/25/16 07:52 36.6 106 20 101/67 (78) 96 Nasal Cannula 3.0 Notes Mental Status: alert / awake / arousable, participated in evaluation Pt Amnestic to Procedure: Yes Nausea / Vomiting: adequately controlled Pain: adequately controlled Airway Patency, RR, SpO2: stable & adequate BP & HR: stable & adequate, see Notes Hydration State: stable & adequate Anesthetic Complications: no major complications apparent Pt was hypotensive preop, requiring pressor during the case. Pt awake in PACU but still hypotensive. Phenylephrine drip started in PACU with improvement in her BP. Discussed her case with the instructor ballroom dancing and patient will be admitted to ICU due to her hypotension and multiple cardiac comorbodities.
[2016-12-25 19:15] LABS: BASO % 0.1 %; BASO ABS # 0.01 K/uL (0-0.2); EOS % 0.2 %; HEMATOCRIT 30.1 % (37-47); IG% 0.8 %; LYMPH % 5.1 %; LYMPH ABS # 0.57 K/uL (1.2-3.4); MEAN CELL VOLUME 95.3 fL (80-100); MEAN CORPUSCULAR HEMOGLOBIN 32.3 pg (25-34); MEAN PLATELET VOLUME 9.2 fL (7.4-10.4); MONO % 4.4 %; NEUT % 89.4 %; PLATELET COUNT 221 K/uL (130-400); RED BLOOD COUNT 3.16 M/uL (4.2-5.4); WHITE BLOOD COUNT 11.18 K/uL (4.8-10.8)
[2016-12-25 19:17] LABS: COMPLETE YES; MEAN CORPUSCULAR HGB CONC 33.9 g/dl (32-36)
[2016-12-25 19:30] LABS: CKMB/CK RATIO 3.2 (0-3.0)
[2016-12-25] MEDS ORDERED: ALBUMIN HUMAN 5% 12.5 GM/250 ML VIAL IV STA (19:55)
--- NOTE | 2016-12-25 20:11 | Progress Note ---
Medicine Progress Note Date & Time of Visit: Dec 25, 2016 at 20:05. Subjective s/p ORIF, right hip noted to be hypotensive phenylephrine and albumin ordered on exam, patient awake, alert, in good spirits denies dizziness, chest pain, dyspnea, palpitations, nausea/vomiting right hip is sore, but not much pain denies other symptoms Objective Last 8 Hrs Date Time Temp Pulse Resp B/P (MAP) Pulse Ox O2 Delivery O2 Flow Rate FiO2 12/25/16 19:50 72 82/41 (55) 98 12/25/16 19:45 72 80/50 (60) 91 12/25/16 19:35 73 80/38 (52) 93 12/25/16 19:31 80 78/39 (52) 94 12/25/16 19:20 36.7 71 87/40 (56) 92 12/25/16 19:00 36.8 70 22 82/39 96 Nasal Cannula 4 85/55 12/25/16 18:50 71 22 82/42 94 Nasal Cannula 4 80/51 12/25/16 18:40 71 20 87/42 93 Nasal Cannula 4 98/50 12/25/16 18:30 71 20 88/43 93 Nasal Cannula 4 90/56 12/25/16 18:20 73 16 88/37 92 Nasal Cannula 4 12/25/16 18:10 36.4 73 16 77/38 97 Nasal Cannula 4 12/25/16 18:00 36.4 72 16 65/35 90 Nasal Cannula 4 12/25/16 17:50 72 16 78/39 90 Nasal Cannula 4 12/25/16 17:40 74 16 85/44 90 Oxymask 10 12/25/16 17:32 36.8 74 16 105/53 95 Oxymask 10 NIBP 12/25/16 14:52 84 16 84/42 (56) 97 Nasal Cannula 3 12/25/16 14:38 84 16 78/50 (59) 97 Nasal Cannula 3 12/25/16 14:15 85 18 85/55 (65) 98 Room Air 3 Physical Exam: General- oriented x 3, not in distress, speaks in sentences with no effort Head- atraumatic Eyes- EOMI, anicteric ENT- oropharynx clear Neck- supple, no JVD, no adenopathy Lungs- clear to auscultation b/l Heart- regular rhythm; no murmur, normal rate Abdomen- normal bowel sounds, soft, nontender, non distended Extremities- no pretibial edema, no calf tenderness; peripheral pulses intact right hip: dressing in place, no hematoma Neuro- alert, oriented x 3; no gross focal deficits Skin- warm & dry Laboratory Results: Last 24 Hours Test 12/25/16 01:22 12/25/16 02:39 12/25/16 11:53 12/25/16 18:41 White Blood Count 7.30 K/uL Red Blood Count 3.42 M/uL Hemoglobin 11.2 g/dL Hematocrit 32.5 % Mean Corpuscular Volume 95.0 fL Mean Corpuscular Hemoglobin 32.7 pg Mean Corpuscular Hemoglobin Concent 34.5 g/dl Platelet Count 246 K/uL Mean Platelet Volume 9.0 fL Neutrophils (%) (Auto) 69.9 % Lymphocytes (%) (Auto) 17.4 % Monocytes (%) (Auto) 8.2 % Eosinophils (%) (Auto) 2.3 % Basophils (%) (Auto) 0.1 % Neutrophils # (Auto) 5.10 K/uL Lymphocytes # (Auto) 1.27 K/uL Monocytes # (Auto) 0.60 K/uL Eosinophils # (Auto) 0.17 K/uL Basophils # (Auto) 0.01 K/uL RDW Standard Deviation 48.3 fL RDW Coefficient of Variation 13.9 % Immature Granulocyte % (Auto) 2.1 % Immature Granulocyte # (Auto) 0.15 K/uL Prothrombin Time 16.0 SECONDS Prothromb Time International Ratio 1.5 Activated Partial Thromboplast Time 31.4 SECONDS Partial Thromboplastin Ratio 1.2 Sodium Level 132 mmol/L 133 mmol/L Potassium Level 3.0 mmol/L 4.0 mmol/L Chloride Level 93 mmol/L 96 mmol/L Carbon Dioxide Level 26 mmol/L 25 mmol/L Anion Gap 13.0 mmol/L 12.0 mmol/L Blood Urea Nitrogen 42 mg/dl 47 mg/dl Creatinine 6.00 mg/dl 6.50 mg/dl Est Creatinine Clear Calc Drug Dose 6.0 ml/min 5.0 ml/min Estimated GFR () 6.8 6.2 Estimated GFR (Non- 5.9 5.3 BUN/Creatinine Ratio 7.0 7.2 Random Glucose 115 mg/dl 134 mg/dl Calcium Level 8.5 mg/dl 7.8 mg/dl Magnesium Level 1.4 mg/dl Total Bilirubin 0.5 mg/dl Aspartate Amino Transf (AST/SGOT) 28 U/L Alanine Aminotransferase (ALT/SGPT) 26 U/L Alkaline Phosphatase 139 U/L Troponin I 0.067 ng/ml 1.220 ng/ml Total Protein 7.5 gm/dl Albumin 2.6 gm/dl Globulin 4.9 gm/dl Albumin/Globulin Ratio 0.5 Bedside Lactic Acid Venous 3.80 mmol/L Lactic Acid Level 2.9 mmol/L 4.4 mmol/L Total Creatine Kinase 152 U/L Creatine Kinase MB 7.6 ng/ml Creatine Kinase MB Ratio 5.0 Test 12/25/16 18:46 White Blood Count 11.18 K/uL Red Blood Count 3.16 M/uL Hemoglobin 10.2 g/dL Hematocrit 30.1 % Mean Corpuscular Volume 95.3 fL Mean Corpuscular Hemoglobin 32.3 pg Mean Corpuscular Hemoglobin Concent 33.9 g/dl Platelet Count 221 K/uL Mean Platelet Volume 9.2 fL Neutrophils (%) (Auto) 89.4 % Lymphocytes (%) (Auto) 5.1 % Monocytes (%) (Auto) 4.4 % Eosinophils (%) (Auto) 0.2 % Basophils (%) (Auto) 0.1 % Neutrophils # (Auto) 10.00 K/uL Lymphocytes # (Auto) 0.57 K/uL Monocytes # (Auto) 0.49 K/uL Eosinophils # (Auto) 0.02 K/uL Basophils # (Auto) 0.01 K/uL RDW Standard Deviation 49.9 fL RDW Coefficient of Variation 14.3 % Immature Granulocyte % (Auto) 0.8 % Immature Granulocyte # (Auto) 0.09 K/uL Total Creatine Kinase 240 U/L Creatine Kinase MB 7.7 ng/ml Creatine Kinase MB Ratio 3.2 Troponin I 1.730 ng/ml Date/Time Source Procedure Growth Status 12/25/16 02:34 Blood Blood Culture Pending Received 12/25/16 02:30 Blood Blood Culture Pending Received Assessment & Plan RIGHT HIP FRACTURE : s/p ORIF post op day 0 noted to be hypotensive post op transferred to ICU appears to be asymptomatic -- albumin ordered Manager Child consulted -- monitor in ICU ESRD ON PERITONEAL DIALYSIS/RECENT HX OF PERITONITIS : PD in progress cont Ceftazidime with PD blood cultures ordered : pending HX OF VALVULAR HEART DISEASE Severe Aortic Stenosis S/P Mitral and tricuspid valve repair follows with Cardiology Dr Song in [place] -- echo noted -- Cardiology consulted, cleared for surgery monitor volume status AFIB RVR : possible rapid afib lead to lightheadedness /fall ? added Beta lyn ordered for pace maker interrogation Coumadin on hold for Orthopedic procedure DYSPHAGIA : Last VFF on 06/19 showed moderate to sever esophageal dysmotility with tapering /narrowing of lower GE junction underwent EGD and dilatation Speech was consulted -Diet recommendation -dental soft /slippery diet with aspiration precaution speech eval requested FULL CODE -D/w pt DVT PROPHYLAXIS : coumadin on hold heparin sc on hold DISPOSITION : will need rehab post hip surgery PT/OT eval will be ordered when medically appropriate Social service consulted for discharge planning Level of Care Telemetry Resuscitation Status FULL RESUSCITATION VTE Prophylaxis VTE Risk Assessment Done? Y/N: Yes Risk Level: High Given or contraindicated: Unfractionated heparin SQ Additional Copies To Deepthi Childs D.O. Oncu, Kerim I., DO Current Inpatient Medications: Current Inpatient Medications Medications (Trade) Dose Ordered Sig/Seth Route Start Time Stop Time Status Last Admin Dose Admin Acetaminophen (Tylenol Tab) 650 mg Q4H PRN PO 12/25/16 05:45 01/24/17 05:44 Ondansetron HCl (Zofran Inj) 4 mg Q6H PRN IV 12/25/16 05:45 01/24/17 05:44 12/25/16 08:18 4 MG Polyethylene (Miralax Powder Packet) 17 gm DAILY PRN PO 12/25/16 05:45 01/24/17 05:44 Morphine Sulfate (MoRPHine SULFATE INJ) 1 mg Q4 PRN IV 12/25/16 05:45 01/08/17 05:44 12/25/16 08:16 1 MG Morphine Sulfate (MoRPHine SULFATE INJ) 2 mg Q4 PRN IV 12/25/16 05:45 01/08/17 05:44 12/25/16 11:45 2 MG Pantoprazole Sodium (Protonix Tab) 40 mg DAILY PO 12/25/16 09:00 01/24/17 08:59 12/25/16 08:07 40 MG Pravastatin Sodium (Pravachol Tab) 40 mg HS PO 12/25/16 21:00 01/24/17 20:59 Miscellaneous Information (Order Awaiting Action) 1 ea QS N/A 12/25/16 08:00 01/24/17 07:59 Vitamin B Complex/ Vit C/Folic Acid (Nephrocaps) 1 cap DAILY PO 12/25/16 09:00 01/24/17 08:59 12/25/16 08:06 1 CAP Enteral Nutritional Formula (Boost) 1 can 3XDQ4 PO 12/25/16 08:00 01/24/17 07:59 12/25/16 08:16 1 CAN Fentanyl Citrate (Fentanyl Inj) 25 mcg Q5M PRN IV 12/25/16 15:30 12/25/16 20:30 Ondansetron HCl (Zofran Inj) 4 mg ONE PRN IV 12/25/16 15:30 12/25/16 20:30 Ephedrine Sulfate (EpHEDrine SULFATE INJ) 5 mg Q5M PRN IV 12/25/16 15:30 12/25/16 20:30 Atropine Sulfate (Atropine Sulfate 0.1MG/Ml Inj) 0.5 mg Q1M PRN IV 12/25/16 15:30 12/25/16 20:30 Ceftazidime 750 mg/Peritoneal Dialysis [facility] 1,507.5 ml @ 0 mls/hr DAILY@0700 IP 12/26/16 07:00 01/05/17 06:59 Dextrose/Sodium Chloride 1,000 ml @ 75 mls/hr [id number] IV 12/25/16 17:35 01/24/17 17:34 Cefazolin Sodium 1000 mg/Dextrose 55 ml @ 100 mls/hr Q8H IV 12/25/16 22:00 12/26/16 06:32 Ondansetron HCl (Zofran Inj) 4 mg Q6H PRN IV 12/25/16 17:45 01/24/17 17:44 Acetaminophen (Tylenol Tab) 650 mg Q6H PRN PO 12/25/16 17:45 01/24/17 17:44 Miscellaneous Information (Standard Warfarin Nomogram) 1 ea DAILY@14 N/A 12/26/16 14:00 01/01/17 13:59 Phenylephrine HCl 20 mg/Dextrose 502 ml @ 0 mls/hr Q0M PRN IV 12/25/16 18:17 01/24/17 18:16 12/25/16 18:34 45 MLS/HR
--- NOTE | 2016-12-25 21:11 | Procedure Note ---
Procedure Note Procedure Date Dec 25, 2016. Central Line Procedure time out: side/site verified, patient ID confirmed, sterile procedure used Consent obtained: written Time of procedure: 20:40 Performed by: attending Indications: poor venous access, central drug admin. Prep: chlorhexadine prep, sterile drape, sterile procedures used Anesthesia: lidocaine 1% without epi Central line lumen: triple Central line location: internal jugular (R) Additional details: percutaneous placement, ultrasound guidance, Selinger technique used, line sutured, good blood return Complications: none Patient tolerated procedure: well Post-procedure vital signs: reviewed and stable Comments: Guidewire removed intact
[2016-12-25] MEDS ORDERED: SODIUM CHLORIDE 0.9% 1000ML 1,000 ML IV SCH ×2 (21:30→21:45)
[2016-12-25] MEDS: CEFAZOLIN IV 1,000 MG in DEXTROSE 5% 50ML 50 ML IV SCH (21:54)
[2016-12-25] MEDS: PRAVASTATIN SOD 40 MG TAB PO SCH (21:55)
[2016-12-25] MEDS: NOREPINEPHRINE BIT INJ 8 MG in DEXTROSE 5% 500ML 500 ML IV PRN (21:56)
--- NOTE | 2016-12-25 22:13 | DIAGNOSTIC IMAGING REPORT ---
CHEST ONE VIEW PORTABLE HISTORY: 86 years-old Female S/p right IJ TLC COMPARISON: Portable chest radiograph 12/25/2016 TECHNIQUE: Portable upright AP view of the chest FINDINGS: Cardiac silhouette is markedly enlarged, unchanged. Prior median sternotomy. Left pectoral pacer is noted with leads intact. Right internal jugular central venous catheter has been placed with distal tip terminating within the region of the mid SVC. No postprocedural pneumothorax is identified. There is atherosclerosis of the aorta. No pneumothorax, pleural effusion or overt pulmonary edema. Bones are grossly intact. IMPRESSION: 1. Status post placement of right internal jugular central venous catheter without postprocedural pneumothorax. 2. Marked cardiomegaly without overt pulmonary edema. The above report was generated using voice recognition software. It may contain grammatical, syntax or spelling errors. Electronically signed by: Kevin Rivas M.D. 12/25/2016 10:12 PM Dictated Date/Time: 12/25/2016 10:10 PM
[2016-12-25] MEDS ORDERED: NURSING VERBAL MED ORDER ONE (23:15)
[2016-12-25] MEDS: GUAIFENESIN SUGAR FREE 100 MG/5 ML UDC PO PRN (23:52)
[2016-12-26] VITALS (20 sets, daily range): BP systolic 93–133; BP diastolic 45–82; PULSE 85–120; TEMP 36.7–37; O2SAT 92–99
--- NOTE | 2016-12-26 02:03 | Critical Care Consultation ---
Critical Care Consultation Date of Consultation: Dec 26, 2016. Attending Physician: Gunner Pritchett MD Reason for Consultation: Cardiogenic shock History of Present Illness This is a 86 year-old female with h/o ESRD on peritoneal dialysis, severe aortic stenosis, PPM, a-fib on Coumadin, admitted for right hip fracture secondary to fall. She underwent pinning under general anesthesia. Pre-op she developed hypotension , required pressors support, and continued to remain pressor dependent during and after the pinning. EBL was 50 ml. Patient was extubated post procedure, awake, comfortable in the ICU, but still hypotensive. Denies chest pain, shortness of breath, dizziness Central line placed and switched from neosynephrine to norepinephrine. Undergoing peritoneal dialysis Past Medical/Surgical History (1) Status post mitral valve repair (2) Status post tricuspid valve repair (3) Status post cardiac pacemaker procedure (4) Spontaneous bacterial peritonitis (5) Elevated troponin (6) Closed right hip fracture (7) Hepatitis, chronic (8) Valvular heart disease (9) Paroxysmal atrial fibrillation (10) Hypertension (11) ESRD (end stage renal disease) on dialysis (12) Aortic stenosis (13) Right ventricular systolic dysfunction (14) Pulmonary hypertension (15) Atrial fibrillation with RVR Family History FH: heart disease Stroke Social History Smoking Status: Never Smoker Drug Use: none Marital Status: single Housing Status: lives with family 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 Allergies Coded Allergies: Sulfamethoxazole w/Trimethoprim (Verified Allergy, Severe, RASH, n/v, swelling of LE, 06/19/16) Home Medications Scheduled Ceftazidime (Ceftazidime), 1 DOSE INSTIL DAILY@1600 Cinacalcet (Sensipar), 30 MG PO DAILY Pantoprazole (Protonix), 40 MG PO DAILY Pravastatin Sodium (Pravastatin Sodium), 40 MG PO HS Warfarin Sodium (Warfarin Sodium), 4 MG PO 2XWK Warfarin Sodium (Warfarin Sodium), 2 MG PO 5XWK [Prorenal + D], 1 TAB PO DAILY Scheduled PRN Acetaminophen (Tylenol), 500 MG PO Q6H PRN for Pain Current Inpatient Medications Current Inpatient Medications Medications (Trade) Dose Ordered Sig/Seth Route Start Time Stop Time Status Last Admin Dose Admin Acetaminophen (Tylenol Tab) 650 mg Q4H PRN PO 12/25/16 05:45 01/24/17 05:44 Ondansetron HCl (Zofran Inj) 4 mg Q6H PRN IV 12/25/16 05:45 01/24/17 05:44 12/25/16 08:18 4 MG Polyethylene (Miralax Powder Packet) 17 gm DAILY PRN PO 12/25/16 05:45 01/24/17 05:44 Morphine Sulfate (MoRPHine SULFATE INJ) 1 mg Q4 PRN IV 12/25/16 05:45 01/08/17 05:44 12/25/16 08:16 1 MG Morphine Sulfate (MoRPHine SULFATE INJ) 2 mg Q4 PRN IV 12/25/16 05:45 01/08/17 05:44 12/25/16 11:45 2 MG Pantoprazole Sodium (Protonix Tab) 40 mg DAILY PO 12/25/16 09:00 01/24/17 08:59 12/25/16 08:07 40 MG Pravastatin Sodium (Pravachol Tab) 40 mg HS PO 12/25/16 21:00 01/24/17 20:59 12/25/16 21:55 40 MG Miscellaneous Information (Order Awaiting Action) 1 ea QS N/A 12/25/16 08:00 01/24/17 07:59 Vitamin B Complex/ Vit C/Folic Acid (Nephrocaps) 1 cap DAILY PO 12/25/16 09:00 01/24/17 08:59 12/25/16 08:06 1 CAP Enteral Nutritional Formula (Boost) 1 can 3XDQ4 PO 12/25/16 08:00 01/24/17 07:59 12/25/16 08:16 1 CAN Ceftazidime 750 mg/Peritoneal [facility] 1,507.5 ml @ 0 mls/hr DAILY@0700 IP 12/26/16 07:00 01/05/17 06:59 Cefazolin Sodium 1000 mg/Dextrose 55 ml @ 100 mls/hr Q8H IV 12/25/16 22:00 12/26/16 06:32 12/25/16 21:54 100 MLS/HR Ondansetron HCl (Zofran Inj) 4 mg Q6H PRN IV 12/25/16 17:45 01/24/17 17:44 Acetaminophen (Tylenol Tab) 650 mg Q6H PRN PO 12/25/16 17:45 01/24/17 17:44 Miscellaneous Information (Standard Warfarin Nomogram) 1 ea DAILY@14 N/A 12/26/16 14:00 01/01/17 13:59 Phenylephrine HCl 20 mg/Dextrose 502 ml @ 0 mls/hr Q0M PRN IV 12/25/16 18:17 01/24/17 18:16 12/25/16 18:34 45 MLS/HR Norepinephrine Bitartrate 8 mg/ Dextrose 508 ml @ 0 mls/hr Q0M PRN IV 12/25/16 21:21 01/24/17 21:20 12/25/16 21:56 11.3 MLS/HR Guaifenesin (Robitussin Sugar Free Syrup) 300 mg Q6H PRN PO 12/25/16 23:30 01/24/17 23:29 12/25/16 23:52 300 MG Review of Systems Per HPI, all other systems reviewed and negative Physical Exam Date Time Temp Pulse Resp B/P (MAP) Pulse Ox O2 Delivery O2 Flow Rate FiO2 12/26/16 00:15 87 93/49 (64) 96 99/53 (68) 12/26/16 00:01 36.8 96 22 116/68 (84) 97 Oxymask 4.0 93/49 (64) 12/25/16 23:59 98 Oxymask 12/25/16 23:45 92 110/73 (85) 98 12/25/16 23:30 88 117/56 (76) 98 12/25/16 23:15 98 117/72 (87) 81 12/25/16 23:00 83 109/61 (77) 90 12/25/16 22:45 91 102/59 (73) 92 12/25/16 22:30 77 97/69 (78) 92 12/25/16 22:16 81 95/40 (58) 93 12/25/16 22:15 84 89/45 (60) 92 12/25/16 22:00 90 115/68 (84) 91 12/25/16 21:45 82 105/68 (80) 92 12/25/16 21:34 84 100/62 (75) 94 12/25/16 21:31 73 74/50 (58) 90 12/25/16 21:30 75 98/48 (65) 93 12/25/16 21:15 74 103/62 (76) 93 12/25/16 21:00 91 124/64 (84) 97 12/25/16 20:45 76 102/62 (75) 94 12/25/16 20:30 74 91/59 (70) 94 12/25/16 20:30 36.7 72 80/50 (60) 12/25/16 20:16 77 75/34 (48) 92 12/25/16 20:15 71 67/23 (38) 91 12/25/16 20:01 86 88/45 (59) 94 12/25/16 20:00 79 88/44 (59) 98 12/25/16 20:00 94 Nasal Cannula 12/25/16 19:50 72 82/41 (55) 98 12/25/16 19:45 72 80/50 (60) 91 12/25/16 19:35 73 80/38 (52) 93 12/25/16 19:31 80 78/39 (52) 94 12/25/16 19:20 36.7 71 87/40 (56) 92 12/25/16 19:00 36.8 70 22 82/39 96 Nasal Cannula 4 85/55 12/25/16 18:50 71 22 82/42 94 Nasal Cannula 4 80/51 12/25/16 18:40 71 20 87/42 93 Nasal Cannula 4 98/50 12/25/16 18:30 71 20 88/43 93 Nasal Cannula 4 90/56 12/25/16 18:20 73 16 88/37 92 Nasal Cannula 4 12/25/16 18:10 36.4 73 16 77/38 97 Nasal Cannula 4 12/25/16 18:00 36.4 72 16 65/35 90 Nasal Cannula 4 12/25/16 17:50 72 16 78/39 90 Nasal Cannula 4 12/25/16 17:40 74 16 85/44 90 Oxymask 10 12/25/16 17:32 36.8 74 16 105/53 95 Oxymask 10 NIBP 12/25/16 14:52 84 16 84/42 (56) 97 Nasal Cannula 3 12/25/16 14:38 84 16 78/50 (59) 97 Nasal Cannula 3 12/25/16 14:15 85 18 85/55 (65) 98 Room Air 3 12/25/16 12:00 96 Nasal Cannula 12/25/16 11:49 36.8 84 17 91/60 (70) 97 Nasal Cannula 2.5 12/25/16 08:00 96 Nasal Cannula 12/25/16 07:52 36.6 106 20 101/67 (78) 96 Nasal Cannula 3.0 12/25/16 06:50 36.5 121 22 114/71 95 Nasal Cannula 3.0 12/25/16 05:35 110 16 116/64 97 Nasal Cannula 2.0 12/25/16 04:10 98 16 101/49 98 Nasal Cannula 2.0 12/25/16 02:20 119 12/25/16 02:16 91 Room Air 12/25/16 02:09 36.8 110 14 93/62 91 Room Air General: Elderly female, in no distress HEENT: NC/AT, dry oral mucosa Lungs: Bibasilar crackles CVS: S1S2 irregular Abd: Soft, NT, PD catheter Ext: dressing over right hip 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 Laboratory Results Last 24 Hours Test 12/25/16 01:22 12/25/16 02:39 12/25/16 11:53 12/25/16 18:41 White Blood Count 7.30 K/uL Red Blood Count 3.42 M/uL Hemoglobin 11.2 g/dL Hematocrit 32.5 % Mean Corpuscular Volume 95.0 fL Mean Corpuscular Hemoglobin 32.7 pg Mean Corpuscular Hemoglobin Concent 34.5 g/dl Platelet Count 246 K/uL Mean Platelet Volume 9.0 fL Neutrophils (%) (Auto) 69.9 % Lymphocytes (%) (Auto) 17.4 % Monocytes (%) (Auto) 8.2 % Eosinophils (%) (Auto) 2.3 % Basophils (%) (Auto) 0.1 % Neutrophils # (Auto) 5.10 K/uL Lymphocytes # (Auto) 1.27 K/uL Monocytes # (Auto) 0.60 K/uL Eosinophils # (Auto) 0.17 K/uL Basophils # (Auto) 0.01 K/uL RDW Standard Deviation 48.3 fL RDW Coefficient of Variation 13.9 % Immature Granulocyte % (Auto) 2.1 % Immature Granulocyte # (Auto) 0.15 K/uL Prothrombin Time 16.0 SECONDS Prothromb Time International Ratio 1.5 Activated Partial Thromboplast Time 31.4 SECONDS Partial Thromboplastin Ratio 1.2 Sodium Level 132 mmol/L 133 mmol/L Potassium Level 3.0 mmol/L 4.0 mmol/L Chloride Level 93 mmol/L 96 mmol/L Carbon Dioxide Level 26 mmol/L 25 mmol/L Anion Gap 13.0 mmol/L 12.0 mmol/L Blood Urea Nitrogen 42 mg/dl 47 mg/dl Creatinine 6.00 mg/dl 6.50 mg/dl Est Creatinine Clear Calc Drug Dose 6.0 ml/min 5.0 ml/min Estimated GFR () 6.8 6.2 Estimated GFR (Non- 5.9 5.3 BUN/Creatinine Ratio 7.0 7.2 Random Glucose 115 mg/dl 134 mg/dl Calcium Level 8.5 mg/dl 7.8 mg/dl Magnesium Level 1.4 mg/dl Total Bilirubin 0.5 mg/dl Aspartate Amino Transf (AST/SGOT) 28 U/L Alanine Aminotransferase (ALT/SGPT) 26 U/L Alkaline Phosphatase 139 U/L Troponin I 0.067 ng/ml 1.220 ng/ml Total Protein 7.5 gm/dl Albumin 2.6 gm/dl Globulin 4.9 gm/dl Albumin/Globulin Ratio 0.5 Bedside Lactic Acid Venous 3.80 mmol/L Lactic Acid Level 2.9 mmol/L 4.4 mmol/L Total Creatine Kinase 152 U/L Creatine Kinase MB 7.6 ng/ml Creatine Kinase MB Ratio 5.0 Test 12/25/16 18:46 12/25/16 21:58 12/25/16 23:37 White Blood Count 11.18 K/uL Red Blood Count 3.16 M/uL Hemoglobin 10.2 g/dL Hematocrit 30.1 % Mean Corpuscular Volume 95.3 fL Mean Corpuscular Hemoglobin 32.3 pg Mean Corpuscular Hemoglobin Concent 33.9 g/dl Platelet Count 221 K/uL Mean Platelet Volume 9.2 fL Neutrophils (%) (Auto) 89.4 % Lymphocytes (%) (Auto) 5.1 % Monocytes (%) (Auto) 4.4 % Eosinophils (%) (Auto) 0.2 % Basophils (%) (Auto) 0.1 % Neutrophils # (Auto) 10.00 K/uL Lymphocytes # (Auto) 0.57 K/uL Monocytes # (Auto) 0.49 K/uL Eosinophils # (Auto) 0.02 K/uL Basophils # (Auto) 0.01 K/uL RDW Standard Deviation 49.9 fL RDW Coefficient of Variation 14.3 % Immature Granulocyte % (Auto) 0.8 % Immature Granulocyte # (Auto) 0.09 K/uL Total Creatine Kinase 240 U/L Creatine Kinase MB 7.7 ng/ml Creatine Kinase MB Ratio 3.2 Troponin I 1.730 ng/ml Pro-B-Type Natriuretic Peptide > 35276 pg/ml Lactic Acid Level 3.8 mmol/L Bedside Glucose (other) 212 mg/dl Diagnostic Results CXR: 1. Status post placement of right internal jugular central venous catheter without postprocedural pneumothorax. 2. Marked cardiomegaly without overt pulmonary edema. Assessment & Plan Patient s/p right hip ORIF with intertrochanteric nailing, has been hypotensive , requiring pressors. She has severe cardiac disease, with severe cardiomegaly, severe aortic stenosis , cor pulmonale, a-fib. Most likely reason for her hypotension is cardiogenic shock. Continue pressors, changed to Levophed to provide additional inotropic support. Noted to have very high CVP, measured at 24 She had significant oozing from the TLC site. I doubt it is secondary to INR of 1.5, but caused by extremely elevated CVP. Applied pressure dressing Continue peritoneal dialysis. Avoid fluid overload Post-op care per ortho. PT if she stabilized hemodynamically Prognosis is guarded. Critical care time spent, greater than 30 minutes. Quinton Odonnell MD
[2016-12-26 05:18] LABS: HEMATOCRIT 28.8 % (37-47); MEAN CELL VOLUME 94.1 fL (80-100); PLATELET COUNT 191 K/uL (130-400); RED BLOOD COUNT 3.06 M/uL (4.2-5.4); WHITE BLOOD COUNT 11.48 K/uL (4.8-10.8)
[2016-12-26 05:39] LABS: BUN/CREATININE RATIO 6.6 (10-20); CALCIUM 7.6 mg/dl (8.5-10.1); CHOLESTEROL/HDL RATIO 2.4; CREATININE 5.8 mg/dl (0.60-1.20); MAGNESIUM 1.6 mg/dl (1.8-2.4); PHOSPHORUS 3.4 mg/dl (2.5-4.9); POTASSIUM 3.5 mmol/L (3.5-5.1)
[2016-12-26 05:47] LABS: PROTHROMBIN TIME (PATIENT) 21.5 SECONDS (9.0-12.0)
[2016-12-26] MEDS: CEFAZOLIN IV 1,000 MG in DEXTROSE 5% 50ML 50 ML IV SCH (06:10)
[2016-12-26] MEDS: GUAIFENESIN SUGAR FREE 100 MG/5 ML UDC PO PRN ×2 (06:10→19:24)
--- NOTE | 2016-12-26 07:22 | DIAGNOSTIC IMAGING REPORT ---
CHEST ONE VIEW PORTABLE CLINICAL HISTORY: 86 years-old Female presenting with Evaluate for pulmonary edema. TECHNIQUE: Portable upright AP view of the chest was obtained. COMPARISON: 12/25/2016. FINDINGS: Right internal jugular central venous catheter terminates in the SVC. Left-sided pacer with multiple epicardial leads unchanged. Median sternotomy wires and tricuspid and mitral prosthetic valves noted. Atherosclerosis of the aortic arch. Persistent enlargement of the cardiac silhouette. No focal infiltrate. Trace right pleural effusion may be present. No pneumothorax. Osseous structures normal. Upper abdomen normal. IMPRESSION: 1. Cardiomegaly. No evidence of pulmonary edema. Electronically signed by: Hansel Britt M.D. 12/26/2016 7:21 AM Dictated Date/Time: 12/26/2016 7:19 AM
[2016-12-26] MEDS: SENSIPAR~ORDER AWAITING ACTION SCH ×3 (07:40→23:27)
[2016-12-26] MEDS: BOOST VANILLA PO SCH ×2 (08:48)
[2016-12-26] MEDS: MoRPHine SULFATE 2 MG/ML CARP IV PRN (08:48)
[2016-12-26] MEDS: PANTOprazole SOD 40 MG TAB PO SCH (08:50)
[2016-12-26] MEDS: NEPHROCAPS PO SCH (08:50)
--- NOTE | 2016-12-26 09:39 | Cardiology Follow-Up ---
Subjective Date of Service: Dec 26, 2016. Pt evaluation today including: conversation w/ patient, physical exam, chart review, lab review, conversation w/ attending History of Present Illness Patient claims to be feeling well. She denies pain at the operative site. She denies significant breathing trouble. No sense of palpitations. Social History Smoking Status: Never Smoker History of Alcohol Use: Yes (1 or 2 glasses of wine per day) Review of Systems Respiratory: No shortness of breath Cardiac: No chest pain, No edema, No palpitations Objective Vital Signs Past 12 Hours Date Time Temp Pulse Resp B/P (MAP) Pulse Ox O2 Delivery O2 Flow Rate FiO2 12/26/16 08:00 36.7 85 20 116/72 (87) 99 Nasal Cannula 4.0 105/55 (72) 12/26/16 06:00 98 20 133/81 (98) 95 Nasal Cannula 112/50 (70) 12/26/16 04:00 92 Nasal Cannula 12/26/16 04:00 36.8 89 20 124/76 (92) 94 Nasal Cannula 121/62 (81) 12/26/16 02:00 98 20 123/82 (96) 92 Nasal Cannula 4.0 118/60 (79) 12/26/16 00:15 87 93/49 (64) 96 99/53 (68) 12/26/16 00:01 36.8 96 22 116/68 (84) 97 Oxymask 4.0 93/49 (64) 12/25/16 23:59 98 Oxymask 12/25/16 23:45 92 110/73 (85) 98 12/25/16 23:30 88 117/56 (76) 98 12/25/16 23:15 98 117/72 (87) 81 12/25/16 23:00 83 109/61 (77) 90 12/25/16 22:45 91 102/59 (73) 92 12/25/16 22:30 77 97/69 (78) 92 12/25/16 22:16 81 95/40 (58) 93 12/25/16 22:15 84 89/45 (60) 92 12/25/16 22:00 90 115/68 (84) 91 12/25/16 21:45 82 105/68 (80) 92 12/25/16 21:34 84 100/62 (75) 94 Last Recorded Weight-Kilograms: 62.000 Physical Exam Lungs: Respiratory effort: no dyspnea, good air movement Auscultation: breath sounds normal, pertinent finding (limited exam due to pt unable to sit up) Cardiovascular: Heart Auscultation: no rubs, no gallops, murmur (holosystolic murmur heard prominently over pulmonic and tricuspid area), irregular rate rhythm Peripheral Pulses: Bruits: none appreciated Carotid Pulse: normal on the left, normal on the right, pertinent finding ( prolonged carotid upstroke b/l) Radial Pulse: normal on the left, normal on the right Dorsalis Pedis Pulse: normal on the right, decreased on the left Extremities: no edema, varicosities No edema noted Data Laboratory Results: Last 24 Hours Test 12/25/16 11:53 12/25/16 18:41 12/25/16 18:46 12/25/16 21:58 Sodium Level 133 mmol/L Potassium Level 4.0 mmol/L Chloride Level 96 mmol/L Carbon Dioxide Level 25 mmol/L Anion Gap 12.0 mmol/L Blood Urea Nitrogen 47 mg/dl Creatinine 6.50 mg/dl Est Creatinine Clear Calc Drug Dose 5.0 ml/min Estimated GFR () 6.2 Estimated GFR (Non- 5.3 BUN/Creatinine Ratio 7.2 Random Glucose 134 mg/dl Lactic Acid Level 2.9 mmol/L 4.4 mmol/L 3.8 mmol/L Calcium Level 7.8 mg/dl Total Creatine Kinase 152 U/L 240 U/L Creatine Kinase MB 7.6 ng/ml 7.7 ng/ml Creatine Kinase MB Ratio 5.0 3.2 Troponin I 1.220 ng/ml 1.730 ng/ml White Blood Count 11.18 K/uL Red Blood Count 3.16 M/uL Hemoglobin 10.2 g/dL Hematocrit 30.1 % Mean Corpuscular Volume 95.3 fL Mean Corpuscular Hemoglobin 32.3 pg Mean Corpuscular Hemoglobin Concent 33.9 g/dl Platelet Count 221 K/uL Mean Platelet Volume 9.2 fL Neutrophils (%) (Auto) 89.4 % Lymphocytes (%) (Auto) 5.1 % Monocytes (%) (Auto) 4.4 % Eosinophils (%) (Auto) 0.2 % Basophils (%) (Auto) 0.1 % Neutrophils # (Auto) 10.00 K/uL Lymphocytes # (Auto) 0.57 K/uL Monocytes # (Auto) 0.49 K/uL Eosinophils # (Auto) 0.02 K/uL Basophils # (Auto) 0.01 K/uL RDW Standard Deviation 49.9 fL RDW Coefficient of Variation 14.3 % Immature Granulocyte % (Auto) 0.8 % Immature Granulocyte # (Auto) 0.09 K/uL Pro-B-Type Natriuretic Peptide > 61097 pg/ml Test 12/25/16 23:37 12/26/16 04:55 12/26/16 06:26 Bedside Glucose (other) 212 mg/dl 150 mg/dl White Blood Count 11.48 K/uL Red Blood Count 3.06 M/uL Hemoglobin 9.8 g/dL Hematocrit 28.8 % Mean Corpuscular Volume 94.1 fL Mean Corpuscular Hemoglobin 32.0 pg Mean Corpuscular Hemoglobin Concent 34.0 g/dl RDW Standard Deviation 48.5 fL RDW Coefficient of Variation 14.1 % Platelet Count 191 K/uL Mean Platelet Volume 9.0 fL Prothrombin Time 21.5 SECONDS Prothromb Time International Ratio 2.0 Sodium Level 132 mmol/L Potassium Level 3.5 mmol/L Chloride Level 97 mmol/L Carbon Dioxide Level 25 mmol/L Anion Gap 10.0 mmol/L Blood Urea Nitrogen 39 mg/dl Creatinine 5.80 mg/dl Est Creatinine Clear Calc Drug Dose 6.2 ml/min Estimated GFR () 7.1 Estimated GFR (Non- 6.1 BUN/Creatinine Ratio 6.6 Random Glucose 173 mg/dl Lactic Acid Level 2.3 mmol/L Calcium Level 7.6 mg/dl Phosphorus Level 3.4 mg/dl Magnesium Level 1.6 mg/dl Total Bilirubin 0.5 mg/dl Direct Bilirubin 0.2 mg/dl Aspartate Amino Transf (AST/SGOT) 48 U/L Alanine Aminotransferase (ALT/SGPT) 29 U/L Alkaline Phosphatase 108 U/L Troponin I 1.760 ng/ml Total Protein 6.4 gm/dl Albumin 2.3 gm/dl Triglycerides Level 119 mg/dl Cholesterol Level 120 mg/dl HDL Cholesterol 49 mg/dl LDL Cholesterol, Calculated 47 mg/dl VLDL Cholesterol, Calculated 24 mg/dl Cholesterol/HDL Ratio 2.4 EKG: Right bundle branch block with atrial fibrillation. No acute ST or T- wave changes Telemetry reviewed: Persistent atrial fibrillation Assessment and Plan 1. Hypertension: Patient is currently requiring some continued support with Levophed. Her overall LV systolic function appears preserved. She may have an element of hypotension related to her valvular heart disease. There also may be an element of distributive shock. At this point would seem reasonable to continue with gentle hydration and pressor support weaning as tolerated. 2. Valvular heart disease: Patient has an element of aortic stenosis and a history of both tricuspid and mitral valve disease. Given her aortic stenosis hemodynamic embarrassment may be poorly tolerated. Will need to monitor her volume status, blood pressures and need for pharmacotherapy carefully. 3. Atrial fibrillation: Permanent. Rate control appears to be adequate currently. Anticoagulation should be continued from a cardiac standpoint will defer the timing to the surgical service. 4. Pacemaker: She is noted to have poor function of the atrial lead. This is not appear to have any adverse consequences given her permanent atrial fibrillation. No evidence of pacing currently on her EKG. 5. Cor pulmonale: Patient does have an element of pulmonary hypertension and some right-sided failure on echocardiography. Overall her volume status appears to be well controlled with peritoneal dialysis. There is no evidence of right ventricular failure currently with the exception of a slightly elevated CVP. She likely has an element of preload dependence. Once again, will need to monitor her volume status closely and avoid significant reductions in her pre load. No evidence of pulmonary vascular congestion currently and she is known to have preserved LV systolic function.
[2016-12-26] MEDS: PERITONEAL 1.5% IP SCH (11:06)
[2016-12-26] MEDS: DIALYSIS IP SCH (11:06)
[2016-12-26] MEDS: CEFTAZIDIME IP SCH (11:06)
--- NOTE | 2016-12-26 12:09 | Orthopedic Progress Note ---
Orthopedic Progress Note Date of Service Dec 26, 2016. Subjective Post OP Day: 1 Reports: feeling well, light headedness (had a brief spell while in chair, in bed now feeling better), Denies: chest pain, SOB, nausea / vomiting Objective calves soft nontender, N/V intact, capillary refill less than 2 sec., dressing C /D/I, A&O x3, toes mobile Date Time Temp Pulse Resp B/P (MAP) Pulse Ox O2 Delivery O2 Flow Rate FiO2 12/26/16 10:00 36.7 106 22 96/52 (67) 96 Nasal Cannula 3.0 100/46 (64) 12/26/16 08:00 36.7 85 20 116/72 (87) 99 Nasal Cannula 4.0 105/55 (72) 12/26/16 08:00 99 Nasal Cannula 4.0 12/26/16 06:00 98 20 133/81 (98) 95 Nasal Cannula 112/50 (70) 12/26/16 04:00 92 Nasal Cannula 12/26/16 04:00 36.8 89 20 124/76 (92) 94 Nasal Cannula 121/62 (81) 12/26/16 02:00 98 20 123/82 (96) 92 Nasal Cannula 4.0 118/60 (79) 12/26/16 00:15 87 93/49 (64) 96 99/53 (68) 12/26/16 00:01 36.8 96 22 116/68 (84) 97 Oxymask 4.0 93/49 (64) 12/25/16 23:59 98 Oxymask 12/25/16 23:45 92 110/73 (85) 98 12/25/16 23:30 88 117/56 (76) 98 12/25/16 23:15 98 117/72 (87) 81 12/25/16 23:00 83 109/61 (77) 90 12/25/16 22:45 91 102/59 (73) 92 12/25/16 22:30 77 97/69 (78) 92 12/25/16 22:16 81 95/40 (58) 93 12/25/16 22:15 84 89/45 (60) 92 12/25/16 22:00 90 115/68 (84) 91 12/25/16 21:45 82 105/68 (80) 92 12/25/16 21:34 84 100/62 (75) 94 12/25/16 21:31 73 74/50 (58) 90 12/25/16 21:30 75 98/48 (65) 93 12/25/16 21:15 74 103/62 (76) 93 12/25/16 21:00 91 124/64 (84) 97 12/25/16 20:45 76 102/62 (75) 94 12/25/16 20:30 74 91/59 (70) 94 12/25/16 20:30 36.7 72 80/50 (60) 12/25/16 20:16 77 75/34 (48) 92 12/25/16 20:15 71 67/23 (38) 91 12/25/16 20:01 86 88/45 (59) 94 12/25/16 20:00 79 88/44 (59) 98 12/25/16 20:00 94 Nasal Cannula 12/25/16 19:50 72 82/41 (55) 98 12/25/16 19:45 72 80/50 (60) 91 12/25/16 19:35 73 80/38 (52) 93 12/25/16 19:31 80 78/39 (52) 94 12/25/16 19:20 36.7 71 87/40 (56) 92 12/25/16 19:00 36.8 70 22 82/39 96 Nasal Cannula 4 85/55 12/25/16 18:50 71 22 82/42 94 Nasal Cannula 4 80/51 12/25/16 18:40 71 20 87/42 93 Nasal Cannula 4 98/50 12/25/16 18:30 71 20 88/43 93 Nasal Cannula 4 90/56 12/25/16 18:20 73 16 88/37 92 Nasal Cannula 4 12/25/16 18:10 36.4 73 16 77/38 97 Nasal Cannula 4 12/25/16 18:00 36.4 72 16 65/35 90 Nasal Cannula 4 12/25/16 17:50 72 16 78/39 90 Nasal Cannula 4 12/25/16 17:40 74 16 85/44 90 Oxymask 10 12/25/16 17:32 36.8 74 16 105/53 95 Oxymask 10 NIBP 12/25/16 14:52 84 16 84/42 (56) 97 Nasal Cannula 3 12/25/16 14:38 84 16 78/50 (59) 97 Nasal Cannula 3 12/25/16 14:15 85 18 85/55 (65) 98 Room Air 3 Laboratory Results 24 Hours: Test 12/25/16 18:46 12/26/16 04:55 White Blood Count 11.18 K/uL Red Blood Count 3.16 M/uL Hemoglobin 10.2 g/dL 9.8 g/dL Hematocrit 30.1 % 28.8 % Mean Corpuscular Volume 95.3 fL Mean Corpuscular Hemoglobin 32.3 pg Mean Corpuscular Hemoglobin Concent 33.9 g/dl Platelet Count 221 K/uL Mean Platelet Volume 9.2 fL Neutrophils (%) (Auto) 89.4 % Lymphocytes (%) (Auto) 5.1 % Monocytes (%) (Auto) 4.4 % Eosinophils (%) (Auto) 0.2 % Basophils (%) (Auto) 0.1 % Neutrophils # (Auto) 10.00 K/uL Lymphocytes # (Auto) 0.57 K/uL Monocytes # (Auto) 0.49 K/uL Eosinophils # (Auto) 0.02 K/uL Basophils # (Auto) 0.01 K/uL Prothromb Time International Ratio 2.0 Prothrombin Time 21.5 SECONDS Assessment & Plan Assessment: POD #1 s/p right orif hip troch nail Plan: Discharge uncertain at this time. Physical therapy DVT prophylaxis- Teds, SCD Pt seen and examined, agree with above Inhouse Planning Pain Management: IV Tylenol DVT Prophylaxis: TEDs, SCDs Discharge Planning Discharge Planning: uncertain
[2016-12-26] MEDS: BOOST GLUCOSE CONTROL PO SCH ×2 (12:30→17:16)
[2016-12-26] MEDS ORDERED: NURSING VERBAL MED ORDER ONE (13:30)
--- NOTE | 2016-12-26 13:54 | Nephrology Progress Note ---
Nephrology Progress Note Date of Service: Dec 26, 2016. Subjective pain controlled; in icu after OR d/t hypotension, remains on pressor; denies sob but on 02; +flatulence and smear bm, has been bed to chair but bp dropped Objective Date Time Temp Pulse Resp B/P (MAP) Pulse Ox O2 Delivery O2 Flow Rate FiO2 12/26/16 12:00 96 Nasal Cannula 3.0 12/26/16 10:00 36.7 106 22 96/52 (67) 96 Nasal Cannula 3.0 100/46 (64) 12/26/16 08:00 36.7 85 20 116/72 (87) 99 Nasal Cannula 4.0 105/55 (72) 12/26/16 08:00 99 Nasal Cannula 4.0 12/26/16 06:00 98 20 133/81 (98) 95 Nasal Cannula 112/50 (70) 12/26/16 04:00 92 Nasal Cannula 12/26/16 04:00 36.8 89 20 124/76 (92) 94 Nasal Cannula 121/62 (81) 12/26/16 02:00 98 20 123/82 (96) 92 Nasal Cannula 4.0 118/60 (79) 12/26/16 00:15 87 93/49 (64) 96 99/53 (68) 12/26/16 00:01 36.8 96 22 116/68 (84) 97 Oxymask 4.0 93/49 (64) 12/25/16 23:59 98 Oxymask 12/25/16 23:45 92 110/73 (85) 98 12/25/16 23:30 88 117/56 (76) 98 12/25/16 23:15 98 117/72 (87) 81 12/25/16 23:00 83 109/61 (77) 90 12/25/16 22:45 91 102/59 (73) 92 12/25/16 22:30 77 97/69 (78) 92 12/25/16 22:16 81 95/40 (58) 93 12/25/16 22:15 84 89/45 (60) 92 12/25/16 22:00 90 115/68 (84) 91 12/25/16 21:45 82 105/68 (80) 92 12/25/16 21:34 84 100/62 (75) 94 12/25/16 21:31 73 74/50 (58) 90 12/25/16 21:30 75 98/48 (65) 93 12/25/16 21:15 74 103/62 (76) 93 12/25/16 21:00 91 124/64 (84) 97 12/25/16 20:45 76 102/62 (75) 94 12/25/16 20:30 74 91/59 (70) 94 12/25/16 20:30 36.7 72 80/50 (60) 12/25/16 20:16 77 75/34 (48) 92 12/25/16 20:15 71 67/23 (38) 91 12/25/16 20:01 86 88/45 (59) 94 12/25/16 20:00 79 88/44 (59) 98 12/25/16 20:00 94 Nasal Cannula 12/25/16 19:50 72 82/41 (55) 98 12/25/16 19:45 72 80/50 (60) 91 12/25/16 19:35 73 80/38 (52) 93 12/25/16 19:31 80 78/39 (52) 94 12/25/16 19:20 36.7 71 87/40 (56) 92 12/25/16 19:00 36.8 70 22 82/39 96 Nasal Cannula 4 85/55 12/25/16 18:50 71 22 82/42 94 Nasal Cannula 4 80/51 12/25/16 18:40 71 20 87/42 93 Nasal Cannula 4 98/50 12/25/16 18:30 71 20 88/43 93 Nasal Cannula 4 90/56 12/25/16 18:20 73 16 88/37 92 Nasal Cannula 4 12/25/16 18:10 36.4 73 16 77/38 97 Nasal Cannula 4 12/25/16 18:00 36.4 72 16 65/35 90 Nasal Cannula 4 12/25/16 17:50 72 16 78/39 90 Nasal Cannula 4 12/25/16 17:40 74 16 85/44 90 Oxymask 10 12/25/16 17:32 36.8 74 16 105/53 95 Oxymask 10 NIBP 12/25/16 14:52 84 16 84/42 (56) 97 Nasal Cannula 3 12/25/16 14:38 84 16 78/50 (59) 97 Nasal Cannula 3 12/25/16 14:15 85 18 85/55 (65) 98 Room Air 3 Physical Exam: General Appearance: WD/WN, no apparent distress (on 02NC, good historian, oriented x 3 nad), slight increased wob w/ speech Eyes: EOMI ENT: normal ENT inspection Neck: supple Respiratory/Chest: diminished bl bases and occasional exp wheeze Cardiovascular: + tachycardia in 90s, + systolic murmur, + irregularly irregular Abdomen: normal bowel sounds, non tender, soft, + pertinent finding distended w / fluid Extremities: no pedal edema, Neurologic/Psych: alert, normal mood/affect, oriented x 3 Skin: no jaundice, warm/dry, no rash Current Inpatient Medications Medications (Trade) Dose Ordered Sig/Seth Route Start Time Stop Time Status Last Admin Dose Admin Acetaminophen (Tylenol Tab) 650 mg Q4H PRN PO 12/25/16 05:45 01/24/17 05:44 Ondansetron HCl (Zofran Inj) 4 mg Q6H PRN IV 12/25/16 05:45 01/24/17 05:44 12/25/16 08:18 4 MG Polyethylene (Miralax Powder Packet) 17 gm DAILY PRN PO 12/25/16 05:45 01/24/17 05:44 Morphine Sulfate (MoRPHine SULFATE INJ) 1 mg Q4 PRN IV 12/25/16 05:45 01/08/17 05:44 12/26/16 08:48 1 MG Morphine Sulfate (MoRPHine SULFATE INJ) 2 mg Q4 PRN IV 12/25/16 05:45 01/08/17 05:44 12/25/16 11:45 2 MG Pantoprazole Sodium (Protonix Tab) 40 mg DAILY PO 12/25/16 09:00 01/24/17 08:59 12/26/16 08:50 40 MG Pravastatin Sodium (Pravachol Tab) 40 mg HS PO 12/25/16 21:00 01/24/17 20:59 12/25/16 21:55 40 MG Miscellaneous Information (Order Awaiting Action) 1 ea QS N/A 12/25/16 08:00 01/24/17 07:59 Vitamin B Complex/ Vit C/Folic Acid (Nephrocaps) 1 cap DAILY PO 12/25/16 09:00 01/24/17 08:59 12/26/16 08:50 1 CAP Ceftazidime 750 mg/Peritoneal Dialysis Solutions 1,507.5 ml @ 0 mls/hr DAILY@0700 IP 12/26/16 07:00 01/05/17 06:59 12/26/16 11:06 1,500 MLS/HR Ondansetron HCl (Zofran Inj) 4 mg Q6H PRN IV 12/25/16 17:45 01/24/17 17:44 Acetaminophen (Tylenol Tab) 650 mg Q6H PRN PO 12/25/16 17:45 01/24/17 17:44 Miscellaneous Information (Standard Warfarin Nomogram) 1 ea DAILY@14 N/A 12/26/16 14:00 01/01/17 13:59 Phenylephrine HCl 20 mg/Dextrose 502 ml @ 0 mls/hr Q0M PRN IV 12/25/16 18:17 01/24/17 18:16 12/25/16 18:34 45 MLS/HR Norepinephrine Bitartrate 8 mg/ Dextrose 508 ml @ 0 mls/hr Q0M PRN IV 12/25/16 21:21 01/24/17 21:20 12/25/16 21:56 11.3 MLS/HR Guaifenesin (Robitussin Sugar Free Syrup) 300 mg Q6H PRN PO 12/25/16 23:30 01/24/17 23:29 12/26/16 06:10 300 MG Enteral Nutritional Formula (Boost Glucose Control) 1 can 3XDQ4 PO 12/26/16 12:00 01/25/17 11:59 12/26/16 12:30 1 CAN Miscellaneous Information (Nursing Verbal Med Order) 1 ea ONE ONCE N/A 12/26/16 13:30 12/26/16 13:31 UNV Last 24 Hours Test 12/25/16 18:41 12/25/16 18:46 12/25/16 21:58 12/25/16 23:37 Lactic Acid Level 4.4 mmol/L 3.8 mmol/L White Blood Count 11.18 K/uL Red Blood Count 3.16 M/uL Hemoglobin 10.2 g/dL Hematocrit 30.1 % Mean Corpuscular Volume 95.3 fL Mean Corpuscular Hemoglobin 32.3 pg Mean Corpuscular Hemoglobin Concent 33.9 g/dl Platelet Count 221 K/uL Mean Platelet Volume 9.2 fL Neutrophils (%) (Auto) 89.4 % Lymphocytes (%) (Auto) 5.1 % Monocytes (%) (Auto) 4.4 % Eosinophils (%) (Auto) 0.2 % Basophils (%) (Auto) 0.1 % Neutrophils # (Auto) 10.00 K/uL Lymphocytes # (Auto) 0.57 K/uL Monocytes # (Auto) 0.49 K/uL Eosinophils # (Auto) 0.02 K/uL Basophils # (Auto) 0.01 K/uL RDW Standard Deviation 49.9 fL RDW Coefficient of Variation 14.3 % Immature Granulocyte % (Auto) 0.8 % Immature Granulocyte # (Auto) 0.09 K/uL Total Creatine Kinase 240 U/L Creatine Kinase MB 7.7 ng/ml Creatine Kinase MB Ratio 3.2 Troponin I 1.730 ng/ml Pro-B-Type Natriuretic Peptide > 20145 pg/ml Bedside Glucose (other) 212 mg/dl Test 12/26/16 04:55 12/26/16 06:26 12/26/16 12:18 White Blood Count 11.48 K/uL Red Blood Count 3.06 M/uL Hemoglobin 9.8 g/dL Hematocrit 28.8 % Mean Corpuscular Volume 94.1 fL Mean Corpuscular Hemoglobin 32.0 pg Mean Corpuscular Hemoglobin Concent 34.0 g/dl RDW Standard Deviation 48.5 fL RDW Coefficient of Variation 14.1 % Platelet Count 191 K/uL Mean Platelet Volume 9.0 fL Prothrombin Time 21.5 SECONDS Prothromb Time International Ratio 2.0 Sodium Level 132 mmol/L Potassium Level 3.5 mmol/L Chloride Level 97 mmol/L Carbon Dioxide Level 25 mmol/L Anion Gap 10.0 mmol/L Blood Urea Nitrogen 39 mg/dl Creatinine 5.80 mg/dl Est Creatinine Clear Calc Drug Dose 6.2 ml/min Estimated GFR () 7.1 Estimated GFR (Non- 6.1 BUN/Creatinine Ratio 6.6 Random Glucose 173 mg/dl Lactic Acid Level 2.3 mmol/L Calcium Level 7.6 mg/dl Phosphorus Level 3.4 mg/dl Magnesium Level 1.6 mg/dl Total Bilirubin 0.5 mg/dl Direct Bilirubin 0.2 mg/dl Aspartate Amino Transf (AST/SGOT) 48 U/L Alanine Aminotransferase (ALT/SGPT) 29 U/L Alkaline Phosphatase 108 U/L Troponin I 1.760 ng/ml Total Protein 6.4 gm/dl Albumin 2.3 gm/dl Triglycerides Level 119 mg/dl Cholesterol Level 120 mg/dl HDL Cholesterol 49 mg/dl LDL Cholesterol, Calculated 47 mg/dl VLDL Cholesterol, Calculated 24 mg/dl Cholesterol/HDL Ratio 2.4 Bedside Glucose (other) 150 mg/dl Bedside Glucose 193 mg/dl Date/Time Source Procedure Growth Status 12/26/16 13:40 Nasal MRSA DNA Surveillance Screen Pending [place] Batch Assessment & Plan 86 y/o F w/ ESRD on PD and currently undergoing outpt therapy for PD peritonitis admitted 12/25 w/ R hip and R pelvic fracture after a fall at home. ESRD on PD -blood pressure needs pressor support right now and volume status currently acceptable though note wheezing and hypoxia, slight increased wob. 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 Care coordinated with Dr Odonnell
[2016-12-26] MEDS ORDERED: STANDARD WARFARIN NOMOGRAM SCH (14:00)
[2016-12-26] MEDS ORDERED: EPOETIN ALFA 20,000 UNITS/ML VIAL SQ SCH (14:00)
[2016-12-26] MEDS: ALBUT/IPRATROP 3MG/0.5MG NEB 3 ML VIAL INH SCH ×2 (14:51→19:55)
[2016-12-26] MEDS ORDERED: MAGNESIUM SULFATE 1GM / D5W 1 GM in PREMIXED IN D5W 100 ML IV STA (14:51)
[2016-12-26] MEDS ORDERED: WARFARIN SOD 1 MG TAB PO SCH (16:00)
[2016-12-26 16:55] LABS: ALB/GLOB RATIO 0.5 (0.9-2); BUN/CREATININE RATIO 7.6 (10-20); MAGNESIUM 1.8 mg/dl (1.8-2.4)
[2016-12-26 16:56] LABS: CALCIUM 6.3 mg/dl (8.5-10.1); CREATININE 4.8 mg/dl (0.60-1.20); PHOSPHORUS 2.4 mg/dl (2.5-4.9); POTASSIUM 2.7 mmol/L (3.5-5.1)
[2016-12-26] MEDS: NOREPINEPHRINE BIT INJ 8 MG in DEXTROSE 5% 500ML 500 ML IV PRN (17:13)
[2016-12-26] MEDS ORDERED: POTASSIUM PHOS 3 MMOL/1 ML INFUSION IV STA (17:29)
--- NOTE | 2016-12-26 17:59 | Progress Note ---
Medicine Progress Note Date & Time of Visit: Dec 26, 2016 at 17:52. Subjective seen sitting up in bedside chair, in good spirits although still on Levophed, high dose denies significant pain no dizziness, chest pain, dyspnea, palpitations no abdominal pain no other symptoms Objective Last 8 Hrs Date Time Temp Pulse Resp B/P (MAP) Pulse Ox O2 Delivery O2 Flow Rate FiO2 12/26/16 16:00 96 Nasal Cannula 3.0 12/26/16 16:00 36.7 115 27 109/72 (84) 96 Nasal Cannula 3.0 104/45 (64) 12/26/16 14:36 116 22 94 Nasal Cannula 4.0 12/26/16 14:00 36.7 104 27 116/72 (87) 96 Nasal Cannula 3.0 107/53 (71) 12/26/16 12:00 96 Nasal Cannula 3.0 12/26/16 12:00 36.7 108 24 114/70 (85) 96 Nasal Cannula 3.0 12/26/16 11:10 37.0 106 110/63 (79) 12/26/16 10:00 36.7 106 22 96/52 (67) 96 Nasal Cannula 3.0 100/46 (64) Physical Exam: General- oriented x 3, not in distress, speaks in sentences with no effort Eyes- anicteric Neck- no JVD Lungs- clear to auscultation b/l, no rales/wheezes Heart- regular rhythm; no murmur, normal rate Abdomen- normal bowel sounds, soft, nontender Extremities- no pretibial edema, no calf tenderness right hip: dressing in place, no hematoma Neuro- alert, oriented x 3; no gross focal deficits Skin- warm & dry Laboratory Results: Last 24 Hours Test 12/25/16 18:41 12/25/16 18:46 12/25/16 21:58 12/25/16 23:37 Lactic Acid Level 4.4 mmol/L 3.8 mmol/L White Blood Count 11.18 K/uL Red Blood Count 3.16 M/uL Hemoglobin 10.2 g/dL Hematocrit 30.1 % Mean Corpuscular Volume 95.3 fL Mean Corpuscular Hemoglobin 32.3 pg Mean Corpuscular Hemoglobin Concent 33.9 g/dl Platelet Count 221 K/uL Mean Platelet Volume 9.2 fL Neutrophils (%) (Auto) 89.4 % Lymphocytes (%) (Auto) 5.1 % Monocytes (%) (Auto) 4.4 % Eosinophils (%) (Auto) 0.2 % Basophils (%) (Auto) 0.1 % Neutrophils # (Auto) 10.00 K/uL Lymphocytes # (Auto) 0.57 K/uL Monocytes # (Auto) 0.49 K/uL Eosinophils # (Auto) 0.02 K/uL Basophils # (Auto) 0.01 K/uL RDW Standard Deviation 49.9 fL RDW Coefficient of Variation 14.3 % Immature Granulocyte % (Auto) 0.8 % Immature Granulocyte # (Auto) 0.09 K/uL Total Creatine Kinase 240 U/L Creatine Kinase MB 7.7 ng/ml Creatine Kinase MB Ratio 3.2 Troponin I 1.730 ng/ml Pro-B-Type Natriuretic Peptide > 13917 pg/ml Bedside Glucose (other) 212 mg/dl Test 12/26/16 04:55 12/26/16 06:26 12/26/16 12:18 12/26/16 16:13 White Blood Count 11.48 K/uL Red Blood Count 3.06 M/uL Hemoglobin 9.8 g/dL Hematocrit 28.8 % Mean Corpuscular Volume 94.1 fL Mean Corpuscular Hemoglobin 32.0 pg Mean Corpuscular Hemoglobin Concent 34.0 g/dl RDW Standard Deviation 48.5 fL RDW Coefficient of Variation 14.1 % Platelet Count 191 K/uL Mean Platelet Volume 9.0 fL Prothrombin Time 21.5 SECONDS Prothromb Time International Ratio 2.0 Sodium Level 132 mmol/L 135 mmol/L Potassium Level 3.5 mmol/L 2.7 mmol/L Chloride Level 97 mmol/L 103 mmol/L Carbon Dioxide Level 25 mmol/L 23 mmol/L Anion Gap 10.0 mmol/L 9.0 mmol/L Blood Urea Nitrogen 39 mg/dl 37 mg/dl Creatinine 5.80 mg/dl 4.80 mg/dl Est Creatinine Clear Calc Drug Dose 6.2 ml/min 7.4 ml/min Estimated GFR () 7.1 8.9 Estimated GFR (Non- 6.1 7.7 BUN/Creatinine Ratio 6.6 7.6 Random Glucose 173 mg/dl 127 mg/dl Lactic Acid Level 2.3 mmol/L 1.3 mmol/L Calcium Level 7.6 mg/dl 6.3 mg/dl Phosphorus Level 3.4 mg/dl 2.4 mg/dl Magnesium Level 1.6 mg/dl 1.8 mg/dl Total Bilirubin 0.5 mg/dl 0.4 mg/dl Direct Bilirubin 0.2 mg/dl Aspartate Amino Transf (AST/SGOT) 48 U/L 32 U/L Alanine Aminotransferase (ALT/SGPT) 29 U/L 15 U/L Alkaline Phosphatase 108 U/L 89 U/L Troponin I 1.760 ng/ml Total Protein 6.4 gm/dl 5.2 gm/dl Albumin 2.3 gm/dl 1.8 gm/dl Triglycerides Level 119 mg/dl Cholesterol Level 120 mg/dl HDL Cholesterol 49 mg/dl LDL Cholesterol, Calculated 47 mg/dl VLDL Cholesterol, Calculated 24 mg/dl Cholesterol/HDL Ratio 2.4 Bedside Glucose (other) 150 mg/dl Bedside Glucose 193 mg/dl Ionized Calcium 0.96 mmol/l Globulin 3.4 gm/dl Albumin/Globulin Ratio 0.5 Date/Time Source Procedure Growth Status 12/25/16 19:00 Nasal MRSA DNA Surveillance Screen - Final Specimen Negative for MRSA by DNA Probe Complete Assessment & Plan RIGHT HIP FRACTURE s/p ORIF post op day 1 main issue at this time is hypotension HYPOTENSION likely Cardiogenic -- currently on Levophed gently IV fluids if needed -- continue to wean off Levophed as able appreciate Cardio and Nuclear Medical Tech Input ESRD ON PERITONEAL DIALYSIS/ RECENT HX OF PERITONITIS PD per Nephro cont Ceftazidime with PD blood cultures ordered : pending HX OF VALVULAR HEART DISEASE Severe Aortic Stenosis S/P Mitral and tricuspid valve repair follows with Cardiology Dr Song in [place] -- echo noted -- Cardiology consulted, cleared for surgery monitor volume status AFIB RVR : possible rapid afib lead to lightheadedness /fall ? added Beta lyn , now discontinued pacemaker interrogated Warfarin resumed, INR 2.0 DYSPHAGIA : Last VFF on 06/19 showed moderate to sever esophageal dysmotility with tapering /narrowing of lower GE junction underwent EGD and dilatation Speech was consulted -Diet recommendation -dental soft /slippery diet with aspiration precaution speech eval requested FULL CODE -D/w pt DVT PROPHYLAXIS : on coumadin DISPOSITION : will need rehab post hip surgery PT/OT eval will be ordered when medically appropriate Social service consulted for discharge planning Level of Care Telemetry Resuscitation Status FULL RESUSCITATION VTE Prophylaxis VTE Risk Assessment Done? Y/N: Yes Risk Level: High Given or contraindicated: Unfractionated heparin SQ Additional Copies To Deepthi Childs D.O. Oncu, Kerim I., DO Current Inpatient Medications: Current Inpatient Medications Medications (Trade) Dose Ordered Sig/Seth Route Start Time Stop Time Status Last Admin Dose Admin Acetaminophen (Tylenol Tab) 650 mg Q4H PRN PO 12/25/16 05:45 01/24/17 05:44 Ondansetron HCl (Zofran Inj) 4 mg Q6H PRN IV 12/25/16 05:45 01/24/17 05:44 12/25/16 08:18 4 MG Polyethylene (Miralax Powder Packet) 17 gm DAILY PRN PO 12/25/16 05:45 01/24/17 05:44 Morphine Sulfate (MoRPHine SULFATE INJ) 1 mg Q4 PRN IV 12/25/16 05:45 01/08/17 05:44 12/26/16 08:48 1 MG Morphine Sulfate (MoRPHine SULFATE INJ) 2 mg Q4 PRN IV 12/25/16 05:45 01/08/17 05:44 12/25/16 11:45 2 MG Pantoprazole Sodium (Protonix Tab) 40 mg DAILY PO 12/25/16 09:00 01/24/17 08:59 12/26/16 08:50 40 MG Pravastatin Sodium (Pravachol Tab) 40 mg HS PO 12/25/16 21:00 01/24/17 20:59 12/25/16 21:55 40 MG Miscellaneous Information (Order Awaiting Action) 1 ea QS N/A 12/25/16 08:00 01/24/17 07:59 Vitamin B Complex/ Vit C/Folic Acid (Nephrocaps) 1 cap DAILY PO 12/25/16 09:00 01/24/17 08:59 12/26/16 08:50 1 CAP Ceftazidime 750 mg/Peritoneal Dialysis Solutions 1,507.5 ml @ 0 mls/hr DAILY@0700 IP 12/26/16 07:00 01/05/17 06:59 12/26/16 11:06 1,500 MLS/HR Ondansetron HCl (Zofran Inj) 4 mg Q6H PRN IV 12/25/16 17:45 01/24/17 17:44 Acetaminophen (Tylenol Tab) 650 mg Q6H PRN PO 12/25/16 17:45 01/24/17 17:44 Miscellaneous Information (Standard Warfarin Nomogram) 1 ea DAILY@14 N/A 12/26/16 14:00 01/01/17 13:59 Future hold Phenylephrine HCl 20 mg/Dextrose 502 ml @ 0 mls/hr Q0M PRN IV 12/25/16 18:17 01/24/17 18:16 12/25/16 18:34 45 MLS/HR Norepinephrine Bitartrate 8 mg/ Dextrose 508 ml @ 0 mls/hr Q0M PRN IV 12/25/16 21:21 01/24/17 21:20 12/26/16 17:13 25 MLS/HR Guaifenesin (Robitussin Sugar Free Syrup) 300 mg Q6H PRN PO 12/25/16 23:30 01/24/17 23:29 12/26/16 06:10 300 MG Enteral Nutritional Formula (Boost Glucose Control) 1 can 3XDQ4 PO 12/26/16 12:00 01/25/17 11:59 12/26/16 17:16 1 CAN Warfarin Sodium (Coumadin Tab) 1 mg TODAY@1600 PO 12/26/16 16:00 12/26/16 18:00 12/26/16 17:17 1 MG Epoetin Shane (Procrit Inj) 20,000 units TODAY@1400 SQ 12/26/16 14:00 12/26/16 18:00 Albuterol/ Ipratropium (Duoneb) 3 ml QIDR INH 12/26/16 16:00 01/25/17 15:59 12/26/16 14:51 3 ML Calcium Chloride (Calcium Chloride 10%) 1,000 mg NOW STAT IV 12/26/16 17:27 12/26/16 17:28 UNV Potassium Phosphate (Potassium Phosphate Replacement) 15 mmol NOW STAT IV 12/26/16 17:29 12/26/16 17:30 UNV Potassium Chloride 20 meq/ Prmx 100 ml @ 50 mls/hr NOW STAT IV 12/26/16 17:29 12/26/16 19:28 UNV
[2016-12-26] MEDS ORDERED: CALCIUM CHLORIDE 10% 10 ML SYR IV STA (18:13)
[2016-12-26] MEDS ORDERED: POTASSIUM CHLR 20 MEQ / WTR 20 MEQ in PREMIXED WATER 100 ML IV ONE (18:15)
[2016-12-26] MEDS ORDERED: DIGOXIN INJ 500 MCG/2 ML AMP IV ONE (18:45)
[2016-12-26] MEDS ORDERED: POTASSIUM PHOSPHATE INJ 15 MMOL in SODIUM CHLORIDE 0.9% 250ML 250 ML IV SCH (18:45)
[2016-12-26] MEDS ORDERED: DIGOXIN IV 500 MCG in SYRINGE 8 ML IV SCH (19:00)
[2016-12-26] MEDS: PRAVASTATIN SOD 40 MG TAB PO SCH (20:59)
[2016-12-26] MEDS ORDERED: AMIODARONE IV BOLUS / DRIP IV STA (21:19)
[2016-12-26] MEDS ORDERED: AMIODARONE 150MG / 100ML D5W ONE (21:23)
--- NOTE | 2016-12-26 21:25 | Progress Note ---
Progress Note Date of Service Dec 26, 2016. Progress Note Pt remains in rapid Afib RVR was given IV Digoxin earlier -with no improvement of HR HR 120-130 on Levophed gtt evaluated at bedside , pt denies of any complain of palpitation , SOB , chest heaviness or dizzy spell D/w care mgr pt started on IV Amiodarone bolus followed by cont IV Gtt HR improved to 80's to 70's remains in Afib will update AM provider Cardiology following
[2016-12-26] MEDS ORDERED: AMIODARONE / D5W 200 ML IV SCH (22:30)
[2016-12-26 22:34] LABS: ALB/GLOB RATIO 0.5 (0.9-2); BUN/CREATININE RATIO 7.5 (10-20); CREATININE 5.7 mg/dl (0.60-1.20); MAGNESIUM 1.7 mg/dl (1.8-2.4); PHOSPHORUS 3.3 mg/dl (2.5-4.9)
[2016-12-26 22:35] LABS: CALCIUM 8.2 mg/dl (8.5-10.1); POTASSIUM 3.8 mmol/L (3.5-5.1)
[2016-12-27] VITALS (21 sets, daily range): BP systolic 101–128; BP diastolic 36–74; PULSE 83–106; TEMP 36.7–36.8; O2SAT 6–97
[2016-12-27] MEDS: GUAIFENESIN SUGAR FREE 100 MG/5 ML UDC PO PRN (01:33)
[2016-12-27] MEDS: AMIODARONE / D5W 200 ML IV SCH ×2 (03:57→17:31)
[2016-12-27 05:18] LABS: HEMATOCRIT 26.3 % (37-47); MEAN CORPUSCULAR HEMOGLOBIN 31.8 pg (25-34); MEAN CORPUSCULAR HGB CONC 34.6 g/dl (32-36); PLATELET COUNT 136 K/uL (130-400); RED BLOOD COUNT 2.86 M/uL (4.2-5.4); WHITE BLOOD COUNT 12.14 K/uL (4.8-10.8)
[2016-12-27 05:27] LABS: PROTHROMBIN TIME (PATIENT) 22.4 SECONDS (9.0-12.0)
[2016-12-27 05:51] LABS: ALB/GLOB RATIO 0.5 (0.9-2); ALKALINE PHOSPHATASE 102 U/L (45-117); ALT/SGPT 10 U/L (12-78); AST/SGOT 28 U/L (15-37); BLOOD UREA NITROGEN 37 mg/dl (7-18); BUN/CREATININE RATIO 7.2 (10-20); CALCIUM 7.5 mg/dl (8.5-10.1); CARBON DIOXIDE 24 mmol/L (21-32); CHLORIDE 97 mmol/L (98-107); GLUCOSE 148 mg/dl (70-99); MAGNESIUM 1.7 mg/dl (1.8-2.4); PHOSPHORUS 3.4 mg/dl (2.5-4.9); POTASSIUM 3.4 mmol/L (3.5-5.1); SODIUM 131 mmol/L (136-145)
[2016-12-27] MEDS ORDERED: MAGNESIUM SULFATE 1GM / D5W 1 GM in PREMIXED IN D5W 100 ML IV STA (06:24)
[2016-12-27] MEDS: POTASSIUM CHLR 10 MEQ / WTR 10 MEQ in PREMIXED WATER 100 ML IV SCH ×4 (06:35→09:40)
--- NOTE | 2016-12-27 07:29 | DIAGNOSTIC IMAGING REPORT ---
CHEST ONE VIEW PORTABLE HISTORY: 86 years-old Female Hypoxia COMPARISON: Portable chest radiograph 12/26/2016 TECHNIQUE: Portable upright AP view of the chest FINDINGS: Markedly enlarged cardiac silhouette is again seen with prior median sternotomy. Left pectoral pacer is noted with leads appearing to be intact. Pulmonary vascular congestion is redemonstrated without overt pulmonary edema. Subsegmental linear bibasilar and perihilar opacities suggest atelectasis, also unchanged. There is mild chronic blunting of the costophrenic angles without pneumothorax or large pleural effusion. Right internal jugular central venous catheter appears unchanged. The bones appear grossly intact. Upper abdomen is grossly unremarkable. There is atherosclerosis of the aorta. IMPRESSION: Stable exam with cardiomegaly and pulmonary vascular congestion without overt pulmonary edema. The above report was generated using voice recognition software. It may contain grammatical, syntax or spelling errors. Electronically signed by: Kevin Rivas M.D. 12/27/2016 7:27 AM Dictated Date/Time: 12/27/2016 7:26 AM
[2016-12-27] MEDS: ALBUT/IPRATROP 3MG/0.5MG NEB 3 ML VIAL INH SCH ×2 (07:31→11:38)
[2016-12-27] MEDS: SENSIPAR~ORDER AWAITING ACTION SCH ×3 (08:00→23:02)
[2016-12-27] MEDS: NEPHROCAPS PO SCH (08:12)
[2016-12-27] MEDS: PANTOprazole SOD 40 MG TAB PO SCH (08:12)
[2016-12-27] MEDS: BOOST GLUCOSE CONTROL PO SCH ×3 (08:23→16:00)
[2016-12-27] MEDS ORDERED: MAGNESIUM SULFATE 1GM / D5W 1 GM in PREMIXED IN D5W 100 ML IV ONE (08:45)
[2016-12-27] MEDS: CEFTAZIDIME IP SCH (09:16)
[2016-12-27] MEDS: DIALYSIS IP SCH (09:16)
[2016-12-27] MEDS: PERITONEAL 1.5% IP SCH (09:16)
[2016-12-27] MEDS ORDERED: NURSING VERBAL MED ORDER ONE (09:30)
--- NOTE | 2016-12-27 10:46 | Orthopedic Progress Note ---
Orthopedic Progress Note Date of Service Dec 27, 2016. Subjective Post OP Day: 2 Reports: feeling well, Denies: complaints Objective calves soft nontender, dressing C/D/I Date Time Temp Pulse Resp B/P (MAP) Pulse Ox O2 Delivery O2 Flow Rate FiO2 12/27/16 10:00 36.7 106 20 128/57 (80) 93 Nasal Cannula 3.0 113/41 (65) 12/27/16 09:41 36.7 99 104/53 (70) 12/27/16 09:40 36.7 99 26 104/53 (70) 12/27/16 08:00 36.7 89 20 107/57 (74) 93 Nasal Cannula 3.0 101/36 (57) 12/27/16 08:00 93 Nasal Cannula 3.0 12/27/16 07:33 97 22 97 Nasal Cannula 4.0 12/27/16 06:00 91 20 105/37 (59) 95 Nasal Cannula 3.0 103/61 (75) 12/27/16 04:00 36.8 94 23 103/36 (58) 96 Nasal Cannula 3.0 108/59 (75) 12/27/16 04:00 96 Nasal Cannula 3.0 12/27/16 02:00 93 23 123/74 (90) 97 Nasal Cannula 3.0 116/40 (65) 12/27/16 00:01 104 22 104/39 (60) 96 Nasal Cannula 3.0 113/59 (77) 12/26/16 23:59 95 Nasal Cannula 3.0 12/26/16 22:00 98 21 119/59 (79) 95 Nasal Cannula 3.0 117/45 (69) 12/26/16 21:00 36.8 112 121/72 (88) 12/26/16 20:25 36.8 112 20 121/72 (88) 12/26/16 20:00 95 Nasal Cannula 3.0 12/26/16 20:00 37.0 114 25 121/72 (88) 93 Nasal Cannula 3.0 118/46 (70) 12/26/16 19:55 115 22 97 Nasal Cannula 4.0 12/26/16 19:23 108 12/26/16 18:00 36.7 120 26 109/50 (69) 96 Nasal Cannula 3.0 98/60 (73) 12/26/16 16:00 96 Nasal Cannula 3.0 12/26/16 16:00 36.7 115 27 109/72 (84) 96 Nasal Cannula 3.0 104/45 (64) 12/26/16 14:36 116 22 94 Nasal Cannula 4.0 12/26/16 14:00 36.7 104 27 116/72 (87) 96 Nasal Cannula 3.0 107/53 (71) 12/26/16 12:00 96 Nasal Cannula 3.0 12/26/16 12:00 36.7 108 24 114/70 (85) 96 Nasal Cannula 3.0 12/26/16 11:10 37.0 106 110/63 (79) Laboratory Results 24 Hours: Test 12/27/16 05:02 Hematocrit 26.3 % Hemoglobin 9.1 g/dL Prothromb Time International Ratio 2.0 Prothrombin Time 22.4 SECONDS Assessment & Plan Assessment: POD #2 s/p right orif hip troch nail Plan: Discharge uncertain at this time. Physical therapy when able DVT prophylaxis- Teds, SCD, Coumadin Hgb 9.1 Inhouse Planning Pain Management: IV Tylenol DVT Prophylaxis: TEDs, SCDs Discharge Planning Discharge Planning: uncertain
--- NOTE | 2016-12-27 11:07 | Cardiology Follow-Up ---
Subjective Date of Service: Dec 27, 2016. Pt evaluation today including: conversation w/ patient, physical exam, chart review, lab review, review of studies, conversation w/ network systems consultant History of Present Illness Patient reports some pressure sensation at her operative site. This appears to be fairly mild and positional. She denies significant breathing difficulty but did have some mild dizziness when attempting to stand recently. No sense of palpitations. No chest pain. Social History Smoking Status: Never Smoker History of Alcohol Use: Yes (1 or 2 glasses of wine per day) Review of Systems Respiratory: No shortness of breath Cardiac: No chest pain, No edema, No palpitations Objective Vital Signs Past 12 Hours Date Time Temp Pulse Resp B/P (MAP) Pulse Ox O2 Delivery O2 Flow Rate FiO2 12/27/16 10:00 36.7 106 20 128/57 (80) 93 Nasal Cannula 3.0 113/41 (65) 12/27/16 09:41 36.7 99 104/53 (70) 12/27/16 09:40 36.7 99 26 104/53 (70) 12/27/16 08:00 36.7 89 20 107/57 (74) 93 Nasal Cannula 3.0 101/36 (57) 12/27/16 08:00 93 Nasal Cannula 3.0 12/27/16 07:33 97 22 97 Nasal Cannula 4.0 12/27/16 06:00 91 20 105/37 (59) 95 Nasal Cannula 3.0 103/61 (75) 12/27/16 04:00 36.8 94 23 103/36 (58) 96 Nasal Cannula 3.0 108/59 (75) 12/27/16 04:00 96 Nasal Cannula 3.0 12/27/16 02:00 93 23 123/74 (90) 97 Nasal Cannula 3.0 116/40 (65) 12/27/16 00:01 104 22 104/39 (60) 96 Nasal Cannula 3.0 113/59 (77) 12/26/16 23:59 95 Nasal Cannula 3.0 Last Recorded Weight-Kilograms: 63.200 Intake & Output 8-Hour Column 12/27/16 12/28/16 12/28/16 16:00 00:00 08:00 Intake Total 15024 ml Output Total 71432 ml Balance -4046 ml 24-Hour Column 12/28/16 08:00 Intake Total 60197 ml Output Total 47463 ml Balance -4046 ml Physical Exam Lungs: Respiratory effort: no dyspnea, good air movement Auscultation: breath sounds normal, expiratory wheezing, pertinent finding ( limited exam due to pt unable to sit up) Cardiovascular: Heart Auscultation: no rubs, no gallops, murmur (holosystolic murmur heard prominently over pulmonic and tricuspid area), irregular rate rhythm Peripheral Pulses: Bruits: none appreciated Carotid Pulse: normal on the left, normal on the right, pertinent finding ( prolonged carotid upstroke b/l) Radial Pulse: normal on the left, normal on the right Dorsalis Pedis Pulse: normal on the right, decreased on the left Extremities: no edema, varicosities No edema noted Data Laboratory Results: Last 24 Hours Test 12/26/16 12:18 12/26/16 16:13 12/26/16 21:53 12/27/16 04:44 Bedside Glucose 193 mg/dl Sodium Level 135 mmol/L 129 mmol/L Potassium Level 2.7 mmol/L 3.8 mmol/L Chloride Level 103 mmol/L 96 mmol/L Carbon Dioxide Level 23 mmol/L 22 mmol/L Anion Gap 9.0 mmol/L 11.0 mmol/L Blood Urea Nitrogen 37 mg/dl 43 mg/dl Creatinine 4.80 mg/dl 5.70 mg/dl Est Creatinine Clear Calc Drug Dose 7.4 ml/min 6.3 ml/min Estimated GFR () 8.9 7.3 Estimated GFR (Non- 7.7 6.3 BUN/Creatinine Ratio 7.6 7.5 Random Glucose 127 mg/dl 176 mg/dl Lactic Acid Level 1.3 mmol/L Calcium Level 6.3 mg/dl 8.2 mg/dl Ionized Calcium 0.96 mmol/l 1.07 mmol/l Phosphorus Level 2.4 mg/dl 3.3 mg/dl Magnesium Level 1.8 mg/dl 1.7 mg/dl Total Bilirubin 0.4 mg/dl 0.4 mg/dl Aspartate Amino Transf (AST/SGOT) 32 U/L 35 U/L Alanine Aminotransferase (ALT/SGPT) 15 U/L 14 U/L Alkaline Phosphatase 89 U/L 106 U/L Total Protein 5.2 gm/dl 6.2 gm/dl Albumin 1.8 gm/dl 2.1 gm/dl Globulin 3.4 gm/dl 4.1 gm/dl Albumin/Globulin Ratio 0.5 0.5 Creatine Kinase MB Ratio Test 12/27/16 05:02 White Blood Count 12.14 K/uL Red Blood Count 2.86 M/uL Hemoglobin 9.1 g/dL Hematocrit 26.3 % Mean Corpuscular Volume 92.0 fL Mean Corpuscular Hemoglobin 31.8 pg Mean Corpuscular Hemoglobin Concent 34.6 g/dl RDW Standard Deviation 47.3 fL RDW Coefficient of Variation 14.1 % Platelet Count 136 K/uL Mean Platelet Volume 9.0 fL Prothrombin Time 22.4 SECONDS Prothromb Time International Ratio 2.0 Sodium Level 131 mmol/L Potassium Level 3.4 mmol/L Chloride Level 97 mmol/L Carbon Dioxide Level 24 mmol/L Anion Gap 10.0 mmol/L Blood Urea Nitrogen 37 mg/dl Creatinine 5.20 mg/dl Est Creatinine Clear Calc Drug Dose 7.0 ml/min Estimated GFR () 8.1 Estimated GFR (Non- 7.0 BUN/Creatinine Ratio 7.2 Random Glucose 148 mg/dl Calcium Level 7.5 mg/dl Phosphorus Level 3.4 mg/dl Magnesium Level 1.7 mg/dl Total Bilirubin 0.4 mg/dl Aspartate Amino Transf (AST/SGOT) 28 U/L Alanine Aminotransferase (ALT/SGPT) 10 U/L Alkaline Phosphatase 102 U/L Creatine Kinase MB 4.5 ng/ml Troponin I 0.802 ng/ml Total Protein 5.9 gm/dl Albumin 1.9 gm/dl Globulin 4.0 gm/dl Albumin/Globulin Ratio 0.5 Imaging: Cardiomegaly with cephalization. Telemetry reviewed: Permanent atrial fibrillation with gradually increasing ventricular rates. Assessment and Plan 1. Hypotension: The patient was titrated off of pressor support around 4:00 a.m. but this was re-initiated as her blood pressure dropped again. She also had some symptoms of hypotension when attempting to stand and bear weight on her leg. I suspect she has an element of hypovolemia. At the time of her admission her CVP was higher than it is currently. She is known to have an element of right ventricular failure and pulmonary hypertension. I suspect she requires more pre load overall. I will be more liberal with her dialysis in avoids taking off as much fluid. After discussion with the lime kiln worker helper, albumin may be administered and we could even consider a fluid challenge. While she does have some blood loss are overall hemoglobin appears adequate currently. 2. Valvular heart disease: Patient has an element of aortic stenosis and a history of both tricuspid and mitral valve disease. I do not think that her valvular disease is playing any and acute role in her current hypotension. 3. Atrial fibrillation: Permanent. Elevated heart rates currently likely due to her volume status. I will be anxious to see if this improves with increase in her CVP. She was given a single dose of digoxin last evening without any notable improvement in heart rate. She was started on amiodarone infusion with some improvement in heart rate. All this would seem reasonable in the short term, I suspect that when she is off pressors and her volume status has returned to normal she will not require any additional agents. 4. Pacemaker: She is noted to have poor function of the atrial lead. This is not appear to have any adverse consequences given her permanent atrial fibrillation. No evidence of pacing currently on her EKG. 5. Cor pulmonale: Patient does have an element of pulmonary hypertension and some right-sided failure on echocardiography. Overall her volume status appears to be well controlled with peritoneal dialysis. There is no evidence of right ventricular failure currently with the exception of a slightly elevated CVP. She likely has an element of preload dependence. Once again, will need to monitor her volume status closely and avoid significant reductions in her pre load. No evidence of pulmonary vascular congestion currently and she is known to have preserved LV systolic function.
[2016-12-27] MEDS ORDERED: FLUTICASONE PROPIONATE NA SPR 16 GM BTL ONE (11:15)
--- NOTE | 2016-12-27 12:26 | Progress Note ---
Medicine Progress Note Date & Time of Visit: Dec 27, 2016 at 12:20. Subjective patient seen resting in bed events of last night noted states she feels fine overall denies chest pain, dyspnea, palpitations, dizziness does report dry cough which is chronic hip pain is minimal no other symptoms Objective Last 8 Hrs Date Time Temp Pulse Resp B/P (MAP) Pulse Ox O2 Delivery O2 Flow Rate FiO2 12/27/16 11:39 83 22 90 Nasal Cannula 3.0 12/27/16 10:00 36.7 106 20 128/57 (80) 93 Nasal Cannula 3.0 113/41 (65) 12/27/16 09:41 36.7 99 104/53 (70) 12/27/16 09:40 36.7 99 26 104/53 (70) 12/27/16 08:00 36.7 89 20 107/57 (74) 93 Nasal Cannula 3.0 101/36 (57) 12/27/16 08:00 93 Nasal Cannula 3.0 12/27/16 07:33 97 22 97 Nasal Cannula 4.0 12/27/16 06:00 91 20 105/37 (59) 95 Nasal Cannula 3.0 103/61 (75) Physical Exam: General- oriented x 3, not in distress, speaks in sentences with no effort Lungs- clear breath sounds bilaterally, no rales/wheezes Heart- irregularly irregular rhythm; no murmur, normal rate Abdomen- normal bowel sounds, soft, nontender Extremities- no pretibial edema, no calf tenderness right hip: dressing in place, no hematoma Neuro- alert, oriented x 3; no gross focal deficits Skin- warm & dry Laboratory Results: Last 24 Hours Test 12/26/16 16:13 12/26/16 21:53 12/27/16 04:44 12/27/16 05:02 Sodium Level 135 mmol/L 129 mmol/L 131 mmol/L Potassium Level 2.7 mmol/L 3.8 mmol/L 3.4 mmol/L Chloride Level 103 mmol/L 96 mmol/L 97 mmol/L Carbon Dioxide Level 23 mmol/L 22 mmol/L 24 mmol/L Anion Gap 9.0 mmol/L 11.0 mmol/L 10.0 mmol/L Blood Urea Nitrogen 37 mg/dl 43 mg/dl 37 mg/dl Creatinine 4.80 mg/dl 5.70 mg/dl 5.20 mg/dl Est Creatinine Clear Calc Drug Dose 7.4 ml/min 6.3 ml/min 7.0 ml/min Estimated GFR () 8.9 7.3 8.1 Estimated GFR (Non- 7.7 6.3 7.0 BUN/Creatinine Ratio 7.6 7.5 7.2 Random Glucose 127 mg/dl 176 mg/dl 148 mg/dl Lactic Acid Level 1.3 mmol/L Calcium Level 6.3 mg/dl 8.2 mg/dl 7.5 mg/dl Ionized Calcium 0.96 mmol/l 1.07 mmol/l Phosphorus Level 2.4 mg/dl 3.3 mg/dl 3.4 mg/dl Magnesium Level 1.8 mg/dl 1.7 mg/dl 1.7 mg/dl Total Bilirubin 0.4 mg/dl 0.4 mg/dl 0.4 mg/dl Aspartate Amino Transf (AST/SGOT) 32 U/L 35 U/L 28 U/L Alanine Aminotransferase (ALT/SGPT) 15 U/L 14 U/L 10 U/L Alkaline Phosphatase 89 U/L 106 U/L 102 U/L Total Protein 5.2 gm/dl 6.2 gm/dl 5.9 gm/dl Albumin 1.8 gm/dl 2.1 gm/dl 1.9 gm/dl Globulin 3.4 gm/dl 4.1 gm/dl 4.0 gm/dl Albumin/Globulin Ratio 0.5 0.5 0.5 Creatine Kinase MB Ratio White Blood Count 12.14 K/uL Red Blood Count 2.86 M/uL Hemoglobin 9.1 g/dL Hematocrit 26.3 % Mean Corpuscular Volume 92.0 fL Mean Corpuscular Hemoglobin 31.8 pg Mean Corpuscular Hemoglobin Concent 34.6 g/dl RDW Standard Deviation 47.3 fL RDW Coefficient of Variation 14.1 % Platelet Count 136 K/uL Mean Platelet Volume 9.0 fL Prothrombin Time 22.4 SECONDS Prothromb Time International Ratio 2.0 Creatine Kinase MB 4.5 ng/ml Troponin I 0.802 ng/ml Date/Time Source Procedure Growth Status 12/26/16 13:40 Nasal MRSA DNA Surveillance Screen Pending Jay Jay Batch Assessment & Plan RIGHT HIP FRACTURE s/p ORIF post op day 2 minimal hip pain PT/OT when medically stable HYPOTENSION likely Cardiogenic -- currently on Levophed gentle IV fluids as needed -- continue to wean off Levophed as able 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 ATRIAL FIBRILLATION -- Amiodarone started for RVR -- HR improved monitor -- INR 2.0 warfarin 1mg for today ESRD ON PERITONEAL DIALYSIS/ RECENT HX OF PERITONITIS PD per Nephro cont Ceftazidime with PD until 01/07/17 blood cultures ordered : negative HX OF VALVULAR HEART DISEASE Severe Aortic Stenosis S/P Mitral and tricuspid valve repair follows with Cardiology Dr Song in [place] -- echo noted -- Cardiology consulted, cleared for surgery monitor volume status DYSPHAGIA : Last VFF on 06/19 showed moderate to sever esophageal dysmotility with tapering /narrowing of lower GE junction underwent EGD and dilatation Speech was consulted -Diet recommendation -dental soft /slippery diet with aspiration precaution speech eval requested FULL CODE -D/w pt DVT PROPHYLAXIS : on coumadin DISPOSITION : will need rehab post hip surgery PT/OT eval will be ordered when medically appropriate Social service consulted for discharge planning Level of Care Telemetry Resuscitation Status FULL RESUSCITATION VTE Prophylaxis VTE Risk Assessment Done? Y/N: Yes Risk Level: High Given or contraindicated: Unfractionated heparin SQ Additional Copies To Deepthi Childs D.O. Oncu, Kerim I., DO Current Inpatient Medications: Current Inpatient Medications Medications (Trade) Dose Ordered Sig/Seth Route Start Time Stop Time Status Last Admin Dose Admin Polyethylene (Miralax Powder Packet) 17 gm DAILY PRN PO 12/25/16 05:45 01/24/17 05:44 Morphine Sulfate (MoRPHine SULFATE INJ) 1 mg Q4 PRN IV 12/25/16 05:45 01/08/17 05:44 12/26/16 08:48 1 MG Morphine Sulfate (MoRPHine SULFATE INJ) 2 mg Q4 PRN IV 12/25/16 05:45 01/08/17 05:44 12/25/16 11:45 2 MG Pantoprazole Sodium (Protonix Tab) 40 mg DAILY PO 12/25/16 09:00 01/24/17 08:59 12/27/16 08:12 40 MG Pravastatin Sodium (Pravachol Tab) 40 mg HS PO 12/25/16 21:00 01/24/17 20:59 12/26/16 20:59 40 MG Miscellaneous Information (Order Awaiting Action) 1 ea QS N/A 12/25/16 08:00 01/24/17 07:59 Vitamin B Complex/ Vit C/Folic Acid (Nephrocaps) 1 cap DAILY PO 12/25/16 09:00 01/24/17 08:59 12/27/16 08:12 1 CAP Ceftazidime 750 mg/Peritoneal Dialysis Solutions 1,507.5 ml @ 0 mls/hr DAILY@0700 IP 12/26/16 07:00 12/27/16 13:59 12/27/16 09:16 1,500 MLS/HR Ondansetron HCl (Zofran Inj) 4 mg Q6H PRN IV 12/25/16 17:45 01/24/17 17:44 Acetaminophen (Tylenol Tab) 650 mg Q6H PRN PO 12/25/16 17:45 01/24/17 17:44 Miscellaneous Information (Standard Warfarin Nomogram) 1 ea DAILY@14 N/A 12/26/16 14:00 01/01/17 13:59 Future hold Phenylephrine HCl 20 mg/Dextrose 502 ml @ 0 mls/hr Q0M PRN IV 12/25/16 18:17 01/24/17 18:16 12/25/16 18:34 45 MLS/HR Norepinephrine Bitartrate 8 mg/ Dextrose 508 ml @ 0 mls/hr Q0M PRN IV 12/25/16 21:21 01/24/17 21:20 12/26/16 17:13 25 MLS/HR Guaifenesin (Robitussin Sugar Free Syrup) 300 mg Q6H PRN PO 12/25/16 23:30 01/24/17 23:29 12/27/16 01:33 300 MG Enteral Nutritional Formula (Boost Glucose Control) 1 can 3XDQ4 PO 12/26/16 12:00 01/25/17 11:59 12/27/16 12:16 1 CAN Albuterol/ Ipratropium (Duoneb) 3 ml QIDR INH 12/26/16 16:00 01/25/17 15:59 12/27/16 11:38 3 ML Amiodarone HCL/ Dextrose 200 ml @ 16.7 mls/hr [id number] IV 12/27/16 04:30 01/26/17 04:29 12/27/16 03:57 16.7 MLS/HR Fluticasone Propionate (Flonase Nasal [place]) 2 sprays DAILY NA 12/28/16 09:00 01/27/17 08:59
[2016-12-27] MEDS ORDERED: BISACODYL 10 MG SUPP PR STA (13:24)
[2016-12-27] MEDS ORDERED: DOCUSATE SODIUM 100 MG CAP PO ONE (13:24)
[2016-12-27] MEDS ORDERED: BISACODYL 10 MG SUPP PR PRN (13:30)
--- NOTE | 2016-12-27 13:42 | Nephrology Progress Note ---
Nephrology Progress Note Date of Service: Dec 27, 2016. Subjective pain controlled; in icu still after OR d/t hypotension; had some cardiac arrhythmias last evening >> on amio now and got digoxin dose, some mag; remains on pressor; denies sob but on 02; no further bm after smear yesterday am, no abd pain or n; 2.3L UF overnight on PD Objective Date Time Temp Pulse Resp B/P (MAP) Pulse Ox O2 Delivery O2 Flow Rate FiO2 12/27/16 12:00 36.7 99 24 106/51 (69) 6 Nasal Cannula 3.0 113/40 (64) 12/27/16 12:00 96 Nasal Cannula 3.0 12/27/16 11:39 83 22 90 Nasal Cannula 3.0 12/27/16 10:00 36.7 106 20 128/57 (80) 93 Nasal Cannula 3.0 113/41 (65) 12/27/16 09:41 36.7 99 104/53 (70) 12/27/16 09:40 36.7 99 26 104/53 (70) 12/27/16 08:00 36.7 89 20 107/57 (74) 93 Nasal Cannula 3.0 101/36 (57) 12/27/16 08:00 93 Nasal Cannula 3.0 12/27/16 07:33 97 22 97 Nasal Cannula 4.0 12/27/16 06:00 91 20 105/37 (59) 95 Nasal Cannula 3.0 103/61 (75) 12/27/16 04:00 36.8 94 23 103/36 (58) 96 Nasal Cannula 3.0 108/59 (75) 12/27/16 04:00 96 Nasal Cannula 3.0 12/27/16 02:00 93 23 123/74 (90) 97 Nasal Cannula 3.0 116/40 (65) 12/27/16 00:01 104 22 104/39 (60) 96 Nasal Cannula 3.0 113/59 (77) 12/26/16 23:59 95 Nasal Cannula 3.0 12/26/16 22:00 98 21 119/59 (79) 95 Nasal Cannula 3.0 117/45 (69) 12/26/16 21:00 36.8 112 121/72 (88) 12/26/16 20:25 36.8 112 20 121/72 (88) 12/26/16 20:00 95 Nasal Cannula 3.0 12/26/16 20:00 37.0 114 25 121/72 (88) 93 Nasal Cannula 3.0 118/46 (70) 12/26/16 19:55 115 22 97 Nasal Cannula 4.0 12/26/16 19:23 108 12/26/16 18:00 36.7 120 26 109/50 (69) 96 Nasal Cannula 3.0 98/60 (73) 12/26/16 16:00 96 Nasal Cannula 3.0 12/26/16 16:00 36.7 115 27 109/72 (84) 96 Nasal Cannula 3.0 104/45 (64) 12/26/16 14:36 116 22 94 Nasal Cannula 4.0 12/26/16 14:00 36.7 104 27 116/72 (87) 96 Nasal Cannula 3.0 107/53 (71) Physical Exam: General Appearance: WD/WN, no apparent distress (on 02NC, good historian, oriented x 3 nad), slight increased wob w/ speech, up in chair Eyes: EOMI ENT: normal ENT inspection Neck: supple Respiratory/Chest: diminished bl bases and occasional exp wheeze Cardiovascular: + tachycardia in 100s, + systolic murmur, + irregularly irregular Abdomen: normal bowel sounds, non tender, soft, + pertinent finding distended w / fluid Extremities: no pedal edema, Neurologic/Psych: alert, normal mood/affect, oriented x 3 Skin: no jaundice, warm/dry, no rash Current Inpatient Medications Medications (Trade) Dose Ordered Sig/Seth Route Start Time Stop Time Status Last Admin Dose Admin Polyethylene (Miralax Powder Packet) 17 gm DAILY PRN PO 12/25/16 05:45 01/24/17 05:44 Morphine Sulfate (MoRPHine SULFATE INJ) 1 mg Q4 PRN IV 12/25/16 05:45 01/08/17 05:44 12/26/16 08:48 1 MG Morphine Sulfate (MoRPHine SULFATE INJ) 2 mg Q4 PRN IV 12/25/16 05:45 01/08/17 05:44 12/25/16 11:45 2 MG Pantoprazole Sodium (Protonix Tab) 40 mg DAILY PO 12/25/16 09:00 01/24/17 08:59 12/27/16 08:12 40 MG Pravastatin Sodium (Pravachol Tab) 40 mg HS PO 12/25/16 21:00 01/24/17 20:59 12/26/16 20:59 40 MG Miscellaneous Information (Order Awaiting Action) 1 ea QS N/A 12/25/16 08:00 01/24/17 07:59 Vitamin B Complex/ Vit C/Folic Acid (Nephrocaps) 1 cap DAILY PO 12/25/16 09:00 01/24/17 08:59 12/27/16 08:12 1 CAP Ceftazidime 750 mg/Peritoneal Dialysis Solutions 1,507.5 ml @ 0 mls/hr DAILY@0700 IP 12/26/16 07:00 12/27/16 13:59 12/27/16 09:16 1,500 MLS/HR Ondansetron HCl (Zofran Inj) 4 mg Q6H PRN IV 12/25/16 17:45 01/24/17 17:44 Acetaminophen (Tylenol Tab) 650 mg Q6H PRN PO 12/25/16 17:45 01/24/17 17:44 Phenylephrine HCl 20 mg/Dextrose 502 ml @ 0 mls/hr Q0M PRN IV 12/25/16 18:17 01/24/17 18:16 12/25/16 18:34 45 MLS/HR Norepinephrine Bitartrate 8 mg/ Dextrose 508 ml @ 0 mls/hr Q0M PRN IV 12/25/16 21:21 01/24/17 21:20 12/26/16 17:13 25 MLS/HR Guaifenesin (Robitussin Sugar Free Syrup) 300 mg Q6H PRN PO 12/25/16 23:30 01/24/17 23:29 12/27/16 01:33 300 MG Enteral Nutritional Formula (Boost Glucose Control) 1 can 3XDQ4 PO 12/26/16 12:00 01/25/17 11:59 12/27/16 12:16 1 CAN Amiodarone HCL/ Dextrose 200 ml @ 16.7 mls/hr [id number] IV 12/27/16 04:30 01/26/17 04:29 12/27/16 03:57 16.7 MLS/HR Fluticasone Propionate (Flonase Nasal [place]) 2 sprays DAILY NA 12/28/16 09:00 01/27/17 08:59 Levalbuterol (Xopenex 0.63 Mg/ 3 Ml Neb) 0.63 mg Q6R PRN INH 12/27/16 12:30 01/26/17 12:29 UNV Warfarin Sodium (Coumadin Tab) 1 mg DAILY@16 PO 12/27/16 16:00 01/26/17 15:59 UNV Last 24 Hours Test 12/26/16 16:13 12/26/16 21:53 12/27/16 04:44 12/27/16 05:02 Sodium Level 135 mmol/L 129 mmol/L 131 mmol/L Potassium Level 2.7 mmol/L 3.8 mmol/L 3.4 mmol/L Chloride Level 103 mmol/L 96 mmol/L 97 mmol/L Carbon Dioxide Level 23 mmol/L 22 mmol/L 24 mmol/L Anion Gap 9.0 mmol/L 11.0 mmol/L 10.0 mmol/L Blood Urea Nitrogen 37 mg/dl 43 mg/dl 37 mg/dl Creatinine 4.80 mg/dl 5.70 mg/dl 5.20 mg/dl Est Creatinine Clear Calc Drug Dose 7.4 ml/min 6.3 ml/min 7.0 ml/min Estimated GFR () 8.9 7.3 8.1 Estimated GFR (Non- 7.7 6.3 7.0 BUN/Creatinine Ratio 7.6 7.5 7.2 Random Glucose 127 mg/dl 176 mg/dl 148 mg/dl Lactic Acid Level 1.3 mmol/L Calcium Level 6.3 mg/dl 8.2 mg/dl 7.5 mg/dl Ionized Calcium 0.96 mmol/l 1.07 mmol/l Phosphorus Level 2.4 mg/dl 3.3 mg/dl 3.4 mg/dl Magnesium Level 1.8 mg/dl 1.7 mg/dl 1.7 mg/dl Total Bilirubin 0.4 mg/dl 0.4 mg/dl 0.4 mg/dl Aspartate Amino Transf (AST/SGOT) 32 U/L 35 U/L 28 U/L Alanine Aminotransferase (ALT/SGPT) 15 U/L 14 U/L 10 U/L Alkaline Phosphatase 89 U/L 106 U/L 102 U/L Total Protein 5.2 gm/dl 6.2 gm/dl 5.9 gm/dl Albumin 1.8 gm/dl 2.1 gm/dl 1.9 gm/dl Globulin 3.4 gm/dl 4.1 gm/dl 4.0 gm/dl Albumin/Globulin Ratio 0.5 0.5 0.5 Creatine Kinase MB Ratio White Blood Count 12.14 K/uL Red Blood Count 2.86 M/uL Hemoglobin 9.1 g/dL Hematocrit 26.3 % Mean Corpuscular Volume 92.0 fL Mean Corpuscular Hemoglobin 31.8 pg Mean Corpuscular Hemoglobin Concent 34.6 g/dl RDW Standard Deviation 47.3 fL RDW Coefficient of Variation 14.1 % Platelet Count 136 K/uL Mean Platelet Volume 9.0 fL Prothrombin Time 22.4 SECONDS Prothromb Time International Ratio 2.0 Creatine Kinase MB 4.5 ng/ml Troponin I 0.802 ng/ml Test 12/27/16 12:46 Bedside Glucose 182 mg/dl Date/Time Source Procedure Growth Status 12/26/16 13:40 Nasal MRSA DNA Surveillance Screen Pending Jay Jay Batch Assessment & Plan 86 y/o F w/ ESRD on PD and on outpt antibiotics for PD peritonitis admitted w/ R hip and R pelvic fracture after a fall at home. s/p 12/26 repair, admitted to ICU postop w/ pressor dependent hypotension and some cardiac arrhythmias ESRD on PD -blood pressure needs pressor support right now and volume status currently acceptable though note wheezing and hypoxia, slight increased wob. er PD nursing staff who know her well, sbp tends to run in 90s-low 100s; cor pulmonale and arrhythmias >will keep her on pressors ON -hypokalemia noted > getting 20 mEq IV -tonight plan 6 x 2L exchs all 1.5% over 12 hrs; then no LBF and in am do manual exchange 1.5L of 1.5% w/ 750 mg ceftazidime to dwell at least 6 hrs >>needs bowel movement daily >> avoid fleets; will give miralax, softeners, prune juice PD peritonitis -continue ceftazidime through 01/07 -no abd pain or gi complaints; no issues w/ exit site >> vital for this reason and others that she move bowels daily Anemia of esrd -on mircera as outpt; will give epo 95721 units SQ once; daily cbc HEBERT -note sensipar on hold for now; monitor HEBERT and cont to hold sensipar Hip and pelvis fractures -f/u ortho and PT recs Appreciate consult; will follow with you. Care coordinated with Dr Odonnell
--- NOTE | 2016-12-27 13:59 | Critical Care Progress Note ---
Critical Care Progress Note Date of Service Dec 27, 2016. Attending Dr. Odonnell Subjective S/p peritoneal dialysis HR improved with amiodarone infusion Less short of breath today Objective General: Elderly female, in no distress HEENT: NC/AT, dry oral mucosa Lungs: Bibasilar crackles CVS: S1S2 irregular Abd: Soft, NT, PD catheter Ext: dressing over right hip THERAPY DIRECTOR: No focal deficit CXR today: Markedly enlarged cardiac silhouette is again seen with prior median sternotomy. Left pectoral pacer is noted with leads appearing to be intact. Pulmonary vascular congestion is redemonstrated without overt pulmonary edema. Subsegmental linear bibasilar and perihilar opacities suggest atelectasis, also unchanged. There is mild chronic blunting of the costophrenic angles without pneumothorax or large pleural effusion. Right internal jugular central venous catheter appears unchanged. The bones appear grossly intact. Upper abdomen is grossly unremarkable. There is atherosclerosis of the aorta. Assessment & Plan Patient s/p right hip ORIF with intertrochanteric nailing, has been hypotensive , requiring pressors. She has severe cardiac disease, with severe cardiomegaly, severe aortic stenosis , cor pulmonale, a-fib. Most likely reason for her hypotension is cardiogenic shock, possible RV failure She also has a history of peritonitis secondary to PD, being treated with ceftazidime Shock - Continue pressor support. She had significant oozing from the TLC site initially. I doubt it is secondary to INR of 1.5, but caused by extremely elevated CVP. Applied pressure dressing Initially her CVP has been high, at 24. Today it became much lower, 8-12. Cardiology following closely. At this point we'll try to avoid lowering her RV preload. May bolus her gently if needed. Will administer albumin today A-fib - Continue amiodarone drip for today, can't receive beta-blockers Continue anticoagulation with Coumadin. ESRD on PD - Continue peritoneal dialysis. Replenish lytes as needed Hip fracture - Post-op care per ortho. JUAN R tochair. Once off pressors, ambulate patient in the hallway Prognosis is guarded. DVT prophylaxis - on Coumadin Critical care time spent, greater than 30 minutes. Quinton Odonnell MD Consults & Procedures Consultants: Cardiology - Dr Bundy Nephrology - Dr Andersonrudolph Perea Procedures: 12/25/16 - right IJ TLC 12/25/16 left radial a-line 12/25/16 - right hip ORIF with intertrochanteric nailing Data Medications: Current Inpatient Medications Medications (Trade) Dose Ordered Sig/Seth Route Start Time Stop Time Status Last Admin Dose Admin Polyethylene (Miralax Powder Packet) 17 gm DAILY PRN PO 12/25/16 05:45 01/24/17 05:44 Morphine Sulfate (MoRPHine SULFATE INJ) 1 mg Q4 PRN IV 12/25/16 05:45 01/08/17 05:44 12/26/16 08:48 1 MG Morphine Sulfate (MoRPHine SULFATE INJ) 2 mg Q4 PRN IV 12/25/16 05:45 01/08/17 05:44 12/25/16 11:45 2 MG Pantoprazole Sodium (Protonix Tab) 40 mg DAILY PO 12/25/16 09:00 01/24/17 08:59 12/27/16 08:12 40 MG Pravastatin Sodium (Pravachol Tab) 40 mg HS PO 12/25/16 21:00 01/24/17 20:59 12/26/16 20:59 40 MG Miscellaneous Information (Order Awaiting Action) 1 ea QS N/A 12/25/16 08:00 01/24/17 07:59 Vitamin B Complex/ Vit C/Folic Acid (Nephrocaps) 1 cap DAILY PO 12/25/16 09:00 01/24/17 08:59 12/27/16 08:12 1 CAP Ceftazidime 750 mg/Peritoneal Dialysis Solutions 1,507.5 ml @ 0 mls/hr DAILY@0700 IP 12/26/16 07:00 12/27/16 13:59 12/27/16 09:16 1,500 MLS/HR Ondansetron HCl (Zofran Inj) 4 mg Q6H PRN IV 12/25/16 17:45 01/24/17 17:44 Acetaminophen (Tylenol Tab) 650 mg Q6H PRN PO 12/25/16 17:45 01/24/17 17:44 Phenylephrine HCl 20 mg/Dextrose 502 ml @ 0 mls/hr Q0M PRN IV 12/25/16 18:17 01/24/17 18:16 12/25/16 18:34 45 MLS/HR Norepinephrine Bitartrate 8 mg/ Dextrose 508 ml @ 0 mls/hr Q0M PRN IV 12/25/16 21:21 01/24/17 21:20 12/26/16 17:13 25 MLS/HR Guaifenesin (Robitussin Sugar Free Syrup) 300 mg Q6H PRN PO 12/25/16 23:30 01/24/17 23:29 12/27/16 01:33 300 MG Enteral Nutritional Formula (Boost Glucose Control) 1 can 3XDQ4 PO 12/26/16 12:00 01/25/17 11:59 12/27/16 12:16 1 CAN Amiodarone HCL/ Dextrose 200 ml @ 16.7 mls/hr [id number] IV 12/27/16 04:30 01/26/17 04:29 12/27/16 03:57 16.7 MLS/HR Fluticasone Propionate (Flonase Nasal [place]) 2 sprays DAILY NA 12/28/16 09:00 01/27/17 08:59 Levalbuterol (Xopenex 0.63 Mg/ 3 Ml Neb) 0.63 mg Q6R PRN INH 12/27/16 12:30 01/26/17 12:29 UNV Warfarin Sodium (Coumadin Tab) 1 mg DAILY@16 PO 12/27/16 16:00 01/26/17 15:59 UNV I & O: 24-Hour Column 12/28/16 08:00 Intake Total 68364 ml Output Total 79710 ml Balance -4046 ml Vital Signs: Date Time Temp Pulse Resp B/P (MAP) Pulse Ox O2 Delivery O2 Flow Rate FiO2 12/27/16 12:00 36.7 99 24 106/51 (69) 6 Nasal Cannula 3.0 113/40 (64) 12/27/16 12:00 96 Nasal Cannula 3.0 12/27/16 11:39 83 22 90 Nasal Cannula 3.0 12/27/16 10:00 36.7 106 20 128/57 (80) 93 Nasal Cannula 3.0 113/41 (65) 12/27/16 09:41 36.7 99 104/53 (70) 12/27/16 09:40 36.7 99 26 104/53 (70) 12/27/16 08:00 36.7 89 20 107/57 (74) 93 Nasal Cannula 3.0 101/36 (57) 12/27/16 08:00 93 Nasal Cannula 3.0 12/27/16 07:33 97 22 97 Nasal Cannula 4.0 12/27/16 06:00 91 20 105/37 (59) 95 Nasal Cannula 3.0 103/61 (75) 12/27/16 04:00 36.8 94 23 103/36 (58) 96 Nasal Cannula 3.0 108/59 (75) 12/27/16 04:00 96 Nasal Cannula 3.0 12/27/16 02:00 93 23 123/74 (90) 97 Nasal Cannula 3.0 116/40 (65) 12/27/16 00:01 104 22 104/39 (60) 96 Nasal Cannula 3.0 113/59 (77) 12/26/16 23:59 95 Nasal Cannula 3.0 12/26/16 22:00 98 21 119/59 (79) 95 Nasal Cannula 3.0 117/45 (69) 12/26/16 21:00 36.8 112 121/72 (88) 12/26/16 20:25 36.8 112 20 121/72 (88) 12/26/16 20:00 95 Nasal Cannula 3.0 12/26/16 20:00 37.0 114 25 121/72 (88) 93 Nasal Cannula 3.0 118/46 (70) 12/26/16 19:55 115 22 97 Nasal Cannula 4.0 12/26/16 19:23 108 12/26/16 18:00 36.7 120 26 109/50 (69) 96 Nasal Cannula 3.0 98/60 (73) 12/26/16 16:00 96 Nasal Cannula 3.0 12/26/16 16:00 36.7 115 27 109/72 (84) 96 Nasal Cannula 3.0 104/45 (64) 12/26/16 14:36 116 22 94 Nasal Cannula 4.0 12/26/16 14:00 36.7 104 27 116/72 (87) 96 Nasal Cannula 3.0 107/53 (71) Laboratory Results: Last 24 Hours Test 12/26/16 16:13 12/26/16 21:53 12/27/16 04:44 12/27/16 05:02 Sodium Level 135 mmol/L 129 mmol/L 131 mmol/L Potassium Level 2.7 mmol/L 3.8 mmol/L 3.4 mmol/L Chloride Level 103 mmol/L 96 mmol/L 97 mmol/L Carbon Dioxide Level 23 mmol/L 22 mmol/L 24 mmol/L Anion Gap 9.0 mmol/L 11.0 mmol/L 10.0 mmol/L Blood Urea Nitrogen 37 mg/dl 43 mg/dl 37 mg/dl Creatinine 4.80 mg/dl 5.70 mg/dl 5.20 mg/dl Est Creatinine Clear Calc Drug Dose 7.4 ml/min 6.3 ml/min 7.0 ml/min Estimated GFR () 8.9 7.3 8.1 Estimated GFR (Non- 7.7 6.3 7.0 BUN/Creatinine Ratio 7.6 7.5 7.2 Random Glucose 127 mg/dl 176 mg/dl 148 mg/dl Lactic Acid Level 1.3 mmol/L Calcium Level 6.3 mg/dl 8.2 mg/dl 7.5 mg/dl Ionized Calcium 0.96 mmol/l 1.07 mmol/l Phosphorus Level 2.4 mg/dl 3.3 mg/dl 3.4 mg/dl Magnesium Level 1.8 mg/dl 1.7 mg/dl 1.7 mg/dl Total Bilirubin 0.4 mg/dl 0.4 mg/dl 0.4 mg/dl Aspartate Amino Transf (AST/SGOT) 32 U/L 35 U/L 28 U/L Alanine Aminotransferase (ALT/SGPT) 15 U/L 14 U/L 10 U/L Alkaline Phosphatase 89 U/L 106 U/L 102 U/L Total Protein 5.2 gm/dl 6.2 gm/dl 5.9 gm/dl Albumin 1.8 gm/dl 2.1 gm/dl 1.9 gm/dl Globulin 3.4 gm/dl 4.1 gm/dl 4.0 gm/dl Albumin/Globulin Ratio 0.5 0.5 0.5 Creatine Kinase MB Ratio White Blood Count 12.14 K/uL Red Blood Count 2.86 M/uL Hemoglobin 9.1 g/dL Hematocrit 26.3 % Mean Corpuscular Volume 92.0 fL Mean Corpuscular Hemoglobin 31.8 pg Mean Corpuscular Hemoglobin Concent 34.6 g/dl RDW Standard Deviation 47.3 fL RDW Coefficient of Variation 14.1 % Platelet Count 136 K/uL Mean Platelet Volume 9.0 fL Prothrombin Time 22.4 SECONDS Prothromb Time International Ratio 2.0 Creatine Kinase MB 4.5 ng/ml Troponin I 0.802 ng/ml Test 12/27/16 12:46 Bedside Glucose 182 mg/dl
[2016-12-27] MEDS ORDERED: FENTANYL CITRATE INJ 50 MCG/1 ML 2 ML VIAL ONE (14:15)
[2016-12-27] MEDS: ALBUMIN HUMAN 25% 12.5 GM/50 ML VIAL IV SCH ×2 (14:30→19:33)
[2016-12-27] MEDS: LEVALBUTEROL 0.63MG/3 ML NEB INH PRN (15:21)
--- NOTE | 2016-12-27 15:39 | Consultant Recommendations ---
[employer] Recommendations Date of Service Dec 27, 2016. [employer] Recommendations [facility] DISCHARGE INSTRUCTIONS: HIP FRACTURE SELF CARE INSTRUCTIONS: A. You are to ambulate with a walker or crutches for approximately 6 weeks. B. You are WEIGHT BEARING TOLERATED on your operative lower extremity for at least 6 weeks. C. Wear low heeled shoes with non-slip soles D. Be sure that your floors are free of things that could trip you throw rugs, electrical cords, and small objects. Avoid wet and waxed floors, especially with crutches/walker/cane. E. Try to walk several times a day with rest periods between. F. You may shower 48 hours after surgery and get the incision area wet, but DO NOT soak or submerge incision area in water. (No baths, swimming pools, hot tubs ) G. You may have a large, band-aid like dressing over your incision (Aquacel). This will remain on your incision for 7 days, and then can be removed. You CAN shower with this on. If incision is leaking through the dressing, please call the office . H. Do NOT apply soap or any ointment/lotions directly over incision. I. You may use ice as needed to operative site. SPECIAL CARE INSTRUCTIONS: VERY IMPORTANT TO READ AND REVIEW A. You may be at risk for phlebitis or blood clots. a. Wear surgical stockings (BHARGAVI hose) for 2 weeks after surgery to improve circulation and reduce swelling. b. Take COUMADIN as directed. This is your blood thinner. c. If you are on Coumadin- you will have daily/weekly blood work to monitor your levels. This will be done by either your family physician/ neurology physician assistant (if you are on Coumadin chronically) versus your orthopedic surgeon. Expect a phone call the day of or the day after your blood work is drawn to adjust your dose accordingly. B. There are a few signs you need to watch for after you are home. Call [facility] at [phone] if you experience any of the following: a. If you have a temperature of 101 degrees or higher. b. Sudden increase in pain in your hip not relieved by rest or pain medication. c. Any fluid or drainage from the incision; redness of the incision. d. Shortness of breath or chest pain. C. Call your physician if: a. Temperature is greater than 101 degrees (F). b. Pain is not relieved by prescribed pain medications. c. Increase drainage or redness from incision. d. Unanswered questions or concerns. D. Pain Medication: a. You will be prescribed pain medication upon discharge that should last till your first post-operative appointment. b. If you experience nausea and/or skin rash, discontinue this medication and contact our office for an alternative medication. c. Caution- narcotic pain medication can cause constipation. FOLLOW UP VISIT: Please call [facility] at [phone] to schedule a follow up appointment 10-14 days from the date of your surgery date.
[2016-12-27] MEDS ORDERED: WARFARIN SOD 1 MG TAB PO SCH (16:00)
[2016-12-27] MEDS: DOCUSATE SODIUM 100 MG CAP PO SCH (21:00)
[2016-12-27] MEDS: PRAVASTATIN SOD 40 MG TAB PO SCH (21:03)
[2016-12-27] MEDS: NOREPINEPHRINE BIT INJ 8 MG in DEXTROSE 5% 500ML 500 ML IV PRN (21:40)
[2016-12-27] MEDS: FENTANYL CITRATE INJ 50 MCG/1 ML 2 ML VIAL IV PRN (22:04)
[2016-12-28] VITALS (19 sets, daily range): BP systolic 92–119; BP diastolic 32–77; PULSE 77–102; TEMP 36.7–37; O2SAT 85–100
[2016-12-28] MEDS: GUAIFENESIN SUGAR FREE 100 MG/5 ML UDC PO PRN ×4 (00:09→23:22)
[2016-12-28] MEDS: AMIODARONE / D5W 200 ML IV SCH (02:18)
[2016-12-28] MEDS: BENZONATATE 100MG CAP PO PRN ×3 (04:09→23:22)
[2016-12-28 06:09] LABS: ALB/GLOB RATIO 0.7 (0.9-2); ALKALINE PHOSPHATASE 112 U/L (45-117); ALT/SGPT < 6 U/L (12-78); AST/SGOT 23 U/L (15-37); BLOOD UREA NITROGEN 35 mg/dl (7-18); CARBON DIOXIDE 27 mmol/L (21-32); CHLORIDE 91 mmol/L (98-107); GLUCOSE 120 mg/dl (70-99); POTASSIUM 3.5 mmol/L (3.5-5.1); SODIUM 128 mmol/L (136-145)
[2016-12-28 06:28] LABS: HEMATOCRIT 28.2 % (37-47); MEAN CELL VOLUME 93.1 fL (80-100); MEAN CORPUSCULAR HEMOGLOBIN 30.4 pg (25-34); PLATELET COUNT 161 K/uL (130-400); RED BLOOD COUNT 3.03 M/uL (4.2-5.4); WHITE BLOOD COUNT 13.64 K/uL (4.8-10.8)
[2016-12-28 06:48] LABS: MEAN CORPUSCULAR HGB CONC 32.6 g/dl (32-36)
[2016-12-28 06:49] LABS: INR 1.6 (0.9-1.1)
[2016-12-28] MEDS ORDERED: DIALYSIS IP SCH (07:00)
[2016-12-28] MEDS ORDERED: PERITONEAL 1.5% IP SCH (07:00)
[2016-12-28] MEDS ORDERED: CEFTAZIDIME IP SCH (07:00)
--- NOTE | 2016-12-28 07:03 | DIAGNOSTIC IMAGING REPORT ---
CHEST ONE VIEW PORTABLE CLINICAL HISTORY: Respiratory failure. COMPARISON STUDY: December 27, 2016 FINDINGS: The heart remains enlarged. There is a right internal jugular central venous catheter. There is a left-sided epicardial pacer. Cardiac valvular prostheses are again evident. There is mild central pulmonary vascular congestion. There is no overt edema. There are mild basilar atelectatic changes.[ IMPRESSION: Stable findings. No evidence of focal pulmonary consolidation Electronically signed by: Harlan Hendrickson M.D. 12/28/2016 7:02 AM Dictated Date/Time: 12/28/2016 7:00 AM
--- NOTE | 2016-12-28 07:21 | Orthopedic Progress Note ---
Orthopedic Progress Note Date of Service Dec 28, 2016. Subjective Post OP Day: 3 Reports: feeling well, pain controlled w PO medications, Denies: complaints, chest pain, SOB, nausea / vomiting, light headedness, calf pain Objective calves soft nontender, N/V intact, capillary refill less than 2 sec., dressing C /D/I, A&O x3, toes mobile Date Time Temp Pulse Resp B/P (MAP) Pulse Ox O2 Delivery O2 Flow Rate FiO2 12/28/16 06:00 89 19 118/61 (80) 96 Nasal Cannula 3.0 119/42 (67) 12/28/16 04:00 37.0 87 22 101/34 (56) 98 Nasal Cannula 3.0 110/56 (74) 12/28/16 04:00 95 Nasal Cannula 3.0 12/28/16 02:00 90 22 109/40 (63) 99 117/66 (83) 12/28/16 00:01 36.8 95 23 112/38 (62) 98 Nasal Cannula 3.0 114/57 (76) 12/27/16 23:59 95 Nasal Cannula 3.0 12/27/16 22:00 102 18 106/38 (60) 92 Nasal Cannula 3.0 109/60 (76) 12/27/16 20:46 36.7 104 104/62 (76) 12/27/16 20:00 36.8 104 23 116/50 (72) 95 Nasal Cannula 3.0 104/62 (76) 12/27/16 20:00 93 Nasal Cannula 3.0 12/27/16 18:00 36.7 101 19 115/65 (82) 94 Nasal Cannula 3.0 117/48 (71) 12/27/16 16:20 36.7 105 20 113/55 (74) 12/27/16 16:00 36.7 103 25 113/55 (74) 93 Nasal Cannula 3.0 116/45 (68) 12/27/16 16:00 93 Nasal Cannula 3.0 12/27/16 15:27 100 22 95 Nasal Cannula 2.0 12/27/16 14:00 36.7 96 22 121/66 (84) 96 Nasal Cannula 3.0 121/49 (73) 12/27/16 12:00 36.7 99 24 106/51 (69) 6 Nasal Cannula 3.0 113/40 (64) 12/27/16 12:00 96 Nasal Cannula 3.0 12/27/16 11:39 83 22 90 Nasal Cannula 3.0 12/27/16 10:00 36.7 106 20 128/57 (80) 93 Nasal Cannula 3.0 113/41 (65) 12/27/16 09:41 36.7 99 104/53 (70) 12/27/16 09:40 36.7 99 26 104/53 (70) 12/27/16 08:00 36.7 89 20 107/57 (74) 93 Nasal Cannula 3.0 101/36 (57) 12/27/16 08:00 93 Nasal Cannula 3.0 12/27/16 07:33 97 22 97 Nasal Cannula 4.0 Laboratory Results 24 Hours: Test 12/28/16 05:15 12/28/16 06:19 Prothromb Time International Ratio 1.6 Prothrombin Time SECONDS 18.0 SECONDS Hematocrit 28.2 % Hemoglobin 9.2 g/dL Assessment & Plan Assessment: POD #3 s/p right orif hip troch nail Plan: Discharge uncertain at this time. Physical therapy when able DVT prophylaxis- Teds, SCD, Coumadin Hgb 9.1 SHE IS STABLE FROM AN ORTHOPEDIC STANDPOINT. WE WILL SIGN OFF AT THIS TIME. IF ANY QUESTIONS PLEASE CONSULT. Inhouse Planning Pain Management: IV Tylenol DVT Prophylaxis: TEDs, SCDs Discharge Planning Discharge Planning: uncertain
--- NOTE | 2016-12-28 07:34 | Anesthesiology Progress Note ---
Anesthesia Post Op Note Date & Time Dec 28, 2016 at 07:34 Vital Signs Pain Intensity: 0.0 Vital Signs Past 12 Hours Date Time Temp Pulse Resp B/P (MAP) Pulse Ox O2 Delivery O2 Flow Rate FiO2 12/28/16 06:00 89 19 118/61 (80) 96 Nasal Cannula 3.0 119/42 (67) 12/28/16 04:00 37.0 87 22 101/34 (56) 98 Nasal Cannula 3.0 110/56 (74) 12/28/16 04:00 95 Nasal Cannula 3.0 12/28/16 02:00 90 22 109/40 (63) 99 117/66 (83) 12/28/16 00:01 36.8 95 23 112/38 (62) 98 Nasal Cannula 3.0 114/57 (76) 12/27/16 23:59 95 Nasal Cannula 3.0 12/27/16 22:00 102 18 106/38 (60) 92 Nasal Cannula 3.0 109/60 (76) 12/27/16 20:46 36.7 104 104/62 (76) 12/27/16 20:00 36.8 104 23 116/50 (72) 95 Nasal Cannula 3.0 104/62 (76) 12/27/16 20:00 93 Nasal Cannula 3.0 Notes Mental Status: alert / awake / arousable, participated in evaluation Pt Amnestic to Procedure: Yes Nausea / Vomiting: adequately controlled Pain: adequately controlled Airway Patency, RR, SpO2: stable & adequate BP & HR: stable & adequate Hydration State: stable & adequate Anesthetic Complications: no major complications apparent
[2016-12-28 07:46] LABS: ESTIMATED AVERAGE GLUCOSE 123 mg/dl; HA1C FLAG Normal (Normal)
[2016-12-28] MEDS: SENSIPAR~ORDER AWAITING ACTION SCH ×3 (08:00→23:12)
[2016-12-28] MEDS: NEPHROCAPS PO SCH (09:02)
[2016-12-28] MEDS: BOOST GLUCOSE CONTROL PO SCH ×3 (09:02→16:00)
[2016-12-28] MEDS: PANTOprazole SOD 40 MG TAB PO SCH (09:02)
[2016-12-28] MEDS: FLUTICASONE PROPIONATE NA SPR 16 GM BTL SCH (09:02)
--- NOTE | 2016-12-28 09:19 | CARDIOLOGY PROGRESS NOTE ---
DATE: 12/28/2016 SUBJECTIVE: Mrs. Baker is resting comfortably in bed without complaints of chest pain, dyspnea, or palpitations. Her only complaint is that of a nonproductive cough. OBJECTIVE: VITAL SIGNS: Blood pressure 118/60 with an irregular pulse of 80. Respiratory rate is 18 and the patient is afebrile at 37.0 degrees Celsius. Saturations 96% on 3 liters nasal cannula. NECK: Supple with delayed and prolonged carotid upstrokes. No obvious bruits or transmitted murmurs. Jugular venous pressure is difficult to assess. CARDIOVASCULAR: Reveals an irregular rhythm with a 2/6 crescendo decrescendo systolic murmur heard loudest at the base. S2 is not audible at the apex. No S3. LUNGS: Note coarse breath sounds throughout and an occasional expiratory wheeze. ABDOMEN: Soft without bruits. EXTREMITIES: Reveal intact radial artery pulses bilaterally. Right hip is dressed. DATA: CBC notes hemoglobin of 9.2, hematocrit 28.2, white count 13.6, platelet count 161,000. Electrolytes note a sodium of 128, potassium 3.5, chloride 91, bicarbonate 27, BUN 35, creatinine 5.0, glucose 120. BNP is greater than 35,000. Troponin I level down from 0.8 to 0.2 from a peak value of 1.76. INR is 1.6. Chest x-ray notes cardiomegaly but no evidence of congestive failure. quality assurance monitor notes atrial fibrillation with appropriate ventricular pacing. IMPRESSION AND PLAN: 1. Right hip ORIF -- per orthopedic team. 2. Hypotension -- remains on norepinephrine for blood pressure support. She is likely preload dependent. Wean norepinephrine as able. 3. Permanent atrial fibrillation -- currently on intravenous amiodarone which was apparently started to help with rate control. Remains on warfarin. 4. Severe aortic stenosis. 5. Cor pulmonale -- with severe pulmonary hypertension. 6. 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 7. Mitral valve repair -- 2008. 8. Tricuspid valve repair -- 2008. 9. Left ventricular hypertrophy -- with evidence of diastolic dysfunction.
[2016-12-28] MEDS: DOCUSATE SODIUM 100 MG CAP PO SCH ×2 (09:25→19:28)
--- NOTE | 2016-12-28 09:41 | Progress Note ---
Medicine Progress Note Date & Time of Visit: Dec 28, 2016 at 09:39. Subjective seen laying in bed, comfortable reports dry cough, no dyspnea/wheezing/sputum/fever/chills pain on the right hip is minimal no abdominal pain, nausea denies other symptoms Objective Last 8 Hrs Date Time Temp Pulse Resp B/P (MAP) Pulse Ox O2 Delivery O2 Flow Rate FiO2 12/28/16 09:27 37.0 86 92/51 (65) 12/28/16 09:10 37.0 86 24 92/51 (65) 12/28/16 06:00 89 19 118/61 (80) 96 Nasal Cannula 3.0 119/42 (67) 12/28/16 04:00 37.0 87 22 101/34 (56) 98 Nasal Cannula 3.0 110/56 (74) 12/28/16 04:00 95 Nasal Cannula 3.0 12/28/16 02:00 90 22 109/40 (63) 99 117/66 (83) Physical Exam: General- oriented x 3, not in distress, speaks in sentences with no effort Lungs- clear breath sounds BL , no rales/wheezes Heart- irregularly irregular rhythm; no murmur, normal rate Abdomen- normal bowel sounds, soft, nontender, non distended Extremities- no pretibial edema, no calf tenderness right hip: dressing in place, no hematoma Neuro- alert, oriented x 3; no gross focal deficits Skin- warm & dry Laboratory Results: Last 24 Hours Test 12/27/16 12:46 12/28/16 05:15 12/28/16 06:19 Bedside Glucose 182 mg/dl Prothrombin Time SECONDS 18.0 SECONDS Prothromb Time International Ratio 1.6 Sodium Level 128 mmol/L Potassium Level 3.5 mmol/L Chloride Level 91 mmol/L Carbon Dioxide Level 27 mmol/L Anion Gap 10.0 mmol/L Blood Urea Nitrogen 35 mg/dl Creatinine 5.00 mg/dl Est Creatinine Clear Calc Drug Dose 7.2 ml/min Estimated GFR () 8.5 Estimated GFR (Non- 7.3 BUN/Creatinine Ratio 7.0 Random Glucose 120 mg/dl Calcium Level 8.0 mg/dl Phosphorus Level 3.0 mg/dl Magnesium Level 2.0 mg/dl Total Bilirubin 0.6 mg/dl Aspartate Amino Transf (AST/SGOT) 23 U/L Alanine Aminotransferase (ALT/SGPT) < 6 U/L Alkaline Phosphatase 112 U/L Pro-B-Type Natriuretic Peptide > 70190 pg/ml Total Protein 6.5 gm/dl Albumin 2.6 gm/dl Globulin 3.9 gm/dl Albumin/Globulin Ratio 0.7 White Blood Count 13.64 K/uL Red Blood Count 3.03 M/uL Hemoglobin 9.2 g/dL Hematocrit 28.2 % Mean Corpuscular Volume 93.1 fL Mean Corpuscular Hemoglobin 30.4 pg Mean Corpuscular Hemoglobin Concent 32.6 g/dl RDW Standard Deviation 48.5 fL RDW Coefficient of Variation 14.2 % Platelet Count 161 K/uL Mean Platelet Volume 9.0 fL Assessment & Plan RIGHT HIP FRACTURE s/p ORIF post op day 3 minimal hip pain PT/OT when medically stable HYPOTENSION likely Cardiogenic -- remains on Levophed gentle IV fluids as needed -- continue to wean off Levophed as able 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 ATRIAL FIBRILLATION -- Amiodarone started for RVR -- HR improved monitor -- INR 1.3 increased coumadin to 3mg po daily usually on coumadin 2 mg daily except /thurs 4mg ESRD ON PERITONEAL DIALYSIS/ RECENT HX OF PERITONITIS PD per Nephro cont Ceftazidime with PD until 01/07/17 blood cultures ordered : negative HX OF VALVULAR HEART DISEASE Severe Aortic Stenosis S/P Mitral and tricuspid valve repair follows with Cardiology Dr Song in [place] -- echo noted -- Cardiology consulted, cleared for surgery monitor volume status DYSPHAGIA : Last VFF on 06/19 showed moderate to sever esophageal dysmotility with tapering /narrowing of lower GE junction underwent EGD and dilatation Speech was consulted -Diet recommendation -dental soft /slippery diet with aspiration precaution speech eval requested FULL CODE -D/w pt DVT PROPHYLAXIS : on coumadin DISPOSITION : will need rehab post hip surgery PT/OT eval Social service consulted for discharge planning Level of Care Telemetry Resuscitation Status FULL RESUSCITATION VTE Prophylaxis VTE Risk Assessment Done? Y/N: Yes Risk Level: High Given or contraindicated: Unfractionated heparin SQ Additional Copies To Deepthi Childs D.O. Oncu, Kerim I., Current Inpatient Medications: Current Inpatient Medications Medications (Trade) Dose Ordered Sig/Seth Route Start Time Stop Time Status Last Admin Dose Admin Polyethylene (Miralax Powder Packet) 17 gm DAILY PRN PO 12/25/16 05:45 01/24/17 05:44 Pantoprazole Sodium (Protonix Tab) 40 mg DAILY PO 12/25/16 09:00 01/24/17 08:59 12/28/16 09:02 40 MG Pravastatin Sodium (Pravachol Tab) 40 mg HS PO 12/25/16 21:00 01/24/17 20:59 12/27/16 21:03 40 MG Miscellaneous Information (Order Awaiting Action) 1 ea QS N/A 12/25/16 08:00 01/24/17 07:59 Vitamin B Complex/ Vit C/Folic Acid (Nephrocaps) 1 cap DAILY PO 12/25/16 09:00 01/24/17 08:59 12/28/16 09:02 1 CAP Ondansetron HCl (Zofran Inj) 4 mg Q6H PRN IV 12/25/16 17:45 01/24/17 17:44 Acetaminophen (Tylenol Tab) 650 mg Q6H PRN PO 12/25/16 17:45 01/24/17 17:44 Phenylephrine HCl 20 mg/Dextrose 502 ml @ 0 mls/hr Q0M PRN IV 12/25/16 18:17 01/24/17 18:16 12/25/16 18:34 45 MLS/HR Norepinephrine Bitartrate 8 mg/ Dextrose 508 ml @ 0 mls/hr Q0M PRN IV 12/25/16 21:21 01/24/17 21:20 12/27/16 21:40 45 MLS/HR Guaifenesin (Robitussin Sugar Free Syrup) 300 mg Q6H PRN PO 12/25/16 23:30 01/24/17 23:29 12/28/16 06:25 300 MG Enteral Nutritional Formula (Boost Glucose Control) 1 can 3XDQ4 PO 12/26/16 12:00 01/25/17 11:59 12/28/16 09:02 1 CAN Amiodarone HCL/ Dextrose 200 ml @ 16.7 mls/hr [id number] IV 12/27/16 04:30 01/26/17 04:29 12/28/16 02:18 16.7 MLS/HR Fluticasone Propionate (Flonase Nasal [place]) 2 sprays DAILY NA 12/28/16 09:00 01/27/17 08:59 12/28/16 09:02 2 SPRAYS Levalbuterol (Xopenex 0.63 Mg/ 3 Ml Neb) 0.63 mg Q6R PRN INH 12/27/16 12:30 01/26/17 12:29 12/27/16 15:21 0.63 MG Docusate Sodium (coLACE CAP) 100 mg BID PO 12/27/16 21:00 01/26/17 20:59 12/28/16 09:25 100 MG Bisacodyl (Dulcolax Supp) 10 mg DAILY PRN [place] 12/27/16 13:30 01/26/17 13:29 Fentanyl Citrate (Fentanyl Inj) 25 mcg Q4H PRN IV 12/27/16 14:30 01/10/17 14:29 12/27/16 22:04 25 MCG Benzonatate (Tessalon Perles Cap) 100 mg TID PRN PO 12/27/16 16:00 01/26/17 15:59 12/28/16 04:09 100 MG Ceftazidime 750 mg/Per[facility] 1,507.5 ml @ 0 mls/hr DAILY@0700 IP 12/28/16 07:00 12/28/16 13:59 12/28/16 09:20 1,500 MLS/HR Heparin Sodium (Porcine) (Heparin 10 Unit/ ml 5 ml Flush) 5 ml PRN PRN FLUSH 12/27/16 23:45 01/26/17 23:44 Warfarin Sodium (Coumadin Tab) 3 mg DAILY@16 PO 12/28/16 16:00 01/26/17 15:59 UNV
[2016-12-28] MEDS: FENTANYL CITRATE INJ 50 MCG/1 ML 2 ML VIAL IV PRN (09:59)
[2016-12-28] MEDS: NOREPINEPHRINE BIT INJ 8 MG in DEXTROSE 5% 500ML 500 ML IV PRN ×2 (10:00→19:53)
[2016-12-28] MEDS: ONDANSETRON INJ 2 MG/ML 2 ML VIAL IV PRN (11:14)
--- NOTE | 2016-12-28 13:26 | Clinical Documentation Query ---
CLINICAL DOCUMENTATION QUERY QUERY 1 OF 2 86 yo F with complex past medical hx of ESRD on Peritoneal dialysis and peritonitis. In your clinical opinion is this patient being managed for: ( ) Acute peritonitis treated with Ceftazidime 750 mg until 01/07 ( ) Sub-acute peritonitis ( X ) Not Agree (X ) Other explanation of clinical findings (Please Explain) Patient has been on Ceftazidime as outpatient prior to admission ( ) Unable to determine (Please Define) ( ) Need to Discuss The medical record reflects the following clinical findings, treatment, and risk factors. Clinical Indicators: PD peritonitis, hypotensive Treatment: antibiotic therapy Risk Factors: age, ICU, dialysis, peritoneal catheter, ESRD QUERY 2 OF 2 In your clinical opinion is this patient being managed for: ( ) Acute ischemic heart disease ( ) Type II IN d/t demand ischemia ( X ) Not Agree ( ) Other explanation of clinical findings (Please Explain) ( ) Unable to determine (Please Define) ( ) Need to Discuss The medical record reflects the following clinical findings, treatment, and risk factors. Clinical Indicators: Increased Troponins from baseline (0.802, 1.760, 1.730, 1.220 0, cardiogenic hypovolemia, Treatment: ICU, O2, serial cardiac enzymes, serial ECG, echo, cardiology consult Risk Factors: Age, persistent A-Fib, Heart Disease, ESRD Please clarify and document your clinical opinion in the progress notes and discharge summary. Terms such as "probable", "suspected", "likely", "questionable", "possible", or "still to be ruled out" are acceptable. IF IN AGREEMENT, YOU MUST DOCUMENT ABOVE DIAGNOSTIC STATEMENT IN DAILY PROGRESS NOTES AND DISCHARGE SUMMARY. This document is not part of the patient's record. Thank You, Carey Moon RN [phone]
[2016-12-28] MEDS: OXYCODONE/ACETAMINOPHEN 5-325 TAB PO PRN (14:02)
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
[2016-12-28] MEDS ORDERED: NURSING VERBAL MED ORDER ONE (14:45)
--- NOTE | 2016-12-28 15:48 | Critical Care Progress Note ---
Critical Care Progress Note Date of Service Dec 28, 2016. ICU Day ICU Day Number: [address] Wilson Subjective Patient with feeling of shortness of breath overnight and feeling that something is stuck in throat Received flonase nasal inhaler and patient says that symptoms of shortness of breath resolved thereafter Right hip pain is minimal and well controlled Patient says that abdomen feels distended Patient denies any fevers, chills or night sweats Denies any worsening hip pain Denies any chest pain, palpitations or current shortness of breath Objective General: Elderly female, in no distress, sitting in chair at the bedside HEENT: NC/AT, dry oral mucosa, no lymphadenopathy Lungs: no respiratory distress, expiratory rhonchi bilaterally throughout CVS: S1S2 distant and HR irregularly irregular, pitting edema +2 bilaterally to knees, JVD elevated to the angle of the mandible Abd: Soft, distended, non tender, no rebound or guarding, PD catheter Ext: dressing over right hip, no erythema or swelling surrounding bandage, present but weak peripheral pulses Skin: bruising on both upper extremities with raised lesions on both arms bilaterally Current SOFA Score SOFA Score Response (Comments) Value Platelets (x10) > 150 0 Bilirubin (mg/dL) < 1.2 0 [place] Coma Score 15 0 Level of Hypotension Dopamine > 15 mcq or Epi > 0.1 mcq 4 Creatinine (mg/dL) > 5.0 4 Total 8 Assessment & Plan Patient s/p right hip ORIF with intertrochanteric nailing was hypotensive pre and post op and was admitted to the ICU as she has required pressors for her blood pressure. Neuro - RAAS is 0 and CAM is negative Cardiac - Permanent afib- on warfarin 3 mg daily, INR 1.6 today, continue to monitor, started on metoprolol 12.5 mg bid, stop amiodarone after 24 hrs and got one time dose of dig (will check dig level) - On levophed 0.16mcg, blood pressure well controlled currently, wean levophed as able, start midodrine for blood pressure support - Echo showed severe aortic stenosis with EF of 65-70, Right side of heart dilated with poor right sided systolic dysfunction (Cor Pulmonale), Pacemaker in place - I/O's monitor (-2L yesterday) - continue pravastatin - Cardiology following patient MSK - Day 3 s/p R hip ORIF - pain controlled with fentanyl patch and percocet - hx of brittle bones according to patient, will check old records for last dexa scan, (bisphosphonate candidate?) - PT/OT ordered - peritoneal dialysis (will remove fluid tonight) - nephrology consulted - Peritonitis resolving on ceftaz and is on day 10 of 21 - hgb goal of 10 to 11, nephro redosing procrit, continue to trend hgb - Hyponatremia 128, will recheck tomorrow morning after peritoneal dialysis tonight - Nephrocaps once daily ID - Peritonitis and currently on day 10 of cefazolin - currently afebrile and WCC is 13.64, will continue to monitor GI - pantoprazole 40 mg daily - colace daily - had 2 bm yesterday Resp - SOB improved after administration of flonase nasal spray - Also receiving tessalon pearls and xopenex nebs and robitussin - No hx of smoking Heme - Hgb 9.2, baseline 10-11, nephro will adjust procrit level - likely from ESRD - DVT prophylaxis with warfarin Endo - q6 blood sugars - NPO - Check TSH and Free T4 Access - Right IJ and left radial a line and left peripheral line in antecubital fossa Dispo - Full Code - PT/OT ordered Resident Physician Supervision Note: Dr. Dominguez was resident physician during care of patient. I separately evaluated patient and did history and exam. I discussed the case with the resident and generally agree with the findings and plan. D/W nephrology regarding total fluid to be removed. Will wean pressors and base off clinical response, goal SBP > 90. I have personally spent 35 minutes of critical care time in the direct management of this patient. This is a life/limb threatening event, due to hypotension requiring vasoactive medications. This includes time spent evaluating patient, direct bedside care, chart review, placing orders, interpretation of diagnostic studies, discussion with consultants, patient, and family members, as well as other required patient management activities. This time is exclusive of all separately billable procedures, and teaching time and separate from and in addition to any other critical care service time. Documented By: Rigoberto Wilson DO Consults & Procedures Consultants: Cardiology - Dr Bundy Nephrology - Dr Anderson Ortho - Dr Perea Procedures: 12/25/16 - right IJ TLC 12/25/16 left radial a-line 12/25/16 - right hip ORIF with intertrochanteric nailing Data Medications: Current Inpatient Medications Medications (Trade) Dose Ordered Sig/Seth Route Start Time Stop Time Status Last Admin Dose Admin Polyethylene (Miralax Powder Packet) 17 gm DAILY PRN PO 12/25/16 05:45 01/24/17 05:44 Pantoprazole Sodium (Protonix Tab) 40 mg DAILY PO 12/25/16 09:00 01/24/17 08:59 12/28/16 09:02 40 MG Pravastatin Sodium (Pravachol Tab) 40 mg HS PO 12/25/16 21:00 01/24/17 20:59 12/27/16 21:03 40 MG Miscellaneous Information (Order Awaiting Action) 1 ea QS N/A 12/25/16 08:00 01/24/17 07:59 Vitamin B Complex/ Vit C/Folic Acid (Nephrocaps) 1 cap DAILY PO 12/25/16 09:00 01/24/17 08:59 12/28/16 09:02 1 CAP Ondansetron HCl (Zofran Inj) 4 mg Q6H PRN IV 12/25/16 17:45 01/24/17 17:44 12/28/16 11:14 4 MG Acetaminophen (Tylenol Tab) 650 mg Q6H PRN PO 12/25/16 17:45 01/24/17 17:44 Norepinephrine Bitartrate 8 mg/ Dextrose 508 ml @ 0 mls/hr Q0M PRN IV 12/25/16 21:21 01/24/17 21:20 12/28/16 10:00 42 MLS/HR Guaifenesin (Robitussin Sugar Free Syrup) 300 mg Q6H PRN PO 12/25/16 23:30 01/24/17 23:29 12/28/16 06:25 300 MG Enteral Nutritional Formula (Boost Glucose Control) 1 can 3XDQ4 PO 12/26/16 12:00 01/25/17 11:59 12/28/16 09:02 1 CAN Fluticasone Propionate (Flonase Nasal [place]) 2 sprays DAILY NA 12/28/16 09:00 01/27/17 08:59 12/28/16 09:02 2 SPRAYS Levalbuterol (Xopenex 0.63 Mg/ 3 Ml Neb) 0.63 mg Q6R PRN INH 12/27/16 12:30 01/26/17 12:29 12/27/16 15:21 0.63 MG Docusate Sodium (coLACE CAP) 100 mg BID PO 12/27/16 21:00 01/26/17 20:59 12/28/16 09:25 100 MG Bisacodyl (Dulcolax Supp) 10 mg DAILY PRN AL 12/27/16 13:30 01/26/17 13:29 Fentanyl Citrate (Fentanyl Inj) 25 mcg Q4H PRN IV 12/27/16 14:30 01/10/17 14:29 12/28/16 09:59 25 MCG Benzonatate (Tessalon Perles Cap) 100 mg TID PRN PO 12/27/16 16:00 01/26/17 15:59 12/28/16 04:09 100 MG Heparin Sodium (Porcine) (Heparin 10 Unit/ ml 5 ml Flush) 5 ml PRN PRN FLUSH 12/27/16 23:45 01/26/17 23:44 Warfarin Sodium (Coumadin Tab) 3 mg DAILY@16 PO 12/28/16 16:00 01/26/17 15:59 Oxycodone/ Acetaminophen (Percocet 5-325mg Tab) `1-2 tabs for pain 1 tab ... Q6H PRN PO 12/28/16 11:45 01/11/17 11:44 12/28/16 14:02 1 TAB Midodrine (Proamatine Tab) 10 mg TIDM PO 12/28/16 16:30 01/27/17 16:29 Metoprolol Tartrate (Lopressor Tab) 12.5 mg BID PO 12/28/16 21:00 01/27/17 20:59 Heparin Sodium (Porcine) (Heparin Sq 5000 Unit/0.5ml) 5,000 unit Q12H SQ 12/28/16 18:00 01/27/17 17:59 Epoetin Shane (Procrit Inj) 10,000 units ONE SQ 12/28/16 14:45 01/27/17 14:44 UNV Cefazolin Sodium 750 mg/[facility] 2,003.75 ml @ 0 mls/hr ONE ONCE IP 12/29/16 10:00 12/29/16 10:01 UNV I & O: 24-Hour Column 12/29/16 08:00 Intake Total 70365 ml Output Total 14365 ml Balance -1071 ml Vital Signs: Date Time Temp Pulse Resp B/P (MAP) Pulse Ox O2 Delivery O2 Flow Rate FiO2 12/28/16 14:00 89 26 102/38 (59) 96 Nasal Cannula 3.0 98/53 (68) 12/28/16 12:00 36.8 87 30 117/40 (65) 100 Nasal Cannula 3.0 118/77 (91) 12/28/16 12:00 Nasal Cannula 3.0 12/28/16 10:00 92 20 117/43 (67) 97 Nasal Cannula 3.0 118/63 (81) 12/28/16 09:29 Nasal Cannula 12/28/16 09:27 37.0 86 92/51 (65) 12/28/16 09:10 37.0 86 24 92/51 (65) 12/28/16 08:00 36.8 92 20 119/47 (71) 97 Nasal Cannula 3.0 117/58 (77) 12/28/16 08:00 Nasal Cannula 3.0 12/28/16 06:00 89 19 118/61 (80) 96 Nasal Cannula 3.0 119/42 (67) 12/28/16 04:00 37.0 87 22 101/34 (56) 98 Nasal Cannula 3.0 110/56 (74) 12/28/16 04:00 95 Nasal Cannula 3.0 12/28/16 02:00 90 22 109/40 (63) 99 117/66 (83) 12/28/16 00:01 36.8 95 23 112/38 (62) 98 Nasal Cannula 3.0 114/57 (76) 12/27/16 23:59 95 Nasal Cannula 3.0 12/27/16 22:00 102 18 106/38 (60) 92 Nasal Cannula 3.0 109/60 (76) 12/27/16 20:46 36.7 104 104/62 (76) 12/27/16 20:00 36.8 104 23 116/50 (72) 95 Nasal Cannula 3.0 104/62 (76) 12/27/16 20:00 93 Nasal Cannula 3.0 12/27/16 18:00 36.7 101 19 115/65 (82) 94 Nasal Cannula 3.0 117/48 (71) 12/27/16 16:20 36.7 105 20 113/55 (74) 12/27/16 16:00 36.7 103 25 113/55 (74) 93 Nasal Cannula 3.0 116/45 (68) 12/27/16 16:00 93 Nasal Cannula 3.0 12/27/16 15:27 100 22 95 Nasal Cannula 2.0 Laboratory Results: Last 24 Hours Test 12/28/16 05:15 12/28/16 06:19 Prothrombin Time SECONDS 18.0 SECONDS Prothromb Time International Ratio 1.6 Sodium Level 128 mmol/L Potassium Level 3.5 mmol/L Chloride Level 91 mmol/L Carbon Dioxide Level 27 mmol/L Anion Gap 10.0 mmol/L Blood Urea Nitrogen 35 mg/dl Creatinine 5.00 mg/dl Est Creatinine Clear Calc Drug Dose 7.2 ml/min Estimated GFR () 8.5 Estimated GFR (Non- 7.3 BUN/Creatinine Ratio 7.0 Random Glucose 120 mg/dl Calcium Level 8.0 mg/dl Phosphorus Level 3.0 mg/dl Magnesium Level 2.0 mg/dl Total Bilirubin 0.6 mg/dl Aspartate Amino Transf (AST/SGOT) 23 U/L Alanine Aminotransferase (ALT/SGPT) < 6 U/L Alkaline Phosphatase 112 U/L Pro-B-Type Natriuretic Peptide > 81177 pg/ml Total Protein 6.5 gm/dl Albumin 2.6 gm/dl Globulin 3.9 gm/dl Albumin/Globulin Ratio 0.7 White Blood Count 13.64 K/uL Red Blood Count 3.03 M/uL Hemoglobin 9.2 g/dL Hematocrit 28.2 % Mean Corpuscular Volume 93.1 fL Mean Corpuscular Hemoglobin 30.4 pg Mean Corpuscular Hemoglobin Concent 32.6 g/dl RDW Standard Deviation 48.5 fL RDW Coefficient of Variation 14.2 % Platelet Count 161 K/uL Mean Platelet Volume 9.0 fL
[2016-12-28] MEDS ORDERED: EPOETIN ALFA 10,000 UNITS/ML VIAL SQ SCH (16:00)
[2016-12-28] MEDS: MIDODRINE 10 MG TAB PO SCH (16:39)
[2016-12-28] MEDS: WARFARIN SOD 3 MG TAB PO SCH (16:40)
[2016-12-28] MEDS ORDERED: HEPARIN 5000 UNIT/0.5 ML SC SCH (18:00)
[2016-12-28] MEDS: HEPARIN SOD 5000 UNIT/0.5 ML CARP SQ SCH (18:00)
[2016-12-28] MEDS: METOPROLOL TARTRATE 25 MG TAB PO SCH (19:29)
[2016-12-28] MEDS: PRAVASTATIN SOD 40 MG TAB PO SCH (19:29)
[2016-12-29] VITALS (39 sets, daily range): BP systolic 48–122; BP diastolic 20–57; PULSE 67–93; TEMP 36.5–36.8; O2SAT 87–100
[2016-12-29] MEDS: NOREPINEPHRINE BIT INJ 8 MG in DEXTROSE 5% 500ML 500 ML IV PRN (03:03)
[2016-12-29 05:37] LABS: BASO % 0.1 %; BASO ABS # 0.01 K/uL (0-0.2); COMPLETE YES; EOS % 2.9 %; HEMATOCRIT 27.1 % (37-47); IG% 0.4 %; LYMPH % 7.9 %; LYMPH ABS # 0.92 K/uL (1.2-3.4); MEAN CELL VOLUME 93.1 fL (80-100); MEAN CORPUSCULAR HEMOGLOBIN 30.9 pg (25-34); MEAN CORPUSCULAR HGB CONC 33.2 g/dl (32-36); MEAN PLATELET VOLUME 9.4 fL (7.4-10.4); MONO % 7.5 %; NEUT % 81.2 %; PLATELET COUNT 170 K/uL (130-400); RED BLOOD COUNT 2.91 M/uL (4.2-5.4); WHITE BLOOD COUNT 11.63 K/uL (4.8-10.8)
[2016-12-29] MEDS: HEPARIN SOD 5000 UNIT/0.5 ML CARP SQ SCH ×2 (05:45→18:27)
[2016-12-29 05:52] LABS: INR 1.6 (0.9-1.1); PROTHROMBIN TIME (PATIENT) 17.3 SECONDS (9.0-12.0)
[2016-12-29 06:28] LABS: ALB/GLOB RATIO 0.6 (0.9-2); ALKALINE PHOSPHATASE 113 U/L (45-117); ALT/SGPT < 6 U/L (12-78); AST/SGOT 25 U/L (15-37); BLOOD UREA NITROGEN 32 mg/dl (7-18); CALCIUM 7.9 mg/dl (8.5-10.1); CARBON DIOXIDE 28 mmol/L (21-32); CHLORIDE 90 mmol/L (98-107); GLUCOSE 128 mg/dl (70-99); MAGNESIUM 1.7 mg/dl (1.8-2.4); POTASSIUM 3.2 mmol/L (3.5-5.1); SODIUM 127 mmol/L (136-145)
[2016-12-29] MEDS: MIDODRINE 10 MG TAB PO SCH ×3 (06:43→15:20)
[2016-12-29] MEDS ORDERED: DIALYSIS IP SCH (07:00)
[2016-12-29] MEDS ORDERED: PERITONEAL 1.5% IP SCH (07:00)
[2016-12-29] MEDS ORDERED: CEFTAZIDIME IP SCH (07:00)
[2016-12-29] MEDS: SENSIPAR~ORDER AWAITING ACTION SCH ×3 (07:52→23:42)
--- NOTE | 2016-12-29 08:41 | Clinical Documentation Query ---
CLINICAL DOCUMENTATION QUERY QUERY 1 OF 2 86 yo F with complex past medical hx of ESRD on Peritoneal dialysis and peritonitis. In your clinical opinion is this patient being managed for: ( ) Acute peritonitis treated with Ceftazidime 750 mg until 01/07 ( X ) Subacute peritonitis ( ) Not Agree ( ) Other explanation of clinical findings (Please Explain) ( ) Unable to determine (Please Define) ( ) Need to Discuss The medical record reflects the following clinical findings, treatment, and risk factors. Clinical Indicators: PD peritonitis, hypotensive Treatment: antibiotic therapy Risk Factors: age, ICU, dialysis, peritoneal catheter, ESRD QUERY 2 OF 2 In your clinical opinion is this patient being managed for: ( ) Acute ischemic heart disease (X ) Type II [place] d/t demand ischemia ( ) Not Agree ( ) Other explanation of clinical findings (Please Explain) ( ) Unable to determine (Please Define) ( ) Need to Discuss The medical record reflects the following clinical findings, treatment, and risk factors. Clinical Indicators: Increased Troponins from baseline (0.802, 1.760, 1.730, 1.220 0, cardiogenic hypovolemia, Treatment:ICU, O2, serial cardiac enzymes, serial ECG, echo, cardiology consult Risk Factors: Age, persistent AFib, Heart Disease, ESRD Please clarify and document your clinical opinion in the progress notes and discharge summary. Terms such as "probable", "suspected", "likely", "questionable", "possible", or "still to be ruled out" are acceptable. IF IN AGREEMENT, YOU MUST DOCUMENT ABOVE DIAGNOSTIC STATEMENT IN DAILY PROGRESS NOTES AND DISCHARGE SUMMARY. This document is not part of the patient's record. Thank You, Carey Moon RN [phone]
--- NOTE | 2016-12-29 09:04 | Progress Note ---
Internal Med Progress Note Date of Service: Dec 29, 2016. Provider Documentation: SUBJECTIVE: Seen and examined at bedside. States feeling well Planned for dialysis this morning Denies chest pain, SOB, palpitations, dizziness Reports Right hip pain with ambulation OBJECTIVE: Vital Signs-as noted below Physical Exam: General Appearance:Moderately built and nourished, no apparent distress Head: normocephalic, Atraumatic Eyes: normal inspection, EOMI, PERRL Neck: supple, Trachea midline Respiratory/Chest: Normal breath sounds, CTA Cardiovascular: Irregularly irregular, No murmur Abdomen/GI:Soft, Non tender, Bowel sounds present Extremities/Musculoskelatal:normal inspection, no edema, Right hip in surgical bandage Neurologic/Psych:grossly no focal neurological deficits Skin: normal color, warm Lab data as noted below. 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 Input Atrial Fibrillation Continue Metoprolol for rate control Monitor INR:1.6 Continue Coumadin:4mg today Amiodarone, Digoxin discontinued Monitor Digoxin levels Takes Coumadin 2 mg daily except tues/thurs 4mg ESRD on PD Hypokalemia/Hypomagnesemia Subacute Peritonitis PD per Nephro continue Ceftazidime with PD until 01/07/17 ( Day 03/23 ) blood cultures: negative Will replace electrolytes per Nephrology H/O Valvular Heart disease Severe Aortic Stenosis S/P Mitral and tricuspid valve repair Possible Type II demand Ischemia follows with Cardiology Dr Song in [place] ECHO as below Cardiology consulted, cleared for surgery Dysphagia: Last VFF on 06/19 showed moderate to sever esophageal dysmotility with tapering /narrowing of lower GE junction underwent EGD and dilatation Speech was consulted -Diet recommendation -dental soft /slippery diet with aspiration precaution speech eval requested Code Status: Full Code DVT Px : on Coumadin Disposition: will need rehab post hip surgery PT/OT eval Social service consulted for discharge planning PROCEDURES: ECHO: n Left ventricular systolic function is normal. n No regional wall motion abnormalities noted. n Ejection Fraction = 65-70%. n There is mild concentric left ventricular hypertrophy. n Dilated right ventricle with reduced systolic function. n Pressure and volume overload of the right ventricle. n Severe valvular aortic stenosis. n There is moderate tricuspid regurgitation. Vital Signs: Date Time Temp Pulse Resp B/P (MAP) Pulse Ox O2 Delivery O2 Flow Rate FiO2 12/29/16 06:01 83 22 107/37 (58) 94 110/52 12/29/16 05:01 36.6 80 19 102/29 (51) 100 111/56 12/29/16 04:01 81 24 98/27 (48) 99/52 12/29/16 04:00 93 Nasal Cannula 2.0 12/29/16 03:01 87 30 90/29 (48) 94 100/57 12/29/16 02:01 93 23 97/28 (49) 96 108/54 12/29/16 02:01 93 23 97/28 (49) 96 108/54 12/29/16 01:42 77 22 83/22 (39) 100 80/46 12/29/16 01:01 88 22 91/28 (47) 94 103/51 12/29/16 00:01 82 21 92/28 (49) 98 Nasal Cannula 2.0 12/29/16 00:01 82 21 92/28 (48) 98 109/50 12/29/16 00:00 74 21 91/26 (45) 97 12/29/16 00:00 74 21 91/26 (47) 97 Nasal Cannula 2.0 12/28/16 23:59 93 Nasal Cannula 2.0 12/28/16 23:00 37.0 77 26 94/32 (52) 98 Nasal Cannula 2.0 12/28/16 22:00 89 52 99/33 (55) 93 Nasal Cannula 2.0 113/62 (79) 12/28/16 20:00 Nasal Cannula 2.0 12/28/16 20:00 95 27 112/36 (61) 92 Nasal Cannula 2.0 118/54 (75) 12/28/16 19:41 36.7 102 105/55 (72) 12/28/16 18:00 94 22 104/39 (60) 99 Nasal Cannula 2.0 100/37 (58) 12/28/16 16:25 36.8 92 20 110/51 (70) 12/28/16 16:00 94 22 104/39 (60) 99 Nasal Cannula 2.0 100/37 (58) 12/28/16 16:00 Nasal Cannula 3.0 12/28/16 14:00 89 26 102/38 (59) 96 Nasal Cannula 3.0 98/53 (68) 12/28/16 12:00 36.8 87 30 117/40 (65) 100 Nasal Cannula 3.0 118/77 (91) 12/28/16 12:00 Nasal Cannula 3.0 12/28/16 10:00 92 20 117/43 (67) 97 Nasal Cannula 3.0 118/63 (81) 12/28/16 09:29 Nasal Cannula 12/28/16 09:27 37.0 86 92/51 (65) 12/28/16 09:10 37.0 86 24 92/51 (65) Lab Results: Results Past 24 Hours Test 12/28/16 17:47 12/28/16 23:18 12/29/16 04:51 Range/Units Bedside Glucose 90 112 70-90 mg/dl White Blood Count 11.63 4.8-10.8 K/uL Red Blood Count 2.91 4.2-5.4 M/uL Hemoglobin 9.0 12.0-16.0 g/dL Hematocrit 27.1 37-47 % Mean Corpuscular Volume 93.1 80-100 fL Mean Corpuscular Hemoglobin 30.9 25-34 pg Mean Corpuscular Hemoglobin Concent 33.2 32-36 g/dl Platelet Count 170 130-400 K/uL Mean Platelet Volume 9.4 7.4-10.4 fL Neutrophils (%) (Auto) 81.2 % Lymphocytes (%) (Auto) 7.9 % Monocytes (%) (Auto) 7.5 % Eosinophils (%) (Auto) 2.9 % Basophils (%) (Auto) 0.1 % Neutrophils # (Auto) 9.44 1.4-6.5 K/uL Lymphocytes # (Auto) 0.92 1.2-3.4 K/uL Monocytes # (Auto) 0.87 0.11-0.59 K/uL Eosinophils # (Auto) 0.34 0-0.5 K/uL Basophils # (Auto) 0.01 0-0.2 K/uL RDW Standard Deviation 47.2 36.4-46.3 fL RDW Coefficient of Variation 14.1 11.5-14.5 % Immature Granulocyte % (Auto) 0.4 % Immature Granulocyte # (Auto) 0.05 0.00-0.02 K/uL Prothrombin Time 17.3 9.0-12.0 SECONDS Prothromb Time International Ratio 1.6 0.9-1.1 Sodium Level 127 136-145 mmol/L Potassium Level 3.2 3.5-5.1 mmol/L Chloride Level 90 98-107 mmol/L Carbon Dioxide Level 28 21-32 mmol/L Anion Gap 9.0 3-11 mmol/L Blood Urea Nitrogen 32 7-18 mg/dl Creatinine 4.60 0.60-1.20 mg/dl Est Creatinine Clear Calc Drug Dose 7.9 ml/min Estimated GFR () 9.4 Estimated GFR (Non- 8.1 BUN/Creatinine Ratio 7.0 10-20 Random Glucose 128 70-99 mg/dl Calcium Level 7.9 8.5-10.1 mg/dl Magnesium Level 1.7 1.8-2.4 mg/dl Total Bilirubin 0.7 0.2-1 mg/dl Aspartate Amino Transf (AST/SGOT) 25 15-37 U/L Alanine Aminotransferase (ALT/SGPT) < 6 12-78 U/L Alkaline Phosphatase 113 45-117 U/L Total Protein 6.1 6.4-8.2 gm/dl Albumin 2.2 3.4-5.0 gm/dl Globulin 3.9 2.5-4.0 gm/dl Albumin/Globulin Ratio 0.6 0.9-2 Digoxin Level 4.0 0.8-2.0 ng/ml
[2016-12-29] MEDS: BOOST GLUCOSE CONTROL PO SCH ×3 (09:39→15:20)
[2016-12-29] MEDS: FLUTICASONE PROPIONATE NA SPR 16 GM BTL SCH (09:40)
[2016-12-29] MEDS: OXYCODONE/ACETAMINOPHEN 5-325 TAB PO PRN ×2 (09:40→19:51)
[2016-12-29] MEDS: NEPHROCAPS PO SCH (09:42)
[2016-12-29] MEDS: PANTOprazole SOD 40 MG TAB PO SCH (09:42)
[2016-12-29] MEDS: DOCUSATE SODIUM 100 MG CAP PO SCH ×2 (09:42→22:18)
[2016-12-29] MEDS: METOPROLOL TARTRATE 25 MG TAB PO SCH ×3 (09:42→22:19)
--- NOTE | 2016-12-29 10:12 | CARDIOLOGY PROGRESS NOTE ---
DATE: 12/29/2016 SUBJECTIVE: Mrs. Gastelum is resting comfortably in bed without complaints of chest pain, dyspnea, or palpitations. She had a restful night. OBJECTIVE: VITAL SIGNS: Blood pressure is 120/50 with a regular pulse of 80. Respiratory rate is 22. The patient is afebrile at 36.6 degrees Celsius. Saturation is 94% on 2 liters nasal cannula. NECK: Supple with delayed and prolonged carotid upstrokes. No obvious transmitted murmurs or bruits. Jugular venous pressure is difficult to assess. CARDIOVASCULAR: Reveals a regular rhythm with a 2/6 crescendo decrescendo systolic murmur heard loudest at the base. S2 is not audible at the apex. No S3. LUNGS: Note coarse breath sounds throughout, but no rales, rhonchi, or wheezes. ABDOMEN: Soft without bruits. EXTREMITIES: Reveal intact radial artery pulses bilaterally. Right hip is dressed. LABORATORY DATA: CBC notes hemoglobin of 9.0, hematocrit 27.1, white count 11.6, and platelet count 170,000. Electrolytes note a sodium of 127, potassium 3.2, chloride 90, bicarb 20, BUN 32, creatinine 4.6, and glucose 128. INR is 1.6. Digoxin level supratherapeutic at 4.0. Telemetry notes atrial fibrillation with a controlled ventricular response and appropriate pacing. IMPRESSION AND PLAN: 1. Right hip open reduction and internal fixation -- per orthopedic team. 2. Hypotension -- norepinephrine currently being weaned. She seems euvolemic at this time. 3. Permanent atrial fibrillation -- intravenous amiodarone discontinued yesterday. Remains on warfarin. 4. Severe aortic stenosis. 5. Cor pulmonale -- with severe pulmonary hypertension. 6. 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 7. Mitral valve repair -- 2008. 8. Tricuspid valve repair -- 2008. 9. Left ventricular hypertrophy -- with evidence of diastolic dysfunction.
--- NOTE | 2016-12-29 10:50 | Critical Care Progress Note ---
Critical Care Progress Note Date of Service Dec 29, 2016. ICU Day ICU Day Number: [address] Wilson Subjective Patient with no acute events overnight Hip pain is minimal. Shortness of breath has improved Lower limb edema and abdominal swelling has decreased Dialysis overnight removed 1.1L Levophed increased to 0.25 overnight Denies any chest pain, shortness of breath, palpitations Denies any abdominal pain, diarrhea, vomiting Denies any fevers, chills or night sweats Denies any worsening swelling/ redness around right hip joint Objective General: Elderly female, in no distress, sitting in chair at the bedside HEENT: NC/AT, no lymphadenopathy Lungs: no respiratory distress, mild inspiratory rhonchi in both lung laird CVS: S1S2 distant and HR irregularly irregular, no pitting edema, JVD difficult to assess Abd: Soft, distended, non tender, no rebound or guarding, PD catheter Ext: dressing over right hip, no erythema or swelling surrounding bandage, weak peripheral pulses Skin: bruising on both upper extremities with raised horn like lesions on both arms bilaterally Current SOFA Score SOFA Score Response (Comments) Value Platelets (x10) > 150 0 Bilirubin (mg/dL) < 1.2 0 Cesar Coma Score 15 0 Level of Hypotension Dopamine > 15 mcq or Epi > 0.1 mcq 4 Creatinine (mg/dL) 3.5 - 4.9 3 Total 7 Assessment & Plan Patient s/p right hip ORIF with intertrochanteric nailing was hypotensive pre and post op and was admitted to the ICU as she has required pressors for her blood pressure. 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, will check old records for last dexa scan, (bisphosphonate candidate?) - PT/OT ordered - peritoneal dialysis (removed 1.1 L yesterday evening) - nephrology consulted - Peritonitis resolving on ceftaz and is on day 11 - hgb goal of 10 to 11, nephro redosing procrit, continue to trend hgb, Hgb 9.0 today - Hyponatremia 127, will recheck tomorrow morning after peritoneal dialysis tonight - Nephrocaps once daily ID - Peritonitis and currently on day of cefazolin - currently afebrile and WCC is 11.63, will continue to monitor GI - pantoprazole 40 mg daily - colace daily - had 2 bm yesterday - start renal diet w/1200 fluid restriction Resp - SOB improved after administration of flonase nasal spray - Also receiving tessalon pearls and xopenex nebs and robitussin - No hx of smoking Heme - Hgb 9.0, baseline 10-11, nephro will adjust procrit level - likely from ESRD - DVT prophylaxis with warfarin Endo - Blood sugars 120 and 128 overnight - Switched from NPO to renal diet (dental soft and slippery due to hx of esophageal dysmotility) - Check TSH and Free T4 Access - Right IJ and left radial a line and left peripheral line in antecubital fossa Dispo - Full Code - PT/OT ordered, encouraged to get up and out of bed today Resident Physician Supervision Note: Dr. Dominguez was resident physician during care of patient. I separately evaluated patient and did history and exam. I discussed the case with the resident and generally agree with the findings and plan. Attempted to wean vasoactive medication today. Patient systolic blood pressure drops into the 60s and patient became somnolent. Will continue to attempt to wean. Patient critically ill due to hypotension requiring vasoactive medication support. I have personally spent 35 minutes of critical care time in the direct management of this patient. This is a life/limb threatening event. This includes time spent evaluating patient, direct bedside care, chart review, placing orders, interpretation of diagnostic studies, discussion with consultants, patient, and family members, as well as other required patient management activities. This time is exclusive of all separately billable procedures, and teaching time and separate from and in addition to any other critical care service time. Documented By: Rigoberto Wilson DO Consults & Procedures Consultants: Cardiology - Dr Bundy Nephrology - Dr Anderson Ortho - Dr Perea Procedures: 12/25/16 - right IJ TLC 12/25/16 left radial a-line 12/25/16 - right hip ORIF with intertrochanteric nailing Data Medications: Current Inpatient Medications Medications (Trade) Dose Ordered Sig/Seth Route Start Time Stop Time Status Last Admin Dose Admin Polyethylene (Miralax Powder Packet) 17 gm DAILY PRN PO 12/25/16 05:45 01/24/17 05:44 Pantoprazole Sodium (Protonix Tab) 40 mg DAILY PO 12/25/16 09:00 01/24/17 08:59 12/29/16 09:42 40 MG Pravastatin Sodium (Pravachol Tab) 40 mg HS PO 12/25/16 21:00 01/24/17 20:59 12/28/16 19:29 40 MG Miscellaneous Information (Order Awaiting Action) 1 ea QS N/A 12/25/16 08:00 01/24/17 07:59 Vitamin B Complex/ Vit C/Folic Acid (Nephrocaps) 1 cap DAILY PO 12/25/16 09:00 01/24/17 08:59 12/29/16 09:42 1 CAP Ondansetron HCl (Zofran Inj) 4 mg Q6H PRN IV 12/25/16 17:45 01/24/17 17:44 12/28/16 11:14 4 MG Acetaminophen (Tylenol Tab) 650 mg Q6H PRN PO 12/25/16 17:45 01/24/17 17:44 Norepinephrine Bitartrate 8 mg/ Dextrose 508 ml @ 0 mls/hr Q0M PRN IV 12/25/16 21:21 01/24/17 21:20 12/29/16 03:03 56 MLS/HR Guaifenesin (Robitussin Sugar Free Syrup) 300 mg Q6H PRN PO 12/25/16 23:30 01/24/17 23:29 12/28/16 23:22 300 MG Enteral Nutritional Formula (Boost Glucose Control) 1 can 3XDQ4 PO 12/26/16 12:00 01/25/17 11:59 12/29/16 09:39 1 CAN Fluticasone Propionate (Flonase Nasal [place]) 2 sprays DAILY NA 12/28/16 09:00 01/27/17 08:59 12/29/16 09:40 2 SPRAYS Levalbuterol (Xopenex 0.63 Mg/ 3 Ml Neb) 0.63 mg Q6R PRN INH 12/27/16 12:30 01/26/17 12:29 12/27/16 15:21 0.63 MG Docusate Sodium (coLACE CAP) 100 mg BID PO 12/27/16 21:00 01/26/17 20:59 12/29/16 09:42 100 MG Bisacodyl (Dulcolax Supp) 10 mg DAILY PRN [place] 12/27/16 13:30 01/26/17 13:29 Fentanyl Citrate (Fentanyl Inj) 25 mcg Q4H PRN IV 12/27/16 14:30 01/10/17 14:29 12/28/16 09:59 25 MCG Benzonatate (Tessalon Perles Cap) 100 mg TID PRN PO 12/27/16 16:00 01/26/17 15:59 12/28/16 23:22 100 MG Heparin Sodium (Porcine) (Heparin 10 Unit/ ml 5 ml Flush) 5 ml PRN PRN FLUSH 12/27/16 23:45 01/26/17 23:44 Warfarin Sodium (Coumadin Tab) 3 mg DAILY@16 PO 12/28/16 16:00 01/26/17 15:59 Future hold 12/28/16 16:40 3 MG Oxycodone/ Acetaminophen (Percocet 5-325mg Tab) `1-2 tabs for pain 1 tab ... Q6H PRN PO 12/28/16 11:45 01/11/17 11:44 12/29/16 09:40 1 TAB Midodrine (Proamatine Tab) 10 mg TIDM PO 12/28/16 16:30 01/27/17 16:29 12/29/16 06:43 10 MG Metoprolol Tartrate (Lopressor Tab) 12.5 mg BID PO 12/28/16 21:00 12/29/16 11:00 12/29/16 09:42 12.5 MG Heparin Sodium (Porcine) (Heparin Sq 5000 Unit/0.5ml) 5,000 unit Q12H SQ 12/28/16 18:00 01/27/17 17:59 12/29/16 05:45 5,000 UNIT Ceftazidime 750 mg/Peritoneal [facility] 2,007.5 ml @ 0 mls/hr TODAY@0700 IP 12/29/16 07:00 12/29/16 23:59 12/29/16 08:45 2,000 MLS/HR Metoprolol Tartrate (Lopressor Tab) 12.5 mg TID PO 12/29/16 14:00 01/28/17 13:59 Magnesium Oxide (Mag-Ox Tab) 400 mg QAM PO 12/29/16 10:00 01/01/17 12:00 Warfarin Sodium (Coumadin Tab) 5 mg TODAY@1600 ONCE PO 12/29/16 16:00 12/29/16 16:01 Vital Signs: Date Time Temp Pulse Resp B/P (MAP) Pulse Ox O2 Delivery O2 Flow Rate FiO2 12/29/16 06:01 83 22 107/37 (58) 94 110/52 12/29/16 05:01 36.6 80 19 102/29 (51) 100 111/56 12/29/16 04:01 81 24 98/27 (48) 99/52 12/29/16 04:00 93 Nasal Cannula 2.0 12/29/16 03:01 87 30 90/29 (48) 94 100/57 12/29/16 02:01 93 23 97/28 (49) 96 108/54 12/29/16 02:01 93 23 97/28 (49) 96 108/54 12/29/16 01:42 77 22 83/22 (39) 100 80/46 12/29/16 01:01 88 22 91/28 (47) 94 103/51 12/29/16 00:01 82 21 92/28 (49) 98 Nasal Cannula 2.0 12/29/16 00:01 82 21 92/28 (48) 98 109/50 12/29/16 00:00 74 21 91/26 (45) 97 12/29/16 00:00 74 21 91/26 (47) 97 Nasal Cannula 2.0 12/28/16 23:59 93 Nasal Cannula 2.0 12/28/16 23:00 37.0 77 26 94/32 (52) 98 Nasal Cannula 2.0 12/28/16 22:00 89 52 99/33 (55) 93 Nasal Cannula 2.0 113/62 (79) 12/28/16 20:00 Nasal Cannula 2.0 12/28/16 20:00 95 27 112/36 (61) 92 Nasal Cannula 2.0 118/54 (75) 12/28/16 19:41 36.7 102 105/55 (72) 12/28/16 18:00 94 22 104/39 (60) 99 Nasal Cannula 2.0 100/37 (58) 12/28/16 16:25 36.8 92 20 110/51 (70) 12/28/16 16:00 94 22 104/39 (60) 99 Nasal Cannula 2.0 100/37 (58) 12/28/16 16:00 Nasal Cannula 3.0 12/28/16 14:00 89 26 102/38 (59) 96 Nasal Cannula 3.0 98/53 (68) 12/28/16 12:00 36.8 87 30 117/40 (65) 100 Nasal Cannula 3.0 118/77 (91) 12/28/16 12:00 Nasal Cannula 3.0 Laboratory Results: Last 24 Hours Test 12/28/16 17:47 12/28/16 23:18 12/29/16 04:51 Bedside Glucose 90 mg/dl 112 mg/dl White Blood Count 11.63 K/uL Red Blood Count 2.91 M/uL Hemoglobin 9.0 g/dL Hematocrit 27.1 % Mean Corpuscular Volume 93.1 fL Mean Corpuscular Hemoglobin 30.9 pg Mean Corpuscular Hemoglobin Concent 33.2 g/dl Platelet Count 170 K/uL Mean Platelet Volume 9.4 fL Neutrophils (%) (Auto) 81.2 % Lymphocytes (%) (Auto) 7.9 % Monocytes (%) (Auto) 7.5 % Eosinophils (%) (Auto) 2.9 % Basophils (%) (Auto) 0.1 % Neutrophils # (Auto) 9.44 K/uL Lymphocytes # (Auto) 0.92 K/uL Monocytes # (Auto) 0.87 K/uL Eosinophils # (Auto) 0.34 K/uL Basophils # (Auto) 0.01 K/uL RDW Standard Deviation 47.2 fL RDW Coefficient of Variation 14.1 % Immature Granulocyte % (Auto) 0.4 % Immature Granulocyte # (Auto) 0.05 K/uL Prothrombin Time 17.3 SECONDS Prothromb Time International Ratio 1.6 Sodium Level 127 mmol/L Potassium Level 3.2 mmol/L Chloride Level 90 mmol/L Carbon Dioxide Level 28 mmol/L Anion Gap 9.0 mmol/L Blood Urea Nitrogen 32 mg/dl Creatinine 4.60 mg/dl Est Creatinine Clear Calc Drug Dose 7.9 ml/min Estimated GFR () 9.4 Estimated GFR (Non- 8.1 BUN/Creatinine Ratio 7.0 Random Glucose 128 mg/dl Calcium Level 7.9 mg/dl Magnesium Level 1.7 mg/dl Total Bilirubin 0.7 mg/dl Aspartate Amino Transf (AST/SGOT) 25 U/L Alanine Aminotransferase (ALT/SGPT) < 6 U/L Alkaline Phosphatase 113 U/L Total Protein 6.1 gm/dl Albumin 2.2 gm/dl Globulin 3.9 gm/dl Albumin/Globulin Ratio 0.6 Digoxin Level 4.0 ng/ml
[2016-12-29] MEDS: MAGNESIUM OXIDE 400 MG TAB PO SCH (11:28)
--- NOTE | 2016-12-29 15:29 | Nephrology Progress Note ---
Nephrology Progress Note Date of Service: Dec 29, 2016. Subjective 86 yo female with esrd on pd with resolving peritonitis who underwent surgery on hip last wednesday. used one green last night and removed about 2 liters this morning. on daily antibiotics. pt is oob to chair and friend visiting her. pt in good spirits. attempting to wean the pressor. Objective Date Time Temp Pulse Resp B/P (MAP) Pulse Ox O2 Delivery O2 Flow Rate FiO2 12/29/16 12:46 70 19 82/37 (52) 97 Nasal Cannula 2.0 12/29/16 12:00 Nasal Cannula 2.0 12/29/16 12:00 36.5 70 19 78/42 (54) 98 Nasal Cannula 2.0 12/29/16 11:30 70 20 93/41 (58) 97 Nasal Cannula 2.0 12/29/16 11:00 71 16 82/37 (52) 96 Nasal Cannula 2.0 12/29/16 10:16 74 20 90/31 (50) 100 Nasal Cannula 2.0 12/29/16 10:10 87 Room Air 12/29/16 10:01 75 22 101/36 (57) 98 Nasal Cannula 2.0 12/29/16 09:47 75 25 92/39 (56) 96 Nasal Cannula 2.0 12/29/16 09:24 81 23 115/45 (68) 95 Nasal Cannula 2.0 12/29/16 09:00 80 25 122/30 (60) 96 Nasal Cannula 2.0 12/29/16 08:50 36.6 80 114/56 (75) 12/29/16 08:50 36.6 80 18 114/56 (75) 12/29/16 08:01 36.6 80 22 105/32 (56) 100 Nasal Cannula 2.0 12/29/16 08:00 Nasal Cannula 2.0 12/29/16 07:00 78 19 104/31 (55) 99 Nasal Cannula 2.0 12/29/16 06:01 83 22 107/37 (58) 94 110/52 12/29/16 05:01 36.6 80 19 102/29 (51) 100 111/56 12/29/16 04:01 81 24 98/27 (48) 99/52 12/29/16 04:00 93 Nasal Cannula 2.0 12/29/16 03:01 87 30 90/29 (48) 94 100/57 12/29/16 02:01 93 23 97/28 (49) 96 108/54 12/29/16 02:01 93 23 97/28 (49) 96 108/54 12/29/16 01:42 77 22 83/22 (39) 100 80/46 12/29/16 01:01 88 22 91/28 (47) 94 103/51 12/29/16 00:01 82 21 92/28 (49) 98 Nasal Cannula 2.0 12/29/16 00:01 82 21 92/28 (48) 98 109/50 12/29/16 00:00 74 21 91/26 (45) 97 12/29/16 00:00 74 21 91/26 (47) 97 Nasal Cannula 2.0 12/28/16 23:59 93 Nasal Cannula 2.0 12/28/16 23:00 37.0 77 26 94/32 (52) 98 Nasal Cannula 2.0 12/28/16 22:00 89 52 99/33 (55) 93 Nasal Cannula 2.0 113/62 (79) 12/28/16 20:00 Nasal Cannula 2.0 12/28/16 20:00 95 27 112/36 (61) 92 Nasal Cannula 2.0 118/54 (75) 12/28/16 19:41 36.7 102 105/55 (72) 12/28/16 18:00 94 22 104/39 (60) 99 Nasal Cannula 2.0 100/37 (58) 12/28/16 16:25 36.8 92 20 110/51 (70) 12/28/16 16:00 94 22 104/39 (60) 99 Nasal Cannula 2.0 100/37 (58) 12/28/16 16:00 Nasal Cannula 3.0 Physical Exam: General-aaox3 Eyes-no scleral icterus ENT-mmm Neck-supple Lungs-clear Heart-irregular Abdomen-bs+/nontender Extremities-no c/c, no edema in legs Neuro-nonfocal Current Inpatient Medications Medications (Trade) Dose Ordered Sig/Seth Route Start Time Stop Time Status Last Admin Dose Admin Polyethylene (Miralax Powder Packet) 17 gm DAILY PRN PO 12/25/16 05:45 01/24/17 05:44 Pantoprazole Sodium (Protonix Tab) 40 mg DAILY PO 12/25/16 09:00 01/24/17 08:59 12/29/16 09:42 40 MG Pravastatin Sodium (Pravachol Tab) 40 mg HS PO 12/25/16 21:00 01/24/17 20:59 12/28/16 19:29 40 MG Miscellaneous Information (Order Awaiting Action) 1 ea QS N/A 12/25/16 08:00 01/24/17 07:59 Vitamin B Complex/ Vit C/Folic Acid (Nephrocaps) 1 cap DAILY PO 12/25/16 09:00 01/24/17 08:59 12/29/16 09:42 1 CAP Ondansetron HCl (Zofran Inj) 4 mg Q6H PRN IV 12/25/16 17:45 01/24/17 17:44 12/28/16 11:14 4 MG Acetaminophen (Tylenol Tab) 650 mg Q6H PRN PO 12/25/16 17:45 01/24/17 17:44 Norepinephrine Bitartrate 8 mg/ Dextrose 508 ml @ 0 mls/hr Q0M PRN IV 12/25/16 21:21 01/24/17 21:20 12/29/16 03:03 56 MLS/HR Guaifenesin (Robitussin Sugar Free Syrup) 300 mg Q6H PRN PO 12/25/16 23:30 01/24/17 23:29 12/28/16 23:22 300 MG Enteral Nutritional Formula (Boost Glucose Control) 1 can 3XDQ4 PO 12/26/16 12:00 01/25/17 11:59 12/29/16 09:39 1 CAN Fluticasone Propionate (Flonase Nasal [place]) 2 sprays DAILY NA 12/28/16 09:00 01/27/17 08:59 12/29/16 09:40 2 SPRAYS Levalbuterol (Xopenex 0.63 Mg/ 3 Ml Neb) 0.63 mg Q6R PRN INH 12/27/16 12:30 01/26/17 12:29 12/27/16 15:21 0.63 MG Docusate Sodium (coLACE CAP) 100 mg BID PO 12/27/16 21:00 01/26/17 20:59 12/29/16 09:42 100 MG Bisacodyl (Dulcolax Supp) 10 mg DAILY PRN [place] 12/27/16 13:30 01/26/17 13:29 Fentanyl Citrate (Fentanyl Inj) 25 mcg Q4H PRN IV 12/27/16 14:30 01/10/17 14:29 12/28/16 09:59 25 MCG Benzonatate (Tessalon Perles Cap) 100 mg TID PRN PO 12/27/16 16:00 01/26/17 15:59 12/28/16 23:22 100 MG Heparin Sodium (Porcine) (Heparin 10 Unit/ ml 5 ml Flush) 5 ml PRN PRN FLUSH 12/27/16 23:45 01/26/17 23:44 Warfarin Sodium (Coumadin Tab) 3 mg DAILY@16 PO 12/28/16 16:00 01/26/17 15:59 Future hold 12/28/16 16:40 3 MG Oxycodone/ Acetaminophen (Percocet 5-325mg Tab) `1-2 tabs for pain 1 tab ... Q6H PRN PO 12/28/16 11:45 01/11/17 11:44 12/29/16 09:40 1 TAB Midodrine (Proamatine Tab) 10 mg TIDM PO 12/28/16 16:30 01/27/17 16:29 12/29/16 11:28 10 MG Heparin Sodium (Porcine) (Heparin Sq 5000 Unit/0.5ml) 5,000 unit Q12H SQ 12/28/16 18:00 01/27/17 17:59 12/29/16 05:45 5,000 UNIT Ceftazidime 750 mg/[facility] 2,007.5 ml @ 0 mls/hr TODAY@0700 IP 12/29/16 07:00 12/29/16 23:59 12/29/16 08:45 2,000 MLS/HR Metoprolol Tartrate (Lopressor Tab) 12.5 mg TID PO 12/29/16 14:00 01/28/17 13:59 Magnesium Oxide (Mag-Ox Tab) 400 mg QAM PO 12/29/16 10:00 01/01/17 12:00 12/29/16 11:28 400 MG Warfarin Sodium (Coumadin Tab) 5 mg TODAY@1600 ONCE PO 12/29/16 16:00 12/29/16 16:01 Last 24 Hours Test 12/28/16 17:47 12/28/16 23:18 12/29/16 04:51 Bedside Glucose 90 mg/dl 112 mg/dl White Blood Count 11.63 K/uL Red Blood Count 2.91 M/uL Hemoglobin 9.0 g/dL Hematocrit 27.1 % Mean Corpuscular Volume 93.1 fL Mean Corpuscular Hemoglobin 30.9 pg Mean Corpuscular Hemoglobin Concent 33.2 g/dl Platelet Count 170 K/uL Mean Platelet Volume 9.4 fL Neutrophils (%) (Auto) 81.2 % Lymphocytes (%) (Auto) 7.9 % Monocytes (%) (Auto) 7.5 % Eosinophils (%) (Auto) 2.9 % Basophils (%) (Auto) 0.1 % Neutrophils # (Auto) 9.44 K/uL Lymphocytes # (Auto) 0.92 K/uL Monocytes # (Auto) 0.87 K/uL Eosinophils # (Auto) 0.34 K/uL Basophils # (Auto) 0.01 K/uL RDW Standard Deviation 47.2 fL RDW Coefficient of Variation 14.1 % Immature Granulocyte % (Auto) 0.4 % Immature Granulocyte # (Auto) 0.05 K/uL Prothrombin Time 17.3 SECONDS Prothromb Time International Ratio 1.6 Sodium Level 127 mmol/L Potassium Level 3.2 mmol/L Chloride Level 90 mmol/L Carbon Dioxide Level 28 mmol/L Anion Gap 9.0 mmol/L Blood Urea Nitrogen 32 mg/dl Creatinine 4.60 mg/dl Est Creatinine Clear Calc Drug Dose 7.9 ml/min Estimated GFR () 9.4 Estimated GFR (Non- 8.1 BUN/Creatinine Ratio 7.0 Random Glucose 128 mg/dl Calcium Level 7.9 mg/dl Magnesium Level 1.7 mg/dl Total Bilirubin 0.7 mg/dl Aspartate Amino Transf (AST/SGOT) 25 U/L Alanine Aminotransferase (ALT/SGPT) < 6 U/L Alkaline Phosphatase 113 U/L Total Protein 6.1 gm/dl Albumin 2.2 gm/dl Globulin 3.9 gm/dl Albumin/Globulin Ratio 0.6 Digoxin Level 4.0 ng/ml Assessment & Plan [id number] status is appropriate. will switch to all yellows tonight and continue daily antibiotic to finish 3 week course. 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 continue intermittent procrit. hyponatremia-despite removing fluid, sodium levels continue to trend down. monitor for now.
[2016-12-29] MEDS ORDERED: WARFARIN SOD 5 MG TAB PO ONE (16:00)
[2016-12-29] MEDS ORDERED: WARFARIN SOD 1 MG TAB PO ONE (18:00)
[2016-12-29] MEDS: ONDANSETRON INJ 2 MG/ML 2 ML VIAL IV PRN (21:20)
[2016-12-29] MEDS: PRAVASTATIN SOD 40 MG TAB PO SCH (22:18)
[2016-12-30] VITALS (101 sets, daily range): BP systolic 46–158; BP diastolic 24–157; PULSE 64–77; TEMP 36.4–37.1; O2SAT 59–100
[2016-12-30] MEDS: NOREPINEPHRINE BIT INJ 8 MG in DEXTROSE 5% 500ML 500 ML IV PRN (00:33)
[2016-12-30 05:48] LABS: BASO % 0.3 %; BASO ABS # 0.03 K/uL (0-0.2); COMPLETE YES; EOS % 4.7 %; HEMATOCRIT 26.8 % (37-47); IG% 0.5 %; LYMPH % 11.5 %; MEAN CELL VOLUME 92.1 fL (80-100); MEAN CORPUSCULAR HEMOGLOBIN 31.3 pg (25-34); MEAN PLATELET VOLUME 9.4 fL (7.4-10.4); MONO % 9.2 %; NEUT % 73.8 %; PLATELET COUNT 177 K/uL (130-400); RED BLOOD COUNT 2.91 M/uL (4.2-5.4); WHITE BLOOD COUNT 8.73 K/uL (4.8-10.8)
[2016-12-30] MEDS: GUAIFENESIN SUGAR FREE 100 MG/5 ML UDC PO PRN ×2 (05:48→20:11)
[2016-12-30] MEDS: HEPARIN SOD 5000 UNIT/0.5 ML CARP SQ SCH ×2 (05:49→18:33)
[2016-12-30 05:57] LABS: INR 1.9 (0.9-1.1); PROTHROMBIN TIME (PATIENT) 21.4 SECONDS (9.0-12.0)
--- NOTE | 2016-12-30 06:40 | Nephrology Progress Note ---
Nephrology Progress Note Date of Service: Dec 30, 2016. Subjective 86 yo female with esrd on pd with resolving peritonitis who underwent surgery on hip last wednesday. pt doing well. slowly weaning down the levo with goal of systolics in the 80s. pt usually uses 2 liter fills overnight when sleeping but when doing manual exchanges-she prefers 1500cc fill volume. nurse noticed when she filled, that her bp started to drop. pt has some discomfort and would prefer a smaller volume. appetite continues to be poor. Objective Date Time Temp Pulse Resp B/P (MAP) Pulse Ox O2 Delivery O2 Flow Rate FiO2 12/30/16 06:00 75 15 100/44 (62) 90 12/30/16 05:01 70 18 85/35 (52) 99 12/30/16 04:01 36.4 70 16 76/33 (47) 99 12/30/16 04:00 Nasal Cannula 2.0 12/30/16 03:00 70 19 89/36 (53) 100 12/30/16 02:00 70 19 72/30 (44) 98 12/30/16 01:01 68 19 68/29 (42) 100 12/30/16 01:00 67 19 70/27 (41) 100 12/30/16 00:00 Nasal Cannula 2.0 12/30/16 00:00 36.4 70 17 69/27 (41) 100 12/29/16 23:01 67 17 90/36 (54) 100 12/29/16 22:01 73 23 91/33 (52) 97 12/29/16 21:28 36.7 72 93/52 (66) 12/29/16 21:00 70 20 92/33 (52) 99 12/29/16 20:00 36.6 74 21 95/37 (56) 97 12/29/16 20:00 Nasal Cannula 2.0 12/29/16 19:00 71 21 89/32 (51) 99 12/29/16 18:01 70 22 88/34 (52) 97 Nasal Cannula 2.0 12/29/16 17:00 70 23 76/30 (45) 98 Nasal Cannula 2.0 12/29/16 16:31 72 23 91/33 (52) 97 Nasal Cannula 2.0 12/29/16 16:17 36.5 70 22 91/42 (58) 12/29/16 16:00 Nasal Cannula 2.0 12/29/16 15:30 36.8 74 22 91/42 (58) 96 Nasal Cannula 2.0 12/29/16 15:05 71 23 75/42 (53) 97 Nasal Cannula 2.0 73/30 (44) 12/29/16 14:01 72 19 88/33 (51) 98 Nasal Cannula 2.0 95/36 (55) 12/29/16 13:46 70 22 100/49 (66) 98 Nasal Cannula 2.0 96/39 (58) 12/29/16 13:26 73 18 64/34 (44) 97 Nasal Cannula 2.0 48/20 (29) 12/29/16 12:46 70 19 82/37 (52) 97 Nasal Cannula 2.0 12/29/16 12:00 Nasal Cannula 2.0 12/29/16 12:00 36.5 70 19 78/42 (54) 98 Nasal Cannula 2.0 12/29/16 11:30 70 20 93/41 (58) 97 Nasal Cannula 2.0 12/29/16 11:00 71 16 82/37 (52) 96 Nasal Cannula 2.0 12/29/16 10:16 74 20 90/31 (50) 100 Nasal Cannula 2.0 12/29/16 10:10 87 Room Air 12/29/16 10:01 75 22 101/36 (57) 98 Nasal Cannula 2.0 12/29/16 09:47 75 25 92/39 (56) 96 Nasal Cannula 2.0 12/29/16 09:24 81 23 115/45 (68) 95 Nasal Cannula 2.0 12/29/16 09:00 80 25 122/30 (60) 96 Nasal Cannula 2.0 12/29/16 08:50 36.6 80 114/56 (75) 12/29/16 08:50 36.6 80 18 114/56 (75) 12/29/16 08:01 36.6 80 22 105/32 (56) 100 Nasal Cannula 2.0 12/29/16 08:00 Nasal Cannula 2.0 12/29/16 07:00 78 19 104/31 (55) 99 Nasal Cannula 2.0 Physical Exam: General-aaox3 Eyes-no scleral icterus ENT-mmm Neck-supple Lungs-cta Heart-irregular Abdomen-bs+/nontender Extremities-no c/c/e Neuro-nonfocal Current Inpatient Medications Medications (Trade) Dose Ordered Sig/Seth Route Start Time Stop Time Status Last Admin Dose Admin Polyethylene (Miralax Powder Packet) 17 gm DAILY PRN PO 12/25/16 05:45 01/24/17 05:44 Pantoprazole Sodium (Protonix Tab) 40 mg DAILY PO 12/25/16 09:00 01/24/17 08:59 12/29/16 09:42 40 MG Pravastatin Sodium (Pravachol Tab) 40 mg HS PO 12/25/16 21:00 01/24/17 20:59 12/29/16 22:18 40 MG Miscellaneous Information (Order Awaiting Action) 1 ea QS N/A 12/25/16 08:00 01/24/17 07:59 Vitamin B Complex/ Vit C/Folic Acid (Nephrocaps) 1 cap DAILY PO 12/25/16 09:00 01/24/17 08:59 12/29/16 09:42 1 CAP Ondansetron HCl (Zofran Inj) 4 mg Q6H PRN IV 12/25/16 17:45 01/24/17 17:44 12/29/16 21:20 4 MG Acetaminophen (Tylenol Tab) 650 mg Q6H PRN PO 12/25/16 17:45 01/24/17 17:44 Norepinephrine Bitartrate 8 mg/ Dextrose 508 ml @ 0 mls/hr Q0M PRN IV 12/25/16 21:21 01/24/17 21:20 12/30/16 00:33 15.8 MLS/HR Guaifenesin (Robitussin Sugar Free Syrup) 300 mg Q6H PRN PO 12/25/16 23:30 01/24/17 23:29 12/30/16 05:48 300 MG Enteral Nutritional Formula (Boost Glucose Control) 1 can 3XDQ4 PO 12/26/16 12:00 01/25/17 11:59 12/29/16 15:20 1 CAN Fluticasone Propionate (Flonase Nasal [place]) 2 sprays DAILY NA 12/28/16 09:00 01/27/17 08:59 12/29/16 09:40 2 SPRAYS Levalbuterol (Xopenex 0.63 Mg/ 3 Ml Neb) 0.63 mg Q6R PRN INH 12/27/16 12:30 01/26/17 12:29 12/27/16 15:21 0.63 MG Docusate Sodium (coLACE CAP) 100 mg BID PO 12/27/16 21:00 01/26/17 20:59 12/29/16 22:18 100 MG Bisacodyl (Dulcolax Supp) 10 mg DAILY PRN GA 12/27/16 13:30 01/26/17 13:29 Fentanyl Citrate (Fentanyl Inj) 25 mcg Q4H PRN IV 12/27/16 14:30 01/10/17 14:29 12/28/16 09:59 25 MCG Benzonatate (Tessalon Perles Cap) 100 mg TID PRN PO 12/27/16 16:00 01/26/17 15:59 12/28/16 23:22 100 MG Heparin Sodium (Porcine) (Heparin 10 Unit/ ml 5 ml Flush) 5 ml PRN PRN FLUSH 12/27/16 23:45 01/26/17 23:44 Warfarin Sodium (Coumadin Tab) 3 mg DAILY@16 PO 12/28/16 16:00 01/26/17 15:59 Future hold 12/28/16 16:40 3 MG Oxycodone/ Acetaminophen (Percocet 5-325mg Tab) `1-2 tabs for pain 1 tab ... Q6H PRN PO 12/28/16 11:45 01/11/17 11:44 12/29/16 19:51 1 TAB Midodrine (Proamatine Tab) 10 mg TIDM PO 12/28/16 16:30 01/27/17 16:29 12/29/16 15:20 10 MG Heparin Sodium (Porcine) (Heparin Sq 5000 Unit/0.5ml) 5,000 unit Q12H SQ 12/28/16 18:00 01/27/17 17:59 12/30/16 05:49 5,000 UNIT Metoprolol Tartrate (Lopressor Tab) 12.5 mg TID PO 12/29/16 14:00 01/28/17 13:59 12/29/16 22:19 12.5 MG Magnesium Oxide (Mag-Ox Tab) 400 mg QAM PO 12/29/16 10:00 01/01/17 12:00 12/29/16 11:28 400 MG Ceftazidime 750 mg/[facility] 2,007.5 ml @ 0 mls/hr TODAY@0700 IP 12/30/16 07:00 12/30/16 23:59 Last 24 Hours Test 12/29/16 16:08 12/30/16 05:25 Bedside Glucose 108 mg/dl White Blood Count 8.73 K/uL Red Blood Count 2.91 M/uL Hemoglobin 9.1 g/dL Hematocrit 26.8 % Mean Corpuscular Volume 92.1 fL Mean Corpuscular Hemoglobin 31.3 pg Mean Corpuscular Hemoglobin Concent 34.0 g/dl Platelet Count 177 K/uL Mean Platelet Volume 9.4 fL Neutrophils (%) (Auto) 73.8 % Lymphocytes (%) (Auto) 11.5 % Monocytes (%) (Auto) 9.2 % Eosinophils (%) (Auto) 4.7 % Basophils (%) (Auto) 0.3 % Neutrophils # (Auto) 6.45 K/uL Lymphocytes # (Auto) 1.00 K/uL Monocytes # (Auto) 0.80 K/uL Eosinophils # (Auto) 0.41 K/uL Basophils # (Auto) 0.03 K/uL RDW Standard Deviation 48.4 fL RDW Coefficient of Variation 14.4 % Immature Granulocyte % (Auto) 0.5 % Immature Granulocyte # (Auto) 0.04 K/uL Prothrombin Time 21.4 SECONDS Prothromb Time International Ratio 1.9 Assessment & Plan [id number] status is appropriate. doing all yellows now to optimize clearance but not necessarily remove fluid. will switch to 1500 fill volume and lower drain time to allow for more comfort for the patient. pts levo is being weaned down and is currently on midodrine 10 tid. 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 continue intermittent procrit.
[2016-12-30] MEDS ORDERED: CEFTAZIDIME 1 GM PEG SCH ×2 (06:45→10:00)
[2016-12-30 06:50] LABS: ALB/GLOB RATIO 0.5 (0.9-2); ALKALINE PHOSPHATASE 112 U/L (45-117); ALT/SGPT < 6 U/L (12-78); AST/SGOT 21 U/L (15-37); BLOOD UREA NITROGEN 34 mg/dl (7-18); BUN/CREATININE RATIO 7.4 (10-20); CARBON DIOXIDE 29 mmol/L (21-32); CHLORIDE 88 mmol/L (98-107); GLUCOSE 113 mg/dl (70-99); MAGNESIUM 1.9 mg/dl (1.8-2.4); PHOSPHORUS 3.4 mg/dl (2.5-4.9); SODIUM 126 mmol/L (136-145)
[2016-12-30] MEDS ORDERED: CEFTAZIDIME IP SCH (07:00)
[2016-12-30] MEDS ORDERED: DIALYSIS IP SCH (07:00)
[2016-12-30] MEDS ORDERED: PERITONEAL 1.5% IP SCH (07:00)
[2016-12-30] MEDS: SENSIPAR~ORDER AWAITING ACTION SCH ×3 (08:00→20:36)
[2016-12-30] MEDS: BOOST GLUCOSE CONTROL PO SCH ×3 (08:00→15:38)
--- NOTE | 2016-12-30 08:04 | Progress Note ---
Internal Med Progress Note Date of Service: Dec 30, 2016. Provider Documentation: SUBJECTIVE: Seen and examined at bedside. Still on Levophed Poor appetite Denies chest pain, SOB, palpitations, dizziness Reports Right hip pain with ambulation OBJECTIVE: Vital Signs-as noted below Physical Exam: General Appearance:Moderately built and nourished, no apparent distress Head: normocephalic, Atraumatic Eyes: normal inspection, EOMI, PERRL Neck: supple, Trachea midline Respiratory/Chest: Normal breath sounds, CTA Cardiovascular: Irregularly irregular, No murmur Abdomen/GI:Soft, Non tender, Bowel sounds present Extremities/Musculoskelatal:normal inspection, no edema, Right hip in surgical bandage Neurologic/Psych:grossly no focal neurological deficits Skin: normal color, warm Lab data as noted below. 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 Input Atrial Fibrillation Continue Metoprolol for rate control Monitor INR:1.9 Continue Coumadin: 5mg today Amiodarone, Digoxin discontinued Digoxin levels:improved Takes Coumadin 2 mg daily except tues/thurs 4mg ESRD on PD Hypokalemia/Hypomagnesemia Subacute Peritonitis PD per Nephro continue Ceftazidime with PD until 01/07/17 ( Day 03/23 ) blood cultures: negative replace electrolytes per Nephrology H/O Valvular Heart disease Severe Aortic Stenosis S/P Mitral and tricuspid valve repair Possible Type II demand Ischemia follows with Cardiology Dr Song in [place] ECHO as below Dysphagia: Last VFF on 06/19 showed moderate to sever esophageal dysmotility with tapering /narrowing of lower GE junction underwent EGD and dilatation Speech was consulted -Diet recommendation -dental soft /slippery diet with aspiration precaution speech eval requested Code Status: Full Code DVT Px : on Coumadin Disposition: will need rehab post hip surgery PT/OT eval Social service consulted for discharge planning PROCEDURES: ECHO: n Left ventricular systolic function is normal. n No regional wall motion abnormalities noted. n Ejection Fraction = 65-70%. n There is mild concentric left ventricular hypertrophy. n Dilated right ventricle with reduced systolic function. n Pressure and volume overload of the right ventricle. n Severe valvular aortic stenosis. n There is moderate tricuspid regurgitation. Vital Signs: Date Time Temp Pulse Resp B/P (MAP) Pulse Ox O2 Delivery O2 Flow Rate FiO2 12/30/16 06:00 75 15 100/44 (62) 90 12/30/16 05:01 70 18 85/35 (52) 99 12/30/16 04:01 36.4 70 16 76/33 (47) 99 12/30/16 04:00 Nasal Cannula 2.0 12/30/16 03:00 70 19 89/36 (53) 100 12/30/16 02:00 70 19 72/30 (44) 98 12/30/16 01:01 68 19 68/29 (42) 100 12/30/16 01:00 67 19 70/27 (41) 100 12/30/16 00:00 Nasal Cannula 2.0 12/30/16 00:00 36.4 70 17 69/27 (41) 100 12/29/16 23:01 67 17 90/36 (54) 100 12/29/16 22:01 73 23 91/33 (52) 97 12/29/16 21:28 36.7 72 93/52 (66) 12/29/16 21:00 70 20 92/33 (52) 99 12/29/16 20:00 36.6 74 21 95/37 (56) 97 12/29/16 20:00 Nasal Cannula 2.0 12/29/16 19:00 71 21 89/32 (51) 99 12/29/16 18:01 70 22 88/34 (52) 97 Nasal Cannula 2.0 12/29/16 17:00 70 23 76/30 (45) 98 Nasal Cannula 2.0 12/29/16 16:31 72 23 91/33 (52) 97 Nasal Cannula 2.0 12/29/16 16:17 36.5 70 22 91/42 (58) 12/29/16 16:00 Nasal Cannula 2.0 12/29/16 15:30 36.8 74 22 91/42 (58) 96 Nasal Cannula 2.0 12/29/16 15:05 71 23 75/42 (53) 97 Nasal Cannula 2.0 73/30 (44) 12/29/16 14:01 72 19 88/33 (51) 98 Nasal Cannula 2.0 95/36 (55) 12/29/16 13:46 70 22 100/49 (66) 98 Nasal Cannula 2.0 96/39 (58) 12/29/16 13:26 73 18 64/34 (44) 97 Nasal Cannula 2.0 48/20 (29) 12/29/16 12:46 70 19 82/37 (52) 97 Nasal Cannula 2.0 12/29/16 12:00 Nasal Cannula 2.0 12/29/16 12:00 36.5 70 19 78/42 (54) 98 Nasal Cannula 2.0 12/29/16 11:30 70 20 93/41 (58) 97 Nasal Cannula 2.0 12/29/16 11:00 71 16 82/37 (52) 96 Nasal Cannula 2.0 12/29/16 10:16 74 20 90/31 (50) 100 Nasal Cannula 2.0 12/29/16 10:10 87 Room Air 12/29/16 10:01 75 22 101/36 (57) 98 Nasal Cannula 2.0 12/29/16 09:47 75 25 92/39 (56) 96 Nasal Cannula 2.0 12/29/16 09:24 81 23 115/45 (68) 95 Nasal Cannula 2.0 12/29/16 09:00 80 25 122/30 (60) 96 Nasal Cannula 2.0 12/29/16 08:50 36.6 80 114/56 (75) 12/29/16 08:50 36.6 80 18 114/56 (75) Lab Results: Results Past 24 Hours Test 12/29/16 16:08 12/30/16 05:25 Range/Units Bedside Glucose 108 70-90 mg/dl White Blood Count 8.73 4.8-10.8 K/uL Red Blood Count 2.91 4.2-5.4 M/uL Hemoglobin 9.1 12.0-16.0 g/dL Hematocrit 26.8 37-47 % Mean Corpuscular Volume 92.1 80-100 fL Mean Corpuscular Hemoglobin 31.3 25-34 pg Mean Corpuscular Hemoglobin Concent 34.0 32-36 g/dl Platelet Count 177 130-400 K/uL Mean Platelet Volume 9.4 7.4-10.4 fL Neutrophils (%) (Auto) 73.8 % Lymphocytes (%) (Auto) 11.5 % Monocytes (%) (Auto) 9.2 % Eosinophils (%) (Auto) 4.7 % Basophils (%) (Auto) 0.3 % Neutrophils # (Auto) 6.45 1.4-6.5 K/uL Lymphocytes # (Auto) 1.00 1.2-3.4 K/uL Monocytes # (Auto) 0.80 0.11-0.59 K/uL Eosinophils # (Auto) 0.41 0-0.5 K/uL Basophils # (Auto) 0.03 0-0.2 K/uL RDW Standard Deviation 48.4 36.4-46.3 fL RDW Coefficient of Variation 14.4 11.5-14.5 % Immature Granulocyte % (Auto) 0.5 % Immature Granulocyte # (Auto) 0.04 0.00-0.02 K/uL Prothrombin Time 21.4 9.0-12.0 SECONDS Prothromb Time International Ratio 1.9 0.9-1.1 Sodium Level 126 136-145 mmol/L Potassium Level 3.0 3.5-5.1 mmol/L Chloride Level 88 98-107 mmol/L Carbon Dioxide Level 29 21-32 mmol/L Anion Gap 9.0 3-11 mmol/L Blood Urea Nitrogen 34 7-18 mg/dl Creatinine 4.60 0.60-1.20 mg/dl Est Creatinine Clear Calc Drug Dose 7.8 ml/min Estimated GFR () 9.4 Estimated GFR (Non- 8.1 BUN/Creatinine Ratio 7.4 10-20 Random Glucose 113 70-99 mg/dl Calcium Level 8.0 8.5-10.1 mg/dl Phosphorus Level 3.4 2.5-4.9 mg/dl Magnesium Level 1.9 1.8-2.4 mg/dl Total Bilirubin 0.8 0.2-1 mg/dl Aspartate Amino Transf (AST/SGOT) 21 15-37 U/L Alanine Aminotransferase (ALT/SGPT) < 6 12-78 U/L Alkaline Phosphatase 112 45-117 U/L Total Protein 6.0 6.4-8.2 gm/dl Albumin 2.1 3.4-5.0 gm/dl Globulin 3.9 2.5-4.0 gm/dl Albumin/Globulin Ratio 0.5 0.9-2 Thyroid Stimulating Hormone (TSH) 1.690 0.300-4.500 uIu/ml Free Thyroxine 1.32 0.80-1.60 ng/dl Digoxin Level 3.1 0.8-2.0 ng/ml
[2016-12-30] MEDS: FLUTICASONE PROPIONATE NA SPR 16 GM BTL SCH (08:45)
[2016-12-30] MEDS: MIDODRINE 10 MG TAB PO SCH ×2 (08:46→15:39)
[2016-12-30] MEDS: PANTOprazole SOD 40 MG TAB PO SCH (08:48)
[2016-12-30] MEDS: DOCUSATE SODIUM 100 MG CAP PO SCH ×2 (08:48→20:08)
[2016-12-30] MEDS: NEPHROCAPS PO SCH (08:48)
[2016-12-30] MEDS: MAGNESIUM OXIDE 400 MG TAB PO SCH (08:48)
[2016-12-30] MEDS: METOPROLOL TARTRATE 25 MG TAB PO SCH ×2 (08:50→20:09)
[2016-12-30] MEDS: POTASSIUM CHLR 20 MEQ / WTR 20 MEQ in PREMIXED WATER 100 ML IV SCH ×2 (09:01→11:09)
[2016-12-30] MEDS: OXYCODONE/ACETAMINOPHEN 5-325 TAB PO PRN ×2 (10:08→21:25)
--- NOTE | 2016-12-30 10:34 | CARDIOLOGY PROGRESS NOTE ---
DATE: 12/30/2016 DATE: 12/30/2016 SUBJECTIVE: Mrs. Baker is resting comfortably in bed without complaints of chest pain, dyspnea, or palpitations. OBJECTIVE: VITAL SIGNS: Blood pressure is 100/45 with an irregular pulse of 75. Respiratory rate is 18. The patient is afebrile at 36.4 degrees Celsius. Saturations 90% on 2 liters nasal cannula. NECK: Supple with delayed and prolonged carotid upstrokes. No obvious transmitted murmur or bruit. Jugular venous pressure is flat at 90 degrees. CARDIOVASCULAR EXAMINATION: Reveals a regular rhythm with a 2/6 crescendo decrescendo systolic murmur heard loudest at the base. S2 is not audible at the apex. No S3. LUNGS: Note coarse breath sounds throughout, but no rales, rhonchi, or wheezes. ABDOMEN: Soft without bruits. EXTREMITIES: Reveal intact radial artery pulses bilaterally. Right hip is dressed. LABORATORY DATA: CBC notes hemoglobin 9.1, hematocrit 26.8, white count 8.7, platelet count 177,000. Electrolytes note a sodium of 126, potassium 3.0, chloride 88, bicarb 29, BUN 34, creatinine 4.6, glucose 113. INR is 1.9. pvc monitor notes atrial fibrillation and appropriate ventricular pacing. Ventricular response adequately controlled. IMPRESSION AND PLAN: 1. Right hip open reduction and internal fixation -- per orthopedics. 2. Hypotension -- norepinephrine being weaned. She is on midodrine, appears euvolemic. 3. Permanent atrial fibrillation -- amiodarone and digoxin discontinued. INR is nearly therapeutic. Rate well controlled. 4. Severe aortic stenosis. 5. 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 6. 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 7. Mitral valve repair -- 2008. 8. Tricuspid valve repair -- 2008. 9. Left ventricular hypertrophy -- with diastolic dysfunction.
--- NOTE | 2016-12-30 15:08 | Critical Care Progress Note ---
Critical Care Progress Note Date of Service Dec 30, 2016. ICU Day ICU Day Number: [address] Wilson Subjective Patient with no acute events overnight Had a coughing spell which resolved after administration of tessalon pearls Denies any chest pain, palpitations or shortness of breath Denies any abdominal pain, vomiting or diarrhea Denies any worsening lower extremity swelling, any worsening abdominal swelling Denies any light headedness, fatigue or syncope Denies any fevers, night sweats or chills Denies any redness or itch around right hip joint Denies any headache, dizziness or vertigo Objective General: Elderly female, in no distress, sitting in chair at the bedside HEENT: NC/AT, no lymphadenopathy Lungs: no respiratory distress, coarse breath sounds throughout, no crackles or wheezes CVS: S1S2 systolic murmur 2/6 heard throughout and HR irregularly irregular, no pitting edema, JVD difficult to assess Abd: Soft, distended, non tender, no rebound or guarding, PD catheter Ext: dressing over right hip fully saturated with serous fluid, no surrounding erythema or tenderness, peripheral pulses present Skin: bruising on both upper extremities with raised horn like lesions on both arms bilaterally Current SOFA Score SOFA Score Response (Comments) Value Platelets (x10) > 150 0 Bilirubin (mg/dL) < 1.2 0 Cesar Coma Score 15 0 Level of Hypotension MAP less than 70 1 Creatinine (mg/dL) 3.5 - 4.9 3 Total 4 Assessment & Plan Patient s/p right hip ORIF with intertrochanteric nailing was hypotensive pre and post op and was admitted to the ICU as she has required pressors for her blood pressure. 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 - Stop levophed and reassess blood pressure ---> or lactate on patient while off pressors - Increase midodrine to 15mg tid - Echo showed severe aortic stenosis with EF of 65-[address], [address] - I/O's monitor - continue pravastatin - Cardiology following patient MSK - Day 5 s/p R hip ORIF - stopped fentanyl IV and limit percocet use in order to keep blood pressures at adequate level - PT/OT ordered - peritoneal dialysis (removed 1.7 L yesterday evening) - nephrology consulted - Peritonitis resolving on ceftaz and is on day 12 of - hgb goal of 10 to 11, nephro redosing procrit, continue to trend hgb, Hgb 9.1 today - Hyponatremia 126,Hypokalemia 3.0 ---> will defer electrolyte management to Nephrology team as patient receives peritoneal dialysis - Nephrocaps once daily ID - Peritonitis and currently on day of cefazolin - currently afebrile and WCC is 8.73, will continue to monitor GI - pantoprazole 40 mg daily - colace daily - no bm in two days - start renal diet w/1200 fluid restriction Resp - SOB improved after administration of flonase nasal spray - Also receiving tessalon pearls and xopenex nebs and robitussin - No hx of smoking Heme - Hgb 9.1, baseline 10-11, nephro will adjust procrit level - likely from ESRD - DVT prophylaxis with warfarin Endo - Blood sugars 120 and 128 overnight - Switched from NPO to renal diet (dental soft and slippery due to hx of esophageal dysmotility) - TSH and free T4 wnl Access - Right IJ and left radial a line and left peripheral line in antecubital fossa Dispo - Full Code - PT/OT ordered, encouraged to get up and out of bed today Resident Physician Supervision Note: Dr. Dominguez was resident physician during care of patient. I separately evaluated patient and did history and exam. I discussed the case with the resident and generally agree with the findings and plan. Patient remains critically ill due to vasoactive medication requirement to maintain adequate systolic blood pressure. We will attempt to wean the vasoactive's, she appears to have an adequate cortisol response, we have also held patient's digoxin due to an elevated level. I have personally spent 40 minutes of critical care time in the direct management of this patient. This is a life/limb threatening event. This includes time spent evaluating patient, direct bedside care, chart review, placing orders, interpretation of diagnostic studies, discussion with consultants, patient, and family members, as well as other required patient management activities. This time is exclusive of all separately billable procedures, and teaching time and separate from and in addition to any other critical care service time. Documented By: Rigoberto Wilson DO Consults & Procedures Consultants: Cardiology - Dr Bundy Nephrology - Dr Anderson Ortho - Dr Perea Procedures: 12/25/16 - right IJ TLC 12/25/16 left radial a-line 12/25/16 - right hip ORIF with intertrochanteric nailing Data Medications: Current Inpatient Medications Medications (Trade) Dose Ordered Sig/Seth Route Start Time Stop Time Status Last Admin Dose Admin Polyethylene (Miralax Powder Packet) 17 gm DAILY PRN PO 12/25/16 05:45 01/24/17 05:44 Pantoprazole Sodium (Protonix Tab) 40 mg DAILY PO 12/25/16 09:00 01/24/17 08:59 12/30/16 08:48 40 MG Pravastatin Sodium (Pravachol Tab) 40 mg HS PO 12/25/16 21:00 01/24/17 20:59 12/29/16 22:18 40 MG Miscellaneous Information (Order Awaiting Action) 1 ea QS N/A 12/25/16 08:00 01/24/17 07:59 Vitamin B Complex/ Vit C/Folic Acid (Nephrocaps) 1 cap DAILY PO 12/25/16 09:00 01/24/17 08:59 12/30/16 08:48 1 CAP Ondansetron HCl (Zofran Inj) 4 mg Q6H PRN IV 12/25/16 17:45 01/24/17 17:44 12/29/16 21:20 4 MG Acetaminophen (Tylenol Tab) 650 mg Q6H PRN PO 12/25/16 17:45 01/24/17 17:44 Norepinephrine Bitartrate 8 mg/ Dextrose 508 ml @ 0 mls/hr Q0M PRN IV 12/25/16 21:21 01/24/17 21:20 12/30/16 00:33 15.8 MLS/HR Guaifenesin (Robitussin Sugar Free Syrup) 300 mg Q6H PRN PO 12/25/16 23:30 01/24/17 23:29 12/30/16 05:48 300 MG Enteral Nutritional Formula (Boost Glucose Control) 1 can 3XDQ4 PO 12/26/16 12:00 01/25/17 11:59 12/30/16 11:10 1 CAN Fluticasone Propionate (Flonase Nasal [place]) 2 sprays DAILY NA 12/28/16 09:00 01/27/17 08:59 12/30/16 08:45 2 SPRAYS Levalbuterol (Xopenex 0.63 Mg/ 3 Ml Neb) 0.63 mg Q6R PRN INH 12/27/16 12:30 01/26/17 12:29 12/27/16 15:21 0.63 MG Docusate Sodium (coLACE CAP) 100 mg BID PO 12/27/16 21:00 01/26/17 20:59 12/30/16 08:48 100 MG Bisacodyl (Dulcolax Supp) [address] 12/27/16 13:30 01/26/17 13:29 Benzonatate (Tessalon Perles Cap) 100 mg TID PRN PO 12/27/16 16:00 01/26/17 15:59 12/28/16 23:22 100 MG Heparin Sodium (Porcine) (Heparin 10 Unit/ ml 5 ml Flush) 5 ml PRN PRN FLUSH 12/27/16 23:45 01/26/17 23:44 Warfarin Sodium (Coumadin Tab) 3 mg DAILY@16 PO 12/28/16 16:00 01/26/17 15:59 Future hold 12/28/16 16:40 3 MG Oxycodone/ Acetaminophen (Percocet 5-325mg Tab) `1-2 tabs for pain 1 tab ... Q6H PRN PO 12/28/16 11:45 01/11/17 11:44 12/30/16 10:08 1 TAB Heparin Sodium (Porcine) (Heparin Sq 5000 Unit/0.5ml) 5,000 unit Q12H SQ 12/28/16 18:00 01/27/17 17:59 12/30/16 05:49 5,000 UNIT Metoprolol Tartrate (Lopressor Tab) 12.5 mg TID PO 12/29/16 14:00 01/28/17 13:59 12/30/16 08:50 12.5 MG Magnesium Oxide (Mag-Ox Tab) 400 mg QAM PO 12/29/16 10:00 01/01/17 12:00 12/30/16 08:48 400 MG Ceftazidime 750 mg/Per[facility] 2,007.5 ml @ 0 mls/hr TODAY@0700 IP 12/30/16 07:00 12/30/16 23:59 12/30/16 09:33 2,000 MLS/HR Midodrine (Proamatine Tab) 15 mg TIDM PO 12/30/16 11:30 01/27/17 16:29 12/30/16 08:46 15 MG I & O: 24-Hour Column 12/31/16 08:00 Intake Total 564 ml Balance 564 ml Vital Signs: Date Time Temp Pulse Resp B/P (MAP) Pulse Ox O2 Delivery O2 Flow Rate FiO2 12/30/16 12:15 Nasal Cannula 2.0 12/30/16 12:15 37.1 70 16 77/38 (51) 100 Nasal Cannula 2.0 12/30/16 12:01 70 18 70/36 (47) 97 12/30/16 12:00 71 19 70/37 (48) 99 12/30/16 11:45 70 31 71/36 (48) 100 12/30/16 11:31 71 22 46/29 (35) 71 12/30/16 11:30 71 27 78/37 (51) 100 12/30/16 11:15 71 23 83/40 (54) 96 12/30/16 11:08 70 24 80/39 (53) 12/30/16 11:05 72 21 90/43 (59) 12/30/16 11:00 71 17 116/65 (82) 12/30/16 10:56 68 21 87/50 (62) 75 12/30/16 10:50 73 22 80/49 (59) 12/30/16 10:47 70 25 91/44 (60) 97 12/30/16 10:45 68 24 79/34 (49) 93 12/30/16 10:44 68 12/30/16 10:31 70 23 83/37 (52) 98 12/30/16 10:30 71 19 81/37 (52) 96 12/30/16 10:26 69 21 77/43 (54) 88 12/30/16 10:15 70 19 106/45 (65) 96 12/30/16 10:00 71 26 108/45 (66) 95 Nasal Cannula 2.0 12/30/16 09:45 70 20 104/45 (64) 97 12/30/16 09:31 76 24 90/51 (64) 95 12/30/16 09:30 72 23 100/46 (64) 95 Nasal Cannula 2.0 12/30/16 09:15 70 21 97/41 (59) 100 12/30/16 09:01 71 22 91/37 (55) 95 12/30/16 09:00 70 24 88/37 (54) 99 Nasal Cannula 2.0 12/30/16 08:45 76 25 74/34 (47) 12/30/16 08:31 69 20 81/32 (48) 97 12/30/16 08:30 76 27 76/32 (47) 96 12/30/16 08:25 Nasal Cannula 2.0 12/30/16 08:15 37.0 70 22 89/36 (53) 96 Nasal Cannula 2.0 12/30/16 08:01 71 22 83/30 (47) 97 12/30/16 08:00 70 23 80/31 (47) 97 12/30/16 07:45 70 20 90/33 (52) 98 12/30/16 07:31 70 21 86/35 (52) 95 12/30/16 07:30 71 22 77/31 (46) 97 12/30/16 07:15 71 21 77/28 (44) 98 12/30/16 07:01 64 20 78/29 (45) 98 12/30/16 07:00 70 19 76/28 (44) 99 12/30/16 06:00 75 15 100/44 (62) 90 12/30/16 05:01 70 18 85/35 (52) 99 12/30/16 04:01 36.4 70 16 76/33 (47) 99 12/30/16 04:00 Nasal Cannula 2.0 12/30/16 03:00 70 19 89/36 (53) 100 12/30/16 02:00 70 19 72/30 (44) 98 12/30/16 01:01 68 19 68/29 (42) 100 12/30/16 01:00 67 19 70/27 (41) 100 12/30/16 00:00 Nasal Cannula 2.0 12/30/16 00:00 36.4 70 17 69/27 (41) 100 12/29/16 23:01 67 17 90/36 (54) 100 12/29/16 22:01 73 23 91/33 (52) 97 12/29/16 21:28 36.7 72 93/52 (66) 12/29/16 21:00 70 20 92/33 (52) 99 12/29/16 20:00 36.6 74 21 95/37 (56) 97 12/29/16 20:00 Nasal Cannula 2.0 12/29/16 19:00 71 21 89/32 (51) 99 12/29/16 18:01 70 22 88/34 (52) 97 Nasal Cannula 2.0 12/29/16 17:00 70 23 76/30 (45) 98 Nasal Cannula 2.0 12/29/16 16:31 72 23 91/33 (52) 97 Nasal Cannula 2.0 12/29/16 16:17 36.5 70 22 91/42 (58) 12/29/16 16:00 Nasal Cannula 2.0 12/29/16 15:30 36.8 74 22 91/42 (58) 96 Nasal Cannula 2.0 12/29/16 15:05 71 23 75/42 (53) 97 Nasal Cannula 2.0 73/30 (44) Laboratory Results: Last 24 Hours Test 12/29/16 16:08 12/30/16 05:25 Bedside Glucose 108 mg/dl White Blood Count 8.73 K/uL Red Blood Count 2.91 M/uL Hemoglobin 9.1 g/dL Hematocrit 26.8 % Mean Corpuscular Volume 92.1 fL Mean Corpuscular Hemoglobin 31.3 pg Mean Corpuscular Hemoglobin Concent 34.0 g/dl Platelet Count 177 K/uL Mean Platelet Volume 9.4 fL Neutrophils (%) (Auto) 73.8 % Lymphocytes (%) (Auto) 11.5 % Monocytes (%) (Auto) 9.2 % Eosinophils (%) (Auto) 4.7 % Basophils (%) (Auto) 0.3 % Neutrophils # (Auto) 6.45 K/uL Lymphocytes # (Auto) 1.00 K/uL Monocytes # (Auto) 0.80 K/uL Eosinophils # (Auto) 0.41 K/uL Basophils # (Auto) 0.03 K/uL RDW Standard Deviation 48.4 fL RDW Coefficient of Variation 14.4 % Immature Granulocyte % (Auto) 0.5 % Immature Granulocyte # (Auto) 0.04 K/uL Prothrombin Time 21.4 SECONDS Prothromb Time International Ratio 1.9 Sodium Level 126 mmol/L Potassium Level 3.0 mmol/L Chloride Level 88 mmol/L Carbon Dioxide Level 29 mmol/L Anion Gap 9.0 mmol/L Blood Urea Nitrogen 34 mg/dl Creatinine 4.60 mg/dl Est Creatinine Clear Calc Drug Dose 7.8 ml/min Estimated GFR () 9.4 Estimated GFR (Non- 8.1 BUN/Creatinine Ratio 7.4 Random Glucose 113 mg/dl Calcium Level 8.0 mg/dl Phosphorus Level 3.4 mg/dl Magnesium Level 1.9 mg/dl Total Bilirubin 0.8 mg/dl Aspartate Amino Transf (AST/SGOT) 21 U/L Alanine Aminotransferase (ALT/SGPT) < 6 U/L Alkaline Phosphatase 112 U/L Total Protein 6.0 gm/dl Albumin 2.1 gm/dl Globulin 3.9 gm/dl Albumin/Globulin Ratio 0.5 Thyroid Stimulating Hormone (TSH) 1.690 uIu/ml Free Thyroxine 1.32 ng/dl Digoxin Level 3.1 ng/ml
[2016-12-30] MEDS: WARFARIN SOD 3 MG TAB PO SCH (15:38)
[2016-12-30] MEDS ORDERED: WARFARIN SOD 2 MG TAB PO ONE (16:00)
[2016-12-30] MEDS: PRAVASTATIN SOD 40 MG TAB PO SCH (20:08)
[2016-12-30] MEDS: BENZONATATE 100MG CAP PO PRN (20:11)
[2016-12-30] MEDS: ONDANSETRON INJ 2 MG/ML 2 ML VIAL IV PRN (20:35)
[2016-12-31] VITALS (87 sets, daily range): BP systolic 56–91; BP diastolic 31–52; PULSE 59–78; TEMP 36.3–37.1; O2SAT 86–100
[2016-12-31 05:48] LABS: HEMATOCRIT 24.9 % (37-47); MEAN CELL VOLUME 92.6 fL (80-100); MEAN CORPUSCULAR HGB CONC 34.5 g/dl (32-36); MEAN PLATELET VOLUME 9.5 fL (7.4-10.4); PLATELET COUNT 166 K/uL (130-400); RED BLOOD COUNT 2.69 M/uL (4.2-5.4); WHITE BLOOD COUNT 7.32 K/uL (4.8-10.8)
[2016-12-31 05:58] LABS: INR 2.8 (0.9-1.1); PROTHROMBIN TIME (PATIENT) 30.7 SECONDS (9.0-12.0)
[2016-12-31] MEDS: HEPARIN SOD 5000 UNIT/0.5 ML CARP SQ SCH (06:13)
[2016-12-31 06:34] LABS: ALB/GLOB RATIO 0.5 (0.9-2); ALKALINE PHOSPHATASE 108 U/L (45-117); ALT/SGPT < 6 U/L (12-78); AST/SGOT 33 U/L (15-37); BLOOD UREA NITROGEN 34 mg/dl (7-18); BUN/CREATININE RATIO 7.5 (10-20); CALCIUM 8.2 mg/dl (8.5-10.1); CARBON DIOXIDE 30 mmol/L (21-32); CHLORIDE 90 mmol/L (98-107); GLUCOSE 99 mg/dl (70-99); MAGNESIUM 1.9 mg/dl (1.8-2.4); PHOSPHORUS 3.3 mg/dl (2.5-4.9); POTASSIUM 3.4 mmol/L (3.5-5.1); SODIUM 128 mmol/L (136-145)
[2016-12-31] MEDS ORDERED: DIALYSIS IP SCH (07:00)
[2016-12-31] MEDS ORDERED: PERITONEAL 1.5% IP SCH (07:00)
[2016-12-31] MEDS ORDERED: CEFTAZIDIME IP SCH (07:00)
--- NOTE | 2016-12-31 07:12 | Nephrology Progress Note ---
Nephrology Progress Note Date of Service: Dec 31, 2016. Subjective 86 yo female with esrd on pd with resolving peritonitis who underwent surgery on hip last wednesday. pts pressor weaned off yesterday. mentating well. systolics in the 60s but feels good. midodrine has been increased to 15 tid. did reduce fill volume to 1500cc last night which is more comfortable for the patient. no complaints. Objective Date Time Temp Pulse Resp B/P (MAP) Pulse Ox O2 Delivery O2 Flow Rate FiO2 12/31/16 06:16 70 20 73/36 (48) 97 Nasal Cannula 2.0 12/31/16 06:15 71 24 82/47 (59) 96 Nasal Cannula 2.0 12/31/16 06:01 68 20 56/34 (41) 97 Nasal Cannula 2.0 12/31/16 05:46 70 19 72/37 (49) 97 Nasal Cannula 2.0 12/31/16 05:31 68 20 77/40 (52) 97 Nasal Cannula 2.0 12/31/16 05:16 70 16 65/36 (46) 96 Nasal Cannula 2.0 12/31/16 05:01 62 17 61/34 (43) 92 Nasal Cannula 2.0 12/31/16 04:46 59 17 72/35 (47) 96 Nasal Cannula 2.0 12/31/16 04:31 70 18 67/39 (48) 100 Nasal Cannula 2.0 12/31/16 04:16 69 18 67/36 (46) 99 Nasal Cannula 2.0 12/31/16 04:01 68 18 60/34 (43) 99 Nasal Cannula 2.0 12/31/16 04:00 Nasal Cannula 2.0 12/31/16 03:57 36.5 72 20 56/32 (40) 100 Nasal Cannula 2.0 12/31/16 03:46 70 18 59/36 (44) 97 Nasal Cannula 2.0 12/31/16 03:31 70 21 70/39 (49) 97 Nasal Cannula 2.0 12/31/16 03:23 70 19 86/43 (57) 96 Nasal Cannula 2.0 12/31/16 03:12 70 19 68/43 (51) 98 Nasal Cannula 2.0 12/31/16 03:01 70 19 60/37 (45) 98 Nasal Cannula 2.0 12/31/16 02:46 71 19 66/39 (48) 99 Nasal Cannula 2.0 12/31/16 02:31 70 19 69/38 (48) 99 Nasal Cannula 2.0 12/31/16 02:16 70 18 68/40 (49) 98 Nasal Cannula 2.0 12/31/16 02:01 70 22 80/42 (55) 99 Nasal Cannula 2.0 12/31/16 01:52 70 17 83/39 (54) 99 Nasal Cannula 2.0 12/31/16 01:31 70 17 64/40 (48) 97 Nasal Cannula 2.0 12/31/16 01:16 71 20 67/36 (46) 99 Nasal Cannula 2.0 12/31/16 01:01 69 17 76/40 (52) 100 Nasal Cannula 2.0 12/31/16 00:46 70 21 78/44 (55) 98 Nasal Cannula 2.0 12/31/16 00:31 71 19 79/44 (56) 98 Nasal Cannula 2.0 12/31/16 00:16 70 21 80/42 (55) 98 Nasal Cannula 2.0 12/31/16 00:01 Nasal Cannula 2.0 12/31/16 00:01 36.5 70 18 /42 (28) 95 Nasal Cannula 2.0 12/30/16 23:46 70 16 65/37 (46) 99 Nasal Cannula 2.0 12/30/16 23:31 70 17 73/35 (48) 97 Nasal Cannula 2.0 12/30/16 23:23 69 22 76/42 (53) 98 Nasal Cannula 2.0 12/30/16 23:16 70 17 62/35 (44) 99 Nasal Cannula 2.0 12/30/16 23:01 72 16 72/38 (49) 99 Nasal Cannula 2.0 12/30/16 22:46 69 19 76/41 (53) 98 Nasal Cannula 2.0 12/30/16 22:31 70 21 68/37 (47) 98 Nasal Cannula 2.0 12/30/16 22:16 69 20 78/45 (56) 96 Nasal Cannula 2.0 12/30/16 22:01 70 19 76/39 (51) 97 Nasal Cannula 2.0 12/30/16 21:46 70 18 77/41 (53) 97 Nasal Cannula 2.0 12/30/16 21:31 70 20 79/48 (58) 97 Nasal Cannula 2.0 12/30/16 21:01 71 23 98 84/44 12/30/16 20:31 70 27 76/31 100 72/41 12/30/16 20:24 37.0 70 76/42 (53) 12/30/16 20:01 36.4 70 25 74/31 100 76/42 12/30/16 20:00 Nasal Cannula 2.0 12/30/16 19:40 70 19 74/29 97 76/42 12/30/16 19:31 71 23 78/30 83 75/39 12/30/16 19:01 71 20 65/24 80 60/35 12/30/16 18:15 74 23 64/27 (39) 94 12/30/16 18:01 69 19 59/25 (36) 94 12/30/16 18:00 68 20 60/25 (37) 94 12/30/16 17:45 70 21 77/30 (46) 92 12/30/16 17:31 73 23 89/30 (49) 94 12/30/16 17:30 71 19 63/36 (45) 12/30/16 17:15 70 19 158/157 (157) 100 12/30/16 17:01 77 23 157/156 (156) 94 12/30/16 17:00 37.0 72 100/45 (63) 12/30/16 17:00 69 22 157/156 (156) 91 12/30/16 16:45 71 21 59/42 (48) 92 12/30/16 16:31 69 34 73/39 (50) 94 12/30/16 16:30 70 20 67/31 (43) 95 12/30/16 16:15 72 20 65/30 (42) 12/30/16 16:05 36.5 73 17 77/36 (50) 12/30/16 16:01 70 19 67/35 (46) 95 12/30/16 16:00 Room Air 12/30/16 16:00 70 28 58/24 (35) 93 12/30/16 15:45 70 17 66/32 (43) 94 12/30/16 15:30 37.1 70 18 66/31 (43) 95 12/30/16 15:15 71 17 79/37 (51) 96 12/30/16 15:01 69 20 66/32 (43) 94 12/30/16 15:00 70 18 63/31 (42) 87 12/30/16 14:45 73 23 62/32 (42) 12/30/16 14:31 73 23 77/39 (52) 59 12/30/16 14:30 70 22 62/30 (41) 91 12/30/16 14:15 70 15 73/33 (46) 92 12/30/16 14:01 71 17 73/31 (45) 95 12/30/16 14:00 70 18 68/31 (43) 93 12/30/16 13:45 70 17 64/30 (41) 93 12/30/16 13:31 71 19 71/31 (44) 95 12/30/16 13:30 70 23 73/33 (46) 97 12/30/16 13:15 71 23 74/32 (46) 89 12/30/16 13:01 69 18 77/40 (52) 82 12/30/16 13:00 70 19 73/35 (48) 84 12/30/16 12:45 70 16 69/33 (45) 93 12/30/16 12:31 70 21 69/34 (46) 98 12/30/16 12:30 70 21 77/40 (52) 94 12/30/16 12:15 Nasal Cannula 2.0 12/30/16 12:15 37.1 70 16 77/38 (51) 100 Nasal Cannula 2.0 12/30/16 12:01 70 18 70/36 (47) 97 12/30/16 12:00 71 19 70/37 (48) 99 12/30/16 11:45 70 31 71/36 (48) 100 12/30/16 11:31 71 22 46/29 (35) 71 12/30/16 11:30 71 27 78/37 (51) 100 12/30/16 11:15 71 23 83/40 (54) 96 12/30/16 11:08 70 24 80/39 (53) 12/30/16 11:05 72 21 90/43 (59) 12/30/16 11:00 71 17 116/65 (82) 12/30/16 10:56 68 21 87/50 (62) 75 12/30/16 10:50 73 22 80/49 (59) 12/30/16 10:47 70 25 91/44 (60) 97 12/30/16 10:45 68 24 79/34 (49) 93 12/30/16 10:44 68 12/30/16 10:31 70 23 83/37 (52) 98 12/30/16 10:30 71 19 81/37 (52) 96 12/30/16 10:26 69 21 77/43 (54) 88 12/30/16 10:15 70 19 106/45 (65) 96 12/30/16 10:00 71 26 108/45 (66) 95 Nasal Cannula 2.0 12/30/16 09:45 70 20 104/45 (64) 97 12/30/16 09:35 37.0 72 23 100/45 (63) 12/30/16 09:31 76 24 90/51 (64) 95 12/30/16 09:30 72 23 100/46 (64) 95 Nasal Cannula 2.0 12/30/16 09:15 70 21 97/41 (59) 100 12/30/16 09:01 71 22 91/37 (55) 95 12/30/16 09:00 70 24 88/37 (54) 99 Nasal Cannula 2.0 12/30/16 08:45 76 25 74/34 (47) 12/30/16 08:31 69 20 81/32 (48) 97 12/30/16 08:30 76 27 76/32 (47) 96 12/30/16 08:25 Nasal Cannula 2.0 12/30/16 08:15 37.0 70 22 89/36 (53) 96 Nasal Cannula 2.0 12/30/16 08:01 71 22 83/30 (47) 97 12/30/16 08:00 70 23 80/31 (47) 97 12/30/16 07:45 70 20 90/33 (52) 98 12/30/16 07:31 70 21 86/35 (52) 95 12/30/16 07:30 71 22 77/31 (46) 97 12/30/16 07:15 71 21 77/28 (44) 98 Physical Exam: General-[id number] Eyes-no scleral icterus ENT-mmm Neck-supple Lungs-clear Heart-irregular Abdomen-bs+/nontender/+pd catheter Extremities-no c/c/e Neuro-nonfocal Current Inpatient Medications Medications (Trade) Dose Ordered Sig/Seth Route Start Time Stop Time Status Last Admin Dose Admin Polyethylene (Miralax Powder Packet) 17 gm DAILY PRN PO 12/25/16 05:45 01/24/17 05:44 Pantoprazole Sodium (Protonix Tab) 40 mg DAILY PO 12/25/16 09:00 01/24/17 08:59 12/30/16 08:48 40 MG Pravastatin Sodium (Pravachol Tab) 40 mg HS PO 12/25/16 21:00 01/24/17 20:59 12/30/16 20:08 40 MG Miscellaneous Information (Order Awaiting Action) 1 ea QS N/A 12/25/16 08:00 01/24/17 07:59 Vitamin B Complex/ Vit C/Folic Acid (Nephrocaps) 1 cap DAILY PO 12/25/16 09:00 01/24/17 08:59 12/30/16 08:48 1 CAP Ondansetron HCl (Zofran Inj) 4 mg Q6H PRN IV 12/25/16 17:45 01/24/17 17:44 12/30/16 20:35 4 MG Acetaminophen (Tylenol Tab) 650 mg Q6H PRN PO 12/25/16 17:45 01/24/17 17:44 Norepinephrine Bitartrate 8 mg/ Dextrose 508 ml @ 0 mls/hr Q0M PRN IV 12/25/16 21:21 01/24/17 21:20 12/30/16 00:33 15.8 MLS/HR Guaifenesin (Robitussin Sugar Free Syrup) 300 mg Q6H PRN PO 12/25/16 23:30 01/24/17 23:29 12/30/16 20:11 300 MG Enteral Nutritional Formula (Boost Glucose Control) 1 can 3XDQ4 PO 12/26/16 12:00 01/25/17 11:59 12/30/16 11:10 1 CAN Fluticasone Propionate (Flonase Nasal [place]) 2 sprays DAILY NA 12/28/16 09:00 01/27/17 08:59 12/30/16 08:45 2 SPRAYS Levalbuterol (Xopenex 0.63 Mg/ 3 Ml Neb) 0.63 mg Q6R PRN INH 12/27/16 12:30 01/26/17 12:29 12/27/16 15:21 0.63 MG Docusate Sodium (coLACE CAP) 100 mg BID PO 12/27/16 21:00 01/26/17 20:59 12/30/16 20:08 100 MG Bisacodyl (Dulcolax Supp) 10 mg DAILY PRN SC 12/27/16 13:30 01/26/17 13:29 Benzonatate (Tessalon Perles Cap) 100 mg TID PRN PO 12/27/16 16:00 01/26/17 15:59 12/30/16 20:11 100 MG Heparin Sodium (Porcine) (Heparin 10 Unit/ ml 5 ml Flush) 5 ml PRN PRN FLUSH 12/27/16 23:45 01/26/17 23:44 Warfarin Sodium (Coumadin Tab) 3 mg DAILY@16 PO 12/28/16 16:00 01/26/17 15:59 Future hold 12/30/16 15:38 3 MG Oxycodone/ Acetaminophen (Percocet 5-325mg Tab) `1-2 tabs for pain 1 tab ... Q6H PRN PO 12/28/16 11:45 01/11/17 11:44 12/30/16 21:25 1 TAB Heparin Sodium (Porcine) (Heparin Sq 5000 Unit/0.5ml) 5,000 unit Q12H SQ 12/28/16 18:00 01/27/17 17:59 12/31/16 06:13 5,000 UNIT Magnesium Oxide (Mag-Ox Tab) 400 mg QAM PO 12/29/16 10:00 01/01/17 12:00 12/30/16 08:48 400 MG Midodrine (Proamatine Tab) 15 mg TIDM PO 12/30/16 11:30 01/27/17 16:29 12/30/16 15:39 15 MG Metoprolol Tartrate (Lopressor Tab) 12.5 mg BID PO 12/30/16 21:00 01/29/17 20:59 12/30/16 20:09 12.5 MG Last 24 Hours Test 12/30/16 15:34 12/31/16 05:27 Lactic Acid Level 1.3 mmol/L White Blood Count 7.32 K/uL Red Blood Count 2.69 M/uL Hemoglobin 8.6 g/dL Hematocrit 24.9 % Mean Corpuscular Volume 92.6 fL Mean Corpuscular Hemoglobin 32.0 pg Mean Corpuscular Hemoglobin Concent 34.5 g/dl RDW Standard Deviation 49.1 fL RDW Coefficient of Variation 14.6 % Platelet Count 166 K/uL Mean Platelet Volume 9.5 fL Prothrombin Time 30.7 SECONDS Prothromb Time International Ratio 2.8 Sodium Level 128 mmol/L Potassium Level 3.4 mmol/L Chloride Level 90 mmol/L Carbon Dioxide Level 30 mmol/L Anion Gap 8.0 mmol/L Blood Urea Nitrogen 34 mg/dl Creatinine 4.60 mg/dl Est Creatinine Clear Calc Drug Dose 7.8 ml/min Estimated GFR () 9.4 Estimated GFR (Non- 8.1 BUN/Creatinine Ratio 7.5 Random Glucose 99 mg/dl Calcium Level 8.2 mg/dl Phosphorus Level 3.3 mg/dl Magnesium Level 1.9 mg/dl Total Bilirubin 0.7 mg/dl Aspartate Amino Transf (AST/SGOT) 33 U/L Alanine Aminotransferase (ALT/SGPT) < 6 U/L Alkaline Phosphatase 108 U/L Total Protein 5.8 gm/dl Albumin 2.0 gm/dl Globulin 3.8 gm/dl Albumin/Globulin Ratio 0.5 Digoxin Level 2.7 ng/ml Assessment & Plan [id number] status is appropriate. continue all yellows. doing 1500cc fill volume and daily ceftaz to complete 21 days. 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 will redose procrit again today. Hypotension-mentating well. on midodrine 15 tid. volume status is good. 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 lungs cta. no edema in legs.
[2016-12-31] MEDS: SENSIPAR~ORDER AWAITING ACTION SCH ×2 (07:40→15:40)
[2016-12-31] MEDS: BOOST GLUCOSE CONTROL PO SCH ×3 (07:40→15:58)
[2016-12-31] MEDS: MAGNESIUM OXIDE 400 MG TAB PO SCH (07:45)
[2016-12-31] MEDS: MIDODRINE 10 MG TAB PO SCH ×3 (07:46→17:51)
[2016-12-31] MEDS: FLUTICASONE PROPIONATE NA SPR 16 GM BTL SCH (07:47)
[2016-12-31] MEDS: DOCUSATE SODIUM 100 MG CAP PO SCH ×2 (07:47→21:17)
[2016-12-31] MEDS: PANTOprazole SOD 40 MG TAB PO SCH (07:48)
[2016-12-31] MEDS: NEPHROCAPS PO SCH (07:48)
[2016-12-31] MEDS: METOPROLOL TARTRATE 25 MG TAB PO SCH ×3 (07:49→21:17)
--- NOTE | 2016-12-31 08:19 | Progress Note ---
Internal Med Progress Note Date of Service: Dec 31, 2016. Provider Documentation: SUBJECTIVE: Seen and examined at bedside. Off Levophed, Blood pressure systolic in 60s but asymptomatic Denies chest pain, SOB, palpitations, dizziness Right hip pain is controlled Offers no complaints OBJECTIVE: Vital Signs-as noted below Physical Exam: General Appearance:Moderately built and nourished, no apparent distress Head: normocephalic, Atraumatic Eyes: normal inspection, EOMI, PERRL Neck: supple, Trachea midline Respiratory/Chest: Normal breath sounds, creps at bases Cardiovascular: Irregularly irregular, No murmur Abdomen/GI:Soft, Non tender, Bowel sounds present Extremities/Musculoskelatal:normal inspection, no edema, Right hip in surgical bandage Neurologic/Psych:grossly no focal neurological deficits Skin: normal color, warm Lab data as noted below. ASSESSMENT & PLAN: Right Hip Fracture s/p ORIF POD # 6 minimal hip pain with ambulation PT/OT when medically stable Hypotension likely Cardiogenic Currently off Levophed gentle IV fluids PRN Continue Midodrine Also on IV albumin Appreciate Cardiology and [employer] Input Atrial Fibrillation Continue Metoprolol for rate control Monitor INR:2.8 Continue Coumadin: 2mg today Amiodarone, Digoxin discontinued Digoxin levels:improved Takes Coumadin 2 mg daily except tues/thurs 4mg ESRD on PD Hypokalemia/Hypomagnesemia Subacute Peritonitis PD per Nephro continue Ceftazidime with PD until 01/07/17 ( Day 1321 ) blood cultures: negative replace electrolytes per Nephrology H/O Valvular Heart disease and chronic diastolic heart failure Severe Aortic Stenosis S/P Mitral and tricuspid valve repair Possible Type II demand Ischemia follows with Cardiology Dr Song in [place] ECHO as below Dysphagia: Last VFF on 06/19 showed moderate to sever esophageal dysmotility with tapering /narrowing of lower GE junction underwent EGD and dilatation Speech was consulted -Diet recommendation -dental soft /slippery diet with aspiration precaution speech eval requested Code Status: Full Code DVT Px : on Coumadin Disposition: will need rehab post hip surgery PT/OT eval Social service consulted for discharge planning PROCEDURES: ECHO: n Left ventricular systolic function is normal. n No regional wall motion abnormalities noted. n Ejection Fraction = 65-70%. n There is mild concentric left ventricular hypertrophy. n Dilated right ventricle with reduced systolic function. n Pressure and volume overload of the right ventricle. n Severe valvular aortic stenosis. n There is moderate tricuspid regurgitation. Vital Signs: Date Time Temp Pulse Resp B/P (MAP) Pulse Ox O2 Delivery O2 Flow Rate FiO2 12/31/16 16:31 78 16 70/38 (49) 96 Nasal Cannula 2.0 12/31/16 16:30 70 25 100 12/31/16 16:01 37.0 69 17 74/35 (48) 100 12/31/16 16:00 99 Nasal Cannula 2.0 12/31/16 16:00 71 18 100 12/31/16 15:31 70 18 70/44 (53) 12/31/16 15:30 71 18 100 12/31/16 15:01 75 21 73/36 (48) 96 12/31/16 15:00 70 23 100 12/31/16 14:31 72 22 72/31 (45) 86 12/31/16 14:30 73 20 96 12/31/16 14:01 70 17 79/39 (52) 99 Nasal Cannula 2.0 12/31/16 14:00 69 22 96 12/31/16 13:42 75 75/39 (51) 93 12/31/16 13:01 71 26 74/40 (51) 96 12/31/16 13:00 70 18 97 12/31/16 12:46 71 25 75/43 (54) 99 12/31/16 12:31 72 23 72/39 (50) 100 12/31/16 12:30 68 21 100 12/31/16 12:16 70 18 68/35 (46) 98 12/31/16 12:01 73 16 62/36 (45) 12/31/16 12:00 70 16 99 12/31/16 12:00 70 16 99 12/31/16 11:46 37.1 70 18 69/34 (46) 100 Nasal Cannula 2.0 12/31/16 11:31 70 17 68/42 (51) 98 12/31/16 11:30 70 17 99 12/31/16 11:16 65 17 71/38 (49) 98 12/31/16 11:11 98 Nasal Cannula 2.0 12/31/16 11:01 70 17 71/39 (50) 12/31/16 11:00 70 17 100 12/31/16 10:46 70 21 82/43 (56) 99 12/31/16 10:31 72 19 75/37 (50) 12/31/16 10:30 73 17 12/31/16 10:16 76 17 82/46 (58) 96 12/31/16 10:01 76 19 72/42 (52) 98 12/31/16 10:00 73 18 98 12/31/16 09:46 69 20 81/41 (54) 98 12/31/16 09:31 69 22 85/44 (58) 12/31/16 09:30 70 22 99 12/31/16 09:16 70 18 /34 (23) 97 12/31/16 09:01 74 20 67/36 (46) 91 12/31/16 09:00 70 21 97 12/31/16 08:46 69 17 64/34 (44) 99 Nasal Cannula 2.0 12/31/16 08:31 72 21 70/38 (49) 95 12/31/16 08:30 36.6 70 70/38 (49) 12/31/16 08:16 70 18 65/34 (44) 98 12/31/16 08:01 36.6 73 20 77/37 (50) 96 12/31/16 08:00 70 22 98 12/31/16 07:46 67 19 69/41 (50) 95 12/31/16 07:31 72 27 69/41 (50) 97 12/31/16 07:30 97 Nasal Cannula 2.0 12/31/16 07:16 70 18 64/38 (47) 95 12/31/16 07:01 70 15 68/36 (47) 93 12/31/16 07:00 70 19 94 12/31/16 06:16 70 20 73/36 (48) 97 Nasal Cannula 2.0 12/31/16 06:15 71 24 82/47 (59) 96 Nasal Cannula 2.0 12/31/16 06:01 68 20 56/34 (41) 97 Nasal Cannula 2.0 12/31/16 05:46 70 19 72/37 (49) 97 Nasal Cannula 2.0 12/31/16 05:31 68 20 77/40 (52) 97 Nasal Cannula 2.0 12/31/16 05:16 70 16 65/36 (46) 96 Nasal Cannula 2.0 12/31/16 05:01 62 17 61/34 (43) 92 Nasal Cannula 2.0 12/31/16 04:46 59 17 72/35 (47) 96 Nasal Cannula 2.0 12/31/16 04:31 70 18 67/39 (48) 100 Nasal Cannula 2.0 12/31/16 04:16 69 18 67/36 (46) 99 Nasal Cannula 2.0 12/31/16 04:01 68 18 60/34 (43) 99 Nasal Cannula 2.0 12/31/16 04:00 Nasal Cannula 2.0 12/31/16 03:57 36.5 72 20 56/32 (40) 100 Nasal Cannula 2.0 12/31/16 03:46 70 18 59/36 (44) 97 Nasal Cannula 2.0 12/31/16 03:31 70 21 70/39 (49) 97 Nasal Cannula 2.0 12/31/16 03:23 70 19 86/43 (57) 96 Nasal Cannula 2.0 12/31/16 03:12 70 19 68/43 (51) 98 Nasal Cannula 2.0 12/31/16 03:01 70 19 60/37 (45) 98 Nasal Cannula 2.0 12/31/16 02:46 71 19 66/39 (48) 99 Nasal Cannula 2.0 12/31/16 02:31 70 19 69/38 (48) 99 Nasal Cannula 2.0 12/31/16 02:16 70 18 68/40 (49) 98 Nasal Cannula 2.0 12/31/16 02:01 70 22 80/42 (55) 99 Nasal Cannula 2.0 12/31/16 01:52 70 17 83/39 (54) 99 Nasal Cannula 2.0 12/31/16 01:31 70 17 64/40 (48) 97 Nasal Cannula 2.0 12/31/16 01:16 71 20 67/36 (46) 99 Nasal Cannula 2.0 12/31/16 01:01 69 17 76/40 (52) 100 Nasal Cannula 2.0 12/31/16 00:46 70 21 78/44 (55) 98 Nasal Cannula 2.0 12/31/16 00:31 71 19 79/44 (56) 98 Nasal Cannula 2.0 12/31/16 00:16 70 21 80/42 (55) 98 Nasal Cannula 2.0 12/31/16 00:01 Nasal Cannula 2.0 12/31/16 00:01 36.5 70 18 /42 (28) 95 Nasal Cannula 2.0 12/30/16 23:46 70 16 65/37 (46) 99 Nasal Cannula 2.0 12/30/16 23:31 70 17 73/35 (48) 97 Nasal Cannula 2.0 12/30/16 23:23 69 22 76/42 (53) 98 Nasal Cannula 2.0 12/30/16 23:16 70 17 62/35 (44) 99 Nasal Cannula 2.0 12/30/16 23:01 72 16 72/38 (49) 99 Nasal Cannula 2.0 12/30/16 22:46 69 19 76/41 (53) 98 Nasal Cannula 2.0 12/30/16 22:31 70 21 68/37 (47) 98 Nasal Cannula 2.0 12/30/16 22:16 69 20 78/45 (56) 96 Nasal Cannula 2.0 12/30/16 22:01 70 19 76/39 (51) 97 Nasal Cannula 2.0 12/30/16 21:46 70 18 77/41 (53) 97 Nasal Cannula 2.0 12/30/16 21:31 70 20 79/48 (58) 97 Nasal Cannula 2.0 12/30/16 21:01 71 23 98 84/44 12/30/16 20:31 70 27 76/31 100 72/41 12/30/16 20:24 37.0 70 76/42 (53) 12/30/16 20:01 36.4 70 25 74/31 100 76/42 12/30/16 20:00 Nasal Cannula 2.0 12/30/16 19:40 70 19 74/29 97 76/42 12/30/16 19:31 71 23 78/30 83 75/39 12/30/16 19:01 71 20 65/24 80 60/35 12/30/16 18:15 74 23 64/27 (39) 94 12/30/16 18:01 69 19 59/25 (36) 94 12/30/16 18:00 68 20 60/25 (37) 94 12/30/16 17:45 70 21 77/30 (46) 92 12/30/16 17:31 73 23 89/30 (49) 94 12/30/16 17:30 71 19 63/36 (45) Lab Results: Results Past 24 Hours Test 12/31/16 05:27 Range/Units White Blood Count 7.32 4.8-10.8 K/uL Red Blood Count 2.69 4.2-5.4 M/uL Hemoglobin 8.6 12.0-16.0 g/dL Hematocrit 24.9 37-47 % Mean Corpuscular Volume 92.6 80-100 fL Mean Corpuscular Hemoglobin 32.0 25-34 pg Mean Corpuscular Hemoglobin Concent 34.5 32-36 g/dl RDW Standard Deviation 49.1 36.4-46.3 fL RDW Coefficient of Variation 14.6 11.5-14.5 % Platelet Count 166 130-400 K/uL Mean Platelet Volume 9.5 7.4-10.4 fL Prothrombin Time 30.7 9.0-12.0 SECONDS Prothromb Time International Ratio 2.8 0.9-1.1 Sodium Level 128 136-145 mmol/L Potassium Level 3.4 3.5-5.1 mmol/L Chloride Level 90 98-107 mmol/L Carbon Dioxide Level 30 21-32 mmol/L Anion Gap 8.0 3-11 mmol/L Blood Urea Nitrogen 34 7-18 mg/dl Creatinine 4.60 0.60-1.20 mg/dl Est Creatinine Clear Calc Drug Dose 7.8 ml/min Estimated GFR () 9.4 Estimated GFR (Non- 8.1 BUN/Creatinine Ratio 7.5 10-20 Random Glucose 99 70-99 mg/dl Calcium Level 8.2 8.5-10.1 mg/dl Phosphorus Level 3.3 2.5-4.9 mg/dl Magnesium Level 1.9 1.8-2.4 mg/dl Total Bilirubin 0.7 0.2-1 mg/dl Aspartate Amino Transf (AST/SGOT) 33 15-37 U/L Alanine Aminotransferase (ALT/SGPT) < 6 12-78 U/L Alkaline Phosphatase 108 45-117 U/L Total Protein 5.8 6.4-8.2 gm/dl Albumin 2.0 3.4-5.0 gm/dl Globulin 3.8 2.5-4.0 gm/dl Albumin/Globulin Ratio 0.5 0.9-2 Digoxin Level 2.7 0.8-2.0 ng/ml
[2016-12-31] MEDS: ALBUMIN HUMAN 25% 12.5 GM/50 ML VIAL IV SCH ×2 (09:10→21:17)
--- NOTE | 2016-12-31 09:32 | CARDIOLOGY PROGRESS NOTE ---
DATE: 12/31/2016 DATE: 12/31/2016 SUBJECTIVE: Mrs. Gastelum is resting comfortably in bed without complaints of chest pain, dyspnea, syncope, presyncope, or palpitations. OBJECTIVE: VITAL SIGNS: Blood pressure is 86/43 with an irregular pulse of 70. Respiratory rate is 18 and the patient is afebrile at 36.6 degrees Celsius. Saturations 99% on 2 liters nasal cannula. NECK: Supple with delayed and prolonged carotid upstrokes. No obvious transmitted murmur or bruit. Jugular venous pressure is flat at 90 degrees. No thyromegaly. CARDIOVASCULAR EXAMINATION: Reveals an irregular rhythm with a 2/6 crescendo decrescendo systolic murmur heard loudest at the base. S2 is not audible at the apex. No S3. LUNGS: Clear without rales, rhonchi, or wheezes. ABDOMEN: Soft without bruits. EXTREMITIES: Reveal intact radial artery pulses bilaterally. Right hip incision is intact. LABORATORY DATA: CBC notes hemoglobin 8.6, hematocrit 24.9, white count 7.3, platelet count 166,000. Electrolytes note a sodium of 128, potassium 3.4, chloride 90, bicarb 30, BUN 34, creatinine 4.6, glucose 99. INR is 2.8. Digoxin level is 2.7. IMPRESSION AND PLAN: 1. Right hip open reduction and internal fixation -- per orthopedics. 2. Hypotension -- now off norepinephrine. Tolerating midodrine without difficulty. Blood pressure still low, but the patient asymptomatic. 3. Permanent atrial fibrillation -- INR now therapeutic. Rate adequately controlled. 4. Severe aortic stenosis. 5. 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 6. 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 7. Mitral valve repair -- 2008. 8. Tricuspid valve repair -- 2008. 9. Left ventricular hypertrophy -- with diastolic dysfunction.
[2016-12-31] MEDS: OXYCODONE/ACETAMINOPHEN 5-325 TAB PO PRN ×2 (10:06→17:50)
[2016-12-31] MEDS: ONDANSETRON INJ 2 MG/ML 2 ML VIAL IV PRN ×2 (10:06→17:47)
[2016-12-31] MEDS ORDERED: LACTULOSE SYRUP 20 GM/30 ML UDC PO ONE (10:30)
--- NOTE | 2016-12-31 11:06 | Critical Care Progress Note ---
Critical Care Progress Note Date of Service Dec 31, 2016. ICU Day ICU Day Number: [address] Wilson Subjective Patient with no acute events overnight Last bm was 3 days ago and patient is having mild lower abdominal pain Appetite is improving Patient denies any nausea, vomiting or diarrhea Denies any chest pain, shortness of breath or palpitations Denies any worsening rash, itch at back of head from pillow Denies any fevers, night sweats or chills Denies any joint or muscular pain Denies any insomnia, restless legs Denies any worsening bruising, or bleeding Objective General: Elderly female, in no distress, sitting in chair at the bedside HEENT: NC/AT, no lymphadenopathy Lungs: no respiratory distress, lungs clear bilaterallyt, no crackles or wheezes CVS: S1S2 systolic murmur 2/6 heard throughout and HR irregularly irregular, no pitting edema, JVD difficult to assess Abd: Soft, distended, non tender, no rebound or guarding, PD catheter Ext: dressing over right hip without any surrounding erythema or tenderness, peripheral pulses weak Skin: bruising on both upper extremities with raised horn like lesions on both arms bilaterally Current SOFA Score SOFA Score Response (Comments) Value Platelets (x10) > 150 0 Bilirubin (mg/dL) < 1.2 0 Cesar Coma Score 15 0 Level of Hypotension MAP less than 70 1 Creatinine (mg/dL) 2.0 - 3.4 2 Total 3 Assessment & Plan Patient s/p right hip ORIF with intertrochanteric nailing was hypotensive pre and post op and was admitted to the ICU as she has required pressors for her blood pressure. 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 - Stop levophed and reassess blood pressure ---> Blood pressures have been 70 /30's. lactate was 1.3 yesterday while off pressors. Patient with normal cap refill and clinically stable. Patient mentating well. Asked nurse to notify physician if systolic blood pressure below 60 - midodrine to 15mg tid - Echo showed severe aortic stenosis with EF of 65-[address], [address] with pace of 70 - I/O's monitor - continue pravastatin - Cardiology following patient MSK - Day 6 s/p R hip ORIF - on percocet prn for pain ---> patient typically needs it when working with PT - PT/OT ordered - peritoneal dialysis (removed 868 ml overnight) - nephrology consulted - Peritonitis resolving on ceftaz and is on day 13 of 21 - hgb goal of 10 to 11, nephro redosing procrit, continue to trend hgb, Hgb 8.6 today - Hyponatremia 128,Hypokalemia 3.4 ---> will defer electrolyte management to Nephrology team as patient receives peritoneal dialysis - Nephrocaps once daily - started on albumin 12.5mg IV bid per nephro rec's. To help with blood pressure support ID - Peritonitis and currently on day 13 of cefazolin - currently afebrile and WCC is 7.3, will continue to monitor GI - pantoprazole 40 mg daily - colace daily and added lactulose - no bm in three days - renal diet w/1200 fluid restriction Resp - On O2 2L, wean as tolerated for goal >92% - SOB improved after administration of flonase nasal spray - Also receiving tessalon pearls and xopenex nebs and robitussin - No hx of smoking Heme - Hgb 8.6, baseline 10-11, nephro will adjust procrit level - likely from ESRD - DVT prophylaxis with warfarin Endo - Blood sugars 99 this morning - Switched from NPO to renal diet (dental soft and slippery due to hx of esophageal dysmotility) - TSH and free T4 wnl Access - Right IJ, and left peripheral line in antecubital fossa Dispo - Full Code - PT/OT ordered, encouraged to get up and out of bed today Resident Physician Supervision Note: Dr. Dominguez was resident physician during care of patient. I separately evaluated patient and did history and exam. I discussed the case with the resident and generally agree with the findings and plan. We have held the patient's vasoactive medication, her systolic blood pressures have ranged 60-90, during those periods she has remained sitting upright without complaints of mentating normally, having adequate capillary refill. Additionally we have also checked for a lactic acidosis of evidence of hyperperfusion for which there is a negative lactic acid. At this point I feel the patient is appropriate for transfer out of the ICU with an acceptable blood pressure 70 systolic or greater. Additionally the patient has a pacemaker, we want her as slow as physiologically possible given that she has a severe aortic stenosis to allow adequate systolic emptying time. We initially started her on 12.5 g metoprolol twice a day, she was still having [place] beats, we increased it to 3 times a day and were able to have her completely paced. We attempted to wean back to twice a day dosing to see if we had to reach a steady state, she started to develop some [place] beats again so the clinical decision was made to increase her beta lyn dosing to 3 times a day. Documented By: Rigoberto Wilson DO Consults & Procedures Consultants: Cardiology - Dr Bundy Nephrology - Dr Anderson Ortho - Dr Perea Procedures: 12/25/16 - right IJ TLC 12/25/16 left radial a-line 12/25/16 - right hip ORIF with intertrochanteric nailing Data Medications: Current Inpatient Medications Medications (Trade) Dose Ordered Sig/Seth Route Start Time Stop Time Status Last Admin Dose Admin Polyethylene (Miralax Powder Packet) 17 gm DAILY PRN PO 12/25/16 05:45 01/24/17 05:44 Pantoprazole Sodium (Protonix Tab) 40 mg DAILY PO 12/25/16 09:00 01/24/17 08:59 12/31/16 07:48 40 MG Pravastatin Sodium (Pravachol Tab) 40 mg HS PO 12/25/16 21:00 01/24/17 20:59 12/30/16 20:08 40 MG Miscellaneous Information (Order Awaiting Action) 1 ea QS N/A 12/25/16 08:00 01/24/17 07:59 Vitamin B Complex/ Vit C/Folic Acid (Nephrocaps) 1 cap DAILY PO 12/25/16 09:00 01/24/17 08:59 12/31/16 07:48 1 CAP Ondansetron HCl (Zofran Inj) 4 mg Q6H PRN IV 12/25/16 17:45 01/24/17 17:44 12/31/16 10:06 4 MG Acetaminophen (Tylenol Tab) 650 mg Q6H PRN PO 12/25/16 17:45 01/24/17 17:44 Guaifenesin (Robitussin Sugar Free Syrup) 300 mg Q6H PRN PO 12/25/16 23:30 01/24/17 23:29 12/30/16 20:11 300 MG Enteral Nutritional Formula (Boost Glucose Control) 1 can 3XDQ4 PO 12/26/16 12:00 01/25/17 11:59 12/30/16 11:10 1 CAN Fluticasone Propionate (Flonase Nasal Colon) 2 sprays DAILY NA 12/28/16 09:00 01/27/17 08:59 12/31/16 07:47 2 SPRAYS Levalbuterol (Xopenex 0.63 Mg/ 3 Ml Neb) 0.63 mg Q6R PRN INH 12/27/16 12:30 01/26/17 12:29 12/27/16 15:21 0.63 MG Docusate Sodium (coLACE CAP) 100 mg BID PO 12/27/16 21:00 01/26/17 20:59 12/31/16 07:47 100 MG Bisacodyl (Dulcolax Supp) 10 mg DAILY PRN NM 12/27/16 13:30 01/26/17 13:29 Benzonatate (Tessalon Perles Cap) 100 mg TID PRN PO 12/27/16 16:00 01/26/17 15:59 12/30/16 20:11 100 MG Heparin Sodium (Porcine) (Heparin 10 Unit/ ml 5 ml Flush) 5 ml PRN PRN FLUSH 12/27/16 23:45 01/26/17 23:44 Oxycodone/ Acetaminophen (Percocet 5-325mg Tab) `1-2 tabs for pain 1 tab ... Q6H PRN PO 12/28/16 11:45 01/11/17 11:44 12/31/16 10:06 1 TAB Magnesium Oxide (Mag-Ox Tab) 400 mg QAM PO 12/29/16 10:00 01/01/17 12:00 12/31/16 07:45 400 MG Midodrine (Proamatine Tab) 15 mg TIDM PO 12/30/16 11:30 01/27/17 16:29 12/31/16 07:46 15 MG Metoprolol Tartrate (Lopressor Tab) 12.5 mg BID PO 12/30/16 21:00 12/31/16 12:00 12/31/16 07:49 12.5 MG Albumin Human (Albumin 25%) 12.5 gm BID IV 12/31/16 09:00 01/03/17 08:59 12/31/16 09:10 12.5 GM Ceftazidime 750 mg/[facility] 2,007.5 ml @ 0 mls/hr TODAY@0700 IP 12/31/16 07:00 12/31/16 16:00 Warfarin Sodium (Coumadin Tab) 2 mg DAILY@16 PO 12/31/16 16:00 01/30/17 15:59 Future hold Metoprolol Tartrate (Lopressor Tab) 12.5 mg TID PO 12/31/16 14:00 01/30/17 13:59 Warfarin Sodium (Coumadin Tab) 1 mg TODAY@1600 PO 12/31/16 16:00 12/31/16 16:01 Vital Signs: Date Time Temp Pulse Resp B/P (MAP) Pulse Ox O2 Delivery O2 Flow Rate FiO2 12/31/16 08:46 69 17 64/34 (44) 99 Nasal Cannula 2.0 12/31/16 08:31 72 21 70/38 (49) 95 12/31/16 08:16 70 18 65/34 (44) 98 12/31/16 08:01 36.6 73 20 77/37 (50) 96 12/31/16 08:00 70 22 98 12/31/16 07:46 67 19 69/41 (50) 95 12/31/16 07:31 72 27 69/41 (50) 97 12/31/16 07:30 97 Nasal Cannula 2.0 12/31/16 07:16 70 18 64/38 (47) 95 12/31/16 07:01 70 15 68/36 (47) 93 12/31/16 07:00 70 19 94 12/31/16 06:16 70 20 73/36 (48) 97 Nasal Cannula 2.0 12/31/16 06:15 71 24 82/47 (59) 96 Nasal Cannula 2.0 12/31/16 06:01 68 20 56/34 (41) 97 Nasal Cannula 2.0 12/31/16 05:46 70 19 72/37 (49) 97 Nasal Cannula 2.0 12/31/16 05:31 68 20 77/40 (52) 97 Nasal Cannula 2.0 12/31/16 05:16 70 16 65/36 (46) 96 Nasal Cannula 2.0 12/31/16 05:01 62 17 61/34 (43) 92 Nasal Cannula 2.0 12/31/16 04:46 59 17 72/35 (47) 96 Nasal Cannula 2.0 12/31/16 04:31 70 18 67/39 (48) 100 Nasal Cannula 2.0 12/31/16 04:16 69 18 67/36 (46) 99 Nasal Cannula 2.0 12/31/16 04:01 68 18 60/34 (43) 99 Nasal Cannula 2.0 12/31/16 04:00 Nasal Cannula 2.0 12/31/16 03:57 36.5 72 20 56/32 (40) 100 Nasal Cannula 2.0 12/31/16 03:46 70 18 59/36 (44) 97 Nasal Cannula 2.0 12/31/16 03:31 70 21 70/39 (49) 97 Nasal Cannula 2.0 12/31/16 03:23 70 19 86/43 (57) 96 Nasal Cannula 2.0 12/31/16 03:12 70 19 68/43 (51) 98 Nasal Cannula 2.0 12/31/16 03:01 70 19 60/37 (45) 98 Nasal Cannula 2.0 12/31/16 02:46 71 19 66/39 (48) 99 Nasal Cannula 2.0 12/31/16 02:31 70 19 69/38 (48) 99 Nasal Cannula 2.0 12/31/16 02:16 70 18 68/40 (49) 98 Nasal Cannula 2.0 12/31/16 02:01 70 22 80/42 (55) 99 Nasal Cannula 2.0 12/31/16 01:52 70 17 83/39 (54) 99 Nasal Cannula 2.0 12/31/16 01:31 70 17 64/40 (48) 97 Nasal Cannula 2.0 12/31/16 01:16 71 20 67/36 (46) 99 Nasal Cannula 2.0 12/31/16 01:01 69 17 76/40 (52) 100 Nasal Cannula 2.0 12/31/16 00:46 70 21 78/44 (55) 98 Nasal Cannula 2.0 12/31/16 00:31 71 19 79/44 (56) 98 Nasal Cannula 2.0 12/31/16 00:16 70 21 80/42 (55) 98 Nasal Cannula 2.0 12/31/16 00:01 Nasal Cannula 2.0 12/31/16 00:01 36.5 70 18 /42 (28) 95 Nasal Cannula 2.0 12/30/16 23:46 70 16 65/37 (46) 99 Nasal Cannula 2.0 12/30/16 23:31 70 17 73/35 (48) 97 Nasal Cannula 2.0 12/30/16 23:23 69 22 76/42 (53) 98 Nasal Cannula 2.0 12/30/16 23:16 70 17 62/35 (44) 99 Nasal Cannula 2.0 12/30/16 23:01 72 16 72/38 (49) 99 Nasal Cannula 2.0 12/30/16 22:46 69 19 76/41 (53) 98 Nasal Cannula 2.0 12/30/16 22:31 70 21 68/37 (47) 98 Nasal Cannula 2.0 12/30/16 22:16 69 20 78/45 (56) 96 Nasal Cannula 2.0 12/30/16 22:01 70 19 76/39 (51) 97 Nasal Cannula 2.0 12/30/16 21:46 70 18 77/41 (53) 97 Nasal Cannula 2.0 12/30/16 21:31 70 20 79/48 (58) 97 Nasal Cannula 2.0 12/30/16 21:01 71 23 98 84/44 12/30/16 20:31 70 27 76/31 100 72/41 12/30/16 20:24 37.0 70 76/42 (53) 12/30/16 20:01 36.4 70 25 74/31 100 76/42 12/30/16 20:00 Nasal Cannula 2.0 12/30/16 19:40 70 19 74/29 97 76/42 12/30/16 19:31 71 23 78/30 83 75/39 12/30/16 19:01 71 20 65/24 80 60/35 12/30/16 18:15 74 23 64/27 (39) 94 12/30/16 18:01 69 19 59/25 (36) 94 12/30/16 18:00 68 20 60/25 (37) 94 12/30/16 17:45 70 21 77/30 (46) 92 12/30/16 17:31 73 23 89/30 (49) 94 12/30/16 17:30 71 19 63/36 (45) 12/30/16 17:15 70 19 158/157 (157) 100 12/30/16 17:01 77 23 157/156 (156) 94 12/30/16 17:00 37.0 72 100/45 (63) 12/30/16 17:00 69 22 157/156 (156) 91 12/30/16 16:45 71 21 59/42 (48) 92 12/30/16 16:31 69 34 73/39 (50) 94 12/30/16 16:30 70 20 67/31 (43) 95 12/30/16 16:15 72 20 65/30 (42) 12/30/16 16:05 36.5 73 17 77/36 (50) 12/30/16 16:01 70 19 67/35 (46) 95 12/30/16 16:00 Room Air 12/30/16 16:00 70 28 58/24 (35) 93 12/30/16 15:45 70 17 66/32 (43) 94 12/30/16 15:30 37.1 70 18 66/31 (43) 95 12/30/16 15:15 71 17 79/37 (51) 96 12/30/16 15:01 69 20 66/32 (43) 94 12/30/16 15:00 70 18 63/31 (42) 87 12/30/16 14:45 73 23 62/32 (42) 12/30/16 14:31 73 23 77/39 (52) 59 12/30/16 14:30 70 22 62/30 (41) 91 12/30/16 14:15 70 15 73/33 (46) 92 12/30/16 14:01 71 17 73/31 (45) 95 12/30/16 14:00 70 18 68/31 (43) 93 12/30/16 13:45 70 17 64/30 (41) 93 12/30/16 13:31 71 19 71/31 (44) 95 12/30/16 13:30 70 23 73/33 (46) 97 12/30/16 13:15 71 23 74/32 (46) 89 12/30/16 13:01 69 18 77/40 (52) 82 12/30/16 13:00 70 19 73/35 (48) 84 12/30/16 12:45 70 16 69/33 (45) 93 12/30/16 12:31 70 21 69/34 (46) 98 12/30/16 12:30 70 21 77/40 (52) 94 12/30/16 12:15 Nasal Cannula 2.0 12/30/16 12:15 37.1 70 16 77/38 (51) 100 Nasal Cannula 2.0 12/30/16 12:01 70 18 70/36 (47) 97 12/30/16 12:00 71 19 70/37 (48) 99 12/30/16 11:45 70 31 71/36 (48) 100 12/30/16 11:31 71 22 46/29 (35) 71 12/30/16 11:30 71 27 78/37 (51) 100 12/30/16 11:15 71 23 83/40 (54) 96 12/30/16 11:08 70 24 80/39 (53) 12/30/16 11:05 72 21 90/43 (59) 12/30/16 11:00 71 17 116/65 (82) 12/30/16 10:56 68 21 87/50 (62) 75 Laboratory Results: Last 24 Hours Test 12/30/16 15:34 12/31/16 05:27 Lactic Acid Level 1.3 mmol/L White Blood Count 7.32 K/uL Red Blood Count 2.69 M/uL Hemoglobin 8.6 g/dL Hematocrit 24.9 % Mean Corpuscular Volume 92.6 fL Mean Corpuscular Hemoglobin 32.0 pg Mean Corpuscular Hemoglobin Concent 34.5 g/dl RDW Standard Deviation 49.1 fL RDW Coefficient of Variation 14.6 % Platelet Count 166 K/uL Mean Platelet Volume 9.5 fL Prothrombin Time 30.7 SECONDS Prothromb Time International Ratio 2.8 Sodium Level 128 mmol/L Potassium Level 3.4 mmol/L Chloride Level 90 mmol/L Carbon Dioxide Level 30 mmol/L Anion Gap 8.0 mmol/L Blood Urea Nitrogen 34 mg/dl Creatinine 4.60 mg/dl Est Creatinine Clear Calc Drug Dose 7.8 ml/min Estimated GFR () 9.4 Estimated GFR (Non- 8.1 BUN/Creatinine Ratio 7.5 Random Glucose 99 mg/dl Calcium Level 8.2 mg/dl Phosphorus Level 3.3 mg/dl Magnesium Level 1.9 mg/dl Total Bilirubin 0.7 mg/dl Aspartate Amino Transf (AST/SGOT) 33 U/L Alanine Aminotransferase (ALT/SGPT) < 6 U/L Alkaline Phosphatase 108 U/L Total Protein 5.8 gm/dl Albumin 2.0 gm/dl Globulin 3.8 gm/dl Albumin/Globulin Ratio 0.5 Digoxin Level 2.7 ng/ml
--- NOTE | 2016-12-31 12:55 | Clinical Documentation Query ---
CLINICAL DOCUMENTATION QUERY Right sided heart failure with diastolic dysfunction is noted in CC Progress Note. In your clinical opinion is this patient being managed for: ( ) Acute diastolic CHF ( X ) Chronic diastolic CHF ( ) Not Agree ( ) Other explanation of clinical findings (Please Explain) ( ) Unable to determine (Please Define) ( ) Need to Discuss The medical record reflects the following clinical findings, treatment, and risk factors. Clinical Indicators: Dialysis,ProBNP > 24841, ESRD Treatment:ICU, monitor, serial lab monitoring, PD, O2 Risk Factors:Age, s/p surgery, ESRD, cardiogenic shock Please document Type II OK demand ischemia. Documentation currently shows Type II demand ischemia. In your clinical opinion is this patient being managed for: ( ) Acute ischemic heart disease (x ) Type II OK d/t demand ischemia ( ) Not Agree ( ) Other explanation of clinical findings (Please Explain) ( ) Unable to determine (Please Define) ( ) Need to Discuss The medical record reflects the following clinical findings, treatment, and risk factors. Clinical Indicators: Increased Troponins from baseline (0.802, 1.760, 1.730, 1.220 0, cardiogenic hypovolemia, Treatment:ICU, O2, serial cardiac enzymes, serial ECG, echo, cardiology consult Risk Factors: Age, persistent AFib, Heart Disease, ESRD Please clarify and document your clinical opinion in the progress notes and discharge summary. Terms such as "probable", "suspected", "likely", "questionable", "possible", or "still to be ruled out" are acceptable. IF IN AGREEMENT, YOU MUST DOCUMENT ABOVE DIAGNOSTIC STATEMENT IN DAILY PROGRESS NOTES AND DISCHARGE SUMMARY. This document is not part of the patient's record. Thank You, Carey Moon RN [phone]
[2016-12-31] MEDS ORDERED: WARFARIN SOD 1 MG TAB PO SCH (16:00)
[2016-12-31] MEDS ORDERED: WARFARIN SOD 2 MG TAB PO SCH (16:00)
[2016-12-31] MEDS: PRAVASTATIN SOD 40 MG TAB PO SCH (21:17)
[2016-12-31] MEDS: GUAIFENESIN SUGAR FREE 100 MG/5 ML UDC PO PRN (21:20)
[2017-01-01] VITALS (12 sets, daily range): BP systolic 61–89; BP diastolic 37–50; PULSE 69–79; TEMP 36.3–36.7; O2SAT 93–99
[2017-01-01] MEDS: OXYCODONE/ACETAMINOPHEN 5-325 TAB PO PRN ×2 (03:32→10:41)
[2017-01-01 04:37] LABS: HEMATOCRIT 25.5 % (37-47)
[2017-01-01 04:46] LABS: INR 3.4 (0.9-1.1); PROTHROMBIN TIME (PATIENT) 38.4 SECONDS (9.0-12.0)
[2017-01-01 05:05] LABS: BUN/CREATININE RATIO 6.8 (10-20); CALCIUM 8.2 mg/dl (8.5-10.1); CREATININE 4.7 mg/dl (0.60-1.20); MAGNESIUM 1.9 mg/dl (1.8-2.4); POTASSIUM 3.1 mmol/L (3.5-5.1)
[2017-01-01] MEDS: SENSIPAR~ORDER AWAITING ACTION SCH ×3 (08:00→16:00)
[2017-01-01] MEDS: BOOST GLUCOSE CONTROL PO SCH ×3 (08:00→16:00)
[2017-01-01] MEDS: DOCUSATE SODIUM 100 MG CAP PO SCH ×2 (09:00→21:09)
[2017-01-01] MEDS: FLUTICASONE PROPIONATE NA SPR 16 GM BTL SCH (09:00)
--- NOTE | 2017-01-01 09:23 | CARDIOLOGY PROGRESS NOTE ---
DATE: 01/01/2017 SUBJECTIVE: Mrs. Gastelum is resting comfortably in bed without complaints of chest pain, dyspnea, syncope, or presyncope. OBJECTIVE: VITAL SIGNS: Blood pressure is 90/50 with an irregular pulse of 80. Respiratory rate is 18 and the patient is afebrile at 36.3 degrees Celsius. Saturations 99% on 2 liters nasal cannula. NECK: Supple with delayed and prolonged carotid upstrokes. No obvious transmitted murmur or bruit. Jugular venous pressure is flat at 90 degrees. There is no thyromegaly. CARDIOVASCULAR: Reveals an irregular rhythm with a 2/6 crescendo decrescendo systolic murmur heard loudest at the base. S2 is not audible at the apex. LUNGS: Clear without rales, rhonchi, or wheezes. ABDOMEN: Soft, nontender without bruits. EXTREMITIES: Reveal intact radial artery pulses bilaterally. Right hip is dressed. DATA: CBC notes a hemoglobin of 8.5, hematocrit 25.5, platelet count 166,000, and a white count of 7.3. Electrolytes note a sodium of 127, potassium 3.1, chloride 90, bicarb 28, BUN 32, creatinine 4.7, glucose 99. INR is 3.4. 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 IMPRESSION AND PLAN: 1. Status post right hip ORIF -- per orthopedic surgery. 2. Hypotension tolerating midodrine without difficulty. Although blood pressure is low, she is asymptomatic. 3. Permanent atrial fibrillation -- INR now supratherapeutic. Rate adequately controlled. 4. Severe aortic stenosis. 5. 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 6. 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 7. Mitral valve repair -- 2008. 8. Tricuspid valve repair -- 2008. 9. Left ventricular hypertrophy -- with diastolic dysfunction.
[2017-01-01] MEDS ORDERED: NURSING VERBAL MED ORDER ONE (09:30)
[2017-01-01] MEDS: DIALYSIS IP SCH ×2 (10:00→11:00)
[2017-01-01] MEDS: CEFTAZIDIME IP SCH ×2 (10:00→11:00)
[2017-01-01] MEDS: PERITONEAL 1.5% IP SCH ×2 (10:00→11:00)
[2017-01-01] MEDS: ALBUMIN HUMAN 25% 12.5 GM/50 ML VIAL IV SCH ×3 (10:04→23:06)
[2017-01-01] MEDS: MAGNESIUM OXIDE 400 MG TAB PO SCH (10:05)
[2017-01-01] MEDS: METOPROLOL TARTRATE 25 MG TAB PO SCH ×3 (10:05→21:11)
[2017-01-01] MEDS: MIDODRINE 10 MG TAB PO SCH ×4 (10:05→21:08)
[2017-01-01] MEDS: NEPHROCAPS PO SCH (10:06)
[2017-01-01] MEDS: PANTOprazole SOD 40 MG TAB PO SCH (10:06)
--- NOTE | 2017-01-01 10:27 | PROGRESS NOTE ---
DATE: 01/01/2017 DATE: 01/01/2017 SUBJECTIVE: An 86-year-old female with endstage renal disease on PD with a resultant peritonitis who underwent surgery for hip fracture last Wednesday. The patient is off the pressors at this time. She is mentating well, but she appears very weak and somewhat sleepy. She could not keep her eyes open during my conversation. Blood pressure is now in the 80s. She denies feeling any lightheadedness, nausea, vomiting. She was on cycler overnight and she is also getting intraperitoneal antibiotics during her . PHYSICAL EXAMINATION: GENERAL: Awake and alert. I could not test orientation as she could not keep her eyes open. VITAL SIGNS: Blood pressure 83/46, 99% on 2 liter nasal cannula, pulse rate 79, temperature 36.3. HEAD, EYES, EARS, NOSE, AND THROAT: Mucous membrane is moist. NECK: Supple. No jugular venous distention. HEART: Irregular. LUNGS: Very decreased breath sounds as she barely took any inspiratory effort. ABDOMEN: Nontender. PD catheter site looks fine. EXTREMITIES: Shows no edema. NEUROLOGIC: Could not test orientation. She appears very somnolent and weak. LABORATORY TESTS: From today was reviewed in detail. ASSESSMENT AND PLAN: 1. End-stage renal disease. The patient is on peritoneal dialysis. We will continue with all 1.5% solution for overnight cycler. We are doing 1500 mL fill volume for comfort. 2. Peritonitis related with peritoneal dialysis. We will continue with intraperitoneal ceftazidime for a total of 21 days. 3. Hypotension. It appears she has significant cardiac problem and her blood pressure normally runs low. She is on midodrine 15 mg 3 times a day. She appears to euvolemic. Will continue the albumin 25% for the time being, at least for 1 more day. MTDD
[2017-01-01] MEDS: ONDANSETRON INJ 2 MG/ML 2 ML VIAL IV PRN (10:41)
--- NOTE | 2017-01-01 11:35 | Progress Note ---
Post ICU Progress Note Date & Time Jan 01, 2017 at 11:26 Vital Signs Vital Signs Past 12 Hours Date Time Temp Pulse Resp B/P (MAP) Pulse Ox O2 Delivery O2 Flow Rate FiO2 01/01/17 06:57 36.3 79 17 83/46 (58) 99 Nasal Cannula 2.0 01/01/17 04:00 98 Nasal Cannula 2.0 01/01/17 03:46 36.4 71 18 89/48 (62) 96 Room Air 01/01/17 00:01 98 Nasal Cannula 2.0 12/31/16 23:35 36.3 75 18 91/52 (65) 98 Nasal Cannula 2.0 Notes Mental Status: alert / awake Nausea / Vomiting: see Notes Pain: adequately controlled Airway Patency, RR, SpO2: stable & adequate BP & HR: see Notes Patient is an 86-year-old female who was initially admitted to the ICU with hypotension after sustaining a femoral fracture. She was monitored and resuscitated in the ICU. Her blood pressure remained labile while in the unit, but did improve with increasing doses of midodrine and metoprolol for rate control in the setting of aortic stenosis. The patient is peritoneal dialysis dependent. She continues to be managed by nephrology. On review of records, the patient's blood pressure has maintained, and actually has appeared to improved since her discharge from the ICU. Today, she is complaining of extreme nausea after taking her daily medications. She is frustrated that she had to take all of her medications at once. She does feel poor and the sense of nausea. Overall, her laboratory assessment and vital signs have improved. Consider outpatient follow up in 1 to 2 weeks with: Per Nephrology, Orthopedics Repeat imaging needed: Per primary service/nephro/ortho Follow up cultures: Per attending services Reviewed progress notes, labs, and inpatient medication list Continue current management Additional recommendations: Discontinue RIGHT IJ prior to discharge. Please feel free to reconsult as needed. Consults & Procedures Consultants: Cardiology - Dr Bundy Nephrology - Dr Anderson Ortho - Dr Perea Procedures: 12/25/16 - right IJ TLC 12/25/16 left radial a-line 12/25/16 - right hip ORIF with intertrochanteric nailing
--- NOTE | 2017-01-01 13:47 | Progress Note ---
Internal Med Progress Note Date of Service: Jan 01, 2017. Provider Documentation: SUBJECTIVE: Seen and examined at bedside. States she feels very tired Had nausea this morning Off Levophed, BP is in 80S now Denies chest pain, SOB, palpitations, dizziness Right hip pain is controlled Has intermittent dry cough Offers no complaints OBJECTIVE: Vital Signs-as noted below Physical Exam: General Appearance:Moderately built and nourished, no apparent distress Head: normocephalic, Atraumatic Eyes: normal inspection, EOMI, PERRL Neck: supple, Trachea midline Respiratory/Chest: Normal breath sounds, CTA Cardiovascular: Irregularly irregular, No murmur Abdomen/GI:Soft, Non tender, Bowel sounds present Extremities/Musculoskelatal:normal inspection, no edema, Right hip in surgical bandage Neurologic/Psych:grossly no focal neurological deficits Skin: normal color, warm Lab data as noted below. 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 BP stable Atrial Fibrillation Continue Metoprolol for rate control Monitor INR:2.8 >>>3.4 Hold Coumadin today Amiodarone, Digoxin discontinued Digoxin levels:improved Takes Coumadin 2 mg daily except tues/thurs 4mg ESRD on PD Hypokalemia/Hypomagnesemia Subacute Peritonitis PD per Nephro continue Ceftazidime with PD until 01/07/17 ( Day 13 ) blood cultures: negative replace electrolytes per Nephrology H/O Valvular Heart disease and chronic diastolic heart failure Severe Aortic Stenosis S/P Mitral and tricuspid valve repair Possible Type II FL demand Ischemia follows with Cardiology Dr Song in [place] ECHO as below Dysphagia: Last VFF on 06/19 showed moderate to sever esophageal dysmotility with tapering /narrowing of lower GE junction underwent EGD and dilatation Speech was consulted -Diet recommendation -dental soft /slippery diet with aspiration precaution speech eval requested Code Status: Full Code DVT Px : on Coumadin Disposition: will need rehab post hip surgery PT/OT eval Social service consulted for discharge planning PROCEDURES: ECHO: n Left ventricular systolic function is normal. n No regional wall motion abnormalities noted. n Ejection Fraction = 65-70%. n There is mild concentric left ventricular hypertrophy. n Dilated right ventricle with reduced systolic function. n Pressure and volume overload of the right ventricle. n Severe valvular aortic stenosis. n There is moderate tricuspid regurgitation. Vital Signs: Date Time Temp Pulse Resp B/P (MAP) Pulse Ox O2 Delivery O2 Flow Rate FiO2 01/01/17 15:37 36.7 69 18 77/50 (59) 94 Room Air 01/01/17 12:00 Room Air 01/01/17 11:56 36.4 70 17 80/43 (55) 93 Room Air 01/01/17 11:00 36.4 70 80/43 (55) 01/01/17 08:00 Room Air 01/01/17 06:57 36.3 79 17 83/46 (58) 99 Nasal Cannula 2.0 01/01/17 04:00 98 Nasal Cannula 2.0 01/01/17 03:46 36.4 71 18 89/48 (62) 96 Room Air 01/01/17 00:01 98 Nasal Cannula 2.0 12/31/16 23:35 36.3 75 18 91/52 (65) 98 Nasal Cannula 2.0 12/31/16 20:00 36.4 72/45 (54) 12/31/16 20:00 99 Nasal Cannula 2.0 12/31/16 19:04 36.4 71 16 72/45 (54) 99 Nasal Cannula 2.0 12/31/16 18:00 70 71/39 (50) 95 Nasal Cannula 2.0 12/31/16 18:00 95 Nasal Cannula 2.0 Lab Results: Results Past 24 Hours Test 01/01/17 04:15 Range/Units Hemoglobin 8.5 12.0-16.0 g/dL Hematocrit 25.5 37-47 % Prothrombin Time 38.4 9.0-12.0 SECONDS Prothromb Time International Ratio 3.4 0.9-1.1 Sodium Level 127 136-145 mmol/L Potassium Level 3.1 3.5-5.1 mmol/L Chloride Level 90 98-107 mmol/L Carbon Dioxide Level 28 21-32 mmol/L Anion Gap 9.0 3-11 mmol/L Blood Urea Nitrogen 32 7-18 mg/dl Creatinine 4.70 0.60-1.20 mg/dl Est Creatinine Clear Calc Drug Dose 7.6 ml/min Estimated GFR () 9.2 Estimated GFR (Non- 7.9 BUN/Creatinine Ratio 6.8 10-20 Random Glucose 99 70-99 mg/dl Calcium Level 8.2 8.5-10.1 mg/dl Magnesium Level 1.9 1.8-2.4 mg/dl
[2017-01-01] MEDS ORDERED: MoRPHine SULFATE 2 MG/ML CARP IV PRN (16:15)
[2017-01-01] MEDS ORDERED: NALOXONE HCL 0.4 MG/1 ML VIAL/CARP IV STA (19:56)
[2017-01-01] MEDS ORDERED: NALOXONE HCL 0.4 MG/1 ML VIAL/CARP ONE (19:58)
[2017-01-01] MEDS ORDERED: NALOXONE HCL 0.4 MG/1 ML VIAL/CARP IV PRN (20:15)
[2017-01-01] MEDS ORDERED: HYDROmorphone INJ 0.5 MG/0.5 ML SYR IV PRN (20:45)
[2017-01-01] MEDS ORDERED: TRAMADOL HCL 50 MG TAB PO PRN (20:45)
[2017-01-01] MEDS: BENZONATATE 100MG CAP PO PRN (21:12)
[2017-01-01] MEDS: GUAIFENESIN SUGAR FREE 100 MG/5 ML UDC PO PRN (21:13)
[2017-01-01] MEDS: PRAVASTATIN SOD 40 MG TAB PO SCH (21:28)
--- NOTE | 2017-01-01 21:29 | Progress Note ---
Internal Med Progress Note Date of Service: Jan 01, 2017. Provider Documentation: SUBJECTIVE: 9, 8 PM - Made aware by RN of decreased responsiveness. Prompt response to Narcan administration as per RN. Patient later complained of abdominal pain, hip pain as per RN. 10PM onwards SBP persistently in the 60s. lactic acid 9 Ammonia noted to be 60s. Patient given IV albumin, NSS boluses for hypotension. Peritoneal dialysis stopped. [id number] beta lyn held interim. Lactulose given for possible hepatic encephalopathy (cirrhotic liver noted on 2013 CT abdomen pelvis) CT abdomen and pelvis contemplated once SBP improved. Added IV Vanco and IV Flagyl to IP Ceftazidime for coverage for possible intra- abdominal infection as cause of px's abdominal pain. Dr. Jefferson (rodeo performer online communications manager) updated on plan of care. 01/02, 12AM - updated by RN of persistent SBP of 60s despite preceding intervention. Patient disoriented again as per RN. Patient noted to have cool extremities as per RN. OBJECTIVE: Vital Signs-as noted below Exam: General-disoriented, chronically ill HEENT -pale palp conjunctivae, dry buccal mucosa Neck-supple Lungs-decreased breath sounds Heart-RRR, systolic murmur Abdomen-distended , no overt tenderness Extremities LE edema, no tenderness NE disoriented ASSESSMENT & PLAN: Persistent Hypotension Multifactorial : Possible sepsis Hypovolemia ICU transfer to facilitate pressor (Levophed) therapy Continue IV albumin CS, IV Vanco, Cefepime, and Flagyl for now Recheck lactic acid, check procalcitonin CT abdomen and pelvis (RE abd pain), CT head (RE encephalopathy) once BP stable Case discussed with thin film technician on-call, Dr. Wilson. Attempted to update patient's daughter/ listed contact, Miss Marce Ramos of developments over the phone [phone]. Left message for call back on her voicemail. Total critical care time was 40 minutes. Vital Signs: Date Time Temp Pulse Resp B/P (MAP) Pulse Ox O2 Delivery O2 Flow Rate FiO2 01/02/17 05:06 71 73/39 (50) 96 01/02/17 05:01 71 71/39 (50) 96 01/02/17 04:56 71 74/39 (51) 96 01/02/17 04:51 71 74/40 (51) 94 01/02/17 04:46 72 69/39 (49) 96 01/02/17 04:41 73 71/37 (48) 95 01/02/17 04:36 73 74/35 (48) 96 01/02/17 04:31 74 66/41 (49) 96 01/02/17 04:26 74 65/36 (46) 96 Nasal Cannula 4.0 01/02/17 04:00 96 Nasal Cannula 4.0 01/02/17 03:26 75 69/32 (44) 96 01/02/17 03:22 77 71/47 (55) 89 01/02/17 03:16 77 81/45 (57) 87 01/02/17 03:11 79 75/41 (52) 97 01/02/17 03:06 76 77/35 (49) 96 01/02/17 03:01 74 78/33 (48) 93 01/02/17 02:56 71 78/38 (51) 93 Oxymask 10.0 01/02/17 02:51 70 71/38 (49) 95 01/02/17 02:47 71 68/38 (48) 01/02/17 02:46 70 58/30 (39) 96 01/02/17 02:43 36.6 70 16 99 2.5 01/02/17 02:41 70 57/31 (40) 97 01/02/17 02:38 70 55/32 (40) 97 01/02/17 02:31 70 60/33 (42) 98 01/02/17 02:16 36.4 70 53/30 (38) 99 Nasal Cannula 3.0 01/02/17 01:49 70 16 63/38 (46) 01/02/17 01:35 71 16 62/37 (45) 99 2.5 01/02/17 01:20 70 18 66/38 (47) 99 Nasal Cannula 2.5 01/02/17 01:02 70 18 65/39 (48) 01/02/17 00:50 18 64/39 (47) 95 Nasal Cannula 2.5 01/02/17 00:35 70 61/36 (44) 99 2.5 01/02/17 00:20 70 16 64/37 (46) 100 Nasal Cannula 2.5 01/02/17 00:05 70 60/38 (45) 95 9/2/17 00:01 99 Nasal Cannula 3.0 01/02/17 00:00 36.4 16 64/44 (51) 01/02/17 00:00 36.6 70 22 65/44 (51) 99 Nasal Cannula 3.0 01/01/17 23:49 70 61/37 (45) 95 Nasal Cannula 2.5 01/01/17 20:00 36.4 16 68/43 (51) 01/01/17 20:00 93 01/01/17 19:31 36.4 70 16 78/42 (54) 93 Room Air 01/01/17 19:30 36.4 68/43 (51) 01/01/17 16:00 Room Air 01/01/17 15:37 36.7 69 18 77/50 (59) 94 Room Air 01/01/17 12:00 Room Air 01/01/17 11:56 36.4 70 17 80/43 (55) 93 Room Air 01/01/17 11:00 36.4 70 80/43 (55) 01/01/17 08:30 36.3 17 83/46 (58) 01/01/17 08:00 Room Air 01/01/17 06:57 36.3 79 17 83/46 (58) 99 Nasal Cannula 2.0 Lab Results: Results Past 24 Hours Test 01/01/17 20:58 01/02/17 02:21 01/02/17 03:34 01/02/17 03:51 Range/Units Sodium Level 128 128 136-145 mmol/L Potassium Level 3.7 3.7 3.5-5.1 mmol/L Chloride Level 87 90 98-107 mmol/L Carbon Dioxide Level 21 18 21-32 mmol/L Anion Gap 20.0 20.0 3-11 mmol/L Blood Urea Nitrogen 33 33 7-18 mg/dl Creatinine 5.10 5.20 0.60-1.20 mg/dl Est Creatinine Clear Calc Drug Dose 7.1 6.9 ml/min Estimated GFR () 8.3 8.1 Estimated GFR (Non- 7.2 7.0 BUN/Creatinine Ratio 6.5 6.3 10-20 Random Glucose 86 24 70-99 mg/dl Lactic Acid Level 9.6 12.4 0.4-2.0 mmol/L Calcium Level 8.9 9.1 8.5-10.1 mg/dl Magnesium Level 2.1 1.8-2.4 mg/dl Ammonia 67.0 69.0 11-32 umol/L Digoxin Level 1.9 0.8-2.0 ng/ml White Blood Count 18.97 4.8-10.8 K/uL Red Blood Count 2.71 4.2-5.4 M/uL Hemoglobin 8.7 12.0-16.0 g/dL Hematocrit 26.3 37-47 % Mean Corpuscular Volume 97.0 80-100 fL Mean Corpuscular Hemoglobin 32.1 25-34 pg Mean Corpuscular Hemoglobin Concent 33.1 32-36 g/dl Platelet Count 267 130-400 K/uL Mean Platelet Volume 9.8 7.4-10.4 fL Neutrophils (%) (Auto) 85.9 % Lymphocytes (%) (Auto) 5.5 % Monocytes (%) (Auto) 6.8 % Eosinophils (%) (Auto) 0.0 % Basophils (%) (Auto) 0.1 % Neutrophils # (Auto) 16.28 1.4-6.5 K/uL Lymphocytes # (Auto) 1.05 1.2-3.4 K/uL Monocytes # (Auto) 1.29 0.11-0.59 K/uL Eosinophils # (Auto) 0.00 0-0.5 K/uL Basophils # (Auto) 0.02 0-0.2 K/uL RDW Standard Deviation 53.1 36.4-46.3 fL RDW Coefficient of Variation 15.2 11.5-14.5 % Immature Granulocyte % (Auto) 1.7 % Immature Granulocyte # (Auto) 0.33 0.00-0.02 K/uL Nucleated RBC Absolute Count (auto) 0.13 0-0 K/uL Nucleated Red Blood Cells % 0.7 % Toxic Vacuolation 1+ Polychromasia 1+ Echinocytes 1+ Prothrombin Time 72.2 9.0-12.0 SECONDS Prothromb Time International Ratio 6.3 0.9-1.1 Total Bilirubin 1.7 0.2-1 mg/dl Aspartate Amino Transf (AST/SGOT) 95 15-37 U/L Alanine Aminotransferase (ALT/SGPT) 11 12-78 U/L Alkaline Phosphatase 122 45-117 U/L Total Protein 6.4 6.4-8.2 gm/dl Albumin 3.0 3.4-5.0 gm/dl Globulin 3.4 2.5-4.0 gm/dl Albumin/Globulin Ratio 0.9 0.9-2 Lipase 520 73-393 U/L Peritoneal Fluid Color PALE YELLOW Peritoneal Fluid Appearance HAZY Peritoneal Fluid WBC 199 0-300 /uL Peritoneal Fluid RBC < 3000 /uL Peritoneal Fld Mononuclear WBCs (%) 10.6 % Peritoneal Fld Polynuclear WBCs (%) 89.4 % Procalcitonin 1.32 0-0.5 ng/ml Test 01/02/17 04:27 01/02/17 04:44 01/02/17 06:32 01/02/17 06:44 Range/Units Blood Gas Sample Site L Radial Bedside Blood Gas pH (LAB) 7.18 7.35-7.45 Bedside Blood Gas pCO2 (LAB) 28 35-46 mmHg Bedside Blood Gas pO2 (LAB) 92 80-95 mmHg Bedside Blood Gas HCO3 (LAB) 10 19-24 meq/L Bedside Blood Gas Total CO2 11 24-31 mEq/l Bedside Blood Gas Base Excess (LAB) -18.0 -9-1.8 meq/L Bedside Blood Gas O2 Saturation 95.0 90-95 % King Test Pass Oxygen Delivery Device Cannula Microbiology Results 01/02/17 Blood Culture, Received Pending 01/02/17 Blood Culture, Received Pending 01/02/17 MRSA DNA Surveillance Screen - Final, Complete Specimen Negative for MRSA by DNA Probe 01/02/17 Gram Stain, Received Pending 01/02/17 Bacterial Culture, Received Pending
[2017-01-01] MEDS ORDERED: OXYCODONE HCL IR 5 MG TAB (IMMEDIATE RELEASE) PO PRN (21:30)
[2017-01-01] MEDS ORDERED: LACTULOSE SYRUP 30 GM/45 ML UDP PO STA (21:35)
[2017-01-01 21:47] LABS: BUN/CREATININE RATIO 6.5 (10-20); CALCIUM 8.9 mg/dl (8.5-10.1); MAGNESIUM 2.1 mg/dl (1.8-2.4)
[2017-01-01 21:49] LABS: CREATININE 5.1 mg/dl (0.60-1.20)
[2017-01-01 22:27] LABS: POTASSIUM 3.7 mmol/L (3.5-5.1)
[2017-01-01] MEDS ORDERED: SODIUM CHLORIDE 0.9% 250ML 250 ML IV ONE (22:45)
[2017-01-01] MEDS ORDERED: VANCOMYCIN CONSULT ACTIVE PRN (23:00)
[2017-01-01] MEDS ORDERED: VANCOMYCIN INJ 1,300 MG in SODIUM CHLORIDE 0.9% 250ML 250 ML IV ONE (23:00)
[2017-01-01] MEDS ORDERED: ACETAMINOPHEN 325 MG TAB PO PRN (23:45)
[2017-01-02] VITALS (45 sets, daily range): BP systolic 53–81; BP diastolic 30–47; PULSE 70–79; TEMP 36.4–36.6; O2SAT 69–100
[2017-01-02] MEDS: ALBUMIN HUMAN 25% 12.5 GM/50 ML VIAL IV SCH (00:15)
[2017-01-02] MEDS: METRONIDAZOLE / NSS 500 MG in PREMIXED NSS 100 ML IV SCH ×2 (00:47→08:13)
[2017-01-02] MEDS ORDERED: SODIUM CHLORIDE 0.9% 500ML 500 ML IV ONE (01:15)
[2017-01-02] MEDS ORDERED: NOREPINEPHRINE BIT INJ 8 MG in DEXTROSE 5% 500ML 500 ML IV PRN (01:33)
[2017-01-02] MEDS ORDERED: PHENYLEPHRINE HCL INJ 20 MG in DEXTROSE 5% 500ML 500 ML IV PRN (02:19)
[2017-01-02 02:55] LABS: PROTHROMBIN TIME (PATIENT) 72.2 SECONDS (9.0-12.0)
[2017-01-02 03:09] LABS: INR 6.3 (0.9-1.1)
[2017-01-02 03:10] LABS: HEMATOCRIT 26.3 % (37-47); MEAN CORPUSCULAR HEMOGLOBIN 32.1 pg (25-34); MEAN CORPUSCULAR HGB CONC 33.1 g/dl (32-36); MEAN PLATELET VOLUME 9.8 fL (7.4-10.4); PLATELET COUNT 267 K/uL (130-400); RED BLOOD COUNT 2.71 M/uL (4.2-5.4); WHITE BLOOD COUNT 18.97 K/uL (4.8-10.8)
[2017-01-02] MEDS ORDERED: DEXTROSE 50% 50 ML SYR ONE (03:20)
[2017-01-02 03:26] LABS: ALB/GLOB RATIO 0.9 (0.9-2); BUN/CREATININE RATIO 6.3 (10-20); CALCIUM 9.1 mg/dl (8.5-10.1); CREATININE 5.2 mg/dl (0.60-1.20); POTASSIUM 3.7 mmol/L (3.5-5.1)
[2017-01-02 03:29] LABS: BASO % 0.1 %; BASO ABS # 0.02 K/uL (0-0.2); COMPLETE YES; ECHINOCYTES 1+; IG% 1.7 %; LYMPH % 5.5 %; LYMPH ABS # 1.05 K/uL (1.2-3.4); MONO % 6.8 %; NEUT % 85.9 %; POLYCHROMASIA 1+; VACUOLIZATION 1+
[2017-01-02] MEDS ORDERED: PHYTONADIONE 5 MG TAB PO STA (03:37)
[2017-01-02] MEDS ORDERED: PHENYLEPHRINE HCL INJ 80 MG in DEXTROSE 5% 500ML 500 ML IV PRN (03:45)
[2017-01-02] MEDS ORDERED: CEFEPIME CONSULT ACTIVE PRN ×2 (03:45)
--- NOTE | 2017-01-02 03:56 | Procedure Note ---
Procedure Note Procedure Date Jan 02, 2017. Central Line Procedure time out: side/site verified, patient ID confirmed, sterile procedure used Consent obtained: emergent consent implied Time of procedure: 03:15 Performed by: physician strategy manager Indications: poor venous access, central drug admin. Prep: chlorhexadine prep, sterile drape, sterile procedures used Anesthesia: local injection, lidocaine 1% without epi Volume anesthetic (ml's): 5 Central line lumen: triple Central line location: internal jugular (L) Additional details: percutaneous placement, ultrasound guidance, Selinger technique used, line sutured CXR: no pneumothorax Complications: other (Line did not draw) Patient tolerated procedure: well Post-procedure vital signs: reviewed and stable (Pt improved during procedure due to start of pressors and D50 administration) Comments: Consent was obtained prior to procedure. Indication, risks, and benefits were explained at length. Procedure: Procedure was performed under strict sterile field in O.R. fashion. The left neck and chest were cleaned with chloroprep scrub and the pt was draped in sterile fashion. The internal jugular vein was identified using ultrasound. After anesthetizing the area with 5cc of lidocaine, venous blood was withdrawn after accessing the vein under ultrasound guidance. The syringe was removed and a guide wire was advanced into the introducer needle.The dilator was advanced after being exchanged for the introducer needle. After appropriate dilation was obtained, the dilator was removed and the central catheter was placed over the guide wire using Seldinger technique. The wire was removed and the catheter was sutured at 17cm. A surgical dressing was placed over the catheter with a biofilm shield in place. At the time of the procedure each port was aspirated with no return. Catheter was slowly withdrawn, with intermittent return. Pt tolerated the procedure and was stable. Post procedure x-ray was completed, no pneumothorax was noted per my read. Radiologist were called to preform stat-read. Critical Care Medicine Point of Care Bedside Ultrasound Procedure: Procedural Ultrasound Procedure Date: 01/02/2017 Indication: Central Line Placement Attending: Marin Wilson DO Resident/Physician On Car Supervisor: Hina Werner PA-C If for central venous access Artery AND Vein visualized: Y Compressible Vein: Y Guidewire or Short Catheter seen in vein prior to dilation: y Line confirmed in Vein with ultrasound: y Lung Sliding on side of attempt (if applicable): If no lung sliding or not obtained has CXR been ordered: y Impression: Hypotension Plan: Continue Vasopressors Images obtained are saved for permanent record
[2017-01-02] MEDS ORDERED: CEFEPIME IV 2,000 MG in DEXTROSE 5% 100ML 100 ML IV SCH (04:00)
--- NOTE | 2017-01-02 04:18 | Progress Note ---
Internal Med Progress Note Date of Service: Jan 02, 2017. Provider Documentation: Patient's daughter/POA, Miss Marce Ramos updated over the phone of [facility]. I told her about her mother's worsening condition, progressio I told her but n of multiorgan failure which may potentially lead to cardiorespiratory arrest. Patient's daughter de-escalated CODE STATUS to DNR/DNI. Continue with medical management for now. I updated Latia Werner PA-C at the ICU of [facility]. Vital Signs: Date Time Temp Pulse Resp B/P (MAP) Pulse Ox O2 Delivery O2 Flow Rate FiO2 01/02/17 05:06 71 73/39 (50) 96 01/02/17 05:01 71 71/39 (50) 96 01/02/17 04:56 71 74/39 (51) 96 01/02/17 04:51 71 74/40 (51) 94 01/02/17 04:46 72 69/39 (49) 96 01/02/17 04:41 73 71/37 (48) 95 01/02/17 04:36 73 74/35 (48) 96 01/02/17 04:31 74 66/41 (49) 96 01/02/17 04:26 74 65/36 (46) 96 Nasal Cannula 4.0 01/02/17 04:00 96 Nasal Cannula 4.0 01/02/17 03:26 75 69/32 (44) 96 01/02/17 03:22 77 71/47 (55) 89 01/02/17 03:16 77 81/45 (57) 87 01/02/17 03:11 79 75/41 (52) 97 01/02/17 03:06 76 77/35 (49) 96 01/02/17 03:01 74 78/33 (48) 93 01/02/17 02:56 71 78/38 (51) 93 Oxymask 10.0 01/02/17 02:51 70 71/38 (49) 95 01/02/17 02:47 71 68/38 (48) 01/02/17 02:46 70 58/30 (39) 96 01/02/17 02:43 36.6 70 16 99 2.5 01/02/17 02:41 70 57/31 (40) 97 01/02/17 02:38 70 55/32 (40) 97 01/02/17 02:31 70 60/33 (42) 98 01/02/17 02:16 36.4 70 53/30 (38) 99 Nasal Cannula 3.0 01/02/17 01:49 70 16 63/38 (46) 01/02/17 01:35 71 16 62/37 (45) 99 2.5 01/02/17 01:20 70 18 66/38 (47) 99 Nasal Cannula 2.5 01/02/17 01:02 70 18 65/39 (48) 01/02/17 00:50 18 64/39 (47) 95 Nasal Cannula 2.5 01/02/17 00:35 70 61/36 (44) 99 2.5 01/02/17 00:20 70 16 64/37 (46) 100 Nasal Cannula 2.5 01/02/17 00:05 70 60/38 (45) 95 01/02/17 00:01 99 Nasal Cannula 3.0 01/02/17 00:00 36.4 16 64/44 (51) 01/02/17 00:00 36.6 70 22 65/44 (51) 99 Nasal Cannula 3.0 01/01/17 23:49 70 61/37 (45) 95 Nasal Cannula 2.5 01/01/17 20:00 36.4 16 68/43 (51) 01/01/17 20:00 93 01/01/17 19:31 36.4 70 16 78/42 (54) 93 Room Air 01/01/17 19:30 36.4 68/43 (51) 01/01/17 16:00 Room Air 01/01/17 15:37 36.7 69 18 77/50 (59) 94 Room Air 01/01/17 12:00 Room Air 01/01/17 11:56 36.4 70 17 80/43 (55) 93 Room Air 01/01/17 11:00 36.4 70 80/43 (55) 01/01/17 08:30 36.3 17 83/46 (58) 01/01/17 08:00 Room Air Lab Results: Results Past 24 Hours Test 01/01/17 20:58 01/02/17 02:21 01/02/17 03:34 01/02/17 03:51 Range/Units Sodium Level 128 128 136-145 mmol/L Potassium Level 3.7 3.7 3.5-5.1 mmol/L Chloride Level 87 90 98-107 mmol/L Carbon Dioxide Level 21 18 21-32 mmol/L Anion Gap 20.0 20.0 3-11 mmol/L Blood Urea Nitrogen 33 33 7-18 mg/dl Creatinine 5.10 5.20 0.60-1.20 mg/dl Est Creatinine Clear Calc Drug Dose 7.1 6.9 ml/min Estimated GFR () 8.3 8.1 Estimated GFR (Non- 7.2 7.0 BUN/Creatinine Ratio 6.5 6.3 10-20 Random Glucose 86 24 70-99 mg/dl Lactic Acid Level 9.6 12.4 0.4-2.0 mmol/L Calcium Level 8.9 9.1 8.5-10.1 mg/dl Magnesium Level 2.1 1.8-2.4 mg/dl Ammonia 67.0 69.0 11-32 umol/L Digoxin Level 1.9 0.8-2.0 ng/ml White Blood Count 18.97 4.8-10.8 K/uL Red Blood Count 2.71 4.2-5.4 M/uL Hemoglobin 8.7 12.0-16.0 g/dL Hematocrit 26.3 37-47 % Mean Corpuscular Volume 97.0 80-100 fL Mean Corpuscular Hemoglobin 32.1 25-34 pg Mean Corpuscular Hemoglobin Concent 33.1 32-36 g/dl Platelet Count 267 130-400 K/uL Mean Platelet Volume 9.8 7.4-10.4 fL Neutrophils (%) (Auto) 85.9 % Lymphocytes (%) (Auto) 5.5 % Monocytes (%) (Auto) 6.8 % Eosinophils (%) (Auto) 0.0 % Basophils (%) (Auto) 0.1 % Neutrophils # (Auto) 16.28 1.4-6.5 K/uL Lymphocytes # (Auto) 1.05 1.2-3.4 K/uL Monocytes # (Auto) 1.29 0.11-0.59 K/uL Eosinophils # (Auto) 0.00 0-0.5 K/uL Basophils # (Auto) 0.02 0-0.2 K/uL RDW Standard Deviation 53.1 36.4-46.3 fL RDW Coefficient of Variation 15.2 11.5-14.5 % Immature Granulocyte % (Auto) 1.7 % Immature Granulocyte # (Auto) 0.33 0.00-0.02 K/uL Nucleated RBC Absolute Count (auto) 0.13 0-0 K/uL Nucleated Red Blood Cells % 0.7 % Toxic Vacuolation 1+ Polychromasia 1+ Echinocytes 1+ Prothrombin Time 72.2 9.0-12.0 SECONDS Prothromb Time International Ratio 6.3 0.9-1.1 Total Bilirubin 1.7 0.2-1 mg/dl Aspartate Amino Transf (AST/SGOT) 95 15-37 U/L Alanine Aminotransferase (ALT/SGPT) 11 12-78 U/L Alkaline Phosphatase 122 45-117 U/L Total Protein 6.4 6.4-8.2 gm/dl Albumin 3.0 3.4-5.0 gm/dl Globulin 3.4 2.5-4.0 gm/dl Albumin/Globulin Ratio 0.9 0.9-2 Lipase 520 73-393 U/L Peritoneal Fluid Color PALE YELLOW Peritoneal Fluid Appearance HAZY Peritoneal Fluid WBC 199 0-300 /uL Peritoneal Fluid RBC < 3000 /uL Peritoneal Fld Mononuclear WBCs (%) 10.6 % Peritoneal Fld Polynuclear WBCs (%) 89.4 % Procalcitonin 1.32 0-0.5 ng/ml Test 01/02/17 04:27 01/02/17 06:44 01/02/17 07:03 Range/Units Blood Gas Sample Site L Radial Bedside Blood Gas pH (LAB) 7.18 7.35-7.45 Bedside Blood Gas pCO2 (LAB) 28 35-46 mmHg Bedside Blood Gas pO2 (LAB) 92 80-95 mmHg Bedside Blood Gas HCO3 (LAB) 10 19-24 meq/L Bedside Blood Gas Total CO2 11 24-31 mEq/l Bedside Blood Gas Base Excess (LAB) -18.0 -9-1.8 meq/L Bedside Blood Gas O2 Saturation 95.0 90-95 % King Test Pass Oxygen Delivery Device Cannula Venous Blood pH 7.18 7.36-7.41 Venous Blood Partial Pressure CO2 45 38.0-50.0 mmHg Venous Blood Partial Pressure O2 34 mmHg Venous Blood HCO3 16 mmol/L Venous Blood Oxygen Saturation < 60.0 % Venous Blood Base Excess -10.9 mEq/L Microbiology Results 01/02/17 Blood Culture, Received Pending 01/02/17 Blood Culture, Received Pending 01/02/17 MRSA DNA Surveillance Screen - Final, Complete Specimen Negative for MRSA by DNA Probe 01/02/17 Gram Stain, Received Pending 01/02/17 Bacterial Culture, Received Pending
[2017-01-02 04:39] LABS: ISTAT ALLEN TEST Pass; ISTAT ARTERIAL BLOOD GAS HCO3 10 meq/L (19-24); ISTAT ARTERIAL BLOOD GAS PCO2 28 mmHg (35-46); ISTAT ARTERIAL BLOOD GAS PO2 92 mmHg (80-95); ISTAT ARTERIAL BLOOD GAS pH 7.18 (7.35-7.45); ISTAT CARBON DIOXIDE 11 mEq/l (24-31); ISTAT DELIVERY SYSTEM Cannula; ISTAT SITE L Radial
--- NOTE | 2017-01-02 05:53 | Critical Care Progress Note ---
Critical Care Progress Note Date of Service Jan 02, 2017. Attending Dr. Wilson Subjective Ariela Baker is a 86-year-old end-stage renal patient. She had previously been treated in the ICU for hypotension and transferred to the floor on December 31. It is my understanding that Dr. Anders was made aware of decreased mental status during peritoneal dialysis this evening roughly between the hours of 7 and 8 PM she had been given morphine. Narcan was given with no improvement. She became hypotensive and a lactic acid was elevated greater than 9. Peritoneal dialysis was discontinued with only 1 L removed. At some point during the evening the patient had complained about belly pain during dialysis it was thought to treat her for peritonitis and vancomycin and Flagyl were added to her regimen. There was a plan to send the patient to CT; however , she became more unstable and was transferred to the ICU. Here in the ICU I was contacted by Dr. Rigoberto Wilson and given instruction to obtain a culture from all lines on patient as well as a peripheral stick. I contacted Josefa the dialysis nurse who graciously arrived at 0300 to obtain culture from peritoneal dialysis line. It was the thought that the patient had increasing infection as the main reason for change of mental status and increased lactic acid. However patient also demonstrated a glucose of 29; and received 1 amp of D50. ROS could not be obtained as pt was obtunded and non-responding. Objective Vital Signs - as noted Laboratory Data - as noted Physical Exam: General - Obtunded, Minimal Response to verbal/painful stimuli Eyes - PERRL, No icterus, gaze conjugate ENT - Mucosa dry, no lesions or candidiasis Neck - Supple, trachea midline, no masses or lymphadenopathy, no JVD or bruits Lungs - No paradoxical chest wall movement, coarse to auscultation with bilateral crackles bilaterally, no wheezes or rhonchi Heart - , No murmur, rubs, clicks, or gallops appreciated Abdomen - normoactive BS present, no bruits noted, tympanic to percussion, soft , nontender, nondistended, no organomegaly Extremities - No edema, pedal pulses intact Neuro - A&OX3 Proprioception intact, neg pronator drift Strength extremities equal and appropriate bilaterally Reflexes: Bicep, brachioradialis, patellar, and plantar normal and equal Cerebellum: Finger to nose appropriate CN:PERRL, EOMI, no facial asymmetry, uvula/tongue midline Current SOFA Score SOFA Score Response (Comments) Value PaO2/FiO2 (mmHg) < 300 2 SaO2 / FIO2 221 - 301 1 Platelets (x10) > 150 0 Bilirubin (mg/dL) 1.2 - 1.9 1 Cesar Coma Score < 6 4 Level of Hypotension MAP less than 70 1 Creatinine (mg/dL) > 5.0 4 Total 13 Assessment & Plan Reason Critically Ill: Patient is an 86-year-old female who is transferred to the ICU for hypotension with altered mental status. PLAN: Fluids/Renal: * Hypoglycemic: Glucose 29; * Provided 1 AMP D50: Repeat Glucose 183 * Monitor PRP * AB.175/27.7/92/10.3 on 4L Nasal Cannula; Metabolic Acidosis * Spoke with Dr. Douglas in regards to BiCarb drip * Consulted Dr. Jefferson: who stated no drip unless pH <7.0 * Peritoneal Dialysis discontinued early today due to pressure changes/mental status changes * Defer Dialysis treatment to Dr. Jefferson Neuro: * Pt treated for Hypoglycemia and returned to mental baseline * Monitor for changes in level of consciousness/unilateral symptoms ID: * WBC increased to 18.97, Lactic Acid increased to 12.4 * Trend Lactic Acid * Repeat Blood Cultures from Central Line, Peritoneal Dialysis Catheter and Peripheral Stick * D/C Central Line once additional access is obtained * Pt on Flagyl, Vancomycin, Fortaz(Intraperitoneal) Resp: * Supplemental oxygen as required * Watch for fluid overload * Sat Goal > 92% CV: * SBPs improved with repositioning of peripheral cuff to 60's * Phenylepherine 3mcg/kg/min with SBP in the 70's currently * Wean pressors as tolerated with baseline mentation * Monitor on telemetry GI/Nutrition: * NPO * Will advance diet as tolerated throughout the day Heme: * Anemia stable: trending around 8.7 * Monitor daily CBC Endocrine: * Accu-Checks per protocol, started insulin infusion for 2 blood sugars greater than 180 * Hypoglycemia noted, improved with 1amp of D50 CODE STATUS: Spoke with Dr. Douglas who updated pts daughter in [place]. Pts status changed to DNR. CCT: 42 Minutes; This time is exclusive of all separately billable procedures. Thank you for involving us in the care of this patient. Please refer to Dr. Rigoberto Wilson's addendum for further recommendations. I have personally evaluated and examined this patient. I agree with assessment and plan of Herbert Werner PA-C. Reviewed events from overnight, significant improvement after administration of dextrose. Etiology of encephalopathy and subsequent metabolic derangements I believe is likely secondary to the hypoglycemia. What I am not 100% certain of his whether there is an aspect of infection driving the hypoglycemia over the hypoglycemia is an isolated event. I reviewed the medication record and she was not on oral hypoglycemics, nor insulin. She has a known source of infection from peritonitis. A culture was obtained from the indwelling central venous catheter, attempts were made at replacement however it was not functioning appropriately and further attempts were discontinued in the setting of having a supratherapeutic INR. His point I do not believe that we need to proceed with additional advanced access as the patient is improving clinically. Her main complaint is cough and shortness of breath, she has recently been started on additional albumin which will now be discontinued. Her main complaint is dyspnea with clinical signs of rails. We will obtain a limited echo to see if there is change in her cardiovascular status, she has had a complaint of dyspnea for several days and I believe it may actually be cardiac genic in origin. I'm concerned she is an end-stage right heart failure. There is still concern of pneumonia, especially in the setting of being somnolent secondary to narcotic medication. She does request narcotic medication however catherine appears to be extremely sensitive and has required naloxone administration recently. At this point I will avoid all narcotics. Additionally added Tessalon Perles for her cough. I am doubtful there is no aspect of venous thromboembolic disease given the therapeutic INRs, there is a theoretical concern for fat emboli, however she is not frankly hypoxic exhibiting other signs of fat emboli. Given that pulmonary pathology continues to resurface I will proceed with a contrasted CT scan to further evaluate the pulmonary system . Certainly the clinical rails would not be consistent with fat emboli. With regards to the metabolic acidosis this is to be expected and renal patient, her lactic acid is decreasing which I think has improved since dextrose administration and will continue to monitor. Her systolic blood pressures are back to the 70s systolic and she appears to be mentating normally. Her INR is elevated and we will hold additional Coumadin. Of note with her serous drainage from her hip wound we will consult wound care as the patient may need a wound VAC given the amount of serous drainage from the wound which is at risk for dehiscence. I discussed the patient's care with the hospitalist team. I have personally spent 45 minutes of critical care time in the direct management of this patient. This is a life/limb threatening event. This includes time spent evaluating patient, direct bedside care, chart review, placing orders, interpretation of diagnostic studies, discussion with consultants, patient, and family members, as well as other required patient management activities. This time is exclusive of all separately billable procedures, and teaching time and separate from and in addition to any other critical care service time. Consults & Procedures Consultants: Cardiology - Dr Bundy Nephrology - Dr Anderson/Dr. Jefferson Ortho - Dr Perea Procedures: 12/25/16 - right IJ TLC 12/25/16 left radial a-line/ Discontinued 12/25/16 - right hip ORIF with intertrochanteric nailing Data Medications: Current Inpatient Medications Medications (Trade) Dose Ordered Sig/Seth Route Start Time Stop Time Status Last Admin Dose Admin Polyethylene (Miralax Powder Packet) 17 gm DAILY PRN PO 12/25/16 05:45 01/24/17 05:44 Pantoprazole Sodium (Protonix Tab) 40 mg DAILY PO 12/25/16 09:00 01/24/17 08:59 01/01/17 10:06 40 MG Miscellaneous Information (Order Awaiting Action) 1 ea QS N/A 12/25/16 08:00 01/24/17 07:59 Vitamin B Complex/ Vit C/Folic Acid (Nephrocaps) 1 cap DAILY PO 12/25/16 09:00 01/24/17 08:59 01/01/17 10:06 1 CAP Ondansetron HCl (Zofran Inj) 4 mg Q6H PRN IV 12/25/16 17:45 01/24/17 17:44 01/01/17 10:41 4 MG Guaifenesin (Robitussin Sugar Free Syrup) 300 mg Q6H PRN PO 12/25/16 23:30 01/24/17 23:29 01/01/17 21:13 300 MG Fluticasone Propionate (Flonase Nasal [place]) 2 sprays DAILY NA 12/28/16 09:00 01/27/17 08:59 12/31/16 07:47 2 SPRAYS Levalbuterol (Xopenex 0.63 Mg/ 3 Ml Neb) 0.63 mg Q6R PRN INH 12/27/16 12:30 01/26/17 12:29 12/27/16 15:21 0.63 MG Docusate Sodium (coLACE CAP) 100 mg BID PO 12/27/16 21:00 01/26/17 20:59 01/01/17 21:09 100 MG Bisacodyl (Dulcolax Supp) 10 mg DAILY PRN MO 12/27/16 13:30 01/26/17 13:29 01/01/17 20:26 10 MG Benzonatate (Tessalon Perles Cap) 100 mg TID PRN PO 12/27/16 16:00 01/26/17 15:59 01/01/17 21:12 100 MG Heparin Sodium (Porcine) (Heparin 10 Unit/ ml 5 ml Flush) 5 ml PRN PRN FLUSH 12/27/16 23:45 01/26/17 23:44 01/01/17 17:04 5 ML Midodrine (Proamatine Tab) 15 mg TIDM PO 12/30/16 11:30 01/27/17 16:29 01/01/17 21:08 15 MG Ceftazidime 750 mg/[facility] 1,507.5 ml @ 0 mls/hr DAILY@0730 IP 01/01/17 10:00 Future Hold 01/01/17 11:00 1,500 MLS/HR Tramadol HCl (Ultram Tab) not relieved by tylenol @ Q6H PRN PO 01/01/17 20:45 01/31/17 20:44 01/01/17 21:12 50 MG Hydromorphone HCl (Dilaudid Inj) 0.25 mg Q6H PRN IV 01/01/17 20:45 01/15/17 20:44 Acetaminophen (Tylenol Tab) 325 mg Q6H PRN PO 01/01/17 23:45 01/24/17 17:44 01/01/17 23:09 325 MG Oxycodone HCl (Roxicodone Immediate Rel Tab) painnot relieved by tylenol/ultram hold for sedati... Q4H PRN PO 01/01/17 21:30 01/15/17 21:29 Albumin Human (Albumin 25%) 12.5 gm Q6H IV 01/02/17 06:00 01/05/17 05:59 Vancomycin HCl (Consult) 1 ea UD PRN N/A 01/01/17 23:00 01/31/17 22:59 Metronidazole 500 mg/Prmx 100 ml @ 100 mls/hr Q8H IV 01/02/17 00:00 01/12/17 00:00 01/02/17 00:47 100 MLS/HR Norepinephrine Bitartrate 8 mg/ Dextrose 508 ml @ 0 mls/hr Q0M PRN IV 01/02/17 01:33 02/01/17 01:32 Phenylephrine HCl 80 mg/Dextrose 508 ml @ 0 mls/hr Q0M PRN IV 01/02/17 03:45 02/01/17 03:44 01/02/17 04:07 60 MLS/HR Cefepime HCl 2000 mg/Dextrose 112.5 ml @ 200 mls/hr Q48H IV 01/02/17 04:00 01/12/17 03:59 01/02/17 04:05 200 MLS/HR Cefepime HCl (Consult) 1 ea UD PRN N/A 01/02/17 03:45 02/01/17 03:44 Vital Signs: Date Time Temp Pulse Resp B/P (MAP) Pulse Ox O2 Delivery O2 Flow Rate FiO2 01/02/17 02:43 36.6 70 16 99 2.5 01/02/17 00:01 99 Nasal Cannula 3.0 01/02/17 00:00 36.4 16 64/44 (51) 01/02/17 00:00 36.6 70 22 65/44 (51) 99 Nasal Cannula 3.0 01/01/17 20:00 36.4 16 68/43 (51) 01/01/17 20:00 93 01/01/17 19:31 36.4 70 16 78/42 (54) 93 Room Air 01/01/17 19:30 36.4 68/43 (51) 01/01/17 16:00 Room Air 01/01/17 15:37 36.7 69 18 77/50 (59) 94 Room Air 01/01/17 12:00 Room Air 01/01/17 11:56 36.4 70 17 80/43 (55) 93 Room Air 01/01/17 11:00 36.4 70 80/43 (55) 01/01/17 08:30 36.3 17 83/46 (58) 01/01/17 08:00 Room Air 01/01/17 06:57 36.3 79 17 83/46 (58) 99 Nasal Cannula 2.0 Laboratory Results: Last 24 Hours Test 01/01/17 20:58 01/02/17 02:21 01/02/17 03:34 01/02/17 03:51 Sodium Level 128 mmol/L 128 mmol/L Potassium Level 3.7 mmol/L 3.7 mmol/L Chloride Level 87 mmol/L 90 mmol/L Carbon Dioxide Level 21 mmol/L 18 mmol/L Anion Gap 20.0 mmol/L 20.0 mmol/L Blood Urea Nitrogen 33 mg/dl 33 mg/dl Creatinine 5.10 mg/dl 5.20 mg/dl Est Creatinine Clear Calc Drug Dose 7.1 ml/min 6.9 ml/min Estimated GFR () 8.3 8.1 Estimated GFR (Non- 7.2 7.0 BUN/Creatinine Ratio 6.5 6.3 Random Glucose 86 mg/dl 24 mg/dl Lactic Acid Level 9.6 mmol/L 12.4 mmol/L Calcium Level 8.9 mg/dl 9.1 mg/dl Magnesium Level 2.1 mg/dl Ammonia 67.0 umol/L 69.0 umol/L Digoxin Level 1.9 ng/ml White Blood Count 18.97 K/uL Red Blood Count 2.71 M/uL Hemoglobin 8.7 g/dL Hematocrit 26.3 % Mean Corpuscular Volume 97.0 fL Mean Corpuscular Hemoglobin 32.1 pg Mean Corpuscular Hemoglobin Concent 33.1 g/dl Platelet Count 267 K/uL Mean Platelet Volume 9.8 fL Neutrophils (%) (Auto) 85.9 % Lymphocytes (%) (Auto) 5.5 % Monocytes (%) (Auto) 6.8 % Eosinophils (%) (Auto) 0.0 % Basophils (%) (Auto) 0.1 % Neutrophils # (Auto) 16.28 K/uL Lymphocytes # (Auto) 1.05 K/uL Monocytes # (Auto) 1.29 K/uL Eosinophils # (Auto) 0.00 K/uL Basophils # (Auto) 0.02 K/uL RDW Standard Deviation 53.1 fL RDW Coefficient of Variation 15.2 % Immature Granulocyte % (Auto) 1.7 % Immature Granulocyte # (Auto) 0.33 K/uL Nucleated RBC Absolute Count (auto) 0.13 K/uL Nucleated Red Blood Cells % 0.7 % Toxic Vacuolation 1+ Polychromasia 1+ Echinocytes 1+ Prothrombin Time 72.2 SECONDS Prothromb Time International Ratio 6.3 Total Bilirubin 1.7 mg/dl Aspartate Amino Transf (AST/SGOT) 95 U/L Alanine Aminotransferase (ALT/SGPT) 11 U/L Alkaline Phosphatase 122 U/L Total Protein 6.4 gm/dl Albumin 3.0 gm/dl Globulin 3.4 gm/dl Albumin/Globulin Ratio 0.9 Lipase 520 U/L Test 01/02/17 04:27 Blood Gas Sample Site L Radial Bedside Blood Gas pH (LAB) 7.18 Bedside Blood Gas pCO2 (LAB) 28 mmHg Bedside Blood Gas pO2 (LAB) 92 mmHg Bedside Blood Gas HCO3 (LAB) 10 meq/L Bedside Blood Gas Total CO2 11 mEq/l Bedside Blood Gas Base Excess (LAB) -18.0 meq/L Bedside Blood Gas O2 Saturation 95.0 % King Test Pass Oxygen Delivery Device Cannula
[2017-01-02] MEDS ORDERED: ALBUMIN HUMAN 25% 12.5 GM/50 ML VIAL IV SCH (06:00)
--- NOTE | 2017-01-02 06:15 | DIAGNOSTIC IMAGING REPORT ---
CHEST ONE VIEW PORTABLE HISTORY: 86 years-old Female status post placement of a right central line. COMPARISON: Portable chest radiograph 12/28/2016 TECHNIQUE: Portable upright AP view of the chest FINDINGS: Cardiac silhouette is again enlarged. Prior median sternotomy. Left-sided epicardial pacer is again noted. There is been interval placement of a right-sided internal jugular central venous catheter with distal tip terminating within the region of the right atrium. No postprocedural pneumothorax identified. Lungs are clear without pneumothorax, pleural effusion or focal airspace consolidation. There is atherosclerosis of the aorta. Bones are grossly intact. IMPRESSION: 1. Right internal jugular central venous catheter terminates in the region of the right atrium. No postprocedural pneumothorax. 2. Cardiomegaly without overt pulmonary edema or focal airspace consolidation. The above report was generated using voice recognition software. It may contain grammatical, syntax or spelling errors. Electronically signed by: Kevin Rivas M.D. 01/02/2017 6:14 AM Dictated Date/Time: 01/02/2017 6:11 AM
[2017-01-02 06:30] LABS: PERIT FL WBC 199 /uL (0-300); PERITONEAL FLUID RBC < 3000 /uL
[2017-01-02 07:09] LABS: VEN BLOOD GAS BASE EXCESS -10.9 mEq/L; VENOUS BLOOD GAS PCO2 45 mmHg (38.0-50.0); VENOUS BLOOD GAS PO2 34 mmHg
[2017-01-02 07:12] LABS: VEN BLD GAS O2 SATURATION < 60.0 %
[2017-01-02 07:42] LABS: BUN/CREATININE RATIO 6.5 (10-20); CALCIUM 8.4 mg/dl (8.5-10.1); CREATININE 5.2 mg/dl (0.60-1.20); MAGNESIUM 2.2 mg/dl (1.8-2.4); PHOSPHORUS 5.6 mg/dl (2.5-4.9); POTASSIUM 3.3 mmol/L (3.5-5.1)
[2017-01-02 07:49] LABS: HEMATOCRIT 26.5 % (37-47); MEAN CELL VOLUME 97.1 fL (80-100); MEAN CORPUSCULAR HEMOGLOBIN 31.9 pg (25-34); MEAN CORPUSCULAR HGB CONC 32.8 g/dl (32-36); MEAN PLATELET VOLUME 9.9 fL (7.4-10.4); PLATELET COUNT 277 K/uL (130-400); RED BLOOD COUNT 2.73 M/uL (4.2-5.4); WHITE BLOOD COUNT 23.73 K/uL (4.8-10.8)
[2017-01-02] MEDS: SENSIPAR~ORDER AWAITING ACTION SCH ×2 (08:00)
[2017-01-02] MEDS: MIDODRINE 10 MG TAB PO SCH (08:13)
[2017-01-02] MEDS: NEPHROCAPS PO SCH (08:14)
[2017-01-02] MEDS: PANTOprazole SOD 40 MG TAB PO SCH (08:14)
[2017-01-02] MEDS: DOCUSATE SODIUM 100 MG CAP PO SCH (08:14)
[2017-01-02] MEDS: FLUTICASONE PROPIONATE NA SPR 16 GM BTL SCH (08:14)
[2017-01-02] MEDS ORDERED: COUGH DROP (SUGAR FREE) LOZ 24 LOZ/1 BOX ONE (08:22)
[2017-01-02 08:53] LABS: BASO % 0.2 %; BASO ABS # 0.04 K/uL (0-0.2); COMPLETE YES; ECHINOCYTES 1+; IG% 2.4 %; LYMPH % 3.5 %; LYMPH ABS # 0.83 K/uL (1.2-3.4); MONO % 6.1 %; NEUT % 87.8 %; POLYCHROMASIA 1+
--- NOTE | 2017-01-02 09:05 | Progress Note ---
Internal Med Progress Note Date of Service: Jan 02, 2017. Provider Documentation: SUBJECTIVE: Seen and examined at bedside. States having SOB and dry cough Denies chest pain, abdominal pain Currently on pressors Poor historian OBJECTIVE: Vital Signs-as noted below Physical Exam: General Appearance:Moderately built and nourished, mild distress Head: normocephalic, Atraumatic Eyes: normal inspection, EOMI Neck: supple, Trachea midline Respiratory/Chest: Coarse breath sound Cardiovascular: Irregularly irregular, No murmur Abdomen/GI:Soft, Non tender, Bowel sounds present Extremities/Musculoskelatal:normal inspection, no edema, Right hip in surgical bandage Neurologic/Psych:grossly no focal deficits Skin: normal color, warm Lab data as noted below. ASSESSMENT & PLAN: Right Hip Fracture s/p ORIF POD # 8 Serous drainage from surgical site Consult wound care Hypotension likely Cardiogenic (H/O Severe , DHF) Lactic acidosis Currently on pressors gentle IV fluids PRN Continue Midodrine Also on IV albumin Appreciate Cardiology and Supervisor Underwriting Clerks Input May repeat Limited ECHO today per ICU team Continue Vanco, Cefepime, Flagyl Follow up cultures (Peritoneal/Blood) Hypoxia: Will get CT chest Duonebs Atrial Fibrillation rate controlled Monitor INR:2.8 >>>3.4>>>6.3 Hold Coumadin Amiodarone, Digoxin, Metoprolol discontinued Digoxin levels:improved Home Coumadin dosage: 2 mg daily except tues/thurs 4mg ESRD on PD Hypokalemia/Hypomagnesemia Subacute Peritonitis PD per Nephro continue Ceftazidime with PD until 01/07/17: currently on hold replace electrolytes per Nephrology H/O Valvular Heart disease and chronic diastolic heart failure Severe Aortic Stenosis S/P Mitral and tricuspid valve repair Possible Type II NM demand Ischemia follows with Cardiology Dr Song in [place] ECHO as below Dysphagia: Last VFF on 06/19 showed moderate to sever esophageal dysmotility with tapering /narrowing of lower GE junction underwent EGD and dilatation Speech was consulted -Diet recommendation -dental soft /slippery diet with aspiration precaution Code Status: DNR DVT Px : Was on Coumadin INR subtherapeutic Disposition: will need rehab post hip surgery PT/OT eval Social service consulted for discharge planning PROCEDURES: ECHO: n Left ventricular systolic function is normal. n No regional wall motion abnormalities noted. n Ejection Fraction = 65-70%. n There is mild concentric left ventricular hypertrophy. n Dilated right ventricle with reduced systolic function. n Pressure and volume overload of the right ventricle. n Severe valvular aortic stenosis. n There is moderate tricuspid regurgitation. Vital Signs: Date Time Temp Pulse Resp B/P (MAP) Pulse Ox O2 Delivery O2 Flow Rate FiO2 01/02/17 08:00 100 Nasal Cannula 4.0 01/02/17 08:00 36.4 71 20 68/34 (45) 100 Nasal Cannula 4.0 01/02/17 06:41 71 66/37 (47) 98 01/02/17 06:36 70 77/42 (54) 97 01/02/17 06:31 70 71/41 (51) 98 01/02/17 06:26 71 72/40 (51) 97 01/02/17 06:21 71 66/40 (49) 81 01/02/17 06:16 70 71/42 (52) 94 01/02/17 06:11 70 75/38 (50) 94 01/02/17 06:06 70 65/38 (47) 69 01/02/17 05:06 71 73/39 (50) 96 01/02/17 05:01 71 71/39 (50) 96 01/02/17 04:56 71 74/39 (51) 96 01/02/17 04:51 71 74/40 (51) 94 01/02/17 04:46 72 69/39 (49) 96 01/02/17 04:41 73 71/37 (48) 95 01/02/17 04:36 73 74/35 (48) 96 01/02/17 04:31 74 66/41 (49) 96 01/02/17 04:26 74 65/36 (46) 96 Nasal Cannula 4.0 01/02/17 04:00 96 Nasal Cannula 4.0 01/02/17 03:26 75 69/32 (44) 96 01/02/17 03:22 77 71/47 (55) 89 01/02/17 03:16 77 81/45 (57) 87 01/02/17 03:11 79 75/41 (52) 97 01/02/17 03:06 76 77/35 (49) 96 01/02/17 03:01 74 78/33 (48) 93 01/02/17 02:56 71 78/38 (51) 93 Oxymask 10.0 01/02/17 02:51 70 71/38 (49) 95 01/02/17 02:47 71 68/38 (48) 01/02/17 02:46 70 58/30 (39) 96 01/02/17 02:43 36.6 70 16 99 2.5 01/02/17 02:41 70 57/31 (40) 97 01/02/17 02:38 70 55/32 (40) 97 01/02/17 02:31 70 60/33 (42) 98 01/02/17 02:16 36.4 70 53/30 (38) 99 Nasal Cannula 3.0 01/02/17 01:49 70 16 63/38 (46) 01/02/17 01:35 71 16 62/37 (45) 99 2.5 01/02/17 01:20 70 18 66/38 (47) 99 Nasal Cannula 2.5 01/02/17 01:02 70 18 65/39 (48) 01/02/17 00:50 18 64/39 (47) 95 Nasal Cannula 2.5 01/02/17 00:35 70 61/36 (44) 99 2.5 01/02/17 00:20 70 16 64/37 (46) 100 Nasal Cannula 2.5 01/02/17 00:05 70 60/38 (45) 95 01/02/17 00:01 99 Nasal Cannula 3.0 01/02/17 00:00 36.4 16 64/44 (51) 01/02/17 00:00 36.6 70 22 65/44 (51) 99 Nasal Cannula 3.0 01/01/17 23:49 70 61/37 (45) 95 Nasal Cannula 2.5 01/01/17 20:00 36.4 16 68/43 (51) 01/01/17 20:00 93 01/01/17 19:31 36.4 70 16 78/42 (54) 93 Room Air 01/01/17 19:30 36.4 68/43 (51) 01/01/17 16:00 Room Air 01/01/17 15:37 36.7 69 18 77/50 (59) 94 Room Air 01/01/17 12:00 Room Air 01/01/17 11:56 36.4 70 17 80/43 (55) 93 Room Air 01/01/17 11:00 36.4 70 80/43 (55) Lab Results: Results Past 24 Hours Test 01/01/17 20:58 01/02/17 02:21 01/02/17 03:34 01/02/17 03:51 Range/Units Sodium Level 128 128 136-145 mmol/L Potassium Level 3.7 3.7 3.5-5.1 mmol/L Chloride Level 87 90 98-107 mmol/L Carbon Dioxide Level 21 18 21-32 mmol/L Anion Gap 20.0 20.0 3-11 mmol/L Blood Urea Nitrogen 33 33 7-18 mg/dl Creatinine 5.10 5.20 0.60-1.20 mg/dl Est Creatinine Clear Calc Drug Dose 7.1 6.9 ml/min Estimated GFR () 8.3 8.1 Estimated GFR (Non- 7.2 7.0 BUN/Creatinine Ratio 6.5 6.3 10-20 Random Glucose 86 24 70-99 mg/dl Lactic Acid Level 9.6 12.4 0.4-2.0 mmol/L Calcium Level 8.9 9.1 8.5-10.1 mg/dl Magnesium Level 2.1 1.8-2.4 mg/dl Ammonia 67.0 69.0 11-32 umol/L Digoxin Level 1.9 0.8-2.0 ng/ml White Blood Count 18.97 4.8-10.8 K/uL Red Blood Count 2.71 4.2-5.4 M/uL Hemoglobin 8.7 12.0-16.0 g/dL Hematocrit 26.3 37-47 % Mean Corpuscular Volume 97.0 80-100 fL Mean Corpuscular Hemoglobin 32.1 25-34 pg Mean Corpuscular Hemoglobin Concent 33.1 32-36 g/dl Platelet Count 267 130-400 K/uL Mean Platelet Volume 9.8 7.4-10.4 fL Neutrophils (%) (Auto) 85.9 % Lymphocytes (%) (Auto) 5.5 % Monocytes (%) (Auto) 6.8 % Eosinophils (%) (Auto) 0.0 % Basophils (%) (Auto) 0.1 % Neutrophils # (Auto) 16.28 1.4-6.5 K/uL Lymphocytes # (Auto) 1.05 1.2-3.4 K/uL Monocytes # (Auto) 1.29 0.11-0.59 K/uL Eosinophils # (Auto) 0.00 0-0.5 K/uL Basophils # (Auto) 0.02 0-0.2 K/uL RDW Standard Deviation 53.1 36.4-46.3 fL RDW Coefficient of Variation 15.2 11.5-14.5 % Immature Granulocyte % (Auto) 1.7 % Immature Granulocyte # (Auto) 0.33 0.00-0.02 K/uL Nucleated RBC Absolute Count (auto) 0.13 0-0 K/uL Nucleated Red Blood Cells % 0.7 % Toxic Vacuolation 1+ Polychromasia 1+ Echinocytes 1+ Prothrombin Time 72.2 9.0-12.0 SECONDS Prothromb Time International Ratio 6.3 0.9-1.1 Total Bilirubin 1.7 0.2-1 mg/dl Aspartate Amino Transf (AST/SGOT) 95 15-37 U/L Alanine Aminotransferase (ALT/SGPT) 11 12-78 U/L Alkaline Phosphatase 122 45-117 U/L Total Protein 6.4 6.4-8.2 gm/dl Albumin 3.0 3.4-5.0 gm/dl Globulin 3.4 2.5-4.0 gm/dl Albumin/Globulin Ratio 0.9 0.9-2 Lipase 520 73-393 U/L Peritoneal Fluid Color PALE YELLOW Peritoneal Fluid Appearance HAZY Peritoneal Fluid WBC 199 0-300 /uL Peritoneal Fluid RBC < 3000 /uL Peritoneal Fld Mononuclear WBCs (%) 10.6 % Peritoneal Fld Polynuclear WBCs (%) 89.4 % Procalcitonin 1.32 0-0.5 ng/ml Test 01/02/17 04:27 01/02/17 06:44 01/02/17 07:03 Range/Units Blood Gas Sample Site L Radial Bedside Blood Gas pH (LAB) 7.18 7.35-7.45 Bedside Blood Gas pCO2 (LAB) 28 35-46 mmHg Bedside Blood Gas pO2 (LAB) 92 80-95 mmHg Bedside Blood Gas HCO3 (LAB) 10 19-24 meq/L Bedside Blood Gas Total CO2 11 24-31 mEq/l Bedside Blood Gas Base Excess (LAB) -18.0 -9-1.8 meq/L Bedside Blood Gas O2 Saturation 95.0 90-95 % King Test Pass Oxygen Delivery Device Cannula White Blood Count 23.73 4.8-10.8 K/uL Red Blood Count 2.73 4.2-5.4 M/uL Hemoglobin 8.7 12.0-16.0 g/dL Hematocrit 26.5 37-47 % Mean Corpuscular Volume 97.1 80-100 fL Mean Corpuscular Hemoglobin 31.9 25-34 pg Mean Corpuscular Hemoglobin Concent 32.8 32-36 g/dl Platelet Count 277 130-400 K/uL Mean Platelet Volume 9.9 7.4-10.4 fL Neutrophils (%) (Auto) 87.8 % Lymphocytes (%) (Auto) 3.5 % Monocytes (%) (Auto) 6.1 % Eosinophils (%) (Auto) 0.0 % Basophils (%) (Auto) 0.2 % Neutrophils # (Auto) 20.85 1.4-6.5 K/uL Lymphocytes # (Auto) 0.83 1.2-3.4 K/uL Monocytes # (Auto) 1.44 0.11-0.59 K/uL Eosinophils # (Auto) 0.00 0-0.5 K/uL Basophils # (Auto) 0.04 0-0.2 K/uL RDW Standard Deviation 53.9 36.4-46.3 fL RDW Coefficient of Variation 15.3 11.5-14.5 % Immature Granulocyte % (Auto) 2.4 % Immature Granulocyte # (Auto) 0.57 0.00-0.02 K/uL Nucleated RBC Absolute Count (auto) 0.19 0-0 K/uL Nucleated Red Blood Cells % 0.8 % Polychromasia 1+ Echinocytes 1+ Venous Blood pH 7.18 7.36-7.41 Venous Blood Partial Pressure CO2 45 38.0-50.0 mmHg Venous Blood Partial Pressure O2 34 mmHg Venous Blood HCO3 16 mmol/L Venous Blood Oxygen Saturation < 60.0 % Venous Blood Base Excess -10.9 mEq/L Sodium Level 128 136-145 mmol/L Potassium Level 3.3 3.5-5.1 mmol/L Chloride Level 88 98-107 mmol/L Carbon Dioxide Level 17 21-32 mmol/L Anion Gap 23.0 3-11 mmol/L Blood Urea Nitrogen 33 7-18 mg/dl Creatinine 5.20 0.60-1.20 mg/dl Est Creatinine Clear Calc Drug Dose 6.9 ml/min Estimated GFR () 8.1 Estimated GFR (Non- 7.0 BUN/Creatinine Ratio 6.5 10-20 Random Glucose 106 70-99 mg/dl Lactic Acid Level 10.7 0.4-2.0 mmol/L Calcium Level 8.4 8.5-10.1 mg/dl Phosphorus Level 5.6 2.5-4.9 mg/dl Magnesium Level 2.2 1.8-2.4 mg/dl Random Vancomycin Level 19.8 mcg/ml Microbiology Results 01/02/17 Blood Culture, Received Pending 01/02/17 Blood Culture, Received Pending 01/02/17 MRSA DNA Surveillance Screen - Final, Complete Specimen Negative for MRSA by DNA Probe 01/02/17 Gram Stain - Final, Resulted 01/02/17 Bacterial Culture, Resulted Pending
[2017-01-02] MEDS ORDERED: OPTIRAY 320 IV PRN (09:30)
[2017-01-02] MEDS: LEVALBUTEROL 0.63MG/3 ML NEB INH PRN (09:45)
--- NOTE | 2017-01-02 10:01 | Orthopedic Progress Note ---
Orthopedic Progress Note Date of Service Jan 02, 2017. Subjective Additional Notes: PATIENT IS SP RIGHT TROCH NAIL BY DR. CAVANAUGH ON 12/25. WE WERE ASKED TO EVALUATE HER AGAIN FOR WOUND DRAINAGE. PATIENT IS NOW IN ICU. Objective calves soft nontender, N/V intact, hip located, incision C/D/I DOES NOT FOLLOW COMMANDS. DRESSING FROM LAST EVEN WAS SATURATED WITH SEROUS DRAINAGE. NO BLEEDING, NO PURULENCE. INCISION IS INTACT. THERE IS NO ERYTHEMA. Date Time Temp Pulse Resp B/P (MAP) Pulse Ox O2 Delivery O2 Flow Rate FiO2 01/02/17 09:45 70 28 92 Nasal Cannula 3.0 01/02/17 08:00 100 Nasal Cannula 4.0 01/02/17 08:00 36.4 71 20 68/34 (45) 100 Nasal Cannula 4.0 01/02/17 06:41 71 66/37 (47) 98 01/02/17 06:36 70 77/42 (54) 97 01/02/17 06:31 70 71/41 (51) 98 01/02/17 06:26 71 72/40 (51) 97 01/02/17 06:21 71 66/40 (49) 81 01/02/17 06:16 70 71/42 (52) 94 01/02/17 06:11 70 75/38 (50) 94 01/02/17 06:06 70 65/38 (47) 69 01/02/17 05:06 71 73/39 (50) 96 01/02/17 05:01 71 71/39 (50) 96 01/02/17 04:56 71 74/39 (51) 96 01/02/17 04:51 71 74/40 (51) 94 01/02/17 04:46 72 69/39 (49) 96 01/02/17 04:41 73 71/37 (48) 95 01/02/17 04:36 73 74/35 (48) 96 01/02/17 04:31 74 66/41 (49) 96 01/02/17 04:26 74 65/36 (46) 96 Nasal Cannula 4.0 01/02/17 04:00 96 Nasal Cannula 4.0 01/02/17 03:26 75 69/32 (44) 96 01/02/17 03:22 77 71/47 (55) 89 01/02/17 03:16 77 81/45 (57) 87 01/02/17 03:11 79 75/41 (52) 97 01/02/17 03:06 76 77/35 (49) 96 01/02/17 03:01 74 78/33 (48) 93 01/02/17 02:56 71 78/38 (51) 93 Oxymask 10.0 01/02/17 02:51 70 71/38 (49) 95 01/02/17 02:47 71 68/38 (48) 01/02/17 02:46 70 58/30 (39) 96 01/02/17 02:43 36.6 70 16 99 2.5 01/02/17 02:41 70 57/31 (40) 97 01/02/17 02:38 70 55/32 (40) 97 01/02/17 02:31 70 60/33 (42) 98 01/02/17 02:16 36.4 70 53/30 (38) 99 Nasal Cannula 3.0 01/02/17 01:49 70 16 63/38 (46) 01/02/17 01:35 71 16 62/37 (45) 99 2.5 01/02/17 01:20 70 18 66/38 (47) 99 Nasal Cannula 2.5 01/02/17 01:02 70 18 65/39 (48) 01/02/17 00:50 18 64/39 (47) 95 Nasal Cannula 2.5 01/02/17 00:35 70 61/36 (44) 99 2.5 01/02/17 00:20 70 16 64/37 (46) 100 Nasal Cannula 2.5 01/02/17 00:05 70 60/38 (45) 95 01/02/17 00:01 99 Nasal Cannula 3.0 01/02/17 00:00 36.4 16 64/44 (51) 01/02/17 00:00 36.6 70 22 65/44 (51) 99 Nasal Cannula 3.0 01/01/17 23:49 70 61/37 (45) 95 Nasal Cannula 2.5 01/01/17 20:00 36.4 16 68/43 (51) 01/01/17 20:00 93 01/01/17 19:31 36.4 70 16 78/42 (54) 93 Room Air 01/01/17 19:30 36.4 68/43 (51) 01/01/17 16:00 Room Air 01/01/17 15:37 36.7 69 18 77/50 (59) 94 Room Air 01/01/17 12:00 Room Air 01/01/17 11:56 36.4 70 17 80/43 (55) 93 Room Air 01/01/17 11:00 36.4 70 80/43 (55) Laboratory Results 24 Hours: Test 01/02/17 02:21 01/02/17 06:44 White Blood Count 18.97 K/uL 23.73 K/uL Red Blood Count 2.71 M/uL 2.73 M/uL Hemoglobin 8.7 g/dL 8.7 g/dL Hematocrit 26.3 % 26.5 % Mean Corpuscular Volume 97.0 fL 97.1 fL Mean Corpuscular Hemoglobin 32.1 pg 31.9 pg Mean Corpuscular Hemoglobin Concent 33.1 g/dl 32.8 g/dl Platelet Count 267 K/uL 277 K/uL Mean Platelet Volume 9.8 fL 9.9 fL Neutrophils (%) (Auto) 85.9 % 87.8 % Lymphocytes (%) (Auto) 5.5 % 3.5 % Monocytes (%) (Auto) 6.8 % 6.1 % Eosinophils (%) (Auto) 0.0 % 0.0 % Basophils (%) (Auto) 0.1 % 0.2 % Neutrophils # (Auto) 16.28 K/uL 20.85 K/uL Lymphocytes # (Auto) 1.05 K/uL 0.83 K/uL Monocytes # (Auto) 1.29 K/uL 1.44 K/uL Eosinophils # (Auto) 0.00 K/uL 0.00 K/uL Basophils # (Auto) 0.02 K/uL 0.04 K/uL Prothromb Time International Ratio 6.3 Prothrombin Time 72.2 SECONDS Assessment & Plan Assessment: s/p right orif hip troch nail WITH WOUND DRAINAGE Plan: INCISIONS APPEAR BENIGN. SHE HAS NO ERYTHEMA, NO OBVIOUS FLUID COLLECTION. WILL REAPPLY DRESSING AND HAVE NURSING CHANGE PRN. IF SHE CONTINUES TO HAVE MODERATE AMOUNTS OF DRAINAGE WE MAY CONSIDER NEGATIVE PRESSURE DRESSING TOMORROW. Inhouse Planning Pain Management: IV Tylenol DVT Prophylaxis: TEDs, SCDs Discharge Planning Discharge Planning: uncertain
--- NOTE | 2017-01-02 10:11 | ECHOCARDIOGRAM REPORT ---
*NOTICE TO RECEIVING [employer] This information is strictly Confidential and protected under [place] law. [place] law prohibits you from making any further disclosure of this information unless further disclosure is expressly permitted by the written consent of the person to whom it pertains or is authorized by law. A general authorization for the release of medical or other information is not sufficient for this purpose. Hospital accepts no responsibility if the information is made available to any other person, INCLUDING THE PATIENT. Interpretation Summary * Conclusions -- * Limited study * 1. Small LV cavity with mild concentric LVH. * 2. Hyperdynamic LV function. LVEF >70%. Flattened septum consistent with RV volume and pressure overload. * 3. Severely dilated RV with reduced function. * 4. Moderate tricuspid regurgitation. * 5. Calcified, thickened and restricted aortic valve (no doppler evaluation performed). * 6. Dilated IVC. Estimated RA pressure 15 mmHg. * 7. Trivial pericardial effusion. * 8. Compared with prior studiy on 12/25/2016: No significant changes. Procedure Details * The study was technically difficult. * There were technical limitations due to patient'spoor positioning Left Ventricle * The left ventricular cavity is small. * There is mild concentric left ventricular hypertrophy. * Ejection Fraction = >70 %. * Flattened septum is consistent with RV pressure/volume overload. Right Ventricle * The right ventricle is severely dilated. * The right ventricular systolic function is severely reduced. Atria * The left atrial size is normal. * The right atrium is severely dilated. Mitral Valve * Significant mitral regurgitation is absent. * An annuloplasty ring is noted in the mitral position. Tricuspid Valve * There is moderate tricuspid regurgitation. * An annuloplasty ring is noted in the tricuspid position. Aortic Valve * Calcified, thickened and restricted. * There is no significant aortic regurgitation. Pulmonic Valve * The pulmonary valve is inadequately visualized, but the Doppler data is adequate for interpretation. Pericardium/Pleural * Trivial pericardial effusion. Great Vessels * Dilated inferior vena cava with reduced collapsability with sniff indicates an elevated right atrial pressure of 15 mmHg MMode 2D Measurements and Calculations IVSd 1.2 cm IVSs 1.5 cm LVIDd 2.1 cm LVIDs 1.3 cm LVPWd 1.7 cm LVPWs 2.4 cm IVS/LVPW 0.74 FS 39.2 % EDV(Teich) 14.2 ml ESV(Teich) 3.9 ml EF(Teich) 72.5 % EDV(cubed) 9.1 ml ESV(cubed) 2.0 ml EF(cubed) 77.5 % % IVS thick 22.6 % % LVPW thick 46.0 % LV mass(C)d 95.7 grams LV mass(C)dI 58.6 grams/m\S\2 LV mass(C)s 116.0 grams LV mass(C)sI 71.1 grams/m\S\2 SV(Teich) 10.3 ml SI(Teich) 6.3 ml/m\S\2 SV(cubed) 7.1 ml SI(cubed) 4.3 ml/m\S\2 LA dimension 3.6 cm
--- NOTE | 2017-01-02 10:52 | Critical Care Progress Note ---
Critical Care Progress Note Date of Service Jan 02, 2017. Critical Care Progress Note Patient had received ECHO at approximately 10:00, and had evaluation and dressing change by orthopedics. Son arrived at approximately 10:05. During that short timeframe the patient had sudden cardiac and had . This was confirmed by limited bedside echocardiography which revealed cardiac standstill. Patient's formal time of was 10:10 AM. I updated the patient 's son, contacted the patient's daughter who was attempting to fly in from [place] today.
[2017-01-02] MEDS ORDERED: ALBUT/IPRATROP 3MG/0.5MG NEB 3 ML VIAL INH SCH (12:00)
--- NOTE | 2017-01-02 15:32 | Discharge Summary ---
Discharge Summary Date of Service Jan 02, 2017. Discharge Summary Admission Date: Dec 25, 2016 at 05:35 Discharge Date: Jan 02, 2017 Discharge Disposition: Principal Diagnosis: Likely Cardiogenic shock Secondary Diagnoses/Problems: S/P R hip ORIF, ESRD ON PD, Severe Procedures: Pelvic X ray: 1. Acute moderately displaced intertrochanteric fracture of the right femur. 2. Acute right ischiopubic ring fractures. Suprapubic ramus fracture may extend into the acetabulum. CXR: No acute cardiopulmonary findings. Marked cardiomegaly without evidence of pulmonary. ECHO: n Left ventricular systolic function is normal. n No regional wall motion abnormalities noted. n Ejection Fraction = 65-70%. n There is mild concentric left ventricular hypertrophy. n Dilated right ventricle with reduced systolic function. n Pressure and volume overload of the right ventricle. n Severe valvular aortic stenosis. n There is moderate tricuspid regurgitation. Consultations: Cardiology, Legal Entity Controller, Orthopedics, Nephrology Admission Information HPI (per Admitting provider): This is a 86 yo F with complex past medical hx of ESRD on Peritoneal dialysis , valvular heart disease ( s/p Mitral and tricuspid valve repair , moderate to severe aortic stenosis ) , hx of paroxysmal Afib s/p pacemaker placement , presented to ED after sustaining a fall earlier today . 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 pt recently diagnosed with Peritonitis -peritoneal fluid culture on 12/07/16 as out patient was Klebsiella oxytoca has been getting Ceftazidime 750mg daily instillation with PD ( last date of treatment 01/07/17) pt mentions of feeling dizzy and lightheaded , lost her balance fell on her back , had severe pain on her right hip area did not hit her head or lost balance pt denies of chest heaviness , palpitation , SOB prior to fall has not been feeling well for past few days , had weakness and fatigue and intermittent dizzy spell , lightheaded , specially when standing up Xray of pelvis showed displaced fracture of rt femur during my interview , pt was awake and alert , denies of any other discomfort other than constant pain on rt hip and leg fractured area Physical Exam (per Admitting): General Appearance: + moderate distress (due to rt hip pain ), + pertinent finding (chronically ill appearing ) Eyes: sclerae normal Neck: no JVD Respiratory/Chest: lungs clear, normal breath sounds, no respiratory distress Abdomen/GI: non tender, soft, + pertinent finding (peritoneal dialysis catheter present ) Extremities/Musculoskelatal: normal capillary refill, no pedal edema, + pertinent finding (pain and tenderness on rt hip , right leg abdaucted and externally rotated ) Neurologic/Psych: no motor/sensory deficits, alert, oriented x 3 Skin: + pertinent finding (multiple bruise noted , skin tear on rt knee due to fall , bandage present ) Hospital Course Right Hip Fracture s/p ORIF POD # 8 Serous drainage from surgical site Consult wound care Hypotension likely Cardiogenic (H/O Severe , DHF) Lactic acidosis Currently on pressors gentle IV fluids PRN Continue Midodrine Also on IV albumin Appreciate Cardiology and Legal Entity Controller Input May repeat Limited ECHO today per ICU team Continue Vanco, Cefepime, Flagyl Follow up cultures (Peritoneal/Blood) Hypoxia: Will get CT chest Duonebs Atrial Fibrillation rate controlled Monitor INR:2.8 >>>3.4>>>6.3 Hold Coumadin Amiodarone, Digoxin, Metoprolol discontinued Digoxin levels:improved Home Coumadin dosage: 2 mg daily except tues/thurs 4mg ESRD on PD Hypokalemia/Hypomagnesemia Subacute Peritonitis PD per Nephro continue Ceftazidime with PD until 01/07/17: currently on hold replace electrolytes per Nephrology H/O Valvular Heart disease and chronic diastolic heart failure Severe Aortic Stenosis S/P Mitral and tricuspid valve repair Possible Type II MS demand Ischemia follows with Cardiology Dr Song in [place] ECHO as below Dysphagia: Last VFF on 06/19 showed moderate to sever esophageal dysmotility with tapering /narrowing of lower GE junction underwent EGD and dilatation Speech was consulted -Diet recommendation -dental soft /slippery diet with aspiration precaution Code Status: DNR DVT Px : Was on Coumadin INR subtherapeutic Patient had ECHO at around 10:00 am. Orthopedics evaluated patient and dressing change was done. Plan was to repeat CT chest but unfortunately patient had sudden cardiac and . ICU team discussed with patient's family. Patient was pronounced at around 10:10am per 's note. PROCEDURES: ECHO: n Left ventricular systolic function is normal. n No regional wall motion abnormalities noted. n Ejection Fraction = 65-70%. n There is mild concentric left ventricular hypertrophy. n Dilated right ventricle with reduced systolic function. n Pressure and volume overload of the right ventricle. n Severe valvular aortic stenosis. n There is moderate tricuspid regurgitation. Total time spent on discharge = This includes examination of the patient, discharge planning, medication reconciliation, and communication with other providers. Discharge Instructions
== END 2017-01-02 10:10 | disposition expired | DRG 956 ==
LOC: EDBD 01:50 → C.EDB 01:51 → C.2T 05:35 → ENRESERV 05:48 → C.MSICU 19:12 → ENRESERV 12-31 17:03 → C.2T 12-31 17:27 → ENRESERV 01-02 01:53 → C.MSICU 01-02 02:53
PROVIDERS: ADMIT Hospitalist; ATTEND Internal Medicine
PROC: 05HM33Z Insertion of Infusion Device into Right Internal Jugular Vein, Percutaneous Approach (ICD-10-PCS; 2016-12-25)
PROC: 0QS606Z Reposition Right Upper Femur with Intramedullary Internal Fixation Device, Open Approach (ICD-10-PCS; principal; 2016-12-25 12:30)
PROC: 05HN33Z Insertion of Infusion Device into Left Internal Jugular Vein, Percutaneous Approach (ICD-10-PCS; 2017-01-02)
DX: S72.141A Displaced intertrochanteric fracture of right femur, initial encounter for closed fracture (principal); S32.810A Multiple fractures of pelvis with stable disruption of pelvic ring, initial encounter for closed fracture; N18.6 End stage renal disease; K65.2 Spontaneous bacterial peritonitis; I12.0 Hypertensive chronic kidney disease with stage 5 chronic kidney disease or end stage renal disease; I50.32 Chronic diastolic (congestive) heart failure; R57.0 Cardiogenic shock; I48.0 Paroxysmal atrial fibrillation; I48.2 Chronic atrial fibrillation; R13.10 Dysphagia, unspecified; I35.0 Nonrheumatic aortic (valve) stenosis; E16.2 Hypoglycemia, unspecified; D63.1 Anemia in chronic kidney disease; N25.0 Renal osteodystrophy; I95.9 Hypotension, unspecified; I27.2 Other secondary pulmonary hypertension; I27.81 Cor pulmonale (chronic); Z66 Do not resuscitate; Z79.01 Long term (current) use of anticoagulants; Z79.2 Long term (current) use of antibiotics; Z79.899 Other long term (current) drug therapy; Z95.0 Presence of cardiac pacemaker; Z95.2 Presence of prosthetic heart valve; Z99.2 Dependence on renal dialysis; W19.XXXA Unspecified fall, initial encounter; Y92.009 Unspecified place in unspecified non-institutional (private) residence as the place of occurrence of the external cause